=== PATIENT | male | born 1955 | race Caucasian/White ===

== ENCOUNTER 2020-11-27 16:31 | Inpatient (IN) | payer MEDICARE, OTHER, SELFPAY ==
[2020-11-27] VITALS (7 sets, daily range): BP systolic 156–177; BP diastolic 68–87; PULSE 51–71; RESP 16–18; TEMP 36.4–37.3; O2SAT 95–97; BMI 25.8
--- NOTE | 2020-11-27 17:18 | HMH.EDGENADL ---
ED Disposition Clinical Impression: Pancreatitis Qualifiers: Chronicity: acute Pancreatitis type: unspecified pancreatitis type Acute pancreatitis complication: no infection or necrosis Qualified Code(s): K85.90 - Acute pancreatitis without necrosis or infection, unspecified Urinary tract infection Qualifiers: Urinary tract infection type: site unspecified Hematuria presence: without hematuria Qualified Code(s): N39.0 - Urinary tract infection, site not specified Disposition: Admitted as Observation Condition on Discharge: Fair Referrals: Rajeev Da Silva JR, MD [Primary Care Provider] - - Critical Care Critical Care Time: No Attestation: On 11/27/20, the high probability of a clinically significant, sudden or life threatening deterioration of the following system(s) required my full and direct attention, intervention and personal management. The time I documented below is in addition to time spent performing reported procedures but includes the following listed in this critical care notation. Medical Decision Making - Corey Inquiry Pt receiving controlled substance: No Vital Signs: 11/27/20 16:36 11/27/20 17:19 11/27/20 17:30 Temperature 97.5 F L Temperature Source Oral Pulse Rate 51 L 55 L Pulse Rate [Right] 60 Respiratory Rate 18 Blood Pressure Blood Pressure [Right Arm] 176/80 H Blood Pressure Mean Blood Pressure Mean [Right Arm] 112 Blood Pressure Source Blood Pressure Source [Right Arm] Automatic Cuff Blood Pressure Position 02 Sat by Pulse Oximetry 97 97 95 Oxygen Delivery Method Room Air 11/27/20 17:31 11/27/20 19:06 Temperature Temperature Source Pulse Rate 56 L 56 L Pulse Rate [Right] Respiratory Rate 18 Blood Pressure 177/87 H 175/68 H Blood Pressure [Right Arm] Blood Pressure Mean 117 Blood Pressure Mean [Right Arm] Blood Pressure Source Automatic Cuff Blood Pressure Source [Right Arm] Blood Pressure Position Sitting 02 Sat by Pulse Oximetry 95 97 Oxygen Delivery Method Room Air - Lab Data Lab Results 11/27/20 16:44: WBC 14.0 H, RBC 4.90, Hgb 14.6, Hct 40.7 L, MCV 83.0, MCH 29.9, MCHC 36.0 H, RDW 14.3, Plt Count 155, MPV 9.0, Neut % (Auto) 81.7 H, Lymph % (Auto) 11.9, [place] % (Auto) 5.9, Eos % (Auto) 0.2, Baso % (Auto) 0.2, Neut # (Auto) 11.4 H, Lymph # (Auto) 1.7, [place] # (Auto) 0.8, Eos # (Auto) 0.0, Baso # (Auto) 0.0 11/27/20 16:44: Sodium 135 L, Potassium 3.2 L, Chloride 97 L, Carbon Dioxide 30, Anion Gap 11.2, BUN 13, Creatinine 0.80, Estimated Creat Clear 85, Estimated GFR 97, Est GFR ( Amer) 117, Glucose 185 H, Calcium 9.1 11/27/20 16:44: Total Bilirubin 1.0, Direct Bilirubin 0.5 H, Conjugated Bilirubin 0.0, Indirect Bilirubin 0.5, Unconjugated Bilirubin 0.6, AST 52, ALT 34, Alkaline Phosphatase 87, Total Protein 7.6, Albumin 4.5, Lipase 2194 H 11/27/20 17:50: Urine Color Yellow, Urine Appearance Clear, Urine pH 7.0, Ur Specific [place] 1.020, Urine Protein 3+, Urine Glucose (UA) Negative, Urine Ketones 1+, Urine Blood 2+, Urine Nitrate Negative, Urine Bilirubin Negative, Urine Urobilinogen 1.0, Ur Leukocyte Esterase Trace, Urine RBC Tntc, Urine WBC Tntc, Ur Squamous Epith Cells 5-10, Urine Bacteria 3+ Result diagrams: 11/27/20 16:44 11/27/20 16:44 Orders (Tests/Meds): ED MEDICATIONS Generic Name Dose Route Start Last Admin Trade Name Freq PRN Reason Stop Dose Admin Ceftriaxone Sodium 1 gm/ 50 mls @ 100 mls/hr 11/27/20 19:30 11/27/20 20:10 Sodium Chloride IV 12/11/20 19:29 100 mls/hr Q24H IGOR Administration Protocol Discontinued Medications Generic Name Dose Route Start Last Admin Trade Name Freq PRN Reason Stop Dose Admin Iopamidol 75 ml 11/27/20 18:08 11/27/20 18:09 Iopamidol-370 (76%);100ml Bottle IV 11/27/20 18:09 75 ml ONCE ONE Administration Ondansetron HCl 4 mg 11/27/20 17:25 11/27/20 17:29 Ondansetron 4mg/2ml Vial IV 11/27/20 17:26 4 mg ONCE ONE Administration Po
--- NOTE | 2020-11-27 17:24 | CT_ITS ---
PROCEDURE INFORMATION: Exam: CT Abdomen And Pelvis With Contrast Exam date and time: 11/27/2020 5:24 PM Age: 64 years old Clinical indication: Localized; Patient HX: Lower abdominal pain with nausea and vomiting. ; Additional info: Abdominal pain, lower TECHNIQUE: Imaging protocol: Computed tomography of the abdomen and pelvis with contrast. Total images: 315 Radiation optimization: All CT scans at this facility use at least one of these dose optimization techniques: automated exposure control; mA and/or kV adjustment per patient size (includes targeted exams where dose is matched to clinical indication); or iterative reconstruction. Contrast material: ISOVUE; Contrast volume: 75 ml; Contrast route: IV; COMPARISON: No relevant prior studies available. FINDINGS: Lungs: Visualized lung bases are clear. Heart: Heart size normal. Mediastinal space: The visualized distal esophagus is normal. Liver: Mildly lobulated liver contour suggesting hepatic cirrhosis. No mass lesions. No intrahepatic biliary ductal dilatation. Gallbladder and bile ducts: There is mild pericholecystic edema along the gallbladder fossa, but not along the free wall of the gallbladder and there is no gallbladder wall thickening or adjacent stranding to specifically favor cholecystitis. This may relate to cirrhosis and hypoproteinemia. No calcified gallstones are evident. Correlate clinically for evidence of cholecystitis. Consider sonographic evaluation as clinically indicated. Nondilated bile ducts. Pancreas: Normal. No inflammatory changes or ductal dilation. Spleen: Normal. No splenomegaly. Adrenal glands: The right adrenal gland is normal. The left adrenal gland contains a 15 x 13 x 12 mm nodule measuring 50 Hounsfield units on average density. This is an indeterminate lesion. Recommend nonemergent evaluation with adrenal protocol CT or MRI. Kidneys and ureters: No acute abnormalities. No hydronephrosis or hydroureter. No urinary tract stones are identified. Stomach and bowel: The stomach is largely contracted without gross abnormality. The small bowel is nondilated with no gross abnormality. No acute colonic abnormalities. Moderate diverticulosis involving the distal colon without evidence of acute diverticulitis. Appendix: The appendix is normal in caliber and demonstrates no evidence of appendicitis. Intraperitoneal space: No free fluid or air. Vasculature: Moderate atherosclerotic aortoiliac calcification without aneurysm. Perigastric and splenorenal varices consistent with portal hypertension and portosystemic shunting. Recanalized periumbilical veins also noted. Lymph nodes: No adenopathy. Urinary bladder: Mild urinary bladder wall thickening with equivocal mild adjacent stranding. Correlate with UA for evidence of cystitis. Reproductive: Moderately enlarged prostate with lobular elevation of the bladder floor. Bones/joints: No acute osseous abnormalities. Bilateral L5 spondylolysis with 8 mm spondylolisthesis and severe disc degenerative changes at L5-S1. Moderate-severe bilateral foraminal stenosis at this level. Soft tissues: Unremarkable. IMPRESSION: 1. Findings suspicious for cystitis or possibly changes of chronic intermittent bladder outlet obstruction, correlate with UA. 2. Moderate prostate enlargement with lobular elevation of the bladder floor. No significant bladder overdistention is seen currently. 3. Evidence of hepatic cirrhosis with splenorenal varices and additional smaller varices elsewhere, suggesting portal hypertension and portosystemic shunting. 4. Mild pericholecystic edema along the gallbladder fossa but not involving the free
[2020-11-27 17:29] LABS: Chloride 97 mmol/L (98-107); Potassium 3.2 mmoL/L (3.5-5.1); Sodium 135 mmol/L (136-145)
[2020-11-27 17:32] LABS: Anion Gap 11.2 mEq/L (5-15); Blood Urea Nitrogen 13 mg/dl (9-20); Calcium 9.1 mg/dl (8.4-10.2); Carbon Dioxide 30 mmol/L (22.0-30.0); Creatinine Clearance Estimated 85 mL/min (50-200); Estimated Glomerular Filt Rate 97 ml/min (>60); GFR (African American) 117 ML/MIN (>60); Glucose 185 mg/dl (74-100)
--- NOTE | 2020-11-27 17:34 | PC.NURSE ---
Pt provided urinal, informed of need for sample.
[2020-11-27 17:37] LABS: Basophils % 0.2 % (0.1-2.0); Eosinophils % 0.2 % (0.1-12.0); Hematocrit 40.7 % (42.0-52.0); Hemoglobin 14.6 g/dL (14.1-18.0); Lymphocytes # 1.7 K/mm3 (0.7-4.5); Lymphocytes % 11.9 % (10-50); Mean Corpuscular Hemoglobin 29.9 pg (27.0-31.2); Monocytes # 0.8 K/mm3 (0.1-1.0); Monocytes % 5.9 % (1.7-9.3); Neutrophils # 11.4 K/mm3 (1.8-7.8); Neutrophils % 81.7 % (37.0-80.0); Platelet Count 155 K/mm3 (142-424); Red Cell Distribution Width 14.3 % (11.5-17.5)
[2020-11-27 17:56] LABS: Microscopic, Urine URINE MICROSCOPIC (MICROSCOPIC)
[2020-11-27 18:03] LABS: Alanine Aminotransferase 34 U/L (12-78); Albumin Level 4.5 g/dl (3.5-5.0); Alkaline Phosphatase 87 U/L (38-126); Aspartate Amino Transferase 52 U/L (17-59); Bilirubin,Direct 0.5 mg/dl (0.0-0.4); Bilirubin,Indirect 0.5 mg/dL (0.0-0.9); Bilirubin,Unconjugated 0.6 mg/dL (0.0-1.1); Total Protein,Serum 7.6 g/dl (6.3-8.2)
[2020-11-27 18:07] LABS: Appearance,Urine CLEAR (Clear); Blood, Urine 2+ (Negative); Color,Urine YELLOW (Yellow); Glucose,Urine (UA) Negative (Negative); Ketones,Urine 1+ (Negative); Leukocyte Esterase,Urine TRACE (Negative); Nitrate,Urine Negative (Negative); Protein,Urine 3+ (Negative)
[2020-11-27 18:28] LABS: Bilirubin,Urine Negative (Negative)
[2020-11-27 18:30] LABS: Lipase 2194 U/L (23-300)
[2020-11-27 18:48] LABS: Bacteria,Urine 3+ /lpf; RBC,Urine TNTC #/hpf (0-3); WBC,Urine TNTC #/hpf (0-3)
--- NOTE | 2020-11-27 20:17 | PC.NURSE ---
LAILA Correia on phone with dr loaiza
[2020-11-27 20:44] LABS: Coronavirus 19, PCR Not Detected (NotDetected); Influenza A, PCR Not Detected (NotDetected); Influenza B, PCR Not Detected (NotDetected)
--- NOTE | 2020-11-27 22:04 | PC.NURSE ---
PT ARRIVED TO [facility] VIA STRETCHER FROM ED W/STAFF AT [id number]
--- NOTE | 2020-11-27 23:32 | HMH.PHAVTE ---
[facility] Pharmacy VTE Monitoring - Patient Demographics Admission date: 11/27/20 Report Date: 11/27/20 Time: 23:32 Allergies/Adverse Reactions: Patient Allergies Acetaminophen Allergy (Unknown, Uncoded 05/19/17 15:31) Height: 1.78 m Weight: 81.647 kg Patient Problems: Current Active Problems Pancreatitis (Acute) Urinary tract infection (Acute) - VTE Risk Labs: VTE Related Lab Results Hgb 14.6 g/dL (14.1-18.0) 11/27/20 16:44 Hct 40.7 % (42.0-52.0) L 11/27/20 16:44 Plt Count 155 K/mm3 (142-424) 11/27/20 16:44 BUN 13 mg/dl (9-20) 11/27/20 16:44 Creatinine 0.80 mg/dl (0.66-1.25) 11/27/20 16:44 Estimated Creat Clear 85 mL/min (50-200) 11/27/20 16:44 Was VTE Risk Assessment Performed: Yes VTE Score: 4 VTE Risk Level: Low Risk Clinical Trial Participant: No - Prophylaxis VTE Prophylaxis Ordered?: Yes Types of VTE Prophylaxis: TEDS Knee High
--- NOTE | 2020-11-27 23:37 | HMH.PHAINT ---
home medication list confirmed using list from [facility]
--- NOTE | 2020-11-28 07:00 | US_ITS ---
PROCEDURE: US GALLBLADDER CLINICAL INDICATION: pancreatitis, possible cholecystitis on CT COMPARISON: CT CT ABDOMEN PELVIS W CON from 11/27/2020 FINDINGS: Pancreas: Unremarkable/Not well seen Liver: There is coarse echogenicity of the liver. No focal liver lesions are demonstrated.. There is appropriate direction of blood flow within a and mildly prominent portal vein at 16 mm.. Right kidney: Unremarkable appearing. No hydronephrosis. Gallbladder: No shadowing gallstones apparent. There is some thick sludge noted along the posterior aspect of the gallbladder. Tiny nonshadowing stones cannot be excluded. Common bile duct is normal at 4 mm. Gallbladder wall slightly prominent at 4 mm. No pericholecystic fluid or biliary dilatation. IMPRESSION: 1. Coarse echogenicity of the liver with appropriate direction of blood flow within a mildly dilated portal vein 2. No shadowing gallstones apparent. There is some sludge within the gallbladder. Tiny nonshadowing stones are not excluded. Dictated by: Tito Hernandez MD 11/28/2020 12:47 Tito Hernandez MD in [place] 11/28/2020 12:47
[2020-11-28 07:43] LABS: Alanine Aminotransferase 31 U/L (12-78); Albumin Level 3.7 g/dl (3.5-5.0); Albumin/Globulin Ratio 1.3 (1.1-1.8); Alkaline Phosphatase 79 U/L (38-126); Anion Gap 10.2 mEq/L (5-15); Aspartate Amino Transferase 48 U/L (17-59); Basophils % 0.2 % (0.1-2.0); Bilirubin,Total 0.7 mg/dl (0.2-1.3); Blood Urea Nitrogen 13 mg/dl (9-20); Calcium 8.3 mg/dl (8.4-10.2); Carbon Dioxide 30 mmol/L (22.0-30.0); Chloride 104 mmol/L (98-107); Creatinine Clearance Estimated 85 mL/min (50-200); Eosinophils % 0.2 % (0.1-12.0); Estimated Glomerular Filt Rate 97 ml/min (>60); GFR (African American) 117 ML/MIN (>60); Globulin 2.8 g/dL (1.3-3.2); Glucose 170 mg/dl (74-100); Hematocrit 38.9 % (42.0-52.0); Hemoglobin 13.7 g/dL (14.1-18.0); Lipase 1842 U/L (23-300); Lymphocytes # 1.1 K/mm3 (0.7-4.5); Lymphocytes % 11.9 % (10-50); Mean Corpuscular HGB Conc 35.1 g/dL (31.8-35.4); Mean Corpuscular Hemoglobin 29.8 pg (27.0-31.2); Mean Corpuscular Volume 84.7 fl (80-94); Mean Platelet Volume 8.6 fl (7.4-10.4); Monocytes # 0.6 K/mm3 (0.1-1.0); Monocytes % 6.5 % (1.7-9.3); Neutrophils # 7.7 K/mm3 (1.8-7.8); Neutrophils % 81.2 % (37.0-80.0); Platelet Count 132 K/mm3 (142-424); Potassium 3.2 mmoL/L (3.5-5.1); Red Blood Count 4.59 M/mm3 (4.60-6.20); Red Cell Distribution Width 14.5 % (11.5-17.5); Sodium 141 mmol/L (136-145); Total Protein,Serum 6.5 g/dl (6.3-8.2); White Blood Count 9.5 K/mm3 (4.8-10.8)
[2020-11-28 08:00] VITALS: BP 160/82; PULSE 66; RESP 17; TEMP 36.7; O2SAT 95
--- NOTE | 2020-11-28 08:00 | HMH.HP ---
*Admission Date: 11/27/20 <Marichuy Luo - 11/28/20 08:29> *Chief complaint: Nausea, vomiting and abdominal pain. <Marichuy Luo - 11/28/20 08:29> *History of present illness: Mr. Garcia is a 64-year-old male patient with a history of hypertension, hyperlipidemia, type 2 diabetes mellitus, and environmental allergies who presented to [facility] after having nausea vomiting with abdominal discomfort for 3 days. He states he ate a large quantity of grapes after which he became nauseated and began his vomiting. He has been unable to retain medicines, food or fluids and felt dehydrated. He denies having a fever. His bowels moved 3 days ago but have had no stools since. He denies hematemesis, melena, and hematochezia. He has had some difficulty with urination but describes an enlarged prostate. He thus presented to [facility] emergency room for evaluation. In the emergency room Patient was started on Rocephin and given Zofran, Phenergan and IV fluids. CT scan Of the abdomen and pelvis revealed the following: IMPRESSION: 1. Findings suspicious for cystitis or possibly changes of chronic intermittent bladder outlet obstruction, correlate with UA. 2. Moderate prostate enlargement with lobular elevation of the bladder floor. No significant bladder overdistention is seen currently. 3. Evidence of hepatic cirrhosis with splenorenal varices and additional smaller varices elsewhere, suggesting portal hypertension and portosystemic shunting. 4. Mild pericholecystic edema along the gallbladder fossa but not involving the free wall, probably related to hepatic cirrhosis and hypoproteinemia. Correlate clinically for evidence of cholecystitis, consider sonographic evaluation as clinically indicated. 5. Moderate diverticulosis involving the distal colon without evidence of acute diverticulitis. 6. Additional non-emergent findings detailed above. Urinalysis reveals probable UTI with white blood cells too numerous to count, 3+ bacteria, 2+ blood with pending urine culture. Blood chemistries show low potassium at 3.2 and otherwise normal electrolytes. Kidney function is normal. Liver function studies show an normal AST of 52 and ALT with normal alkaline phosphatase at 87. Lipase was 2194 on admission and this morning is 1842. Albumin is normal. Bilirubin is normal at 1. This morning patient remains nauseated. He said his abdomen has quit hurting. He has been voiding QS. He denies chest pain and shortness of breath. He is n.p.o. at present. <Luo,Marichuy 11/28/20 08:29> [facility] History Medical History: Reports:: Diabetes Mellitus Type 2, Hyperlipidemia, Hypertension Denies:: Cancer, Internal Pacemaker, MRSA, Palpitations <Luo,Marichuy - 11/28/20 08:29> *Have you ever received a pneumonia vaccine?: Yes <PujaMarichuy 11/28/20 08:29> *Have you received a flu vaccine this season?: Yes <PujaMarichuy 11/28/20 08:29> Other Medical History: Reports: Cataracts, Liver Disease <PujaMarichuy 11/28/20 08:29> Comment:: BPH <PujaMarichuy 11/28/20 08:29> Other Surgeries: No: Pacemaker <PujaMarichuy 11/28/20 08:29> Amputation: No <PujaMarichuy 11/28/20 08:29> Comment: 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 <PujaMarichuy 11/28/20 08:29> - *Social History Last grade of school completed: 7th or 8th <PujaMarichuy 11/28/20 08:29> Smoking Status: Former smoker <PujaMarichuy - 11/28/20 08:29> Alcohol Intake: former <Luo,Marichuy 11/28/20 08:29> *Occupational Status:: retired <PujaMarichuy 11/28/20 08:29> Housing: house <PujaMarichuy 11/28/20 08:29> Household Members: spouse <PujaMarichuy 11/28/20 08:29> *Travel in the last 8 weeks: None <Marichuy Luo 11/28/20 08:29> Family Hx:: Cancer, Diabetes, Heart Attack, Hypertension <Marichuy Luo 11/28/20 08:29> Review of Systems - Constitutional Reports headache(s), Denies fever(s) <Marichuy Luo
[2020-11-28 11:44] LABS: POC Glucose,Bedside 178 (70-110)
[2020-11-28 11:44] LABS: POC Glucose,Bedside 186 (70-110)
[2020-11-28 14:56] VITALS: BMI 25.9
[2020-11-28 15:26] VITALS: BP 130/62; PULSE 49; RESP 20; TEMP 36.9; O2SAT 94
--- NOTE | 2020-11-28 17:44 | PC.NURSE ---
Pt treated once this shift for nausea w/ adequate relief voiced. Remains on room air, w/ no s/s of resp distress. HR regular. Abdomen soft, tender w/ active BS in all quads. Independent w/ adl's. Voiding per urinal w/o difficulty. Tolerating clear liquid diet. @ bedside this shift. No complaints voiced. Call galina w/in reach.
[2020-11-28 20:00] VITALS: BP 173/74; PULSE 55; RESP 18; TEMP 36.6; O2SAT 94; O2SAT 96
[2020-11-28 21:59] LABS: POC Glucose,Bedside 194 (70-110)
[2020-11-28 21:59] LABS: POC Glucose,Bedside 147 (70-110)
[2020-11-29 04:00] VITALS: BP 168/69; PULSE 52; RESP 18; TEMP 36.7; O2SAT 96
[2020-11-29 05:16] VITALS: BMI 25.3
[2020-11-29 05:53] LABS: POC Glucose,Bedside 107 (70-110)
--- NOTE | 2020-11-29 06:15 | PC.NURSE ---
patient had multiple episodes of n/v/d; phenergan per MAR x 2 doses; shows no s/s of acute distress at this time. Bed at lowest level, call light within reach; will continue to monitor.
[2020-11-29 07:22] LABS: Basophils % 0.3 % (0.1-2.0); Eosinophils # 0.2 K/mm3 (0.0-0.4); Eosinophils % 1.8 % (0.1-12.0); Hematocrit 41.2 % (42.0-52.0); Hemoglobin 14.4 g/dL (14.1-18.0); Lymphocytes # 1.4 K/mm3 (0.7-4.5); Lymphocytes % 13.1 % (10-50); Mean Corpuscular Hemoglobin 29.6 pg (27.0-31.2); Mean Corpuscular Volume 84.7 fl (80-94); Mean Platelet Volume 8.4 fl (7.4-10.4); Monocytes # 0.7 K/mm3 (0.1-1.0); Monocytes % 6.9 % (1.7-9.3); Neutrophils # 8.3 K/mm3 (1.8-7.8); Neutrophils % 77.9 % (37.0-80.0); Platelet Count 130 K/mm3 (142-424); Red Blood Count 4.87 M/mm3 (4.60-6.20); Red Cell Distribution Width 14.4 % (11.5-17.5); White Blood Count 10.7 K/mm3 (4.8-10.8)
[2020-11-29 07:26] LABS: Chloride 101 mmol/L (98-107); Sodium 137 mmol/L (136-145)
[2020-11-29 07:29] LABS: Alanine Aminotransferase 38 U/L (12-78); Albumin Level 3.8 g/dl (3.5-5.0); Albumin/Globulin Ratio 1.5 (1.1-1.8); Alkaline Phosphatase 85 U/L (38-126); Aspartate Amino Transferase 60 U/L (17-59); Bilirubin,Total 1.2 mg/dl (0.2-1.3); Blood Urea Nitrogen 13 mg/dl (9-20); Carbon Dioxide 28 mmol/L (22.0-30.0); Creatinine Clearance Estimated 84 mL/min (50-200); Estimated Glomerular Filt Rate 85 ml/min (>60); GFR (African American) 102 ML/MIN (>60); Globulin 2.5 g/dL (1.3-3.2); Glucose 155 mg/dl (74-100); Lipase 332 U/L (23-300); Total Protein,Serum 6.3 g/dl (6.3-8.2)
[2020-11-29 07:41] LABS: Anion Gap 10.8 mEq/L (5-15); Potassium 2.8 mmoL/L (3.5-5.1)
[2020-11-29 07:44] VITALS: BP 180/70; PULSE 65; RESP 18; TEMP 36.4; O2SAT 96
--- NOTE | 2020-11-29 08:19 | NM_ITS ---
PROCEDURE: NM HEPATOBILIARY W PHARM CLINICAL INDICATION: persistent N V; abnormal GB US COMPARISON: No exams were available for comparison TECHNIQUE: DOSE: 8.25 mCi technetium Choletec and 1.6 mcg of CCK FINDINGS: Homogeneous activity is present within the hepatic parenchyma. Activity is present in the gallbladder by 10 minutes Activity is present in the small bowel by 15 minutes. The gallbladder ejection fraction is calculated to be 60 percent. Mild pain was reported with CCK infusion IMPRESSION: Unremarkable hepatobiliary scan with normal gallbladder ejection fraction. Dictated by: Tito Hernandez MD 11/29/2020 15:04 Tito Hernandez MD in [place] 11/29/2020 15:04
--- NOTE | 2020-11-29 08:19 | HMH.ACPN2 ---
<Meri Flores - Last Filed: 11/29/20 08:19> Internal Medicine - PN: Subj *Date: 11/29/20 *Time: 08:19 Interval history: Patient states he had a rough night. He had nausea and diarrhea all night. He states he is having some pain in his right mid and upper quadrant. He says he is hungry and would like to try some food. His gallbladder showed no stones but some sludge. Exam Vital signs and Labs for Last 24 Hours: Temp Pulse Resp BP Pulse Ox 97.6 F 65 18 180/70 H 96 11/29/20 07:44 11/29/20 07:44 11/29/20 07:44 11/29/20 07:44 11/29/20 07:44 Laboratory Results - last 24 hr 11/28/20 05:05: POC Glucose 186 H 11/28/20 11:35: POC Glucose 178 H 11/28/20 16:59: POC Glucose 147 H 11/28/20 21:29: POC Glucose 194 H 11/29/20 05:39: POC Glucose 107 11/29/20 06:56: WBC 10.7, RBC 4.87, Hgb 14.4, Hct 41.2 L, MCV 84.7, MCH 29.6, MCHC 35.0, RDW 14.4, Plt Count 130 L, MPV 8.4, Neut % (Auto) 77.9, Lymph % (Auto) 13.1, [place] % (Auto) 6.9, Eos % (Auto) 1.8, Baso % (Auto) 0.3, Neut # (Auto) 8.3 H, Lymph # (Auto) 1.4, [place] # (Auto) 0.7, Eos # (Auto) 0.2, Baso # (Auto) 0.0 11/29/20 06:56: Sodium 137, Potassium 2.8 L*, Chloride 101, Carbon Dioxide 28, Anion Gap 10.8, BUN 13, Creatinine 0.90, Estimated Creat Clear 84, Estimated GFR 85, Est GFR ( Amer) 102, Glucose 155 H, Calcium 8.0 L, Total Bilirubin 1.2, AST 60 H, ALT 38, Alkaline Phosphatase 85, Total Protein 6.3, Albumin 3.8, Globulin 2.5, Albumin/Globulin Ratio 1.5, Lipase 332 H I & O for Last 24 hours: Intake & Output 11/26/20 11/27/20 11/28/20 11/29/20 11:59 11:59 11:59 11:59 Intake Total 2465 / 2465 4238 / 4238 Output Total 700 / 700 3750 / 3750 Balance 1765 / 1765 488 / 488 Weight 180 lb 0.013 oz 177 lb 2 oz Microbiology Reports for the Last 24 Hours: Microbiology 11/27/20 17:50 Urine,Clean Catch Urine Culture - Preliminary - Constitutional no acute distress - *Routine Respiratory Exam Present: CTA bilaterally - *Routine Cardiovascular Exam Present: RRR - *Routine Abdominal Exam Present: soft, normoactive bowel sounds, tenderness (Right middle quadrant and right upper quadrant) - *Routine Extremities Exam Absent: cyanosis, clubbing, edema - *Routine Skin Exam Present: warm. Absent: rash - *Routine Neurological Exam Present: alert, oriented X3 Assessment and Plan (1) Intractable nausea and vomiting Status: Acute Category: Medical Code(s): R11.2 - Nausea with vomiting, unspecified (2) Pancreatitis Status: Acute Qualifiers: Chronicity: acute Pancreatitis type: unspecified pancreatitis type Acute pancreatitis complication: no infection or necrosis Qualified Code(s): K85.90 - Acute pancreatitis without necrosis or infection, unspecified Category: Medical Code(s): K85.90 - Acute pancreatitis without necrosis or infection, unspecified (3) Urinary tract infection Status: Acute Qualifiers: Urinary tract infection type: site unspecified Hematuria presence: without hematuria Qualified Code(s): N39.0 - Urinary tract infection, site not specified Category: Medical Code(s): N39.0 - Urinary tract infection, site not specified (4) Hypertension Status: Chronic Category: Medical Code(s): I10 - Essential (primary) hypertension (5) Cirrhosis Status: Chronic Category: Medical Code(s): K74.60 - Unspecified cirrhosis of liver (6) Type 2 diabetes mellitus Status: Chronic Category: Medical Code(s): E11.9 - Type 2 diabetes mellitus without complications (7) BPH (benign prostatic hyperplasia) Status: Chronic Category: Medical Code(s): N40.0 - Benign prostatic hyperplasia without lower urinary tract symptoms (8) Diverticulosis Status: Chronic Category: Medical Code(s): K57.90 - Diverticulosis of intestine, part unspecified, without perforation or abscess without bleeding - Assessment and plan all Dx Assessment and Plan for all problems:: We will start the
[2020-11-29 11:26] LABS: POC Glucose,Bedside 178 (70-110)
[2020-11-29 14:59] VITALS: BP 173/73; PULSE 50; RESP 18; TEMP 36.6; O2SAT 97
[2020-11-29 15:48] LABS: Adenovirus F 40/41, stool Not Detected (NotDetected); Astrovirus Not Detected (NotDetected); Campylobacter Not Detected (NotDetected); Clostridium Difficile A/B, PCR Not Detected (NotDetected); Cryptosporidium Not Detected (NotDetected); Cyclospora Cayetanesis Not Detected (NotDetected); Entamoeba histolytica Not Detected (NotDetected); Enteroaggregative E coli Not Detected (NotDetected); Enteropathogenic E coli Not Detected (NotDetected); Enterotoxigenic E coli Not Detected (NotDetected); Giardia lamblia Not Detected (NotDetected); Norovirus Not Detected (NotDetected); Plesimonas Shigalloides, PCR Not Detected (NotDetected); Salmonella, PCR Not Detected (NotDetected); Shiga-like toxin E coli Not Detected (NotDetected); Shigella Enterovasive E coli Not Detected (NotDetected); Vibrio Cholerae Not Detected (NotDetected); Vibrio, PCR Not Detected (NotDetected); Yersinia Entercolitica, PCR Not Detected (NotDetected)
[2020-11-29 15:49] LABS: Rotavirus A Not Detected (NotDetected); Sapovirus Not Detected (NotDetected)
[2020-11-29 17:20] LABS: POC Glucose,Bedside 138 (70-110)
--- NOTE | 2020-11-29 17:59 | PC.NURSE ---
PT IS RESTING IN BED. PT'S ONLY COMPLAINT THIS SHIFT HAS BEEN DISCOMFORT WITH THE POTASSIUM RUNS AND THAT HE HAS HAD SEVERAL LOOSE STOOLS. DIARRHEA PANEL HAS BEEN COLLECTED AND SENT TO THE LAB. ALERT AND ORIENTED X4. PT WAS NPO T/O MOST OF THE SHIFT TODAY B/C HE HAD TO HAVE A HIDA SCAN. PT IS NOW EATING A DIABETIC DIET WHICH HE APPEARS TO BE TOLERATING FINE. URINATING WELL. PT HAS AMBULATED TO THE BATHROOM SEVERAL TIMES THIS SHIFT. RADIOLOGY STATED PT HAD AN ACCIDENT ON THE TABLE DURING HIDA SCAN. LUNG SOUNDS CLEAR. ABDOMEN SOFT/NON TENDER WITH ACTIVE BOWEL SOUNDS. WILL CONTINUE TO MONITOR.
[2020-11-29 20:00] VITALS: BP 175/64; PULSE 50; RESP 18; TEMP 36.7; O2SAT 95
[2020-11-29 22:57] LABS: POC Glucose,Bedside 149 (70-110)
[2020-11-30 03:44] VITALS: BP 172/73; PULSE 49; RESP 16; TEMP 36.7; O2SAT 94
--- NOTE | 2020-11-30 05:19 | PC.NURSE ---
Patient is A&Ox4. Patient has had some loose stools during the beginning of the shift. Patient is wearing a brief. Patient had some complaints of nausea around midnight and was administered phenergan per MAR. Patient has rested well through the night. Bowel sounds in all 4 quadrants are hyperactive. Call light within reach, bed in lowest position. Will continue to monitor.
[2020-11-30 05:30] VITALS: BMI 25.7
[2020-11-30 06:09] LABS: POC Glucose,Bedside 166 (70-110)
[2020-11-30 06:38] LABS: Anion Gap 9.8 mEq/L (5-15); Blood Urea Nitrogen 12 mg/dl (9-20); Calcium 7.8 mg/dl (8.4-10.2); Carbon Dioxide 27 mmol/L (22.0-30.0); Chloride 103 mmol/L (98-107); Creatinine Clearance Estimated 85 mL/min (50-200); Estimated Glomerular Filt Rate 85 ml/min (>60); GFR (African American) 102 ML/MIN (>60); Glucose 157 mg/dl (74-100); Sodium 137 mmol/L (136-145)
[2020-11-30 07:08] LABS: Potassium 2.8 mmoL/L (3.5-5.1)
--- NOTE | 2020-11-30 07:19 | PC.NURSE ---
Yancy from lab called and reported a critical potassium level of 2.8. Name and and Lab value repeated x2. tank car reconditioner for A paged at [id number]
[2020-11-30 07:37] VITALS: BP 175/73; PULSE 51; RESP 18; TEMP 37.3; O2SAT 95
[2020-11-30 08:00] VITALS: O2SAT 95
--- NOTE | 2020-11-30 08:30 | HMH.ACPN2 ---
<Meri Flores - Last Filed: 11/30/20 08:30> Internal Medicine - PN: Subj *Date: 11/30/20 *Time: 08:30 Interval history: Patient states he is feeling a little bit better this morning. He tried to drink water too fast this morning and got nauseated, but his abdominal pain has improved. His HIDA scan was unremarkable. Dr. Clement tried to order a diet for the patient 3 times yesterday and he still did not get a diet. Exam Vital signs and Labs for Last 24 Hours: Temp Pulse Resp BP Pulse Ox 99.2 F 51 L 18 175/73 H 95 11/30/20 07:37 11/30/20 07:37 11/30/20 07:37 11/30/20 07:37 11/30/20 07:37 Laboratory Results - last 24 hr 11/29/20 11:19: POC Glucose 178 H 11/29/20 15:40: Stl Aeromonas (PCR) Not detected, Stl C. cayetanensis PCR Not detected, Stool Rotavirus (PCR) Not detected, Stl Adenov F 40/41 PCR Not detected, Stool Astrovirus (PCR) Not detected, Stool Campylobacter PCR Not detected, Stl C.difficile Tox PCR Not detected, Stool Cryptosporidium PCR Not detected, Stl E.coli Shiga Tox PCR Not detected, Stool E coli O157 PCR Not detected, Stl Enterotoxigenic E PCR Not detected, Stool EPEC (PCR) Not detected, Stool EAEC (PCR) Not detected, Stl E. histolytica PCR Not detected, Stool Giardia Lamblia PCR Not detected, Stool Salmonella PCR Not detected, Stool Sapovirus (PCR) Not detected, Stl P. shigelloides PCR Not detected, Stl Shigella/EIEC PCR Not detected, St Y.enterocolitica PCR Not detected, Stool Vibrio (PCR) Not detected, Stl Vibrio cholerae PCR Not detected, Stl Norovirus GI/GII PCR Not detected 11/29/20 17:03: POC Glucose 138 H 11/29/20 20:53: POC Glucose 149 H 11/30/20 05:32: Sodium 137, Potassium 2.8 L*, Chloride 103, Carbon Dioxide 27, Anion Gap 9.8, BUN 12, Creatinine 0.90, Estimated Creat Clear 85, Estimated GFR 85, Est GFR ( Amer) 102, Glucose 157 H, Calcium 7.8 L 11/30/20 05:52: POC Glucose 166 H I & O for Last 24 hours: Intake & Output 11/27/20 11/28/20 11/29/20 11/30/20 11:59 11:59 11:59 11:59 Intake Total 2465 / 2465 4238 / 4238 3744 / 3744 Output Total 700 / 700 4300 / 4300 4276 / 4276 Balance 1765 / 1765 -62 / -62 -532 / -532 Weight 180 lb 0.013 oz 177 lb 2 oz 179 lb 12.309 oz Microbiology Reports for the Last 24 Hours: Microbiology 11/27/20 17:50 Urine,Clean Catch Urine Culture - Final Multiple organisms, suggests contamination. - Constitutional no acute distress - *Routine Respiratory Exam Present: CTA bilaterally - *Routine Cardiovascular Exam Present: RRR - *Routine Abdominal Exam Present: soft, normoactive bowel sounds. Absent: tenderness - *Routine Extremities Exam Absent: cyanosis, clubbing, edema - *Routine Skin Exam Present: warm. Absent: rash - *Routine Neurological Exam Present: alert, oriented X3 Assessment and Plan (1) Intractable nausea and vomiting Status: Acute Category: Medical Code(s): R11.2 - Nausea with vomiting, unspecified (2) Pancreatitis Status: Acute Qualifiers: Chronicity: acute Pancreatitis type: unspecified pancreatitis type Acute pancreatitis complication: no infection or necrosis Qualified Code(s): K85.90 - Acute pancreatitis without necrosis or infection, unspecified Category: Medical Code(s): K85.90 - Acute pancreatitis without necrosis or infection, unspecified (3) Urinary tract infection Status: Acute Qualifiers: Urinary tract infection type: site unspecified Hematuria presence: without hematuria Qualified Code(s): N39.0 - Urinary tract infection, site not specified Category: Medical Code(s): N39.0 - Urinary tract infection, site not specified (4) Hypertension Status: Chronic Category: Medical Code(s): I10 - Essential (primary) hypertension (5) Cirrhosis Status: Chronic Category: Medical Code(s): K74.60 - Unspecified cirrhosis of liver (6) Type 2 diabetes mellitus Status: Chronic Category: Medical Code(s): E11.9 - Type 2
[2020-11-30 12:07] LABS: POC Glucose,Bedside 145 (70-110)
[2020-11-30 15:48] VITALS: BP 140/64; PULSE 66; RESP 17; TEMP 37.2; O2SAT 96
--- NOTE | 2020-11-30 16:43 | PC.NURSE ---
Pt has slept most of this shift. Pt has tolerated a diabetic diet w/o difficulty this shift. No other acute changes or complaints at this time. Will continue to monitor.
[2020-11-30 17:03] LABS: POC Glucose,Bedside 209 (70-110)
[2020-11-30 19:11] VITALS: BP 131/64; PULSE 52; RESP 20; TEMP 36.9; O2SAT 96
[2020-11-30 20:00] VITALS: O2SAT 97
[2020-12-01] VITALS: BP 138/68; PULSE 53; RESP 18; TEMP 36.6; O2SAT 98
[2020-12-01 01:39] LABS: POC Glucose,Bedside 147 (70-110)
[2020-12-01 05:00] VITALS: BMI 25.7
[2020-12-01 05:52] LABS: POC Glucose,Bedside 163 (70-110)
[2020-12-01 06:00] VITALS: BP 158/72; PULSE 69; RESP 18; TEMP 36.8; O2SAT 96
[2020-12-01 07:47] LABS: Anion Gap 10.2 mEq/L (5-15); Blood Urea Nitrogen 15 mg/dl (9-20); Calcium 7.9 mg/dl (8.4-10.2); Carbon Dioxide 26 mmol/L (22.0-30.0); Chloride 105 mmol/L (98-107); Creatinine Clearance Estimated 85 mL/min (50-200); Estimated Glomerular Filt Rate 75 ml/min (>60); GFR (African American) 91 ML/MIN (>60); Glucose 144 mg/dl (74-100); Potassium 3.2 mmoL/L (3.5-5.1); Sodium 138 mmol/L (136-145)
[2020-12-01 07:52] VITALS: BP 155/64; PULSE 52; RESP 18; TEMP 36.7; O2SAT 98
--- NOTE | 2020-12-01 08:50 | HMH.ACPN2 ---
Internal Medicine - PN: Subj *Date: 12/01/20 *Time: 08:50 Interval history: He looks and feels much better this morning. He had a good day yesterday. He still has loose stools but frequency has decreased considerably. No further nausea or vomiting. He has been tolerating his diabetic diet. No abdominal pain. Exam Vital signs and Labs for Last 24 Hours: Temp Pulse Resp BP Pulse Ox 98.1 F 52 L 18 155/64 H 98 12/01/20 07:52 12/01/20 07:52 12/01/20 07:52 12/01/20 07:52 12/01/20 07:52 Laboratory Results - last 24 hr 11/30/20 11:57: POC Glucose 145 H 11/30/20 16:48: POC Glucose 209 H 11/30/20 19:53: POC Glucose 147 H 12/01/20 05:41: POC Glucose 163 H 12/01/20 06:30: Sodium 138, Potassium 3.2 L, Chloride 105, Carbon Dioxide 26, Anion Gap 10.2, BUN 15, Creatinine 1.00, Estimated Creat Clear 85, Estimated GFR 75, Est GFR ( Amer) 91, Glucose 144 H, Calcium 7.9 L I & O for Last 24 hours: Intake & Output 11/28/20 11/29/20 11/30/20 12/01/20 11:59 11:59 11:59 11:59 Intake Total 2465 / 2465 4238 / 4238 3744 / 4744 3279 / 3279 Output Total 700 / 700 4300 / 4300 4826 / 5426 2550 / 2550 Balance 1765 / 1765 -62 / -62 -1082 / -682 729 / 729 Weight 180 lb 0.013 oz 177 lb 2 oz 179 lb 12.309 oz 180 lb Microbiology Reports for the Last 24 Hours: Microbiology 11/27/20 17:50 Urine,Clean Catch Urine Culture - Final Multiple organisms, suggests contamination. Narrative: He is sitting up in the chair. He is alert and oriented. Color is normal. Lungs are clear. Heart is regular. Abdomen soft and nondistended with no masses or tenderness. Assessment and Plan (1) Intractable nausea and vomiting Status: Acute Category: Medical Code(s): R11.2 - Nausea with vomiting, unspecified (2) Pancreatitis Status: Acute Qualifiers: Chronicity: acute Pancreatitis type: unspecified pancreatitis type Acute pancreatitis complication: no infection or necrosis Qualified Code(s): K85.90 - Acute pancreatitis without necrosis or infection, unspecified Category: Medical Code(s): K85.90 - Acute pancreatitis without necrosis or infection, unspecified (3) Urinary tract infection Status: Acute Qualifiers: Urinary tract infection type: site unspecified Hematuria presence: without hematuria Qualified Code(s): N39.0 - Urinary tract infection, site not specified Category: Medical Code(s): N39.0 - Urinary tract infection, site not specified (4) Hypertension Status: Chronic Category: Medical Code(s): I10 - Essential (primary) hypertension (5) Cirrhosis Status: Chronic Category: Medical Code(s): K74.60 - Unspecified cirrhosis of liver (6) Type 2 diabetes mellitus Status: Chronic Category: Medical Code(s): E11.9 - Type 2 diabetes mellitus without complications (7) BPH (benign prostatic hyperplasia) Status: Chronic Category: Medical Code(s): N40.0 - Benign prostatic hyperplasia without lower urinary tract symptoms (8) Diverticulosis Status: Chronic Category: Medical Code(s): K57.90 - Diverticulosis of intestine, part unspecified, without perforation or abscess without bleeding - Assessment and plan all Dx Assessment and Plan for all problems:: Clinically and subjectively much improved. Potassium is still low but improved to 3.2. He is stable for discharge and will follow up with his PCP, Dr. Da Silva, within the next 1 to 2 weeks. He will continue on potassium supplementation as an outpatient. He will finish with 5 more days of p.o. Levaquin as an outpatient.
--- NOTE | 2020-12-05 16:24 | HMH.DCSUM ---
General - General Admission date:: 11/27/20 <Harrison Clement - 01/07/21 18:32> 11/27/20 <Meri Flores - 12/05/20 16:30> Discharge date: 12/01/20 <SandraMeri - 12/05/20 16:30> HPI HPI: Mr. Garcia is a 64-year-old male patient with a history of hypertension, hyperlipidemia, type 2 diabetes mellitus, and environmental allergies who presented to [facility] after having nausea vomiting with abdominal discomfort for 3 days. He states he ate a large quantity of grapes after which he became nauseated and began his vomiting. He has been unable to retain medicines, food or fluids and felt dehydrated. He denies having a fever. His bowels moved 3 days ago but have had no stools since. He denies hematemesis, melena, and hematochezia. He has had some difficulty with urination but describes an enlarged prostate. He thus presented to [facility] emergency room for evaluation. In the emergency room Patient was started on Rocephin and given Zofran, Phenergan and IV fluids. CT scan Of the abdomen and pelvis revealed the following: IMPRESSION: 1. Findings suspicious for cystitis or possibly changes of chronic intermittent bladder outlet obstruction, correlate with UA. 2. Moderate prostate enlargement with lobular elevation of the bladder floor. No significant bladder overdistention is seen currently. 3. Evidence of hepatic cirrhosis with splenorenal varices and additional smaller varices elsewhere, suggesting portal hypertension and portosystemic shunting. 4. Mild pericholecystic edema along the gallbladder fossa but not involving the free wall, probably related to hepatic cirrhosis and hypoproteinemia. Correlate clinically for evidence of cholecystitis, consider sonographic evaluation as clinically indicated. 5. Moderate diverticulosis involving the distal colon without evidence of acute diverticulitis. 6. Additional non-emergent findings detailed above. Urinalysis reveals probable UTI with white blood cells too numerous to count, 3+ bacteria, 2+ blood with pending urine culture. Blood chemistries show low potassium at 3.2 and otherwise normal electrolytes. Kidney function is normal. Liver function studies show an normal AST of 52 and ALT with normal alkaline phosphatase at 87. Lipase was 2194 on admission and this morning is 1842. Albumin is normal. Bilirubin is normal at 1. This morning patient remains nauseated. He said his abdomen has quit hurting. He has been voiding QS. He denies chest pain and shortness of breath. He is n.p.o. at present. <Meri Flores - 12/05/20 16:30> Hospital Course Hospital Course: The patient was admitted and started on IV fluids as well as Invanz for UTI and suspected intra-abdominal infection, and Zofran and Compazine for his nausea. He was also placed on sliding scale insulin and his home medications were restarted. A right upper quadrant ultrasound was ordered. It showed a coarse echogenicity of the liver with a mildly dilated portal vein. There were no shadowing gallstones apparent but there was some sludge in the gallbladder. A HIDA scan was therefore ordered and was unremarkable. The patient continued with nausea and some diarrhea. He was started on Reglan due to probable diabetic gastroparesis and a diet was ordered. His abdominal pain improved and his white blood cell count improved on the Invanz. He was given runs of potassium due to hypokalemia. A diarrhea panel was ordered and was normal. He was switched to oral medications. He gave a further history that he had been having similar bouts of nausea, vomiting, and diarrhea on and off for approximately 2 years. His PCP had advised him to get a colonoscopy in the past, but he had refused. By 12/01/2020, he looked and felt better. His diarrhea had decreased and he had no further nausea or vomiting. He was able to tolerate a diabetic diet and was stable to be discharged home. H
== END 2020-12-01 09:40 | disposition home or self-care (01) | DRG 689 ==
LOC: ER 20:12 → 2ND 21:05
PROVIDERS: Admitting Provider Family Medicine; Emergency Provider Emergency Medicine; PCP Family Medicine; Visit Provider Family Medicine
DX: N39.0 Urinary tract infection, site not specified (principal); K85.90 Acute pancreatitis without necrosis or infection, unspecified; K74.60 Unspecified cirrhosis of liver; Z87.891 Personal history of nicotine dependence; E78.5 Hyperlipidemia, unspecified; I10 Essential (primary) hypertension; N40.0 Benign prostatic hyperplasia without lower urinary tract symptoms; Z79.84 Long term (current) use of oral hypoglycemic drugs; E11.43 Type 2 diabetes mellitus with diabetic autonomic (poly)neuropathy; K31.84 Gastroparesis; E87.6 Hypokalemia
CPT/HCPCS: 36415; 74177; 76705; 78227; 80048; 80053; 80076; 81001; 82962; 83690; 85025; 87086; 87507; 96365; 96375; 96376; 99291; A9537; J1335; J2405; J2805; Q9967; U0003

== ENCOUNTER 2021-12-12 20:57 | Observation (INO) | payer MEDICARE, OTHER, SELFPAY ==
[2021-12-12 21:01] VITALS: BP 166/87; PULSE 72; RESP 18; TEMP 36.8; O2SAT 98; BMI 27.1
--- NOTE | 2021-12-12 21:14 | PC.NURSE ---
PATIENT AMBULATED TO BATHROOM. SOILED ATTENDS. NEW ATTENDS AND WIPES GIVEN TO PATIENT. ASSISTING PATIENT WITH CLEANING UP. INFORMED PATIENT TO RING OUT WHEN HE WAS FINISHED AND I WILL ATTEMPT TO OBTAIN STOOL SAMPLE FROM SOILED ATTENDS.
[2021-12-12 21:18] LABS: Coronavirus 19, PCR Not Detected (NotDetected); Influenza A, PCR Not Detected (NotDetected); Influenza B, PCR Not Detected (NotDetected)
[2021-12-12 21:29] VITALS: BP 175/76; PULSE 64; O2SAT 99
--- NOTE | 2021-12-12 21:36 | PC.NURSE ---
UNABLE TO OBTAIN STOOL SAMPLE FROM SOILED ATTENDS. INSTRUCTED PATIENT WE NEED A STOOL AND URINE SAMPLE. PATIENT SITTING UP IN RECLINER. WARM BLANKET GIVEN. AT BEDSIDE.
[2021-12-12 21:44] LABS: Basophils # 0.3 K/mm3 (0-0.2); Basophils % 1.7 % (0.1-2.0); Eosinophils # 0.1 K/mm3 (0.0-0.4); Eosinophils % 0.5 % (0.1-12.0); Hematocrit 47.8 % (42.0-52.0); Hemoglobin 16.4 g/dL (14.1-18.0); Lymphocytes # 1.4 K/mm3 (0.7-4.5); Lymphocytes % 7.9 % (10-50); Mean Corpuscular HGB Conc 34.3 g/dL (31.8-35.4); Mean Corpuscular Hemoglobin 29.7 pg (27.0-31.2); Mean Corpuscular Volume 86.7 fl (80-94); Mean Platelet Volume 8.5 fl (7.4-10.4); Monocytes # 1.2 K/mm3 (0.1-1.0); Monocytes % 6.8 % (1.7-9.3); Neutrophils # 14.3 K/mm3 (1.8-7.8); Neutrophils % 83.1 % (37.0-80.0); Platelet Count 254 K/mm3 (142-424); Red Blood Count 5.51 M/mm3 (4.60-6.20); Red Cell Distribution Width 14.4 % (11.5-17.5); White Blood Count 17.2 K/mm3 (4.8-10.8)
[2021-12-12 21:46] LABS: MANUAL DIFFERENTIAL MANUAL DIFFERENTIAL (MANUAL DIFF)
[2021-12-12 22:00] VITALS: BP 176/77; PULSE 65; O2SAT 99
[2021-12-12 22:15] LABS: Erythrocyte Sedimentation Rate 18 mm/hr (0-20)
[2021-12-12 22:16] LABS: Amylase 94 U/L (30-110); Lipase 72 U/L (23-300)
[2021-12-12 22:17] LABS: Alanine Aminotransferase 45 U/L (12-78); Albumin Level 4.7 g/dl (3.5-5.0); Albumin/Globulin Ratio 1.4 (1.1-1.8); Alkaline Phosphatase 63 U/L (38-126); Anion Gap 18.4 mEq/L (5-15); Aspartate Amino Transferase 93 U/L (17-59); Bilirubin,Total 0.8 mg/dl (0.2-1.3); Blood Urea Nitrogen 34 mg/dl (9-20); Calcium 10.3 mg/dl (8.4-10.2); Carbon Dioxide 31 mmol/L (22.0-30.0); Chloride 85 mmol/L (98-107); Creatinine Clearance Estimated 54 mL/min (50-200); Estimated Glomerular Filt Rate 43 ml/min (>60); GFR (African American) 52 ML/MIN (>60); Globulin 3.3 g/dL (1.3-3.2); Glucose 190 mg/dl (74-100); Potassium 3.4 mmoL/L (3.5-5.1); Sodium 131 mmol/L (136-145)
[2021-12-12 22:17] LABS: Lactic Acid 1.8 mmol/L (0.7-2.1)
[2021-12-12 22:22] LABS: C-Reactive Protein 2.5 mg/L (0-4)
--- NOTE | 2021-12-12 22:27 | CT_ITS ---
PROCEDURE INFORMATION: Exam: CT Abdomen And Pelvis With Contrast Exam date and time: 12/12/2021 10:55 PM Age: 66 years old Clinical indication: Nausea and vomiting and other: Diarrhea; Additional info: V/d TECHNIQUE: Imaging protocol: Computed tomography of the abdomen and pelvis with contrast. Radiation optimization: All CT scans at this facility use at least one of these dose optimization techniques: automated exposure control; mA and/or kV adjustment per patient size (includes targeted exams where dose is matched to clinical indication); or iterative reconstruction. Contrast material: ISOVUE; Contrast volume: 75 ml; Contrast route: IV; COMPARISON: CT ABDOMEN PELVIS W CON 11/27/2020 6:00 PM FINDINGS: Tubes, catheters and devices: Lienorenal shunt most likely represents portal hypertension. Heart: Coronary artery calcifications. Liver: Morphologic changes of cirrhosis. Gallbladder and bile ducts: Normal. No calcified stones. No ductal dilation. Pancreas: Normal. No ductal dilation. Spleen: Normal. No splenomegaly. Adrenal glands: There is a 1.7 cm left adrenal nodule, unchanged. This is likely benign. Kidneys and ureters: Normal. No hydronephrosis. Stomach and bowel: Mild nonspecific bowel wall thickening of portions of small bowel and colon. Moderate sigmoid diverticulosis without diverticulitis. Appendix: Unremarkable appendix. Intraperitoneal space: Unremarkable. No free air. No significant fluid collection. Vasculature: Near occlusion of the right internal iliac artery at its origin. The arteries demonstrate severe atherosclerotic disease. Lymph nodes: Unremarkable. No enlarged lymph nodes. Urinary bladder: Nonspecific urinary bladder wall thickening. Reproductive: Mild prostate enlargement. Bones/joints: Chronic pars defects of L5. Soft tissues: Unremarkable. IMPRESSION: 1. Mild nonspecific bowel wall thickening of portions of small bowel and colon. Please exclude enterocolitis. 2. Nonspecific urinary bladder wall thickening. Please exclude infection. 3. Morphologic changes of cirrhosis. Findings suspicious for portal hypertension.
[2021-12-12 22:30] VITALS: BP 194/90; PULSE 67; O2SAT 97
[2021-12-12 22:40] LABS: Anisocytosis 1+; Lymphocytes % 12 % (10-50); Monocytes % 4 % (2-9); Neutrophils % 84 % (42-76); Platelet Estimate Normal; Total Cells Counted 100
[2021-12-12 22:44] LABS: Procalcitonin 0.123 ng/mL (0.0-2.0)
[2021-12-12 23:00] LABS: Microscopic, Urine URINE MICROSCOPIC (MICROSCOPIC)
[2021-12-12 23:17] LABS: Appearance,Urine CLEAR (Clear); Bilirubin,Urine Negative (Negative); Blood, Urine 2+ (Negative); Color,Urine YELLOW (Yellow); Glucose,Urine (UA) Negative (Negative); Ketones,Urine Negative (Negative); Leukocyte Esterase,Urine TRACE (Negative); Nitrate,Urine Negative (Negative); PH,Urine 6.5 (5.0-8.5); Protein,Urine 3+ (Negative); Specific Gravity, Urine 1.015 (1.005-1.030); Urobilinogen,Urine 0.2 EU/dl (0.2)
[2021-12-12 23:29] LABS: Bacteria,Urine Trace /lpf
[2021-12-12 23:30] VITALS: BP 180/76; PULSE 68; O2SAT 90
--- NOTE | 2021-12-12 23:39 | PC.NURSE ---
PATIENT VOIDED 150 ML PER URINAL. PATIENT REPORTS HE FEELS BETTER. NO NEEDS AT THIS TIME. INFORMED PATIENT WE ARE WAITING ON CT RESULTS.
[2021-12-13] VITALS (10 sets, daily range): BP systolic 156–202; BP diastolic 69–98; PULSE 62–92; RESP 16–20; TEMP 36.4–37.2; O2SAT 95–98; BMI 23.4
--- NOTE | 2021-12-13 00:09 | HMH.EDNVD ---
ED Disposition Clinical Impression: Enterocolitis, GABE (acute kidney injury), SIRS (systemic inflammatory response syndrome) Type 2 diabetes mellitus Qualifiers: Diabetes mellitus hand spring former insulin use: unspecified hand spring former insulin use status Diabetes mellitus complication status: with other specified complication Qualified Code(s): E11.69 - Type 2 diabetes mellitus with other specified complication Disposition: Admitted as Observation Condition on Discharge: Fair Instructions: DI for Diarrhea and Traveler's Diarrhea -- Adult, DI for Diarrhea and Traveler's Diarrhea -- Child, DI for Nausea -- Adult, DI for Nausea -- Child Referrals: Milton Bermudez MD [Primary Care Provider] - - Critical Care Critical Care Time: No Attestation: On 12/12/21, the high probability of a clinically significant, sudden or life threatening deterioration of the following system(s) required my full and direct attention, intervention and personal management. The time I documented below is in addition to time spent performing reported procedures but includes the following listed in this critical care notation. Medical Decision Making - Medical Records Medical records reviewed: Yes: I reviewed the patient's medical records. - Corey Inquiry Pt receiving controlled substance: No Vital Signs: 12/12/21 21:01 12/12/21 21:29 12/12/21 22:00 Temperature 98.2 F Temperature Source Oral Pulse Rate 64 65 Pulse Rate [Right Brachial] 72 Respiratory Rate 18 Blood Pressure 175/76 H 176/77 H Blood Pressure [Right Arm] 166/87 H Blood Pressure Mean Blood Pressure Mean [Right Arm] 113 Blood Pressure Source [Right Arm] Automatic Cuff Blood Pressure Position [Right Arm] Sitting 02 Sat by Pulse Oximetry 98 99 99 Oxygen Delivery Method Room Air Room Air Room Air 12/12/21 22:30 12/12/21 23:30 12/13/21 00:00 Temperature Temperature Source Pulse Rate 67 68 73 Pulse Rate [Right Brachial] Respiratory Rate Blood Pressure 194/90 H 180/76 H 202/85 H Blood Pressure [Right Arm] Blood Pressure Mean 102 Blood Pressure Mean [Right Arm] Blood Pressure Source [Right Arm] Blood Pressure Position [Right Arm] 02 Sat by Pulse Oximetry 97 90 L 97 Oxygen Delivery Method Room Air Room Air Room Air 12/13/21 00:30 Temperature Temperature Source Pulse Rate 72 Pulse Rate [Right Brachial] Respiratory Rate Blood Pressure 195/85 H Blood Pressure [Right Arm] Blood Pressure Mean 99 Blood Pressure Mean [Right Arm] Blood Pressure Source [Right Arm] Blood Pressure Position [Right Arm] 02 Sat by Pulse Oximetry 98 Oxygen Delivery Method Room Air - Lab Data Lab results reviewed: Yes: I reviewed the patient's lab results. Lab Results 12/12/21 21:02: SARS-CoV-2 (PCR) Not detected, Influenza A Untype (PCR) Not detected, Influenza Type B (PCR) Not detected 12/12/21 21:30: WBC 17.2 H, RBC 5.51, Hgb 16.4, Hct 47.8, MCV 86.7, MCH 29.7, MCHC 34.3, RDW 14.4, Plt Count 254, MPV 8.5, Neut % (Auto) 83.1 H, Lymph % (Auto) 7.9 L, Lassen % (Auto) 6.8, Eos % (Auto) 0.5, Baso % (Auto) 1.7, Neut # (Auto) 14.3 H, Lymph # (Auto) 1.4, Lassen # (Auto) 1.2 H, Eos # (Auto) 0.1, Baso # (Auto) 0.3 H, Total Counted 100, Neutrophils % (Manual) 84 H, Lymphocytes % (Manual) 12, Monocytes % (Manual) 4, Platelet Estimate Normal, RBC Morphology Not Reportable, Anisocytosis 1+, ESR 18 12/12/21 21:30: Sodium 131 L, Potassium 3.4 L, Chloride 85 L, Carbon Dioxide 31 H, Anion Gap 18.4 H, BUN 34 H, Creatinine 1.60 H, Estimated Creat Clear 54, Estimated GFR 43 L, Est GFR ( Amer) 52 L, Glucose 190 H, Calcium 10.3 H, Total Bilirubin 0.8, AST 93 H, ALT 45, Alkaline Phosphatase 63, C-Reactive Protein 2.5, Total Protein 8.0 D, Albumin 4.7, Globulin 3.3 H, Albumin/Globulin Ratio 1.4, Procalcitonin 0.123 12/12/21 21:30: Amylase 94, Lipase 72 12/12/21 21:45: Lactate 1.8 12/12/21 22:58: Urine Color Yellow, Urine Appearance Clear, Urine pH 6.5, Ur Specific Kramer 1.0
--- NOTE | 2021-12-13 00:46 | PC.NURSE ---
paged dr bradley @ this time
--- NOTE | 2021-12-13 00:49 | PC.NURSE ---
deacon on phone with dr bradley
--- NOTE | 2021-12-13 00:56 | PC.NURSE ---
ADMISSIONS NOTIFIED OF ADMISSION AND ROOM ASSIGNMENT TO .
--- NOTE | 2021-12-13 01:43 | PC.NURSE ---
PT ARRIVESD TO THE FLOOR VIA WHEEL CHAIR AT THIS TIME
--- NOTE | 2021-12-13 01:48 | PC.NURSE ---
PT ARRIVIED TO FLOOR VIA WHEEL CHAIR AT THIS TIME
--- NOTE | 2021-12-13 04:09 | PC.NURSE ---
Patient admitted to floor this shift. Patient abd is soft and non tender, no pain noted. Patient states last emesis was around 1700. Patient experiencing some nausea medicated per MAR. Patient has had no bowl movements since admitted to floor patient states he has been experiencing diarrhea at home. Patient aware of need to obtain stool sample.
[2021-12-13 06:17] LABS: POC Glucose,Bedside 137 (70-110)
[2021-12-13 06:47] LABS: Chloride 97 mmol/L (98-107); Sodium 135 mmol/L (136-145)
[2021-12-13 06:50] LABS: Basophils # 0.1 K/mm3 (0-0.2); Basophils % 0.4 % (0.1-2.0); Blood Urea Nitrogen 27 mg/dl (9-20); Carbon Dioxide 29 mmol/L (22.0-30.0); Creatinine Clearance Estimated 54 mL/min (50-200); Eosinophils % 0.1 % (0.1-12.0); Estimated Glomerular Filt Rate 51 ml/min (>60); GFR (African American) 61 ML/MIN (>60); Hematocrit 41.9 % (42.0-52.0); Lymphocytes # 1.2 K/mm3 (0.7-4.5); Mean Corpuscular HGB Conc 34.2 g/dL (31.8-35.4); Mean Corpuscular Hemoglobin 30.1 pg (27.0-31.2); Mean Corpuscular Volume 88.2 fl (80-94); Mean Platelet Volume 8.6 fl (7.4-10.4); Monocytes # 1.1 K/mm3 (0.1-1.0); Monocytes % 7.4 % (1.7-9.3); Neutrophils # 12.6 K/mm3 (1.8-7.8); Platelet Count 162 K/mm3 (142-424); Red Blood Count 4.75 M/mm3 (4.60-6.20); Red Cell Distribution Width 14.5 % (11.5-17.5)
[2021-12-13 06:51] LABS: Magnesium 1.5 mg/dl (1.6-2.3)
[2021-12-13 06:52] LABS: Hemoglobin 14.3 g/dL (14.1-18.0); MANUAL DIFFERENTIAL MANUAL DIFFERENTIAL (MANUAL DIFF)
[2021-12-13 06:56] LABS: Calcium 8.6 mg/dl (8.4-10.2); Glucose 148 mg/dl (74-100)
[2021-12-13 07:01] LABS: Anion Gap 12.2 mEq/L (5-15); Potassium 3.2 mmoL/L (3.5-5.1)
--- NOTE | 2021-12-13 07:17 | P.CONPHA_ITS ---
[facility] Pharmacy VTE Monitoring - Patient Demographics Admission date: 12/13/21 Report Date: 12/13/21 Time: 07:17 Allergies/Adverse Reactions: Patient Allergies acetaminophen Adverse Reaction (Unknown, Verified 12/12/21 21:19) Unknown allergy reaction Height: 1.78 m Weight: 74.389 kg Patient Problems: Current Active Problems Type 2 diabetes mellitus (Chronic) Enterocolitis (Acute) GABE (acute kidney injury) (Acute) SIRS (systemic inflammatory response syndrome) (Acute) - VTE Risk Labs: VTE Related Lab Results Hgb 14.3 g/dL (14.1-18.0) D 12/13/21 06:35 Hct 41.9 % (42.0-52.0) L 12/13/21 06:35 Plt Count 162 K/mm3 (142-424) D 12/13/21 06:35 BUN 27 mg/dl (9-20) H 12/13/21 06:35 Creatinine 1.40 mg/dl (0.66-1.25) H 12/13/21 06:35 Estimated Creat Clear 54 mL/min (50-200) 12/13/21 06:35 Was VTE Risk Assessment Performed: Yes VTE Score: 4 VTE Risk Level: Low Risk - Prophylaxis VTE Prophylaxis Ordered?: Yes Types of VTE Prophylaxis: TEDS Knee High Location of Applied Device: Bilateral Lower Extremeties
--- NOTE | 2021-12-13 08:00 | HMH.PHAINT ---
MEDICATION RECONCILIATION COMPLETED ON PATIENT USING EXTERNAL FILL HISTORY FROM PHARMACY. -BREANNA MÁRQUEZ, ZAYD
[2021-12-13 08:12] LABS: Lymphocytes % 13 % (10-50); Monocytes % 3 % (2-9); Neutrophils % 84 % (42-76); Total Cells Counted 100
[2021-12-13 08:13] LABS: Ovalocytes 1+; Platelet Estimate Normal
--- NOTE | 2021-12-13 08:54 | HMH.HP ---
*Admission Date: 12/13/21 *Chief complaint: vomiting *History of present illness: Mr. Garcia is a 66-year-old male who was a former patient of Dr. Higgins in [place] but will now be seeing Dr. Bermudez. He states he has had nausea and vomiting with some diarrhea for the past 2 to 3 days along with some mid abdominal pain. He has been unable to keep down any food and has had very little liquids. He states he had an episode like this last year around the same time. He presented to the emergency room for further evaluation and treatment.A CT of the abdomen and pelvis showed nonspecific bowel wall thickening of portions of the small bowel and colon suggesting enterocolitis. There was also urinary bladder wall thickening and morphologic changes of cirrhosis with findings suspicious for portal hypertension. The patient was admitted and started on IV fluids and Levaquin. He was also given antiemetics. This morning he is feeling some better. [facility] History I have reviewed the patient's past medical history: Yes Medical History: Reports:: Chronic Obstructive Pulmonary Disease (COPD), Diabetes Mellitus Type 2, Hyperlipidemia, Hypertension Denies:: Cancer, Diabetes Mellitus Type 1, Internal Pacemaker, MRSA, Palpitations *Have you ever received a pneumonia vaccine?: Yes *Have you received a flu vaccine this season?: Yes Other Medical History: Reports: Cataracts, Liver Disease Other Surgeries: Yes: Other (Brain aneurysm). No: Pacemaker Amputation: No Fractures: No - *Social History Last grade of school completed: High school graduate Smoking Status: Former smoker # Packs/Day (cigarettes): 2 Alcohol Intake: never *Occupational Status:: retired Housing: house Household Members: spouse *Travel in the last 8 weeks: None Family Hx:: Cancer, Diabetes, Heart Attack, Hypertension Review of Systems - Constitutional Reports weakness, Denies chills, Denies fever(s) - Eyes Denies blurry vision, Denies double vision - ENT Reports nasal congestion, Denies sore throat - *Cardiovascular Reports shortness of breath, Denies chest pain - *Respiratory Reports shortness of breath, Denies cough - *Gastrointestinal Reports abdominal pain, Reports loose stools, Reports nausea, Reports vomiting - *Genitourinary Reports difficulty urinating, Denies painful urination - *Musculoskeletal Denies joint pain - *Neurologic Reports headache(s), Reports dizziness, Reports weakness, Denies localized weakness Meds Home Medications Medication Instructions Recorded Confirmed Type Fluticasone Propionate 1 spr NS DAILY 11/27/20 12/13/21 History Fluticasone/Vilanterol [Breo 1 puff IH DAILY 11/27/20 12/13/21 History Ellipta 200-25 Mcg INH] Metformin HCl [Metformin 1000mg 1,000 mg PO BID 11/27/20 12/12/21 History Tablets] Pregabalin 150 mg PO TID 11/27/20 12/12/21 History Rosuvastatin Calcium 20 mg PO DAILY 11/27/20 12/12/21 History Sitagliptin Phosphate [Januvia 100 mg PO DAILY 11/27/20 12/12/21 History 100mg tablet] Tamsulosin HCl 0.4 mg PO DAILY 11/27/20 12/12/21 History carvediloL [Carvedilol 3.125mg Tab] 3.125 mg PO BID 11/27/20 12/12/21 History glyBURIDE [Diabeta 5mg tablet] 10 mg PO BID 11/27/20 12/12/21 History hydroCHLOROthiazide [HCTZ 25mg 25 mg PO DAILY 11/27/20 12/12/21 History tab] Amlodipine Besylate 10 mg PO DAILY 11/30/20 12/12/21 History Aspirin [Aspirin 81mg EC Tab] 81 mg PO DAILY 11/30/20 12/12/21 History lisinopriL [Lisinopril] 40 mg PO DAILY 11/30/20 12/12/21 History Ondansetron [Zofran 4mg ODT] 4 mg PO TIDP PRN #12 tab 12/01/20 12/12/21 Rx Allergies Allergy/AdvReac Type Severity Reaction Status Date / Time acetaminophen AdvReac Unknown Unknown Verified 12/12/21 21:19 allergy reaction Exam Vital signs and Labs for Last 24 Hours: Temp Pulse Resp BP Pulse Ox 98.3 F 62 17 178/76 H 95 12/13/21 07:49 12/13/21 07:49 12/13/21 07:49 12/13/21 07:49 12/13/21 07:49 Laboratory
--- NOTE | 2021-12-13 13:22 | US_ITS ---
FINAL REPORT CLINICAL HISTORY: bruit? FINDINGS: Limited sonographic images of the abdominal aorta were obtained. The abdominal aorta measures up to 2.14 cm. There is no evidence of abdominal aortic aneurysm. Calcified plaque is identified. IMPRESSION: No evidence of abdominal aortic aneurysm. Reviewed, Interpreted and Dictated by Chester Samuel MD Transcribed by Marichuy Sunshine Authenticated and [facility]
--- NOTE | 2021-12-13 14:45 | PC.NURSE ---
PT IS AOX4, ABLE TO MAKE NEEDS KNOWN TO STAFF. WAS TREATED WITH PRN ZOFRAN FOR N/V THIS MORNING. ABD IS SOFT AND NON-TENDER. NO NEEDS VOICED TO THIS RN.
--- NOTE | 2021-12-13 15:12 | PC.NURSE ---
rounded on patient. no concerns or questions at this time. stated he felt he understood everything. no needs voiced. encouraged him to ring out as needed.
[2021-12-13 15:50] LABS: Adenovirus F 40/41, stool Not Detected (NotDetected); Astrovirus Not Detected (NotDetected); Campylobacter Not Detected (NotDetected); Cryptosporidium Not Detected (NotDetected); Cyclospora Cayetanesis Not Detected (NotDetected); Entamoeba histolytica Not Detected (NotDetected); Enteroaggregative E coli Not Detected (NotDetected); Enteropathogenic E coli Not Detected (NotDetected); Enterotoxigenic E coli Not Detected (NotDetected); Giardia lamblia Not Detected (NotDetected); Norovirus Not Detected (NotDetected); Plesimonas Shigalloides, PCR Not Detected (NotDetected); Rotavirus A Not Detected (NotDetected); Salmonella, PCR Not Detected (NotDetected); Sapovirus Not Detected (NotDetected); Shiga-like toxin E coli Not Detected (NotDetected); Shigella Enterovasive E coli Not Detected (NotDetected); Vibrio Cholerae Not Detected (NotDetected); Vibrio, PCR Not Detected (NotDetected); Yersinia Entercolitica, PCR Not Detected (NotDetected)
[2021-12-13 16:52] LABS: POC Glucose,Bedside 157 (70-110)
[2021-12-13 16:52] LABS: POC Glucose,Bedside 113 (70-110)
[2021-12-13 17:51] LABS: Clostridium Difficile A/B, PCR Detected (NotDetected)
--- NOTE | 2021-12-13 18:14 | PC.NURSE ---
Spoke to MD Bermudez regarding pt's positive cdiff result. He will put in orders for flagyl
[2021-12-13 20:11] LABS: POC Glucose,Bedside 113 (70-110)
[2021-12-14] VITALS: BP 187/71; PULSE 62; RESP 16; TEMP 36.8; O2SAT 93
[2021-12-14 04:00] VITALS: BP 176/73; PULSE 63; RESP 16; TEMP 36.8; O2SAT 97
[2021-12-14 05:23] VITALS: BMI 23.1
[2021-12-14 05:50] LABS: POC Glucose,Bedside 146 (70-110)
--- NOTE | 2021-12-14 06:31 | PC.NURSE ---
Patient having minimum nausea and diarrhea. Patient started on flyagal r/t positive stool sample for cdiff. Patient in contact precautions. Education provided to patient and who states they understand.
[2021-12-14 07:54] VITALS: BP 165/93; PULSE 66; RESP 20; TEMP 36.5; O2SAT 98
[2021-12-14 09:23] LABS: Basophils % 0.2 % (0.1-2.0); Eosinophils % 0.2 % (0.1-12.0); Hematocrit 40.8 % (42.0-52.0); Hemoglobin 13.4 g/dL (14.1-18.0); Lymphocytes # 1.1 K/mm3 (0.7-4.5); Lymphocytes % 7.5 % (10-50); Mean Corpuscular HGB Conc 32.8 g/dL (31.8-35.4); Mean Corpuscular Hemoglobin 29.1 pg (27.0-31.2); Mean Corpuscular Volume 88.6 fl (80-94); Mean Platelet Volume 8.7 fl (7.4-10.4); Monocytes # 0.8 K/mm3 (0.1-1.0); Monocytes % 5.8 % (1.7-9.3); Neutrophils % 86.2 % (37.0-80.0); Platelet Count 163 K/mm3 (142-424); Red Blood Count 4.61 M/mm3 (4.60-6.20); Red Cell Distribution Width 14.5 % (11.5-17.5)
[2021-12-14 09:29] LABS: Anion Gap 9.9 mEq/L (5-15); Blood Urea Nitrogen 24 mg/dl (9-20); Calcium 8.1 mg/dl (8.4-10.2); Carbon Dioxide 27 mmol/L (22.0-30.0); Chloride 96 mmol/L (98-107); Creatinine Clearance Estimated 57 mL/min (50-200); Estimated Glomerular Filt Rate 55 ml/min (>60); GFR (African American) 67 ML/MIN (>60); Glucose 144 mg/dl (74-100); Sodium 130 mmol/L (136-145)
[2021-12-14 09:32] LABS: MANUAL DIFFERENTIAL MANUAL DIFFERENTIAL (MANUAL DIFF)
[2021-12-14 09:34] LABS: Potassium 2.9 mmoL/L (3.5-5.1)
[2021-12-14 10:19] LABS: Eosinophils % 1 % (0-3); Lymphocytes % 8 % (10-50); Monocytes % 5 % (2-9); Neutrophils % 86 % (42-76); Total Cells Counted 100
[2021-12-14 10:20] LABS: Platelet Estimate Normal; RBC Morphology Normal
[2021-12-14 11:09] VITALS: BP 144/76; PULSE 61; RESP 18; TEMP 37.1; O2SAT 100
--- NOTE | 2021-12-14 11:29 | HMH.ACPN2 ---
Internal Medicine - PN: Subj *Date: 12/14/21 *Time: 11:29 Interval history: He states that he is feeling better today. He asks for something to eat. His stool PCR revealed C. difficile. He is receiving Levaquin and metronidazole. He had diarrhea this morning. Exam Vital signs and Labs for Last 24 Hours: Temp Pulse Resp BP Pulse Ox 98.8 F 61 18 144/76 H 100 12/14/21 11:09 12/14/21 11:09 12/14/21 11:09 12/14/21 11:09 12/14/21 11:09 Laboratory Results - last 24 hr 12/13/21 11:45: POC Glucose 157 H 12/13/21 15:35: Stl Aeromonas (PCR) Not detected, Stl C. cayetanensis PCR Not detected, Stool Rotavirus (PCR) Not detected, Stl Adenov F 40/41 PCR Not detected, Stool Astrovirus (PCR) Not detected, Stool Campylobacter PCR Not detected, Stl C.difficile Tox PCR Detected A, Stool Cryptosporidium PCR Not detected, Stl E.coli Shiga Tox PCR Not detected, Stool E coli O157 PCR Not detected, Stl Enterotoxigenic E PCR Not detected, Stool EPEC (PCR) Not detected, Stool EAEC (PCR) Not detected, Stl E. histolytica PCR Not detected, Stool Giardia Lamblia PCR Not detected, Stool Salmonella PCR Not detected, Stool Sapovirus (PCR) Not detected, Stl P. shigelloides PCR Not detected, Stl Shigella/EIEC PCR Not detected, St Y.enterocolitica PCR Not detected, Stool Vibrio (PCR) Not detected, Stl Vibrio cholerae PCR Not detected, Stl Norovirus GI/GII PCR Not detected 12/13/21 16:40: POC Glucose 113 H 12/13/21 19:57: POC Glucose 113 H 12/14/21 05:41: POC Glucose 146 H 12/14/21 09:03: WBC 14.0 H, RBC 4.61, Hgb 13.4 L, Hct 40.8 L, MCV 88.6, MCH 29.1, MCHC 32.8, RDW 14.5, Plt Count 163, MPV 8.7, Neut % (Auto) 86.2 H, Lymph % (Auto) 7.5 L, [place] % (Auto) 5.8, Eos % (Auto) 0.2, Baso % (Auto) 0.2, Neut # (Auto) 12.0 H, Lymph # (Auto) 1.1, [place] # (Auto) 0.8, Eos # (Auto) 0.0, Baso # (Auto) 0.0, Total Counted 100, Neutrophils % (Manual) 86 H, Lymphocytes % (Manual) 8 L, Monocytes % (Manual) 5, Eosinophils % (Manual) 1, Platelet Estimate Normal, RBC Morphology Normal 12/14/21 09:03: Sodium 130 L, Potassium 2.9 L*, Chloride 96 L, Carbon Dioxide 27, Anion Gap 9.9, BUN 24 H, Creatinine 1.30 H, Estimated Creat Clear 57, Estimated GFR 55 L, Est GFR ( Amer) 67, Glucose 144 H, Calcium 8.1 L I & O for Last 24 hours: Intake & Output 12/11/21 12/12/21 12/13/21 12/14/21 11:59 11:59 11:59 11:59 Intake Total 3407 / 3407 1452 / 1452 Output Total 1200 / 1200 1500 / 1500 Balance 2207 / 2207 -48 / -48 Weight 164 lb 161 lb 12.8 oz - Constitutional no acute distress - *Routine HEENT Exam Head: Present: normocephalic Eye: Present: EOMI, PERRL ENT: Present: mucous membranes moist - *Routine Neck Exam Present: supple. Absent: lymphadenopathy - *Routine Respiratory Exam Present: CTA bilaterally - *Routine Cardiovascular Exam Present: RRR - *Routine Abdominal Exam Present: soft, normoactive bowel sounds. Absent: tenderness - *Routine Extremities Exam Absent: cyanosis, clubbing, edema - *Routine Skin Exam Present: warm. Absent: rash - *Routine Neurological Exam Present: alert, oriented X3 Assessment and Plan (1) Clostridium difficile enterocolitis Status: Acute Category: Medical Code(s): A04.72 - Enterocolitis due to Clostridium difficile, not specified as recurrent (2) GABE (acute kidney injury) Status: Acute Category: Medical Code(s): N17.9 - Acute kidney failure, unspecified (3) SIRS (systemic inflammatory response syndrome) Status: Acute Category: Medical Code(s): R65.10 - Systemic inflammatory response syndrome (SIRS) of non-infectious origin without acute organ dysfunction (4) Type 2 diabetes mellitus Status: Chronic Qualifiers: Diabetes mellitus technician terminal and repeater insulin use: unspecified technician terminal and repeater insulin use status Diabetes mellitus complication status: with other specified complication Qualified Code(s): E11.69 - Type 2 diabetes mellitus with other specified complication Category: Medical Code(s
[2021-12-14 11:54] LABS: POC Glucose,Bedside 155 (70-110)
[2021-12-14 15:39] VITALS: BP 146/67; PULSE 65; RESP 18; TEMP 36.9; O2SAT 95
[2021-12-14 16:25] LABS: POC Glucose,Bedside 170 (70-110)
--- NOTE | 2021-12-14 17:19 | PC.NURSE ---
pt A&OX4. ambulating independently in room. tolerating full liquid diet well. loose BMX2 this shift. some complaint of nausea this AM but was relieved with medication.
[2021-12-14 20:00] VITALS: BP 150/72; PULSE 62; RESP 16; TEMP 37.1; O2SAT 96
[2021-12-15] VITALS: BP 166/75; PULSE 67; RESP 16; TEMP 36.7; O2SAT 95
[2021-12-15 01:28] LABS: POC Glucose,Bedside 128 (70-110)
--- NOTE | 2021-12-15 03:30 | PC.NURSE ---
PT REFUSED NEW IV AT THIS TIME - EDUCATED ON RISK OF INFECTION. PT VERBALIZED UNDERSTANDING. PT DID LET ME REMOVE DRESSING, CLEAN IV SITE, APPLY NEW DRESSING.
[2021-12-15 04:00] VITALS: BP 159/75; PULSE 64; RESP 16; TEMP 36.7; O2SAT 95
[2021-12-15 04:51] VITALS: BMI 23.6
--- NOTE | 2021-12-15 05:06 | PC.NURSE ---
PT ALERT AND ORIENTED X 4. PT HAS TOLERATED FULL LIQUID DIET WELL. PT STATES HE HAS HAD 1 LIQUID BM THIS SHIFT. PT HAS C/O NAUSEA X 1 THIS SHIFT, RELIEVED WITH MEDICATION. BS ACTIVE X 4. ABD SOFT. NO C/O OF PAIN. IV INFUSING PER ORDER. MAINTAINING CONTACT ENTERIC PRECAUTIONS. CALL LIGHT IN REACH. NO OTHER NEEDS AT THIS TIME.
[2021-12-15 07:40] LABS: Basophils # 0.1 K/mm3 (0-0.2); Basophils % 0.8 % (0.1-2.0); Eosinophils # 0.1 K/mm3 (0.0-0.4); Eosinophils % 0.6 % (0.1-12.0); Hematocrit 37.9 % (42.0-52.0); Hemoglobin 12.8 g/dL (14.1-18.0); Lymphocytes % 10.8 % (10-50); Mean Corpuscular HGB Conc 33.7 g/dL (31.8-35.4); Mean Corpuscular Hemoglobin 29.7 pg (27.0-31.2); Mean Corpuscular Volume 88.1 fl (80-94); Mean Platelet Volume 8.3 fl (7.4-10.4); Monocytes # 0.6 K/mm3 (0.1-1.0); Monocytes % 6.4 % (1.7-9.3); Neutrophils # 7.7 K/mm3 (1.8-7.8); Neutrophils % 81.4 % (37.0-80.0); Platelet Count 134 K/mm3 (142-424); Red Cell Distribution Width 14.4 % (11.5-17.5); White Blood Count 9.4 K/mm3 (4.8-10.8)
[2021-12-15 07:52] LABS: Anion Gap 6.9 mEq/L (5-15); Blood Urea Nitrogen 17 mg/dl (9-20); Calcium 7.6 mg/dl (8.4-10.2); Carbon Dioxide 28 mmol/L (22.0-30.0); Chloride 100 mmol/L (98-107); Creatinine Clearance Estimated 69 mL/min (50-200); Estimated Glomerular Filt Rate 67 ml/min (>60); GFR (African American) 81 ML/MIN (>60); Glucose 143 mg/dl (74-100); Sodium 132 mmol/L (136-145)
[2021-12-15 07:53] LABS: Potassium 2.9 mmoL/L (3.5-5.1)
[2021-12-15 08:00] VITALS: BP 165/83; PULSE 57; RESP 18; TEMP 36.5; O2SAT 96
[2021-12-15 09:00] LABS: Chloride 98 mmol/L (98-107); Sodium 130 mmol/L (136-145)
[2021-12-15 09:03] LABS: Blood Urea Nitrogen 19 mg/dl (9-20); Calcium 7.7 mg/dl (8.4-10.2); Carbon Dioxide 27 mmol/L (22.0-30.0); Creatinine Clearance Estimated 63 mL/min (50-200); Estimated Glomerular Filt Rate 60 ml/min (>60); GFR (African American) 73 ML/MIN (>60); Glucose 196 mg/dl (74-100)
--- NOTE | 2021-12-15 10:56 | PC.NURSE ---
Rounded on pt, cleaned and straightened room. Ice water provided, no needs voiced. Pt sitting on side of bed watching tv.
[2021-12-15 11:23] VITALS: BP 175/75; PULSE 55; RESP 18; TEMP 36.6; O2SAT 97
[2021-12-15 11:30] LABS: POC Glucose,Bedside 140 (70-110)
[2021-12-15 11:30] LABS: POC Glucose,Bedside 182 (70-110)
--- NOTE | 2021-12-15 15:01 | HMH.ACPN2 ---
Internal Medicine - PN: Subj *Date: 12/15/21 *Time: 15:01 Interval history: He is gradually feeling better. He has had 3 bowel movements at this point in the afternoon. They are still loose. He still having some cramping. His home medications had not been reordered and I reviewed those today and placed those orders. He takes pregabalin for his leg symptoms related to his diabetes and neuropathy. Diabetic medications were also ordered. Blood pressure medicines were adjusted accordingly. Here he has been running high on his blood pressure. Exam Vital signs and Labs for Last 24 Hours: Temp Pulse Resp BP Pulse Ox 97.9 F 55 L 18 175/75 H 97 12/15/21 11:23 12/15/21 11:23 12/15/21 11:23 12/15/21 11:23 12/15/21 11:23 Laboratory Results - last 24 hr 12/14/21 16:09: POC Glucose 170 H 12/14/21 20:52: POC Glucose 128 H 12/15/21 05:55: POC Glucose 140 H 12/15/21 06:24: WBC 9.4 D, RBC 4.30 L, Hgb 12.8 L, Hct 37.9 L, MCV 88.1, MCH 29.7, MCHC 33.7, RDW 14.4, Plt Count 134 L, MPV 8.3, Neut % (Auto) 81.4 H, Lymph % (Auto) 10.8, [place] % (Auto) 6.4, Eos % (Auto) 0.6, Baso % (Auto) 0.8, Neut # (Auto) 7.7, Lymph # (Auto) 1.0, [place] # (Auto) 0.6, Eos # (Auto) 0.1, Baso # (Auto) 0.1 12/15/21 06:24: Sodium 132 L, Potassium 2.9 L*, Chloride 100, Carbon Dioxide 28, Anion Gap 6.9, BUN 17 D, Creatinine 1.10, Estimated Creat Clear 69, Estimated GFR 67, Est GFR ( Amer) 81 D, Glucose 143 H, Calcium 7.6 L 12/15/21 08:48: Sodium 130 L, Potassium 3.0 L, Chloride 98, Carbon Dioxide 27, Anion Gap 8.0, BUN 19, Creatinine 1.20, Estimated Creat Clear 63, Estimated GFR 60, Est GFR ( Amer) 73, Glucose 196 H D, Calcium 7.7 L 12/15/21 11:22: POC Glucose 182 H I & O for Last 24 hours: Intake & Output 12/13/21 12/14/21 12/15/21 12/16/21 11:59 11:59 11:59 11:59 Intake Total 3407 / 3407 1452 / 1452 4080 / 4080 520 / 520 Output Total 1200 / 1200 1500 / 1500 1800 / 1800 450 / 450 Balance 2207 / 2207 -48 / -48 2280 / 2280 70 / 70 Weight 164 lb 161 lb 12.8 oz 165 lb 4.8 oz Microbiology Reports for the Last 24 Hours: Microbiology 12/12/21 21:45 Blood Blood Culture - Preliminary NO GROWTH AFTER 48 HOURS 12/12/21 21:54 Blood Blood Culture - Preliminary NO GROWTH AFTER 48 HOURS - *Routine HEENT Exam Head: Present: normocephalic Eye: Present: EOMI, PERRL ENT: Present: mucous membranes moist - *Routine Neck Exam Present: supple. Absent: lymphadenopathy - *Routine Respiratory Exam Present: CTA bilaterally - *Routine Cardiovascular Exam Present: RRR - *Routine Abdominal Exam Present: soft. Absent: normoactive bowel sounds (Hyperactive), tenderness - *Routine Extremities Exam Absent: cyanosis, clubbing, edema - *Routine Skin Exam Present: warm. Absent: rash - *Routine Neurological Exam Present: alert, oriented X3 Assessment and Plan (1) Clostridium difficile enterocolitis Status: Acute Category: Medical Code(s): A04.72 - Enterocolitis due to Clostridium difficile, not specified as recurrent (2) GABE (acute kidney injury) Status: Acute Category: Medical Code(s): N17.9 - Acute kidney failure, unspecified (3) SIRS (systemic inflammatory response syndrome) Status: Acute Category: Medical Code(s): R65.10 - Systemic inflammatory response syndrome (SIRS) of non-infectious origin without acute organ dysfunction (4) Type 2 diabetes mellitus Status: Chronic Qualifiers: Diabetes mellitus intermediate school teacher insulin use: unspecified mcfp insulin use status Diabetes mellitus complication status: with other specified complication Qualified Code(s): E11.69 - Type 2 diabetes mellitus with other specified complication Category: Medical Code(s): E11.9 - Type 2 diabetes mellitus without complications (5) BPH (benign prostatic hyperplasia) Status: Chronic Category: Medical Code(s): N40.0 - Benign prostatic hyperplasia without low
[2021-12-15 16:00] VITALS: BP 155/79; PULSE 55; RESP 18; TEMP 36.6; O2SAT 96
[2021-12-15 16:57] LABS: POC Glucose,Bedside 147 (70-110)
--- NOTE | 2021-12-15 17:49 | PC.NURSE ---
pt is A&OX4. ambulating in room independently. tolerating full liquid diet well. BMX3 this shift. no reports of pain. nausea reported this AM but was relieved by medication.
[2021-12-15 20:00] VITALS: BP 142/70; PULSE 60; RESP 17; TEMP 37.1; O2SAT 96
[2021-12-15 23:24] LABS: POC Glucose,Bedside 79 (70-110)
[2021-12-16 04:00] VITALS: BP 134/70; PULSE 57; RESP 16; TEMP 37.1; O2SAT 96
[2021-12-16 05:00] VITALS: BMI 23.6
[2021-12-16 06:54] LABS: Basophils % 0.2 % (0.1-2.0); Eosinophils # 0.3 K/mm3 (0.0-0.4); Eosinophils % 2.8 % (0.1-12.0); Hematocrit 38.8 % (42.0-52.0); Hemoglobin 13.2 g/dL (14.1-18.0); Lymphocytes # 1.6 K/mm3 (0.7-4.5); Lymphocytes % 16.9 % (10-50); Mean Corpuscular HGB Conc 34.1 g/dL (31.8-35.4); Mean Corpuscular Hemoglobin 28.9 pg (27.0-31.2); Mean Corpuscular Volume 84.7 fl (80-94); Mean Platelet Volume 7.3 fl (7.4-10.4); Monocytes # 0.6 K/mm3 (0.1-1.0); Monocytes % 6.2 % (1.7-9.3); Neutrophils # 7.1 K/mm3 (1.8-7.8); Neutrophils % 73.8 % (37.0-80.0); Platelet Count 141 K/mm3 (142-424); Red Blood Count 4.58 M/mm3 (4.60-6.20); Red Cell Distribution Width 13.9 % (11.5-17.5); White Blood Count 9.6 K/mm3 (4.8-10.8)
[2021-12-16 06:57] LABS: Anion Gap 7.8 mEq/L (5-15); Blood Urea Nitrogen 15 mg/dl (9-20); Calcium 7.8 mg/dl (8.4-10.2); Carbon Dioxide 26 mmol/L (22.0-30.0); Chloride 103 mmol/L (98-107); Creatinine Clearance Estimated 58 mL/min (50-200); Estimated Glomerular Filt Rate 55 ml/min (>60); GFR (African American) 67 ML/MIN (>60); Glucose 101 mg/dl (74-100); Potassium 3.8 mmoL/L (3.5-5.1); Sodium 133 mmol/L (136-145)
[2021-12-16 07:14] LABS: POC Glucose,Bedside 96 (70-110)
[2021-12-16 08:00] VITALS: BP 142/57; PULSE 60; RESP 14; TEMP 36.8; O2SAT 94
--- NOTE | 2021-12-16 08:52 | PC.NURSE ---
LATE ENTRY - NO ACUTE CHANGES SINCE PREVIOUS ASSESSMENT. MAINTAINING CONTACT ENTERIC PRECAUTIONS FOR C. DIFF. PT STATES HE HAS HAD 2 EPISODES OF DIARRHEA THIS SHIFT. NO C/O OF PAIN OR NAUSEA THIS SHIFT. TOLERATING FULL LIQUID DIET WELL. IV INFUSING PER ORDER. CALL LIGHT IN REACH. NO NEEDS VOICED AT THIS TIME.
--- NOTE | 2021-12-16 08:56 | HMH.ACPN2 ---
Internal Medicine - PN: Subj *Date: 12/16/21 *Time: 08:56 Interval history: Patient is feeling better. He has had 3 diarrhea stools this morning and a couple during the night. He states he has some abdominal cramping. He denies nausea and vomiting and is tolerating his full liquid diet. He ambulates in the room. Exam Vital signs and Labs for Last 24 Hours: Temp Pulse Resp BP Pulse Ox 98.2 F 60 14 142/57 H 94 L 12/16/21 08:00 12/16/21 08:00 12/16/21 08:00 12/16/21 08:00 12/16/21 08:00 Laboratory Results - last 24 hr 12/15/21 05:55: POC Glucose 140 H 12/15/21 08:48: Sodium 130 L, Potassium 3.0 L, Chloride 98, Carbon Dioxide 27, Anion Gap 8.0, BUN 19, Creatinine 1.20, Estimated Creat Clear 63, Estimated GFR 60, Est GFR ( Amer) 73, Glucose 196 H D, Calcium 7.7 L 12/15/21 11:22: POC Glucose 182 H 12/15/21 16:49: POC Glucose 147 H 12/15/21 21:20: POC Glucose 79 12/16/21 06:30: WBC 9.6, RBC 4.58 L, Hgb 13.2 L, Hct 38.8 L, MCV 84.7, MCH 28.9, MCHC 34.1, RDW 13.9, Plt Count 141 L, MPV 7.3 L, Neut % (Auto) 73.8, Lymph % (Auto) 16.9, [place] % (Auto) 6.2, Eos % (Auto) 2.8, Baso % (Auto) 0.2, Neut # (Auto) 7.1, Lymph # (Auto) 1.6, [place] # (Auto) 0.6, Eos # (Auto) 0.3, Baso # (Auto) 0.0 12/16/21 06:30: Sodium 133 L, Potassium 3.8 D, Chloride 103, Carbon Dioxide 26, Anion Gap 7.8, BUN 15, Creatinine 1.30 H, Estimated Creat Clear 58, Estimated GFR 55 L, Est GFR ( Amer) 67, Glucose 101 H D, Calcium 7.8 L 12/16/21 06:59: POC Glucose 96 I & O for Last 24 hours: Intake & Output 12/13/21 12/14/21 12/15/21 12/16/21 11:59 11:59 11:59 11:59 Intake Total 3407 / 3407 1452 / 1452 4080 / 4080 2920 / 2920 Output Total 1200 / 1200 1500 / 1500 1800 / 1800 2250 / 2250 Balance 2207 / 2207 -48 / -48 2280 / 2280 670 / 670 Weight 164 lb 161 lb 12.8 oz 165 lb 4.8 oz 165 lb 5.547 oz - Constitutional no acute distress - *Routine Respiratory Exam Present: CTA bilaterally (Anteriorly and posteriorly) - *Routine Cardiovascular Exam Present: RRR - *Routine Abdominal Exam Present: soft, tenderness (Right upper quadrant). Absent: normoactive bowel sounds (Hyperactive), distended, organomegaly - *Routine Extremities Exam Absent: edema, calf tenderness - *Routine Neurological Exam Present: alert, oriented X3 Assessment and Plan (1) Clostridium difficile enterocolitis Status: Acute Category: Medical Code(s): A04.72 - Enterocolitis due to Clostridium difficile, not specified as recurrent (2) GABE (acute kidney injury) Status: Acute Category: Medical Code(s): N17.9 - Acute kidney failure, unspecified (3) SIRS (systemic inflammatory response syndrome) Status: Acute Category: Medical Code(s): R65.10 - Systemic inflammatory response syndrome (SIRS) of non-infectious origin without acute organ dysfunction (4) Type 2 diabetes mellitus Status: Chronic Qualifiers: Diabetes mellitus alf insulin use: unspecified alf insulin use status Diabetes mellitus complication status: with other specified complication Qualified Code(s): E11.69 - Type 2 diabetes mellitus with other specified complication Category: Medical Code(s): E11.9 - Type 2 diabetes mellitus without complications (5) BPH (benign prostatic hyperplasia) Status: Chronic Category: Medical Code(s): N40.0 - Benign prostatic hyperplasia without lower urinary tract symptoms (6) Cirrhosis Status: Chronic Category: Medical Code(s): K74.60 - Unspecified cirrhosis of liver (7) Hypertension Status: Chronic Category: Medical Code(s): I10 - Essential (primary) hypertension (8) Hypokalemia Status: Acute Category: Medical Code(s): E87.6 - Hypokalemia - Assessment and plan all Dx Assessment and Plan for all problems:: Patient has improved. He will be discharged to home today.
--- NOTE | 2021-12-17 14:40 | CARE MANAGER ---
Spoke with patient for post-discharge interview, patient states that he is feeling better and has no issues. Mr. Garcia states that he did picker and sorter load and unload his prescriptions and has his follow-up appointment.
--- NOTE | 2021-12-17 22:44 | HMH.DCSUM ---
General - General Admission date:: 12/13/21 Discharge date: 12/16/21 HPI HPI: Mr. Garcia is a 66-year-old male who was a former patient of Dr. Higgins in [place] but will now be seeing Dr. Bermudez. He states he has had nausea and vomiting with some diarrhea for the past 2 to 3 days along with some mid abdominal pain. He has been unable to keep down any food and has had very little liquids. He states he had an episode like this last year around the same time. He presented to the emergency room for further evaluation and treatment.A CT of the abdomen and pelvis showed nonspecific bowel wall thickening of portions of the small bowel and colon suggesting enterocolitis. There was also urinary bladder wall thickening and morphologic changes of cirrhosis with findings suspicious for portal hypertension. The patient was admitted and started on IV fluids and Levaquin. He was also given antiemetics. This morning he is feeling some better. Hospital Course Hospital Course: The patient was admitted and started on Levaquin's and IV fluids. His CT showed nonspecific bowel wall thickening of portions the small bowel and colon along with nonspecific urinary bladder wall thickening. There were also changes of cirrhosis and findings suspicious for portal hypertension. His abdominal pain did begin improving. Dr. Bermudez performed a prostate exam and it was enlarged and boggy, but with no nodularity. He felt he did hear an abdominal bruit, therefore an ultrasound was ordered. It showed no evidence of an abdominal aortic aneurysm. His stool PCR came back positive for C. difficile. He was started on Flagyl as well. His diet was advanced as he tolerated. His home medications were reordered. His blood cultures returned showing no growth. His potassium was low and had to be replaced. By 12/16/2021, he was feeling a bit better. He continued with diarrhea stools and some abdominal cramping. He denied any nausea or vomiting and was tolerating a full liquid diet and ambulating in the room. It was felt he was stable to discharge and will follow up with Dr. Bermudez in the office. Objective Vital signs: Temp Pulse Resp BP Pulse Ox 98.2 F 60 14 142/57 H 94 L 12/16/21 08:00 12/16/21 08:00 12/16/21 08:00 12/16/21 08:00 12/16/21 08:00 Narrative: Constitutional no acute distress - *Routine HEENT Exam Head: Present: normocephalic Eye: Present: EOMI, PERRL ENT: Present: mucous membranes moist - *Routine Neck Exam Present: supple. Absent: lymphadenopathy - *Routine Respiratory Exam Present: CTA bilaterally - *Routine Cardiovascular Exam Present: RRR - *Routine Abdominal Exam Present: soft, normoactive bowel sounds, tenderness (mid abdomen) - *Routine Rectal Exam Rectal:: deferred - *Routine Genitalia Exam Genitalia:: deferred - *Routine Extremities Exam Absent: cyanosis, clubbing, edema - *Routine Skin Exam Present: warm. Absent: rash - *Routine Neurological Exam Present: alert, oriented X3 DS: Diagnosis - Discharge Diagnosis (1) Clostridium difficile enterocolitis Status: Acute (2) GABE (acute kidney injury) Status: Acute (3) SIRS (systemic inflammatory response syndrome) Status: Acute (4) Type 2 diabetes mellitus Status: Chronic (5) BPH (benign prostatic hyperplasia) Status: Chronic (6) Cirrhosis Status: Chronic (7) Hypertension Status: Chronic (8) Hypokalemia Status: Acute Discharge Plan - Patient Discharge Instructions ACTIVITY: Limited activity DIET: advance to your usual diet, diabetic diet Patient Instructions: Type 2 Diabetes, DI for Antibiotic -- associated Colitis -- C difficile, Acute Kidney Injury, DI for Benign Prostatic Hyperplasia, DI for Colitis, Clostridium difficile Infection - Follow up Plan Follow up with: Milton Bermudez MD [Primary Care Provider] - 12/18/21 2:00 pm (He already has an appointment to see Dr. Bermudez on 11/30
== END 2021-12-16 10:51 | disposition home or self-care (01) ==
LOC: ER 22:30 → 2ND 12-13 01:03
PROVIDERS: Admitting Provider Family Medicine; Emergency Provider Emergency Medicine; PCP Family Medicine; Visit Provider Family Medicine
DX: A04.72 Enterocolitis due to Clostridium difficile, not specified as recurrent (principal); E11.9 Type 2 diabetes mellitus without complications; I10 Essential (primary) hypertension; E78.5 Hyperlipidemia, unspecified; N40.0 Benign prostatic hyperplasia without lower urinary tract symptoms; K74.60 Unspecified cirrhosis of liver; N17.9 Acute kidney failure, unspecified; Z79.899 Other long term (current) drug therapy; Z79.84 Long term (current) use of oral hypoglycemic drugs; Z20.822 Contact with and (suspected) exposure to COVID-19
CPT/HCPCS: G0378; 36415; 74177; 76705; 80048; 80053; 81001; 82150; 82962; 83605; 83690; 83735; 84145; 85007; 85025; 85651; 86140; 87040; 87507; 99285; C9803; J1956; J2405; Q9967; U0003; U0005

== ENCOUNTER → 2021-12-27 12:43 | Outpatient (CLI) | payer MEDICARE, OTHER, SELFPAY ==
--- NOTE | 2021-12-27 12:47 | CA_ITS ---
APPROVED REPORT EXAM: Comprehensive 2D, Doppler, and color-flow Echocardiogram Robotic Welding Operator: Salma Enamorado RVT Ht: 5 ft 10 in Wt: 164lbs BSA: 1.92 BP: 178/76 mmHg Indications: EDEMA,COPD,HTN,HLD,EX SMOKER,DM 2D Dimensions LVOT 2.01 cm (M/F) 1.5-2.5 LA Volume 22.00 mL LA Volume Index 11.45 mL/m2 (M/F) 16-34 M-Mode Dimensions RVDd 2.36 cm (0.9-2.6) LA Diam 3.07 cm (1.9-4.0) LVDd 4.90 cm (3.5-5.7) Ao Diam 2.73 cm (2.0-3.7) LVDs 3.00 cm (3.5-5.7) IVSd 0.80 cm (0.6-1.1) PWd 0.65 cm (0.6-1.1) EF (Teich) 69.00% FS 38.80% EDV (Teich) 112.80 mL TAPSE 2.74 (<1.7) ESV (Teich) 35.00 mL LV Diastology E Decel Time 283.00 (160-240 msec) E/A Ratio 0.8 MED E' 6.00 (< 7 cm/sec) E'/MED E' Ratio 11.22 (>14) LAT E' 10.80 (<10 cm/sec) E/LAT E' Ratio 6.23 (>14) Aortic Valve AO Peak GR. 8.80 mmHg Mitral Valve MV E Max All. 67.00 (40-130 cm/s) MV A Velocity 80.00 (40-130 cm/s) E/A Ratio 0.84 MV Decel. Time 283.00 (160-240 ms) MV PHT 83.00 ms Pulmonary Valve PV Peak Velocity 104.00 (50-150 cm/s) Tricuspid Valve TR P. Velocity 256.00 cm/s RAP Estimate 10.00 mmHg RVSP 36.30 mmHg Left Ventricle Left atrium is mildly enlarged, left ventricle is normal size mild concentric left ventricular hypertrophy, estimated ejection fraction 55% with no regional wall motion abnormality, grade 1 diastolic dysfunction seen without tissue Doppler evidence of raise left atrial pressure. Right Ventricle Right atrium and right ventricle are normal size and contractility. Aortic Valve Aortic valve is minimally thickened and fibrosed there is no aortic stenosis or aortic insufficiency. Mitral Valve Mitral valve grossly normal, there is trace mitral regurgitation. Tricuspid Valve Tricuspid valve grossly normal, there is trace tricuspid regurgitation, calculated right ventricular systolic pressure 34 mmHg. Pulmonic Valve Pulmonic valve is poorly visualized. Great Vessels Aortic root is normal size. Inferior vena cava is poorly visualized. Pericardium No significant pericardial effusion noted. Conclusion 1. Mildly enlarged left atrium, normal left ventricular size, mild concentric left ventricular hypertrophy, estimated ejection fraction 55% with no regional wall motion abnormality, grade 1 diastolic dysfunction seen without tissue Doppler evidence of raise left atrial pressure. 2. Trace mitral and tricuspid regurgitation. 3. No significant pericardial effusion. 4. Inferior vena cava is poorly visualized. Electronically signed by : Fitz Cordoba MD 12/27/2021 15:40:22
== END ==
PROVIDERS: PCP Family Medicine; Visit Provider Family Medicine
DX: R60.0 Localized edema (principal)
CPT/HCPCS: 93306

== ENCOUNTER → 2022-01-02 08:58 | Outpatient (CLI) | payer MEDICARE, OTHER, SELFPAY ==
--- NOTE | 2022-01-02 09:01 | CA_ITS ---
FINAL REPORT CLINICAL HISTORY: .Patient states his left leg has been swollen for 3 months. FINDINGS: Color Doppler, duplex Doppler and compression sonography of the bilateral lower extremities was performed. There is no evidence of deep venous thrombosis from the level of the groin to the calf. The deep veins are patent and compressible. IMPRESSION: No evidence of deep venous thrombosis bilateral lower extremities. Reviewed, Interpreted and Dictated by Micky Gerard III, MD Transcribed by Marichuy Sunshine Authenticated and [facility]
== END ==
PROVIDERS: PCP Family Medicine; Visit Provider Family Medicine
DX: R60.0 Localized edema (principal)
CPT/HCPCS: 93970

== ENCOUNTER → 2022-01-11 10:13 | Outpatient (CLI) | payer MEDICARE, OTHER, SELFPAY ==
[2022-01-11 10:29] LABS: Microscopic, Urine URINE MICROSCOPIC (MICROSCOPIC)
[2022-01-11 11:41] LABS: Alanine Aminotransferase 35 U/L (12-78); Albumin/Globulin Ratio 1.7 (1.1-1.8); Alkaline Phosphatase 75 U/L (38-126); Anion Gap 10.3 mEq/L (5-15); Aspartate Amino Transferase 61 U/L (17-59); Bilirubin,Total 0.2 mg/dl (0.2-1.3); Calcium 9.4 mg/dl (8.4-10.2); Carbon Dioxide 34 mmol/L (22.0-30.0); Chloride 97 mmol/L (98-107); Estimated Glomerular Filt Rate 26 ml/min (>60); GFR (African American) 31 ML/MIN (>60); Globulin 2.3 g/dL (1.3-3.2); Glucose 74 mg/dl (74-100); Potassium 4.3 mmoL/L (3.5-5.1); Sodium 137 mmol/L (136-145); Total Protein,Serum 6.3 g/dl (6.3-8.2)
[2022-01-11 11:52] LABS: Appearance,Urine CLEAR (Clear); Bilirubin,Urine Negative (Negative); Blood, Urine TRACE-L (Negative); Color,Urine YELLOW (Yellow); Glucose,Urine (UA) Negative (Negative); Ketones,Urine Negative (Negative); Leukocyte Esterase,Urine Negative (Negative); Nitrate,Urine Negative (Negative); Protein,Urine 2+ (Negative); Urobilinogen,Urine 0.2 EU/dl (0.2)
[2022-01-11 11:54] LABS: Hemoglobin A1C 5.7 % (4.0-6.0)
[2022-01-11 12:07] LABS: Bacteria,Urine Trace /lpf; Squamous Epithelial Cell,Urine Occasional #/hpf (0-5); WBC,Urine Occasional #/hpf (0-3)
[2022-01-11 13:29] LABS: Blood Urea Nitrogen 86 mg/dl (9-20)
== END ==
PROVIDERS: PCP Family Medicine; Visit Provider Nurse Practitioner Family
DX: E11.40 Type 2 diabetes mellitus with diabetic neuropathy, unspecified (principal); Z79.84 Long term (current) use of oral hypoglycemic drugs
CPT/HCPCS: 36415; 80053; 81001; 83036

== ENCOUNTER → 2022-01-23 13:46 | Outpatient (CLI) | payer MEDICARE, OTHER, SELFPAY | PROVIDERS: PCP Family Medicine; Visit Provider Nurse Practitioner Family | DX: Z71.3 Dietary counseling and surveillance (principal); E11.9 Type 2 diabetes mellitus without complications | CPT/HCPCS: 97802 ==

== ENCOUNTER → 2022-03-03 14:17 | Outpatient (CLI) | payer MEDICARE, OTHER, SELFPAY ==
[2022-03-03 14:39] LABS: Microscopic, Urine URINE MICROSCOPIC (MICROSCOPIC)
[2022-03-03 15:03] LABS: Basophils # 0.1 K/mm3 (0-0.2); Basophils % 0.8 % (0.1-2.0); Eosinophils # 0.3 K/mm3 (0.0-0.4); Eosinophils % 3.2 % (0.1-12.0); Hematocrit 35.8 % (42.0-52.0); Lymphocytes # 1.5 K/mm3 (0.7-4.5); Lymphocytes % 19.7 % (10-50); Mean Corpuscular HGB Conc 33.7 g/dL (31.8-35.4); Mean Corpuscular Hemoglobin 30.3 pg (27.0-31.2); Mean Platelet Volume 9.1 fl (7.4-10.4); Monocytes # 0.5 K/mm3 (0.1-1.0); Monocytes % 5.9 % (1.7-9.3); Neutrophils # 5.5 K/mm3 (1.8-7.8); Neutrophils % 70.4 % (37.0-80.0); Platelet Count 172 K/mm3 (142-424); Red Blood Count 3.97 M/mm3 (4.60-6.20); Red Cell Distribution Width 14.4 % (11.5-17.5); White Blood Count 7.7 K/mm3 (4.8-10.8)
[2022-03-03 15:19] LABS: Appearance,Urine CLEAR (Clear); Bilirubin,Urine Negative (Negative); Blood, Urine TRACE-L (Negative); Color,Urine YELLOW (Yellow); Glucose,Urine (UA) Negative (Negative); Ketones,Urine Negative (Negative); Leukocyte Esterase,Urine Negative (Negative); Nitrate,Urine Negative (Negative); PH,Urine 5.5 (5.0-8.5); Protein,Urine 2+ (Negative); Specific Gravity, Urine 1.015 (1.005-1.030); Urobilinogen,Urine 0.2 EU/dl (0.2)
[2022-03-03 15:45] LABS: Creatinine,Urine Random 27 mg/dL (Not Estab.)
[2022-03-03 15:51] LABS: Chloride 96 mmol/L (98-107); Potassium 4.8 mmoL/L (3.5-5.1); Sodium 138 mmol/L (136-145)
[2022-03-03 15:58] LABS: RBC,Urine Occasional #/hpf (0-3); Squamous Epithelial Cell,Urine Occasional #/hpf (0-5); WBC,Urine Occasional #/hpf (0-3)
[2022-03-03 16:05] LABS: Intact Parathyroid Hormone 6.5 pg/mL (7.5-53.5)
[2022-03-03 16:10] LABS: 25-OH Vitamin D, Total 54.2 ng/mL (30-100)
[2022-03-03 17:09] LABS: Albumin Level 3.9 g/dl (3.5-5.0); Blood Urea Nitrogen 47 mg/dl (9-20); Estimated Glomerular Filt Rate 43 ml/min (>60); GFR (African American) 52 ML/MIN (>60)
[2022-03-03 17:35] LABS: Anion Gap 19.8 mEq/L (5-15); Calcium 9.3 mg/dl (8.4-10.2); Carbon Dioxide 27 mmol/L (22.0-30.0); Glucose 219 mg/dl (74-100); Phosphorous 3.3 mg/dl (2.5-4.5)
== END ==
PROVIDERS: PCP Family Medicine; Visit Provider Internal Medicine Nephrology
DX: N18.4 Chronic kidney disease, stage 4 (severe) (principal); E55.9 Vitamin D deficiency, unspecified
CPT/HCPCS: 36415; 80069; 81001; 82306; 82570; 83970; 84155; 85025

== ENCOUNTER → 2022-03-06 14:07 | Outpatient (POV) | payer MEDICARE, OTHER, SELFPAY | PROVIDERS: Visit Provider Internal Medicine Nephrology | DX: Z00.00 Encounter for general adult medical examination without abnormal findings (principal) ==

== ENCOUNTER 2022-04-25 14:55 | Emergency (ER) | payer MEDICARE, OTHER, SELFPAY ==
[2022-04-25] VITALS (8 sets, daily range): BP systolic 150–200; BP diastolic 74–97; PULSE 61–68; RESP 17–20; TEMP 36.7; O2SAT 96–98; BMI 23.6
--- NOTE | 2022-04-25 15:12 | HMH.EDGENADL ---
Discharge Plan Disposition Chief Complaint: Nausea/Vomiting/Diarrhea Prescriptions Prescriptions: No Action trazodone 50 MG tablet 50 mg PO HS metronidazole 500 MG tablet 500 mg PO TID pregabalin 150 MG capsule 150 mg PO TID fluticasone propionate 16 GM spray,suspension 1 spr NS DAILY Label Comments: USE 1 SPRAY(S) IN EACH NOSTRIL TWICE DAILY glyburide 5 MG tablet 10 mg PO BID carvedilol 3.125 MG tablet 3.125 mg PO BID tamsulosin 0.4 MG capsule 0.4 mg PO DAILY metformin 1,000 MG tablet 1,000 mg PO BID hydrochlorothiazide 25 MG tablet 25 mg PO DAILY rosuvastatin 20 MG tablet 20 mg PO DAILY sitagliptin phosphate 100 MG tablet 100 mg PO DAILY fluticasone furoate-vilanterol 1 EACH blister with device 1 puff IH DAILY Label Comments: INHALE 1 PUFF (RINSE MOUTH GARGLE AND SPIT) BY MOUTH ONCE DAILY amlodipine 10 MG tablet 10 mg PO DAILY lisinopril 40 MG tablet 40 mg PO DAILY aspirin 81 MG tablet,delayed release (DR/EC) 81 mg PO DAILY ondansetron 4 MG tablet,disintegrating 4 mg PO TIDP PRN (Reason: Nausea) Qty: 12 0RF Referrals Follow up/Referrals: Milton Bermudez MD [Primary Care Provider] - See instructions Instructions Patient Instructions: DI for Nausea -- Adult, DI for Nausea -- Child, DI for Diarrhea and Traveler's Diarrhea -- Adult, DI for Diarrhea and Traveler's Diarrhea -- Child Discharge ED Provider: Johnny Franz General Adult HPI General Chief complaint: Nausea/Vomiting/Diarrhea Stated complaint: vomiting Time Seen by Provider: 04/25/22 15:05 Mode of Arrival: Ambulatory Source of Information: Patient Limitations: No Limitations Description of Symptoms (Recalled from ER Triage Doc. by RN): pt. states he has had abdominal pain, vomiting, and some diarrhea since thursday. History of Present Illness HPI narrative: Patient presents with vomiting and diarrhea that began this past Thursday. He states he has had several episodes of vomiting today and diffuse of the diarrhea which he describes as semiformed. He denies abdominal pain, fever or chills. He is denies exacerbating or alleviating symptoms and describes symptoms as moderate to severe. He does have a previous history of C. difficile but denies recent antibiotic use. He denies recent sick contacts or bad food exposure Related Data Home Medications Medication Instructions Recorded Confirmed carvedilol 3.125 mg tablet 3.125 mg PO BID Hypertension 11/27/20 04/25/22 fluticasone furoate 200 1 puff IH DAILY COPD 11/27/20 04/25/22 mcg-vilanterol 25 mcg/dose inhalation powder fluticasone propionate 50 1 spr NS DAILY Allergy symptoms 11/27/20 04/25/22 mcg/actuation nasal spray,suspension glyburide 5 mg tablet 10 mg PO BID Diabetes 11/27/20 04/25/22 hydrochlorothiazide 25 mg tablet 25 mg PO DAILY Fluid 11/27/20 04/25/22 metformin 1,000 mg tablet 1,000 mg PO BID Diabetes 11/27/20 04/25/22 pregabalin 150 mg capsule 150 mg PO TID neuropathy 11/27/20 04/25/22 rosuvastatin 20 mg tablet 20 mg PO DAILY Cholesterol 11/27/20 04/25/22 sitagliptin phosphate 100 mg tablet 100 mg PO DAILY Diabetes 11/27/20 04/25/22 tamsulosin 0.4 mg capsule 0.4 mg PO DAILY PROSTATE 11/27/20 04/25/22 amlodipine 10 mg tablet 10 mg PO DAILY Hypertension 11/30/20 04/25/22 aspirin 81 mg tablet,delayed 81 mg PO DAILY HEART HEALTH 11/30/20 04/25/22 release lisinopril 40 mg tablet 40 mg PO DAILY Hypertension 11/30/20 04/25/22 trazodone 50 mg tablet 50 mg PO HS Insomnia 12/13/21 04/25/22 metronidazole 500 mg tablet 500 mg PO TID inbfection 04/25/22 04/25/22 Previous Rx's Medication Instructions Recorded ondansetron 4 mg disintegrating 4 mg PO TIDP PRN Nausea #12 tabs 12/01/20 tablet Allergies Allergy/AdvReac Type Severity Reaction Status Date / Time acetaminophen AdvReac Unknown Unknown Verified 04/25/22 15:06 allergy reaction [facility]
[2022-04-25 15:30] LABS: Basophils % 0.1 % (0.1-2.0); Eosinophils # 0.1 K/mm3 (0.0-0.4); Eosinophils % 0.4 % (0.1-12.0); Hematocrit 46.1 % (42.0-52.0); Lymphocytes # 1.3 K/mm3 (0.7-4.5); Lymphocytes % 10.3 % (10-50); Mean Corpuscular HGB Conc 32.5 g/dL (31.8-35.4); Mean Corpuscular Hemoglobin 28.5 pg (27.0-31.2); Mean Corpuscular Volume 87.7 fl (80-94); Mean Platelet Volume 7.9 fl (7.4-10.4); Monocytes # 0.9 K/mm3 (0.1-1.0); Monocytes % 6.6 % (1.7-9.3); Neutrophils # 10.7 K/mm3 (1.8-7.8); Neutrophils % 82.6 % (37.0-80.0); Platelet Count 189 K/mm3 (142-424); Red Blood Count 5.26 M/mm3 (4.60-6.20); Red Cell Distribution Width 13.2 % (11.5-17.5); White Blood Count 12.9 K/mm3 (4.8-10.8)
[2022-04-25 15:31] LABS: Chloride 90 mmol/L (98-107); Potassium 3.3 mmoL/L (3.5-5.1); Sodium 132 mmol/L (136-145)
[2022-04-25 15:33] LABS: Alanine Aminotransferase 33 U/L (12-78); Alkaline Phosphatase 78 U/L (38-126); Aspartate Amino Transferase 61 U/L (17-59); Bilirubin,Total 0.9 mg/dl (0.2-1.3); Blood Urea Nitrogen 31 mg/dl (9-20); Creatinine Clearance Estimated 54 mL/min (50-200); Estimated Glomerular Filt Rate 51 ml/min (>60); GFR (African American) 61 ML/MIN (>60)
[2022-04-25 15:34] LABS: Albumin Level 4.5 g/dl (3.5-5.0); Albumin/Globulin Ratio 1.6 (1.1-1.8); Anion Gap 15.3 mEq/L (5-15); Calcium 10.1 mg/dl (8.4-10.2); Carbon Dioxide 30 mmol/L (22.0-30.0); Globulin 2.9 g/dL (1.3-3.2); Glucose 155 mg/dl (74-100); Lipase 573 U/L (23-300); Total Protein,Serum 7.4 g/dl (6.3-8.2)
--- NOTE | 2022-04-25 17:19 | CT_ITS ---
PROCEDURE INFORMATION: Exam: CT Abdomen And Pelvis With Contrast Exam date and time: 04/25/2022 5:29 PM Age: 66 years old Clinical indication: Vomiting TECHNIQUE: Imaging protocol: Computed tomography of the abdomen and pelvis with contrast. Radiation optimization: All CT scans at this facility use at least one of these dose optimization techniques: automated exposure control; mA and/or kV adjustment per patient size (includes targeted exams where dose is matched to clinical indication); or iterative reconstruction. Contrast material: ISOVUE; Contrast volume: 75 ml; Contrast route: IV; COMPARISON: CT ABDOMEN PELVIS W CON 12/12/2021 10:55 PM FINDINGS: Lungs: Lung bases are unremarkable. Liver: No focal hepatic lesions. Gallbladder and bile ducts: Normal. No calcified stones. No ductal dilation. Pancreas: No peripancreatic fluid stranding. No main pancreatic ductal dilation. Spleen: No splenomegaly. Adrenal glands: Left adrenal nodule is unchanged Kidneys and ureters: Nephrograms are symmetric. No nephrolithiasis or hydroureteronephrosis on either side. No solid lesions Stomach and bowel: A long segment of ascending and transverse colon demonstrate mucosal hyperenhancement and thumbprinting of the submucosa Appendix: A normal appendix is identified. Intraperitoneal space: There is no evidence of free intraperitoneal or pelvic fluid. Vasculature: Advanced atherosclerotic changes particularly of the aortoiliac bifurcation with near-complete occlusion of left internal iliac artery. There are nonspecific prominent perigastric varices. Lymph nodes: No evidence of retroperitoneal or mesenteric lymphadenopathy Urinary bladder: Urinary bladder is unremarkable. Reproductive: Unremarkable as visualized. Bones/joints: Anterolisthesis of L5 over S1 attributed to a bilateral pars defect Soft tissues: Unremarkable. Other findings: There is a hypertrophy of the median prostatic lobe IMPRESSION: 1. Findings can be attributed to infectious/inflammatory colitis in the appropriate clinical context. 2. Severe aortoiliac atherosclerosis.
[2022-04-25 18:24] LABS: Adenovirus F 40/41, stool Not Detected (NotDetected); Astrovirus Not Detected (NotDetected); Campylobacter Not Detected (NotDetected); Cryptosporidium Not Detected (NotDetected); Cyclospora Cayetanesis Not Detected (NotDetected); Entamoeba histolytica Not Detected (NotDetected); Enteroaggregative E coli Not Detected (NotDetected); Enterotoxigenic E coli Not Detected (NotDetected); Giardia lamblia Not Detected (NotDetected); Norovirus Not Detected (NotDetected); Plesimonas Shigalloides, PCR Not Detected (NotDetected); Rotavirus A Not Detected (NotDetected); Salmonella, PCR Not Detected (NotDetected); Sapovirus Not Detected (NotDetected); Shiga-like toxin E coli Not Detected (NotDetected); Shigella Enterovasive E coli Not Detected (NotDetected); Vibrio Cholerae Not Detected (NotDetected); Vibrio, PCR Not Detected (NotDetected); Yersinia Entercolitica, PCR Not Detected (NotDetected)
[2022-04-25 20:16] LABS: Clostridium Difficile A/B, PCR Detected (NotDetected); Enteropathogenic E coli Detected (NotDetected)
--- NOTE | 2022-04-25 20:17 | PC.NURSE ---
notified pt of stool result s and to started vancyomycin
== END 2022-04-25 19:12 | disposition home or self-care (01) ==
PROVIDERS: Emergency Provider Emergency Medicine; PCP Family Medicine
DX: K52.9 Noninfective gastroenteritis and colitis, unspecified; Z79.82 Long term (current) use of aspirin; Z79.84 Long term (current) use of oral hypoglycemic drugs; Z79.899 Other long term (current) drug therapy; Z88.6 Allergy status to analgesic agent
CPT/HCPCS: 74177; 80053; 83690; 85025; 87506; 96365; 96375; 99284; J2405; Q9967

== ENCOUNTER → 2022-06-04 14:03 | Outpatient (CLI) | payer MEDICARE, OTHER, SELFPAY ==
[2022-06-04 14:12] LABS: Microscopic, Urine URINE MICROSCOPIC (MICROSCOPIC)
[2022-06-04 15:45] LABS: Chloride 99 mmol/L (98-107); Potassium 4.1 mmoL/L (3.5-5.1); Sodium 139 mmol/L (136-145)
[2022-06-04 15:47] LABS: Blood Urea Nitrogen 54 mg/dl (9-20); Estimated Glomerular Filt Rate 38 ml/min (>60); GFR (African American) 46 ML/MIN (>60)
[2022-06-04 15:48] LABS: Anion Gap 13.1 mEq/L (5-15); Calcium 9.2 mg/dl (8.4-10.2); Carbon Dioxide 31 mmol/L (22.0-30.0); Glucose 140 mg/dl (74-100); Phosphorous 3.5 mg/dl (2.5-4.5)
[2022-06-04 16:30] LABS: Creatinine,Urine Random 51 mg/dL (Not Estab.)
[2022-06-04 18:11] LABS: Appearance,Urine CLEAR (Clear); Bilirubin,Urine Negative (Negative); Blood, Urine TRACE-I (Negative); Color,Urine YELLOW (Yellow); Glucose,Urine (UA) Negative (Negative); Ketones,Urine Negative (Negative); Leukocyte Esterase,Urine Negative (Negative); Nitrate,Urine Negative (Negative); PH,Urine 5.5 (5.0-8.5); Protein,Urine 3+ (Negative); Urobilinogen,Urine 0.2 EU/dl (0.2)
[2022-06-04 18:14] LABS: Hematocrit 39.7 % (42.0-52.0); Mean Corpuscular HGB Conc 32.7 g/dL (31.8-35.4); Mean Corpuscular Hemoglobin 28.7 pg (27.0-31.2); Mean Corpuscular Volume 87.7 fl (80-94); Platelet Count 221 K/mm3 (142-424); Red Blood Count 4.53 M/mm3 (4.60-6.20); Red Cell Distribution Width 14.5 % (11.5-17.5); White Blood Count 8.1 K/mm3 (4.8-10.8)
[2022-06-04 19:38] LABS: Bacteria,Urine Trace /lpf; RBC,Urine Occasional #/hpf (0-3)
== END ==
PROVIDERS: PCP Family Medicine; Visit Provider Internal Medicine Nephrology
DX: N17.9 Acute kidney failure, unspecified (principal)
CPT/HCPCS: 36415; 80069; 81001; 82570; 84155; 85014; 85018; 85048; 85049

== ENCOUNTER → 2022-06-09 13:50 | Outpatient (POV) | payer MEDICARE, OTHER, SELFPAY | PROVIDERS: Visit Provider Internal Medicine Nephrology | DX: Z00.00 Encounter for general adult medical examination without abnormal findings (principal) ==

== ENCOUNTER → 2022-06-12 14:39 | Outpatient (CLI) | payer MEDICARE, OTHER, SELFPAY ==
--- NOTE | 2022-06-12 14:42 | CT_ITS ---
FINAL REPORT CLINICAL HISTORY: H/O NICOTINE DEPENDENCE, former smoker- quit 5 years ago, smoked 2 packs per day for 20+ years, currently has COPD FINDINGS: Low-Dose Chest CT Axial images were obtained from the lung apex to the mid abdomen by computed tomography. Low-dose protocol was utilized. CTDI vol (mGy): 2.90 DLP (mGy-cm): 116.72 There is no axillary adenopathy. There is no hilar or mediastinal adenopathy. The heart is proper size. There is no pericardial or pleural effusion. Lung window images demonstrate mild changes of emphysema with mild pulmonary scarring. There is a calcified granuloma in the left lower lobe. No suspicious mass or nodule is identified. Limited images of the upper abdomen demonstrates nonspecific gallbladder wall thickening. IMPRESSION: Lung RADS category 1. Recommend 12 month follow-up low-dose chest CT. Reviewed, Interpreted and Dictated by Micky Gerard III, MD Transcribed by Lisa Joyner Authenticated and [facility]
== END ==
PROVIDERS: PCP Family Medicine; Visit Provider Family Medicine
DX: Z87.891 Personal history of nicotine dependence (principal); Z12.2 Encounter for screening for malignant neoplasm of respiratory organs
CPT/HCPCS: 71271

== ENCOUNTER → 2022-06-24 11:35 | Outpatient (CLI) | payer MEDICARE, OTHER, SELFPAY ==
[2022-06-24 12:05] LABS: Microscopic, Urine URINE MICROSCOPIC (MICROSCOPIC)
[2022-06-24 12:48] LABS: Hematocrit 37.2 % (42.0-52.0); Hemoglobin 12.3 g/dL (14.1-18.0); Mean Corpuscular Hemoglobin 28.8 pg (27.0-31.2); Mean Corpuscular Volume 87.1 fl (80-94); Platelet Count 158 K/mm3 (142-424); Red Blood Count 4.27 M/mm3 (4.60-6.20); Red Cell Distribution Width 15.4 % (11.5-17.5); White Blood Count 6.5 K/mm3 (4.8-10.8)
[2022-06-24 12:54] LABS: Appearance,Urine CLEAR (Clear); Bilirubin,Urine Negative (Negative); Blood, Urine TRACE-L (Negative); Color,Urine YELLOW (Yellow); Glucose,Urine (UA) Negative (Negative); Ketones,Urine Negative (Negative); Leukocyte Esterase,Urine Negative (Negative); Nitrate,Urine Negative (Negative); PH,Urine 5.5 (5.0-8.5); Protein,Urine 2+ (Negative); Urobilinogen,Urine 0.2 EU/dl (0.2)
[2022-06-24 13:08] LABS: Bacteria,Urine Trace /lpf
[2022-06-24 13:16] LABS: Albumin Level 3.9 g/dl (3.5-5.0); Anion Gap 12.1 mEq/L (5-15); Blood Urea Nitrogen 49 mg/dl (9-20); Calcium 8.9 mg/dl (8.4-10.2); Carbon Dioxide 28 mmol/L (22.0-30.0); Chloride 102 mmol/L (98-107); Estimated Glomerular Filt Rate 36 ml/min (>60); GFR (African American) 43 ML/MIN (>60); Glucose 123 mg/dl (74-100); Phosphorous 3.6 mg/dl (2.5-4.5); Potassium 4.1 mmoL/L (3.5-5.1); Sodium 138 mmol/L (136-145)
[2022-06-25 10:15] LABS: HIV Screen 4th Generation wRfx Non Reactive (Non Reactive)
[2022-06-25 14:20] LABS: Albumin 3.5 g/dL (2.9-4.4); Alpha-1-Globulin 0.2 g/dL (0.0-0.4); Alpha-2-Globulin 0.9 g/dL (0.4-1.0); Complement C3 119 mg/dL (82-167); Gamma Globulin 0.8 g/dL (0.4-1.8); Protein, Total 6.3 g/dL (6.0-8.5)
[2022-06-25 15:10] LABS: Immunoglobulin A, Qn 169 mg/dL (61-437); Immunoglobulin G, Qn 861 mg/dL (603-1613); Immunoglobulin M, Qn 21 mg/dL (20-172)
[2022-06-26 10:20] LABS: Antinuclear Antibodies, IFA Negative (.)
[2022-07-07 02:22] LABS: Hep A Ab, IgM Negative
[2022-07-07 02:23] LABS: Hepatitis B Core Antibody IgM Negative; Hepatitis B Surface Antigen Negative; Hepatitis C Antibody >11.0
[2022-07-07 02:26] LABS: Free Kappa Lt Chains 58.9
[2022-07-07 02:27] LABS: Free Lambda Lt Chains 26.4
== END ==
PROVIDERS: PCP Family Medicine; Visit Provider Internal Medicine Nephrology
DX: N18.30 Chronic kidney disease, stage 3 unspecified (principal); R80.9 Proteinuria, unspecified; E55.9 Vitamin D deficiency, unspecified; Z11.4 Encounter for screening for human immunodeficiency virus [HIV]; R93.5 Abnormal findings on diagnostic imaging of other abdominal regions, including retroperitoneum
CPT/HCPCS: 36415; 80069; 80074; 81001; 82784; 83883; 84155; 84165; 85014; 85018; 85048; 85049; 86038; 86161; 86334; 86703; G0432

== ENCOUNTER → 2022-06-26 13:32 | Outpatient (CLI) | payer MEDICARE, OTHER, SELFPAY ==
[2022-06-26 16:56] LABS: Creatinine,Urine Random 35 mg/dL (Not Estab.)
[2022-06-26 17:46] LABS: Collection Time,Urine 24 hours
[2022-06-26 17:47] LABS: Creatinine 24 Hour,Urine 665 mg/24hr (630-2500); Total Protein 24 Hour,Urine 4370 mg/24 hr (40-90); Total Volume,Urine 1900 mL (250-2400)
== END ==
PROVIDERS: PCP Family Medicine; Visit Provider Internal Medicine Nephrology
DX: R80.9 Proteinuria, unspecified (principal)
CPT/HCPCS: 82570; 84155

== ENCOUNTER → 2022-06-27 06:40 | Outpatient (CLI) | payer MEDICARE, OTHER, SELFPAY ==
--- NOTE | 2022-06-27 | CA_ITS ---
APPROVED REPORT Exam: Pharmacologic Technologist: Nicki Leahy, Ht: 5 ft 10 in Wt: 165 lbs BSA: 1.92 m2 HR: 55 bpm BP: 144/66 mmHg Medical History Medical History: Hyperlipidemia, HTN, HTN,, Diabetic ??? Noninsulin Medications: Amlodipine,,,,, Lisinopril,,,,, Omeprazole,,,,, Asa,,,,, Metformin,,,,, HCTZ,,,,, Carvedilol,,,,, GlYBURIDE,,,,, TAMSULOSIN,,,,, Pregabalin,,,,, BREo,,,,, RoSUVASTATIN,,,,, Cardiac Risk Factors: HTN, Hyperlipidemia, Smoking, Diabetes (non-insulin) Stress Test Details Test: LEXISCAN HR Resting HR: 57 bpm Max Heart Rate (APMHR): 153.515574 bpm Max HR Achieved: 80 bpm Target HR (85% APMHR): 130.054766 bpm % of APMHR: 52.29 BP Resting BP: 144.0/66.0 mmHg Max BP: 151/64 mmHg ECG Clinical Exercise duration: 04:00 min Highest Stage Achieved: Stress ECG Conclusion DURING INFUSION PATIENT HAD SOA. OCCASIONAL PVC. <1.5MM ST CHANGES Test Summary REST . . . . . . . Resting Sitting REST 12:40 . . 57 . . . . Stage 1 . . . . . . . Myoview Injected Stage 1 01:00 . . 72 . . . . Stage 2 01:00 . . 79 . . . . Stage 3 01:00 . . 67 . 149/ 66 . . Stage 4 01:00 . . 65 . 150/ 66 . Stop exercise at 04:00 RECOVERY 01:00 . . 67 . 147/ 66 . . RECOVERY 02:00 . . 63 . 147/ 66 . . RECOVERY 02:14 . . 63 . 147/ 64 . . Electronically signed by : Fitz Cordoba MD 06/27/2022 12:12:06
--- NOTE | 2022-06-27 06:44 | NM_ITS ---
APPROVED REPORT Exam: Nuclear Stress Test Indication: HTN, DM, HYPERLIPIDEMIA, SOB Patient Location: Outpatient Stress Tech: Neva Leahy [place] Tech:JONNY Leong RT (R)(N)(M) Ht: 5 ft 10 in Wt: 160 lbs HR: 55 bpm BP: 144/66 mmHg BSA: 1.90 m2 TID: 1.30 BMI: 22.9 History: HTN, DM, HYPERLIPIDEMIA, SO Procedure: Patient received 0.4 mg of intravenous Lexiscan, resting heart rate 55 bpm, resting blood pressure 144/66 mmHg, with Lexiscan maximum heart rate achieved was 79 bpm which is Less than 85 % of the maximum predicted heart rate and blood pressure was 151/64 mmHg. With Lexiscan, patient denied any complaint of chest pain. C/O SOB Electrocardiogram Resting electrocardiogram shows sinus rhythm, with Lexiscan there is less than 1.[address] segment depression noted from the baseline EKG. The EKG portion of the Lexiscan is nondiagnostic. Cardiac Stress and Resting SPECT Images: Cardiac Stress and Resting SPECT images were obtained using technetium 99m Myoview 31.2 mCi stress and 10.53 mCi at rest. Gated SPECT for analysis of segmental wall motion and calculation of the ejection fraction also done. Prone images were also obtained. Cardiac stress and resting SPECT images show reversible ischemia involving the inferior and posterior basal wall, computer derived ejection fraction is 53% with no regional wall motion abnormality, right ventricle is normal size and contractility. Conclusion: 1. The EKG portion of the Lexiscan is nondiagnostic. 2. Scintigraphic evidence of mild reversible ischemia involving the inferior and posterior basal wall, computer derived ejection fraction 53% with no regional wall motion abnormality, right ventricle is normal size and contractility. 3. Abnormal Lexiscan Myoview study. Electronically signed by : Fitz Cordoba MD 06/27/2022 12:14:59
== END ==
PROVIDERS: PCP Family Medicine; Visit Provider Nurse Practitioner Family
DX: E11.69 Type 2 diabetes mellitus with other specified complication (principal); F17.200 Nicotine dependence, unspecified, uncomplicated; I10 Essential (primary) hypertension; I25.10 Atherosclerotic heart disease of native coronary artery without angina pectoris; I25.84 Coronary atherosclerosis due to calcified coronary lesion; I73.9 Peripheral vascular disease, unspecified; R07.89 Other chest pain; R93.5 Abnormal findings on diagnostic imaging of other abdominal regions, including retroperitoneum; Z79.84 Long term (current) use of oral hypoglycemic drugs
CPT/HCPCS: 78452; 93017; A9502; J2785

== ENCOUNTER → 2022-07-03 12:28 | Outpatient (POV) | payer MEDICARE, OTHER, SELFPAY | PROVIDERS: Visit Provider Internal Medicine Nephrology | DX: Z00.00 Encounter for general adult medical examination without abnormal findings (principal) ==

== ENCOUNTER 2022-07-15 13:40 | Observation (INO) | payer MEDICARE, OTHER, SELFPAY ==
[2022-07-15] VITALS (22 sets, daily range): BP systolic 145–212; BP diastolic 65–106; PULSE 51–90; RESP 16–20; TEMP 36.6–36.9; O2SAT 95–98; BMI 24.3; BMI 27.1
--- NOTE | 2022-07-15 07:11 | IR_ITS ---
APPROVED REPORT Patient Location: Outpatient Car Wash Manager: JONNY Brunner RT (R) PROCEDURES Right femoral arterial access Left heart catheterization Left ventriculogram Selective coronary angiogram Catheter placement in the left common iliac artery Left common iliac artery antegrade angiogram Left femoral arterial access Balloon mounted stent deployment to the left common iliac artery Self-expanding stent deployment to the left external iliac artery Bilateral selective renal angiography Drug-eluting stent deployment to the ostial proximal mid LAD in a contiguous manner Drug-eluting stent deployment to the first diagonal artery INDICATION Abnormal Myoview, Coronary artery disease, Angina pectoris, Destiny claudication class III, Left common and external iliac artery atherosclerosis, Abnormal CTA, Renovascular hypertension, Creatinine 1.8, Suspect renal artery stenosis, Polyvascular disease Informed consent was obtained prior to the procedure. COMPLICATIONS None Estimated Blood Loss: Less than 10 mls TECHNIQUE One percent lidocaine was used to anesthetize the right groin. The right femoral artery was accessed via the Seldinger technique. A 5 Kyrgyz sheath was placed in the right femoral artery and a JL 4 JR 4 catheter used to perform left heart catheterization left ventriculogram and selective coronary angiogram. Because the creatinine was 1.8 patient had hypertension with probably vascular disease the JR4 catheter was used to perform bilateral selective renal angiography. At the end of the procedure the JR4 catheters placed in the left common iliac artery and left common iliac artery antegrade angiography was performed. At this point 1% lidocaine was used anesthetize the left groin and the left femoral nerves accessed via the sounder technique. A 7 Kyrgyz sheath was placed in left femoral artery and therapeutic heparin was administered giving a therapeutic ACT. A long advantage wire was used to traverse the stenosis in the left common iliac artery and a 9 mm x 37 mm balloon mounted stent was deployed at 12 lorin reducing the calcified eccentric stenosis to 0%. An additional 9 mm x 60 mm self-expanding stent was placed distal to the for stent yet still overlapping and extending into the left external iliac artery. The 9 mm x 40 mm balloon which was on the balloon mounted stent was then placed back into the self-expanding stent area and deployed at 10 lorin to post dilate. Excellent angiograph results were obtained. Following this an EBU 3.75 guide catheter was placed in the left main artery and a Choice PT extra-support wire down the LAD. A 3 mm x 30 mm resolute Farhat stent was deployed at 18 lorin in the ostial proximal mid LAD reducing the stenosis. A 3.5 x 12 mm balloon was then placed in the ostial proximal mid segment and deployed at 20 lorin to post dilate. Angiography demonstrated a small dissection in the distal aspect of the stent therefore 2.75 x 15 mm resolute Farhat stent was deployed distal to the for stent yet still overlapping it at 16 lorin. The balloon was brought back and deployed at 22 lorin between the 2 stents to mesh the stents. Following this an additional wire was placed into a large diagonal artery where a 2.5 x 12 mm noncompliant balloon was deployed at 16 lorin to predilate the stenosis. Following this a 2.5 x 15 mm resolute Farhat stent was then deployed in the ostial proximal segment of this diagonal artery at 20 lorin. A 3.5 x 12 mm balloon was then placed into the mid LAD adjacent to the diagonal artery and then deployed at 22 lorin to post dilate make sure the diagonal artery stent struts were not impinging or impeding within the LAD. After achieving excellent angiograph results the appar
[2022-07-15 09:35] LABS: Basophils # 0.1 K/mm3 (0-0.2); Basophils % 1.1 % (0.1-2.0); Eosinophils # 0.2 K/mm3 (0.0-0.4); Eosinophils % 3.7 % (0.1-12.0); Hematocrit 38.8 % (42.0-52.0); Hemoglobin 12.7 g/dL (14.1-18.0); Lymphocytes # 1.8 K/mm3 (0.7-4.5); Lymphocytes % 30.4 % (10-50); Mean Corpuscular HGB Conc 32.6 g/dL (31.8-35.4); Mean Corpuscular Hemoglobin 28.5 pg (27.0-31.2); Mean Corpuscular Volume 87.4 fl (80-94); Mean Platelet Volume 9.2 fl (7.4-10.4); Monocytes # 0.4 K/mm3 (0.1-1.0); Monocytes % 7.2 % (1.7-9.3); Neutrophils # 3.3 K/mm3 (1.8-7.8); Neutrophils % 57.5 % (37.0-80.0); Platelet Count 176 K/mm3 (142-424); Red Blood Count 4.44 M/mm3 (4.60-6.20); Red Cell Distribution Width 15.2 % (11.5-17.5); White Blood Count 5.8 K/mm3 (4.8-10.8)
[2022-07-15 09:58] LABS: Chloride 106 mmol/L (98-107); Sodium 144 mmol/L (136-145)
[2022-07-15 09:59] LABS: Potassium 3.7 mmoL/L (3.5-5.1)
[2022-07-15 10:01] LABS: Anion Gap 6.7 mEq/L (5-15); Blood Urea Nitrogen 37 mg/dl (9-20); Carbon Dioxide 35 mmol/L (22.0-30.0); Creatinine Clearance Estimated 43 mL/min (50-200); Estimated Glomerular Filt Rate 38 ml/min (>60); GFR (African American) 46 ML/MIN (>60)
[2022-07-15 10:02] LABS: Calcium 9.1 mg/dl (8.4-10.2); Glucose 70 mg/dl (74-100)
[2022-07-15 13:14] LABS: CATHL Activated Clotting Time 261 SEC (74-125)
[2022-07-15 13:15] LABS: CATHL Activated Clotting Time 242 SEC (74-125)
--- NOTE | 2022-07-15 14:00 | HMH.PHAINT1 ---
Pharmacy Intervention Comments: MEDICATION RECONCILIATION COMPLETED ON PATIENT USING EXTERNAL FILL HISTORY FROM PHARMACY. -BREANNA MÁRQUEZ, ZAYD
--- NOTE | 2022-07-15 17:04 | PC.NURSE ---
[address] Salas in regards to needing orders for pt. pt nauseous at this time, requesting water and no orders for ivf. 1705 call returned, dr salas states he will address orders at this time
--- NOTE | 2022-07-15 17:12 | PC.NURSE ---
late entry: report received at 1434 from Jammie Orellana RN in cemetery laborer
--- NOTE | 2022-07-15 17:21 | EXP.HP ---
History of Present Illness *Admission Date: 07/15/22 *Reason for visit:: post cath or IVF *History of present illness: Mr. Omar Garcia is a 66-year-old male patient with a history of asthma, hypertension, hyperlipidemia, diabetes, brain aneurysm, BPH, atherosclerosis of the aorta and other arteries Patient is noted to have had an abnormal Myoview and coronary artery disease angina pectoris. He also was noted to have left common and external iliac artery atherosclerosis and an abnormal CTA with a creatinine of 1.8 with suspected renal artery stenosis and probably vascular disease. Therefore he was scheduled for a cardiac cath and bilateral lower extremity angiogram which was completed this AM.. Due to copious contrast in the setting of renal insufficiency cardiology recommended admission overnight with IV fluids. At the time of this exam patient states he feels terrible. He is nauseated and trying to vomit. Apparently he did vomit after his procedure. He denies chest pain and shortness of breath. [facility] Disclaimer: The information contained in this section may have been updated after the patient was seen, as this information can be updated by other users. Medical History (Updated 07/15/22 @ 17:59 by Marichuy Luo APRN) Abnormal electrocardiogram [ECG] [EKG] GABE (acute kidney injury) Atypical angina Atypical chest pain BPH (benign prostatic hyperplasia) Cirrhosis Claudication Coronary artery calcification Diverticulosis Hyperlipidemia Hypertension Intermittent claudication Peripheral arterial disease SIRS (systemic inflammatory response syndrome) Type 2 diabetes mellitus Family History (Updated 07/15/22 @ 17:49 by Marichuy Luo APRN) Diabetes Coronary artery disease Cancer Hypertension Social History (Updated 07/15/22 @ 17:49 by Marichuy Luo APRN) Smoking Status: Former smoker alcohol intake: never current occupational status: retired Travel in the last 8 weeks: None household members: spouse housing: house caffeine: Yes Review of Systems Constitutional Constitutional: Reports body ache(s) Comments: Nausea and vomiting Eyes Eyes: Denies change in vision ENT Ears, Nose, Mouth, and Throat: Reports dizziness, Denies otalgia and Denies sore throat *Cardiovascular Cardiovascular: Reports chest pain and Denies dyspnea *Respiratory Respiratory: Reports cough and Denies dyspnea *Gastrointestinal Gastrointestinal: Reports cramping, Reports diarrhea, Reports nausea and Reports vomiting *Genitourinary Genitourinary: Denies difficulty urinating *Musculoskeletal Musculoskeletal: Reports abnormal gait (Due to dizziness) *Neurologic Neurologic: Reports abnormal gait (Due to dizziness) and Reports dizziness Meds Home Medications and Allergies Home Medications Medication Instructions Recorded Confirmed Type carvedilol 3.125 mg tablet 3.125 mg PO BID Hypertension 11/27/20 07/15/22 History fluticasone furoate 200 1 puff inhalation DAILY COPD 11/27/20 07/15/22 History mcg-vilanterol 25 mcg/dose inhalation powder metformin 1,000 mg tablet 1,000 mg PO BID Diabetes 11/27/20 07/15/22 History pregabalin 150 mg capsule 150 mg PO TID neuropathy 11/27/20 07/15/22 History rosuvastatin 20 mg tablet 20 mg PO DAILY Cholesterol 11/27/20 07/15/22 History tamsulosin 0.4 mg capsule 0.4 mg PO DAILY PROSTATE 11/27/20 07/15/22 History aspirin 81 mg tablet,delayed 81 mg PO DAILY HEART HEALTH 11/30/20 07/15/22 History release glyburide 5 mg tablet 10 mg PO DAILY Diabetes 06/24/22 07/15/22 History hydrochlorothiazide 25 mg tablet 12.5 mg PO DAILY Fluid 06/24/22 07/15/22 History omeprazole 20 mg capsule,delayed 20 mg PO DAILY GERD 06/24/22 07/15/22 History release amlodipine 5 mg tablet 5 mg PO DAILY Hypertension 07/15/22 07/15/22 History fluticasone propionate 50 1 spray intranasal BID Allergy 07/15/22 07/15/22 History mcg/actuation nasal symptoms spray,suspension lisinopril 20 mg tablet 20 mg PO D
--- NOTE | 2022-07-15 18:13 | PC.NURSE ---
[address] bragg face to face that pt home meds have not been reordered, vte prophylaxis needs ordered as well at this time.
[2022-07-15 18:16] LABS: Coronavirus 19, PCR Not Detected (NotDetected); Influenza A, PCR Not Detected (NotDetected); Influenza B, PCR Not Detected (NotDetected)
[2022-07-15 18:34] LABS: POC Glucose,Bedside 215 (70-110)
--- NOTE | 2022-07-15 21:39 | PC.NURSE ---
spoke with MD Bermudez about pt's hypertension, MD Bermudez stated may take a little longer for meds already given to adjust bp, no new orders at this time
[2022-07-16] VITALS (11 sets, daily range): BP systolic 131–168; BP diastolic 67–85; PULSE 55–130; RESP 17–20; TEMP 36.6–37.2; O2SAT 96–99; BMI 26.9
[2022-07-16 04:42] LABS: POC Glucose,Bedside 249 (70-110)
[2022-07-16 06:14] LABS: Basophils % 0.2 % (0.1-2.0); Eosinophils % 0.1 % (0.1-12.0); Hematocrit 40.2 % (42.0-52.0); Hemoglobin 13.3 g/dL (14.1-18.0); Lymphocytes # 0.7 K/mm3 (0.7-4.5); Lymphocytes % 6.3 % (10-50); Mean Corpuscular HGB Conc 33.1 g/dL (31.8-35.4); Mean Corpuscular Volume 84.6 fl (80-94); Mean Platelet Volume 8.9 fl (7.4-10.4); Monocytes # 0.4 K/mm3 (0.1-1.0); Monocytes % 3.6 % (1.7-9.3); Neutrophils # 9.6 K/mm3 (1.8-7.8); Neutrophils % 89.8 % (37.0-80.0); Platelet Count 168 K/mm3 (142-424); Red Blood Count 4.75 M/mm3 (4.60-6.20); Red Cell Distribution Width 15.2 % (11.5-17.5); White Blood Count 10.7 K/mm3 (4.8-10.8)
[2022-07-16 06:35] LABS: Chloride 104 mmol/L (98-107); Sodium 140 mmol/L (136-145)
[2022-07-16 06:38] LABS: Blood Urea Nitrogen 30 mg/dl (9-20); Creatinine Clearance Estimated 53 mL/min (50-200); Estimated Glomerular Filt Rate 47 ml/min (>60); GFR (African American) 56 ML/MIN (>60)
[2022-07-16 06:39] LABS: Calcium 8.7 mg/dl (8.4-10.2); Carbon Dioxide 29 mmol/L (22.0-30.0); Glucose 176 mg/dl (74-100); MANUAL DIFFERENTIAL MANUAL DIFFERENTIAL (MANUAL DIFF)
--- NOTE | 2022-07-16 06:47 | PC.NURSE ---
kaur Bermudez to let him know about pt's critical lab
--- NOTE | 2022-07-16 06:56 | PC.NURSE ---
paged Dr Bermudez again to let him know about pt's critical lab
[2022-07-16 07:19] LABS: Lymphocytes % 4 % (10-50); Monocytes % 1 % (2-9); Neutrophils % 95 % (42-76); Platelet Estimate Normal; RBC Morphology Normal; Total Cells Counted 100
--- NOTE | 2022-07-16 08:03 | ECG_ITS ---
APPROVED REPORT Exam: Resting ECG HR:151 bpm ECG Measurements Heart Rate 151 AXES QRSd 109 QRS 62 QT 236 T 0 QTc 322 Conclusion ATRIAL FLUTTER/TACHYCARDIA WITH RAPID VENTRICULAR RESPONSE MARKED ST DEPRESSION, CONSIDER SUBENDOCARDIAL INJURY [0.2+ mV ST DEPRESSION] ACUTE WI UNCONFIRMED REPORT Electronically signed by : Salvatore Anne MD 07/16/2022 08:50:09
--- NOTE | 2022-07-16 08:07 | EXP.PN ---
Subjective *Date: 07/16/22 *Time: 08:07 Interval history: Patient did sleep last night but feels awful this morning. Is mainly due to his nausea. He feels that some food may correct this issue. He is also having diarrhea in small amounts. He is voiding QS. He is now walking to the bathroom with no dizziness. He denies chest pain and shortness of breath. Exam Data for Last 24 hours Vital signs and Labs for Last 24 Hours: Temp Pulse Resp BP Pulse Ox 97.9 F 95 H 17 168/85 H 98 07/16/22 07:18 07/16/22 07:18 07/16/22 07:18 07/16/22 07:18 07/16/22 07:18 Laboratory Results - last 24 hr 07/15/22 09:23: WBC 5.8, RBC 4.44 L, Hgb 12.7 L, Hct 38.8 L, MCV 87.4, MCH 28.5, MCHC 32.6, RDW 15.2, Plt Count 176, MPV 9.2, Neut % (Auto) 57.5, Lymph % (Auto) 30.4, [place] % (Auto) 7.2, Eos % (Auto) 3.7, Baso % (Auto) 1.1, Neut # (Auto) 3.3, Lymph # (Auto) 1.8, [place] # (Auto) 0.4, Eos # (Auto) 0.2, Baso # (Auto) 0.1 07/15/22 09:23: Sodium 144, Potassium 3.7, Chloride 106, Carbon Dioxide 35 H, Anion Gap 6.7, BUN 37 H, Creatinine 1.80 H, Estimated Creat Clear 43, Estimated GFR 38 L, Est GFR ( Amer) 46 L, Glucose 70 L, Calcium 9.1 07/15/22 12:59: Activated Clotting Time 242 H* 07/15/22 13:21: Activated Clotting Time 261 H* 07/15/22 17:48: POC Glucose 215 H 07/15/22 18:06: SARS-CoV-2 (PCR) Not detected, Influenza A Untype (PCR) Not detected, Influenza Type B (PCR) Not detected 07/15/22 20:37: POC Glucose 249 H 07/16/22 05:48: WBC 10.7 D, RBC 4.75, Hgb 13.3 L, Hct 40.2 L, MCV 84.6, MCH 28.0, MCHC 33.1, RDW 15.2, Plt Count 168, MPV 8.9, Neut % (Auto) 89.8 H, Lymph % (Auto) 6.3 L, [place] % (Auto) 3.6, Eos % (Auto) 0.1, Baso % (Auto) 0.2, Neut # (Auto) 9.6 H, Lymph # (Auto) 0.7, [place] # (Auto) 0.4, Eos # (Auto) 0.0, Baso # (Auto) 0.0, Total Counted 100, Neutrophils % (Manual) 95 H, Lymphocytes % (Manual) 4 L, Monocytes % (Manual) 1 L, Platelet Estimate Normal, RBC Morphology Normal 07/16/22 05:48: Sodium 140, Potassium 3.0 L, Chloride 104, Carbon Dioxide 29, Anion Gap 10.0, BUN 30 H, Creatinine 1.50 H, Estimated Creat Clear 53, Estimated GFR 47 L, Est GFR ( Amer) 56 L D, Glucose 176 H D, Calcium 8.7 I & O for Last 24 hours: Intake & Output 07/13/22 07/14/22 07/15/22 07/16/22 11:59 11:59 11:59 11:59 Intake Total 0 / 0 Output Total 1600 / 1600 Balance -1600 / -1600 Weight 170 lb 171 lb 9 oz Constitutional Constitutional: no acute distress Comments: Does appear to be better this morning *Routine Respiratory Exam Respiratory: Present CTA bilaterally (Anteriorly and posteriorly) *Routine Cardiovascular Exam Cardiovascular: Present RRR and ectopic (Ectopics noted. Rhythm shows PACs with aberration or PVCs.) *Routine Abdominal Exam Abdominal: Present soft and normoactive bowel sounds; Absent tenderness *Routine Extremities Exam Extremities: Present edema (Left lower leg) *Routine Neurological Exam Neurological: Present alert and oriented X3 Assessment and Plan *Assessment and plan (1) Claudication: Status: Acute Category: Medical Code(s): I73.9 - Peripheral vascular disease, unspecified (2) Atypical angina: Status: Acute Category: Medical Code(s): I20.8 - Other forms of angina pectoris (3) Hyperlipidemia: Status: Acute Qualifiers: Hyperlipidemia type: mixed hyperlipidemia Qualified Code(s): E78.2 - Mixed hyperlipidemia Category: Medical Code(s): E78.5 - Hyperlipidemia, unspecified (4) BPH (benign prostatic hyperplasia): Status: Chronic Category: Medical Code(s): N40.0 - Benign prostatic hyperplasia without lower urinary tract symptoms (5) Type 2 diabetes mellitus: Status: Chronic Qualifiers: Diabetes mellitus long wall mining machine tender insulin use: unspecified custodial insulin use status Diabetes mellitus complication status: with other specified complication Qualified Code(s): E11.69 - Type 2 diabetes mellitus with other
--- NOTE | 2022-07-16 09:11 | PC.NURSE ---
High heart rate noted once monitor placed on patient. EKG ordered per protocol. EKG stated aflutter rvr, st depression. Patient had been dry-heaving during ekg exam. After pt able to eat breakfast, nausea had succeeded. Morning AM meds given, heart rate began to slow down. Marichuy Cheung APRN notified of ekg as she was on the floor at time. Told to report EKG to cardiology, will report to Dr. Bermudez as well
--- NOTE | 2022-07-16 09:30 | EXP.CARD.CON ---
History of Present Illness History of Present Illness Consult date: 07/16/22 Requesting physician: Milton Bermudez Chief complaint: obervation post LHC, CKD Additional Medical History:: Significant past medical history: Coronary artery disease coronary artery disease Peripheral artery disease Hyperlipidemia Hypertension Diabetes mellitus type 2 Chronic kidney disease baseline creatinine 1.9 LHC/Bilateral Lower extremity run off 07/2022 IMPRESSION Coronary disease as described above Successful stenting the proximal to mid LAD severe disease reduced to 0% with 2 contiguous drug-eluting stents followed by bifurcating stent to a large first diagonal artery Persistent severe stenosis in the proximal to mid dominant right coronary artery which corresponds to the high risk abnormal Myoview Mild nonflow limiting left renal artery stenosis with normal right renal artery Severe stenosis in the left common and external iliac artery with successful stenting reducing lesion to 0% with 2 bare-metal stents Normal ejection fraction Normal left ventricular end-diastolic pressure PLAN 1. Dual antiplatelet therapy 2. LDL less than 55 to be achieved with high intensity statin 3. Avoidance of tobacco product 4. Risk factor modification 5. IV fluids with admission overnight due to copious contrast in the setting of renal insufficiency 6. Patient be brought back to the [facility] in 2 weeks for anticipated outpatient stenting of the right coronary artery via the right radial access.? Patient will not require admission for the anticipated low contrast right coronary intervention History of present illness: 66-year-old white male with above past medical history presented to [facility] on 07/[facility]2022 for routine left heart cath/aortogram of lower extremities for abnormal Lexiscan Myoview and bilateral lower extremity claudication. Patient was admitted overnight for observation to monitor kidney function as patient has a history of chronic kidney disease. During procedure patient received stenting to the proximal mid LAD. Severe disease was also noted to the proximal to mid dominant RCA. Patient also received stenting to the left common and external iliac artery. Patient was admitted for further observation. Patient reports ongoing nausea since procedure which she attributes to lack of food in the last few days and has improved after eating and receiving phenergan. During episode of dry heaving nurse reports pulse got up to 130. An ekg was obtained which showed a brief episode of afib/flutter RVR which quickly resolved. A.m. labs as follow: Hemoglobin 13.3, potassium 3.0, BUN 30 and creatinine 1.5. Patient is resting comfortably with no complaints currently. [facility] Disclaimer: The information contained in this section may have been updated after the patient was seen, as this information can be updated by other users. Medical History (Updated 07/16/22 @ 09:44 by Evelyn Escobedo APRN) Abnormal electrocardiogram [ECG] [EKG] GABE (acute kidney injury) Atypical angina Atypical chest pain BPH (benign prostatic hyperplasia) Bronchitis Cirrhosis Claudication COPD (chronic obstructive pulmonary disease) Coronary artery calcification Diverticulosis Hepatitis C Hyperlipidemia Hypertension Intermittent claudication Peripheral arterial disease SIRS (systemic inflammatory response syndrome) Type 2 diabetes mellitus Family History Other Cancer Coronary artery disease Diabetes Hypertension Social History (Updated 07/15/22 @ 18:21 by Shiela Long RN) Smoking Status: Former smoker alcohol intake: never current occupational status: retired Travel in the last 8 weeks: None household members: spouse housing: house caffeine: Yes Review of Systems Review of Systems Review of systems:: pertinent systems reviewed and negative unless documented below ENT Ears, Nose, Mout
--- NOTE | 2022-07-16 11:08 | PC.NURSE ---
patient brilinta brought to bedside, given to patient family to take home per patient request. educated this was the first month supply of his bid brilinta/blood thinner
[2022-07-16 11:15] LABS: POC Glucose,Bedside 149 (70-110)
[2022-07-16 11:28] LABS: POC Glucose,Bedside 295 (70-110)
--- NOTE | 2022-07-16 13:58 | DIET.NUTRFU ---
left teeth at home, agreed on ground meat. if thinking about going home and brining teeth back, then he would be able to tolerate regul;ar consistencies.
[2022-07-16 16:47] LABS: POC Glucose,Bedside 131 (70-110)
--- NOTE | 2022-07-16 17:12 | PC.NURSE ---
VS stable, patient remains on room air. No nausea noted after eating. Heart rate decreased after medications given. Patient states he feels better. Lung sounds clear. Right groin site bandage clean, dry, intact. No hematoma noted.
[2022-07-16 20:07] LABS: POC Glucose,Bedside 191 (70-110)
--- NOTE | 2022-07-16 21:44 | PC.NURSE ---
spoke with MD Anne home school liaison officer for MD Bermudez about pt. request for lyrica for neuropathy. orders to start pt home dose of lyrica
[2022-07-17] VITALS: BP 147/56; PULSE 61; PULSE 70; RESP 18; TEMP 36.8; O2SAT 97
[2022-07-17 04:00] VITALS: BP 140/61; PULSE 50; PULSE 56; RESP 18; TEMP 36.8; O2SAT 95; BMI 27.1
[2022-07-17 05:13] LABS: POC Glucose,Bedside 96 (70-110)
[2022-07-17 07:20] VITALS: BP 146/65; PULSE 59; RESP 18; TEMP 36.7; O2SAT 98
[2022-07-17 08:00] VITALS: PULSE 55
--- NOTE | 2022-07-17 08:29 | EXP.ACUTE.PN ---
Subjective *Date: 07/17/22 *Time: 08:29 Interval history: Patient states he is feeling much better this morning. He denies any chest pain or shortness of breath. He denies any vomiting or nausea. He states he was able to eat breakfast. He continues to have some pain in the left upper back. He states he slept better last night and wants to go home today. Medical Exam Vital signs and Labs for Last 24 Hours: Vital Signs Temp Pulse Pulse Resp BP BP Pulse Ox 07/17/22 07:20 98.1 F 59 L 18 146/65 H 98 07/17/22 04:00 50 L 07/17/22 04:00 98.3 F 56 L 18 140/61 95 07/17/22 00:00 70 07/16/22 20:00 55 L 07/17/22 00:00 98.3 F 61 18 147/56 H 97 07/16/22 19:49 98.6 F 57 L 18 139/67 97 07/16/22 16:00 59 L 07/16/22 14:53 98.9 F 58 L 17 131/69 99 07/16/22 12:00 70 07/16/22 11:00 98.3 F 68 17 133/68 98 Intake and Output 07/16/22 07/17/22 07/17/22 19:59 03:59 11:59 Intake Total 2443 / 3986 1543 / 3986 Output Total 400 / 1000 0 / 1000 600 / 1000 Balance 2043 / 2986 0 / 2986 943 / 2986 Intake: Intake, Oral Amount 600 / 900 300 / 900 Intake, Total IV Amount 1843 / 3086 1243 / 3086 0.9 % Sodium Chloride 1,000 ml 1593 / 2836 1243 / 2836 @ 100 mls/hr IV .Q10H IGOR Rx#: [id number] KCl 20mEq/100ml 100 ml @ 50 mls 200 / 200 /hr IV Q2H IGOR Rx#:[id number] Magnesium Sulfate 1 gm In 0.9 % 50 / 50 Sodium Chloride 50 ml @ 52 mls /hr IV ONCE ONE Rx#:[id number] Output: Output, Urine Amount 400 / 1000 0 / 1000 600 / 1000 Other: Number of Unmeasured Voids 1 1 Weight 171 lb 8.314 oz 172 lb 9 oz Patient Weight 07/17/22 11:59 Weight 172 lb 9 oz Laboratory Results - last 24 hr 07/16/22 06:12: POC Glucose 149 H 07/16/22 11:20: POC Glucose 295 H 07/16/22 16:38: POC Glucose 131 H 07/16/22 19:52: POC Glucose 191 H 07/17/22 05:05: POC Glucose 96 I & O for Labs for Last 24 Hours: Intake & Output 07/14/22 07/15/22 07/16/22 07/17/22 11:59 11:59 11:59 11:59 Intake Total 0 / 0 3986 / 3986 Output Total 1600 / 1600 1000 / 1000 Balance -1600 / -1600 2986 / 2986 Weight 170 lb 171 lb 9 oz 172 lb 9 oz Constitutional: Present no acute distress Respiratory: Present CTA bilaterally Cardiac: Present Reg Rate and Rhythm GI: Present soft; Absent distention, tenderness or guarding Extremities: Absent edema Neuro: Present alert and awake Assessment and Plan *Assessment and plan (1) Claudication: Status: Acute Category: Medical Code(s): I73.9 - Peripheral vascular disease, unspecified (2) Atypical angina: Status: Acute Category: Medical Code(s): I20.8 - Other forms of angina pectoris (3) Hyperlipidemia: Status: Acute Qualifiers: Hyperlipidemia type: mixed hyperlipidemia Qualified Code(s): E78.2 - Mixed hyperlipidemia Category: Medical Code(s): E78.5 - Hyperlipidemia, unspecified (4) BPH (benign prostatic hyperplasia): Status: Chronic Category: Medical Code(s): N40.0 - Benign prostatic hyperplasia without lower urinary tract symptoms (5) Type 2 diabetes mellitus: Status: Chronic Qualifiers: Diabetes mellitus mcfp insulin use: unspecified mcfp insulin use status Diabetes mellitus complication status: with other specified complication Qualified Code(s): E11.69 - Type 2 diabetes mellitus with other specified complication Category: Medical Code(s): E11.9 - Type 2 diabetes mellitus without complications (6) Hypertension: Status: Chronic Qualifiers: Hypertension type: unspecified Qualified Code(s): I10 - Essential (primary) hypertension Category: Medical Code(s): I10 - Essential (primary) hypertension (7) Peripheral arterial disease: Status: Acute Category: Medical Code(s): I73.9 - Peripheral vascular
[2022-07-17 09:00] LABS: Basophils % 0.4 % (0.1-2.0); Eosinophils # 0.1 K/mm3 (0.0-0.4); Hematocrit 36.1 % (42.0-52.0); Hemoglobin 12.1 g/dL (14.1-18.0); Lymphocytes % 16.7 % (10-50); Mean Corpuscular HGB Conc 33.5 g/dL (31.8-35.4); Mean Corpuscular Hemoglobin 28.7 pg (27.0-31.2); Mean Corpuscular Volume 85.8 fl (80-94); Mean Platelet Volume 9.8 fl (7.4-10.4); Monocytes # 0.7 K/mm3 (0.1-1.0); Monocytes % 5.3 % (1.7-9.3); Neutrophils # 9.3 K/mm3 (1.8-7.8); Neutrophils % 76.6 % (37.0-80.0); Platelet Count 163 K/mm3 (142-424); Red Blood Count 4.21 M/mm3 (4.60-6.20); Red Cell Distribution Width 15.5 % (11.5-17.5); White Blood Count 12.1 K/mm3 (4.8-10.8)
[2022-07-17 09:11] LABS: Chloride 102 mmol/L (98-107); Potassium 3.2 mmoL/L (3.5-5.1); Sodium 138 mmol/L (136-145)
[2022-07-17 09:14] LABS: Alanine Aminotransferase 30 U/L (12-78); Albumin Level 3.2 g/dl (3.5-5.0); Albumin/Globulin Ratio 1.3 (1.1-1.8); Alkaline Phosphatase 58 U/L (38-126); Anion Gap 7.2 mEq/L (5-15); Aspartate Amino Transferase 54 U/L (17-59); Bilirubin,Total 0.4 mg/dl (0.2-1.3); Blood Urea Nitrogen 28 mg/dl (9-20); Calcium 8.2 mg/dl (8.4-10.2); Carbon Dioxide 32 mmol/L (22.0-30.0); Creatinine Clearance Estimated 50 mL/min (50-200); Estimated Glomerular Filt Rate 43 ml/min (>60); GFR (African American) 52 ML/MIN (>60); Globulin 2.4 g/dL (1.3-3.2); Glucose 234 mg/dl (74-100); Total Protein,Serum 5.6 g/dl (6.3-8.2)
--- NOTE | 2022-07-17 09:28 | EXP.CARD.PN ---
Subjective Subjective Date: 07/17/22 Time: 08:00 Principal diagnosis: post [facility] observation, new onset paf Interval history: Patient reports feeling much better, nausea has resolved. Nurse reports patient was in NSR throughout the evening. AM labs reviewed, creatinine remains stable. Patient requesting to go home. Exam Data for Last 24 hours Vital signs and Labs for Last 24 Hours: Temp Pulse Resp BP Pulse Ox 98.1 F 55 L 18 146/65 H 98 07/17/22 07:20 07/17/22 08:00 07/17/22 07:20 07/17/22 07:20 07/17/22 07:20 Laboratory Results - last 24 hr 07/16/22 06:12: POC Glucose 149 H 07/16/22 11:20: POC Glucose 295 H 07/16/22 16:38: POC Glucose 131 H 07/16/22 19:52: POC Glucose 191 H 07/17/22 05:05: POC Glucose 96 07/17/22 08:55: WBC 12.1 H, RBC 4.21 L, Hgb 12.1 L, Hct 36.1 L, MCV 85.8, MCH 28.7, MCHC 33.5, RDW 15.5, Plt Count 163, MPV 9.8, Neut % (Auto) 76.6, Lymph % (Auto) 16.7, [place] % (Auto) 5.3, Eos % (Auto) 1.0, Baso % (Auto) 0.4, Neut # (Auto) 9.3 H, Lymph # (Auto) 2.0, [place] # (Auto) 0.7, Eos # (Auto) 0.1, Baso # (Auto) 0.0 I & O for Last 24 hours: Intake & Output 07/14/22 07/15/22 07/16/22 07/17/22 23:59 23:59 23:59 23:59 Intake Total 2443 / 2443 1543 / 1543 Output Total 1000 / 1000 1000 / 1000 600 / 600 Balance -1000 / -1000 1443 / 1443 943 / 943 Weight 173 lb 1 oz 171 lb 8.314 oz 172 lb 9 oz Constitutional Constitutional: no acute distress *Routine Respiratory Exam Respiratory: Present CTA bilaterally and symmetric chest movement *Routine Cardiovascular Exam Cardiovascular: Present RRR, Normal S1 and Normal S2 *Routine Abdominal Exam Abdominal: Present soft and normoactive bowel sounds; Absent tenderness *Routine Extremities Exam Extremities: Present full ROM and normal capillary refill; Absent edema *Routine Skin Exam Skin: Present intact, dry and warm Detailed Neck Exam: Thyroids Thyroid: Absent bruit Progress Note: A&P Assessment and plan (1) Claudication: Status: Acute (2) Atypical angina: Status: Acute (3) Hyperlipidemia: Status: Acute (4) BPH (benign prostatic hyperplasia): Status: Chronic (5) Type 2 diabetes mellitus: Status: Chronic (6) Hypertension: Status: Chronic (7) Peripheral arterial disease: Status: Acute (8) Coronary artery calcification: Status: Acute (9) Nausea and vomiting: Status: Acute (10) Renal insufficiency: Status: Acute (11) Hypokalemia: Status: Acute Assessment and Plan Assessment and Plan for All Diagnoses:: Coronary artery disease -[facility] 07/2022-ELVIN to Proximal to mid LAD. Persistent severe stenosis in the proximal to mid dominant right coronary artery.? Mild nonflow limiting left renal artery stenosis with normal right renal arteries. -Continue DAPT therapy, BB and high dose statin -Patient needs to be brought back to [facility] in 2 weeks for anticipated outpatient stenting of the right coronary artery via the right radial access. Patient will not require admission for the anticipated low contrast right coronary intervention. Paroxysmal atrial fibrillation Chadsvasc score 4 -Continue bisoprolol 10 mg p.o. daily. -Continue xarelto 15 mg p.o. daily 07/17- NSR noted with rate in the 50s Peripheral artery disease -Abnormal CTA with runoff and severe claudication. -Bilateral lower extremity runoff 07/2022-severe stenosis of the left common and external iliac artery with successful stenting reducing lesion to 0% with 2 bare-metal stents. -Avoidance of tobacco products -Continue DAPT therapy and high-dose statin Hypokalemia- -Potassium 3.? Primary service is already replacing.? Will give 1 g of magnesium IV in addition to potassium 07/17-3.2 Hypertension-uncontrolled -Continue amlodipine 10 mg p.o. daily, bisoprolol 10mg mg p.o. daily.? Increase lisinopril to 40 mg p.o. daily and increase hydrochlorothiazide to 25 mg p.o. daily 07/17- Improved Chronic kidney disease -Remained
[2022-07-17 11:02] VITALS: BP 137/66; PULSE 48; RESP 17; TEMP 36.6; O2SAT 97
[2022-07-17 11:57] LABS: POC Glucose,Bedside 162 (70-110)
--- NOTE | 2022-07-17 12:41 | HMH.PHAINT1 ---
Pharmacy Intervention Comments: Discussed discharge medications with patient. Patient verbalized understanding and had no questions at this time
--- NOTE | 2022-07-21 15:39 | EXP.DC.SUM ---
General Admission date:: 07/15/22 Discharge date: 07/17/22 HPI HPI HPI: Mr. Omar Garcia is a 66-year-old male patient with a history of asthma, hypertension, hyperlipidemia, diabetes, brain aneurysm, BPH, atherosclerosis of the aorta and other arteries Patient is noted to have had an abnormal Myoview and coronary artery disease angina pectoris. He also was noted to have left common and external iliac artery atherosclerosis and an abnormal CTA with a creatinine of 1.8 with suspected renal artery stenosis and probably vascular disease. Therefore he was scheduled for a cardiac cath and bilateral lower extremity angiogram which was completed this AM.. Due to copious contrast in the setting of renal insufficiency cardiology recommended admission overnight with IV fluids. At the time of this exam patient states he feels terrible. He is nauseated and trying to vomit. Apparently he did vomit after his procedure. He denies chest pain and shortness of breath. Hospital Course Hospital Course Hospital Course: Patient had difficulty with nausea and vomiting in the Student Success Counselor which continued after being admitted to the medical floor. See cath report which describers stenting of several arteries.. He received Zofran and Phenergan for this. Night after admission he did sleep some although somewhat nauseated. Upon awakening he denied chest pain and shortness of breath. He continue with IV fluids for improving renal function. He was followed by cardiology. Blood pressure was elevated. He had been on carvedilol which was changed to bisoprolol 10 mg daily by cardiology. Xarelto was added as well. He was to continue with amlodipine 10 mg p.o. and increase lisinopril to 40 mg daily hydrochlorothiazide to 25 mg daily. On 07/17/2022 patient had improved with less nausea and was able to retain liquids. He was discharged to home with medications as per cardiology. Exam Data for Last 24 hours Vital signs and Labs for Last 24 Hours: Temp Pulse Resp BP Pulse Ox 97.9 F 48 L 17 137/66 97 07/17/22 11:02 07/17/22 11:02 07/17/22 11:02 07/17/22 11:07/17/22 11:07/15/22 09:23:?WBC 5.8,?RBC 4.44 L,?Hgb 12.7 L,?Hct 38.8 L, MCV 87.4, MCH 28.5, MCHC 32.6, RDW 15.2, Plt Count 176, MPV 9.2, Neut % (Auto) 57.5, Lymph % (Auto) 30.4, [place] % (Auto) 7.2, Eos % (Auto) 3.7, Baso % (Auto) 1.1, Neut # (Auto) 3.3, Lymph # (Auto) 1.8, [place] # (Auto) 0.4, Eos # (Auto) 0.2, Baso # (Auto) 0.1 07/15/22 09:23:?Sodium 144, Potassium 3.7, Chloride 106,?Carbon Dioxide 35 H, Anion Gap 6.7,?BUN 37 H,?Creatinine 1.80 H, Estimated Creat Clear 43,?Estimated GFR 38 L,?Est GFR ( Amer) 46 L,?Glucose 70 L, Calcium 9.1 07/15/22 12:59: Activated Clotting Time 242 H* 07/15/22 13:21: Activated Clotting Time 261 H* 07/15/22 17:48: POC Glucose 215 H 07/15/22 18:06:?SARS-CoV-2 (PCR) Not detected, Influenza A Untype (PCR) Not detected, Influenza Type B (PCR) Not detected 07/15/22 20:37: POC Glucose 249 H 07/16/22 05:48: WBC 10.7? D, RBC 4.75,?Hgb 13.3 L,?Hct 40.2 L, MCV 84.6, MCH 28.0, MCHC 33.1, RDW 15.2, Plt Count 168, MPV 8.9,?Neut % (Auto) 89.8 H,?Lymph % (Auto) 6.3 L, [place] % (Auto) 3.6, Eos % (Auto) 0.1, Baso % (Auto) 0.2,?Neut # (Auto) 9.6 H, Lymph # (Auto) 0.7, [place] # (Auto) 0.4, Eos # (Auto) 0.0, Baso # (Auto) 0.0, Total Counted 100,?Neutrophils % (Manual) 95 H,?Lymphocytes % (Manual) 4 L,?Monocytes % (Manual) 1 L, Platelet Estimate Normal, RBC Morphology Normal 07/16/22 05:48:?Sodium 140,?Potassium 3.0 L, Chloride 104, Carbon Dioxide 29, Anion Gap 10.0,?BUN 30 H,?Creatinine 1.50 H, Estimated Creat Clear 53,?Estimated GFR 47 L,?Est GFR ( Amer) 56 L D,?Glucose 176 H D, Calcium 8.7 Radiology Reports for the Last 24 Hours: ANGIOGRAPHIC RESULTS The left main artery Normal The left anterior descending artery Has an ostial proximal 70% stenosis.? A tight 70 to 80% stenosis extends into the ostial proximal segment of a large first diagonal artery. The circumflex artery Nondominant and
== END 2022-07-17 14:13 | disposition home or self-care (01) ==
LOC: 2ND 13:43
PROVIDERS: Internal Medicine; Physician Assistant; Admitting Provider Family Medicine; PCP Family Medicine; Visit Provider Family Medicine
DX: I25.118 Atherosclerotic heart disease of native coronary artery with other forms of angina pectoris (principal); I70.212 Atherosclerosis of native arteries of extremities with intermittent claudication, left leg; I12.9 Hypertensive chronic kidney disease with stage 1 through stage 4 chronic kidney disease, or unspecified chronic kidney disease; N40.0 Benign prostatic hyperplasia without lower urinary tract symptoms; I25.84 Coronary atherosclerosis due to calcified coronary lesion; I77.1 Stricture of artery; I70.1 Atherosclerosis of renal artery; E87.6 Hypokalemia; N18.9 Chronic kidney disease, unspecified; I48.0 Paroxysmal atrial fibrillation; Z79.84 Long term (current) use of oral hypoglycemic drugs; E11.22 Type 2 diabetes mellitus with diabetic chronic kidney disease
CPT/HCPCS: 36252; 36415; 37221; 80048; 80053; 82962; 85007; 85025; 85347; 92928; 93005; 93458; 99152; 99153; C1725; C1760; C1769; C1874; C1876; C1894; C9600; C9803; G0378; J1644; J2405; Q9967; U0003; U0005

== ENCOUNTER → 2022-07-24 11:18 | Outpatient (CLI) | payer MEDICARE, OTHER, SELFPAY ==
[2022-07-24 11:55] LABS: Basophils % 0.5 % (0.1-2.0); Eosinophils # 0.3 K/mm3 (0.0-0.4); Eosinophils % 3.9 % (0.1-12.0); Hematocrit 36.6 % (42.0-52.0); Hemoglobin 11.7 g/dL (14.1-18.0); Lymphocytes # 1.1 K/mm3 (0.7-4.5); Lymphocytes % 15.2 % (10-50); Mean Corpuscular HGB Conc 32.1 g/dL (31.8-35.4); Mean Corpuscular Hemoglobin 28.1 pg (27.0-31.2); Mean Corpuscular Volume 87.6 fl (80-94); Mean Platelet Volume 8.8 fl (7.4-10.4); Monocytes # 0.5 K/mm3 (0.1-1.0); Monocytes % 6.3 % (1.7-9.3); Neutrophils # 5.5 K/mm3 (1.8-7.8); Neutrophils % 74.1 % (37.0-80.0); Platelet Count 196 K/mm3 (142-424); Red Blood Count 4.17 M/mm3 (4.60-6.20); Red Cell Distribution Width 15.2 % (11.5-17.5); White Blood Count 7.4 K/mm3 (4.8-10.8)
[2022-07-24 12:32] LABS: Anion Gap 4.8 mEq/L (5-15); Blood Urea Nitrogen 47 mg/dl (9-20); Calcium 8.7 mg/dl (8.4-10.2); Carbon Dioxide 31 mmol/L (22.0-30.0); Chloride 103 mmol/L (98-107); Estimated Glomerular Filt Rate 33 ml/min (>60); GFR (African American) 41 ML/MIN (>60); Glucose 217 mg/dl (74-100); Potassium 4.8 mmoL/L (3.5-5.1); Sodium 134 mmol/L (136-145)
== END ==
PROVIDERS: PCP Family Medicine; Visit Provider Internal Medicine
DX: I25.10 Atherosclerotic heart disease of native coronary artery without angina pectoris (principal); Y84.0 Cardiac catheterization as the cause of abnormal reaction of the patient, or of later complication, without mention of misadventure at the time of the procedure
CPT/HCPCS: 36415; 80048; 85025

== ENCOUNTER 2022-07-24 13:29 | Outpatient (RCR) | payer MEDICARE, OTHER, SELFPAY | END 2022-11-17 15:00 | disposition home or self-care (01) | LOC: PT 13:29 | PROVIDERS: Visit Provider Internal Medicine | DX: I25.10 Atherosclerotic heart disease of native coronary artery without angina pectoris (principal); Z95.5 Presence of coronary angioplasty implant and graft ==

== ENCOUNTER 2022-07-29 08:39 | Day surgery (SDC) | payer MEDICARE, OTHER, SELFPAY ==
[2022-07-29 08:47] VITALS: BMI 23.5
[2022-07-29 09:30] VITALS: BP 123/72; PULSE 53; RESP 18; O2SAT 98
[2022-07-29 09:34] VITALS: PULSE 53
[2022-07-29 09:40] LABS: Basophils # 0.1 K/mm3 (0-0.2); Basophils % 0.8 % (0.1-2.0); Eosinophils # 0.6 K/mm3 (0.0-0.4); Eosinophils % 5.9 % (0.1-12.0); Hematocrit 35.2 % (42.0-52.0); Hemoglobin 11.8 g/dL (14.1-18.0); Lymphocytes # 1.7 K/mm3 (0.7-4.5); Lymphocytes % 17.5 % (10-50); Mean Corpuscular HGB Conc 33.7 g/dL (31.8-35.4); Mean Corpuscular Volume 86.1 fl (80-94); Mean Platelet Volume 8.6 fl (7.4-10.4); Monocytes # 0.6 K/mm3 (0.1-1.0); Monocytes % 6.4 % (1.7-9.3); Neutrophils # 6.8 K/mm3 (1.8-7.8); Neutrophils % 69.3 % (37.0-80.0); Platelet Count 220 K/mm3 (142-424); Red Blood Count 4.08 M/mm3 (4.60-6.20); Red Cell Distribution Width 15.5 % (11.5-17.5); White Blood Count 9.8 K/mm3 (4.8-10.8)
--- NOTE | 2022-07-29 09:44 | CA_ITS ---
FINAL REPORT CLINICAL HISTORY: Cath 2 weeks ago. Pt has a knot at Left groin cath site FINDINGS: Spectral and Doppler waveform evaluations of the left groin was performed. Spectral analysis was performed. The left common femoral artery is patent. IMPRESSION: There is no evidence of pseudoaneurysm. Reviewed, Interpreted and Dictated by Mireya Shah MD Transcribed by Marichuy Sunshine Authenticated and [facility]
[2022-07-29 09:45] LABS: Chloride 105 mmol/L (98-107); Potassium 4.5 mmoL/L (3.5-5.1); Sodium 138 mmol/L (136-145)
[2022-07-29 09:48] LABS: Anion Gap 7.5 mEq/L (5-15); Blood Urea Nitrogen 52 mg/dl (9-20); Carbon Dioxide 30 mmol/L (22.0-30.0); Creatinine Clearance Estimated 31 mL/min (50-200); Estimated Glomerular Filt Rate 27 ml/min (>60); GFR (African American) 33 ML/MIN (>60)
[2022-07-29 09:49] LABS: Calcium 8.7 mg/dl (8.4-10.2); Glucose 128 mg/dl (74-100)
--- NOTE | 2022-07-29 11:16 | SUR.OPER ---
Case cancelled due to elevated creatinine, to be rescheduled per MD orders.
--- NOTE | 2022-07-29 11:20 | SUR.OPER ---
patient arrived to CCL with quarter size knot over left groin site from previous cath. Dr Serrano notified . new orders: left groin US to rule out pseudoaneursm. Also, notified of creatinine of 2.4. new orders to postpone case for two weeks.
== END 2022-07-29 11:17 | disposition home or self-care (01) ==
LOC: CATHLAB 08:40
PROVIDERS: PCP Family Medicine; Visit Provider Internal Medicine
DX: I25.10 Atherosclerotic heart disease of native coronary artery without angina pectoris (principal); E11.9 Type 2 diabetes mellitus without complications; I10 Essential (primary) hypertension; Z79.01 Long term (current) use of anticoagulants; I70.213 Atherosclerosis of native arteries of extremities with intermittent claudication, bilateral legs; Z95.820 Peripheral vascular angioplasty status with implants and grafts; I48.0 Paroxysmal atrial fibrillation
CPT/HCPCS: 80048; 85025; 93926

== ENCOUNTER 2022-08-11 08:31 | Day surgery (SDC) | payer MEDICARE, OTHER, SELFPAY ==
[2022-08-11] VITALS (15 sets, daily range): BP systolic 108–152; BP diastolic 48–66; PULSE 40–55; RESP 16–20; TEMP 36.9; O2SAT 93–97; BMI 23.5
--- NOTE | 2022-08-11 07:14 | IR_ITS ---
APPROVED REPORT Patient Location: Outpatient Hospice Clinical Supervisor: JONNY Brunner RT (R) PROCEDURES Selective coronary angiogram Drug-eluting stent deployment to the proximal mid dominant right coronary artery INDICATION Abnormal Myoview inferior ischemia, Coronary artery disease Informed consent was obtained prior to the procedure. COMPLICATIONS None Estimated Blood Loss: Less than 10 ML TECHNIQUE One percent lidocaine used to anesthetize the right anterior aspect of the wrist. The right radial artery was accessed via the Seldinger technique. A 6 [place] sheath was placed in the right radial artery. An arterial cocktail using heparin magnesium sulfate lidocaine and nitroglycerin was administered. ACT was therapeutic and the guide catheter was placed in the right coronary artery followed by Choice PT extra-support wire. A 3.5 x 22 mm resolute [place] stent was deployed at 15 lorin reducing the proximal stenosis but the stent did not cover the target lesion therefore an additional 3.5 x 15 mm resolute [place] stent was placed distal to the for stent deployed at 20 lorin. The balloon was brought back and deployed at 22 lorin to post dilate up and down the first stent and measuring the 2. PAMELA-3 flow was present before and after the procedure. At the end the procedure the apparatus was removed the sheath was removed good hemostasis was achieved using TR banding patient was transferred to the postop putting in stable condition. A total of 4 cc of contrast was used for the entire procedure IMPRESSION Hemodynamically severe stenosis in the mid dominant right coronary artery with successful stenting of the proximal to mid dominant right coronary hemodynamically severe disease reduced to 0% with 2 contiguous drug-eluting stents PLAN 1. Dual antiplatelet therapy 2. Discontinue hydrochlorothiazide and metformin due to chronic renal failure 3. Avoidance of tobacco products 4. Risk factor modification 5. Cardiac rehabilitation 6. LDL less than 55 to be achieved with high intensity statin Electronically signed by : Gamaliel Serrano MD 08/11/2022 10:38:23
[2022-08-11 09:37] LABS: Chloride 104 mmol/L (98-107)
[2022-08-11 09:38] LABS: Potassium 3.9 mmoL/L (3.5-5.1); Sodium 139 mmol/L (136-145)
[2022-08-11 09:40] LABS: Blood Urea Nitrogen 46 mg/dl (9-20); Creatinine Clearance Estimated 29 mL/min (50-200); Estimated Glomerular Filt Rate 25 ml/min (>60); GFR (African American) 30 ML/MIN (>60)
[2022-08-11 09:41] LABS: Anion Gap 7.9 mEq/L (5-15); Calcium 8.7 mg/dl (8.4-10.2); Carbon Dioxide 31 mmol/L (22.0-30.0); Glucose 90 mg/dl (74-100)
[2022-08-11 09:43] LABS: Basophils # 0.1 K/mm3 (0-0.2); Basophils % 0.9 % (0.1-2.0); Eosinophils # 0.6 K/mm3 (0.0-0.4); Hematocrit 35.5 % (42.0-52.0); Hemoglobin 11.7 g/dL (14.1-18.0); Lymphocytes # 1.9 K/mm3 (0.7-4.5); Lymphocytes % 29.8 % (10-50); Mean Corpuscular HGB Conc 32.9 g/dL (31.8-35.4); Mean Corpuscular Hemoglobin 28.9 pg (27.0-31.2); Mean Corpuscular Volume 87.8 fl (80-94); Mean Platelet Volume 9.5 fl (7.4-10.4); Monocytes # 0.5 K/mm3 (0.1-1.0); Monocytes % 7.1 % (1.7-9.3); Neutrophils # 3.3 K/mm3 (1.8-7.8); Neutrophils % 52.1 % (37.0-80.0); Platelet Count 159 K/mm3 (142-424); Red Blood Count 4.04 M/mm3 (4.60-6.20); Red Cell Distribution Width 15.5 % (11.5-17.5); White Blood Count 6.4 K/mm3 (4.8-10.8)
[2022-08-11 11:11] LABS: CATHL Activated Clotting Time 256 SEC (74-125)
--- NOTE | 2022-08-11 14:14 | P.CONPHA_ITS ---
PHA Filling Hauler Weaving Discharge Med Suction Plate Carrier Cleaner: Omar Aragon Radha has received discharge medication counseling on the following medications: -ASPIRIN (PATIENT PREVIOUSLY TAKING, NO QUESTIONS) -BISOPROLOL (PATIENT PREVIOUSLY TAKING, NO QUESTIONS) -BRILINTA (PATIENT PREVIOUSLY TAKING, NO QUESTIONS) -ROSUVASTATIN (PATIENT PREVIOUSLY TAKING, NO QUESTIONS) -STOP TAKING THE METFORMIN, LISINOPRIL, HYDROCHLOROTHIAZIDE, AND POTASSIUM DUE TO KIDNEY FUNCTION. PATIENT ASKED ABOUT THE XARELTO AND NOSE BLEEDS, I ADVISED HIM THIS IS VERY LIKELY AND THAT HE SHOULD FOLLOW UP WITH THE DECORATING MACHINE TENDER OR PRIMARY CARE TO DETERMINE IF THEY WANT HIM TO STOP OR CHANGE TO SOMETHING ELSE. PATIENT VERBALIZED NO ADDITIONAL QUESTIONS AT THIS TIME.
== END 2022-08-11 14:28 | disposition home or self-care (01) ==
PROVIDERS: PCP Family Medicine; Visit Provider Internal Medicine
DX: I25.10 Atherosclerotic heart disease of native coronary artery without angina pectoris (principal); Z79.01 Long term (current) use of anticoagulants; Z79.899 Other long term (current) drug therapy; E11.9 Type 2 diabetes mellitus without complications; Z79.84 Long term (current) use of oral hypoglycemic drugs; I70.1 Atherosclerosis of renal artery; I70.213 Atherosclerosis of native arteries of extremities with intermittent claudication, bilateral legs; I48.0 Paroxysmal atrial fibrillation; Z95.828 Presence of other vascular implants and grafts; I10 Essential (primary) hypertension
CPT/HCPCS: 80048; 85025; 85347; 92928; 93454; 99152; C1725; C1769; C1874; C1876; C9600; J1644; Q9967

== ENCOUNTER → 2022-08-21 10:28 | Outpatient (CLI) | payer MEDICARE, OTHER, SELFPAY ==
[2022-08-21 11:04] LABS: Basophils % 0.3 % (0.1-2.0); Eosinophils # 0.4 K/mm3 (0.0-0.4); Eosinophils % 5.2 % (0.1-12.0); Hematocrit 32.4 % (42.0-52.0); Hemoglobin 10.6 g/dL (14.1-18.0); Lymphocytes # 1.1 K/mm3 (0.7-4.5); Lymphocytes % 12.8 % (10-50); Mean Corpuscular HGB Conc 32.6 g/dL (31.8-35.4); Mean Corpuscular Hemoglobin 29.3 pg (27.0-31.2); Mean Corpuscular Volume 89.8 fl (80-94); Mean Platelet Volume 9.5 fl (7.4-10.4); Monocytes # 0.5 K/mm3 (0.1-1.0); Monocytes % 6.2 % (1.7-9.3); Neutrophils # 6.3 K/mm3 (1.8-7.8); Neutrophils % 75.5 % (37.0-80.0); Platelet Count 146 K/mm3 (142-424); Red Blood Count 3.61 M/mm3 (4.60-6.20); Red Cell Distribution Width 15.5 % (11.5-17.5); White Blood Count 8.3 K/mm3 (4.8-10.8)
[2022-08-21 11:44] LABS: INR 1.17 (0.9-1.1); Prothrombin Time 12.5 seconds (10.1-12.5)
[2022-08-21 12:24] LABS: Chloride 103 mmol/L (98-107)
[2022-08-21 12:25] LABS: Sodium 137 mmol/L (136-145)
[2022-08-21 12:27] LABS: Alanine Aminotransferase 44 U/L (12-78); Alkaline Phosphatase 83 U/L (38-126); Aspartate Amino Transferase 64 U/L (17-59); Bilirubin,Total 0.4 mg/dl (0.2-1.3); Blood Urea Nitrogen 42 mg/dl (9-20); Estimated Glomerular Filt Rate 36 ml/min (>60); GFR (African American) 43 ML/MIN (>60)
[2022-08-21 12:28] LABS: Albumin Level 3.3 g/dl (3.5-5.0); Albumin/Globulin Ratio 1.5 (1.1-1.8); Carbon Dioxide 30 mmol/L (22.0-30.0); Globulin 2.2 g/dL (1.3-3.2); Glucose 212 mg/dl (74-100); Total Protein,Serum 5.5 g/dl (6.3-8.2)
[2022-08-22 09:21] LABS: AFP, Tumor Marker <1.8 ng/mL (0.0-8.4)
== END ==
PROVIDERS: PCP Internal Medicine; Visit Provider Physician Assistant
DX: I25.10 Atherosclerotic heart disease of native coronary artery without angina pectoris (principal); Z95.5 Presence of coronary angioplasty implant and graft; K74.60 Unspecified cirrhosis of liver
CPT/HCPCS: 36415; 80053; 82105; 85025; 85610

== ENCOUNTER → 2022-09-04 15:26 | Outpatient (CLI) | payer MEDICARE, OTHER, SELFPAY ==
--- NOTE | 2022-09-04 15:27 | CT_ITS ---
FINAL REPORT TECHNIQUE: Axial CT images were performed through the head. Coronal reformatted images were submitted. This study was performed with techniques to keep radiation doses as low as reasonably achievable (ALARA). Individualized dose reduction techniques using automated exposure control or adjustment of mA and/or kV according to the patient's size were employed. CLINICAL HISTORY: hx of brain aneurysm COMPARISON: None FINDINGS: There is extensive streak artifact associated with presumed embolization coils in the right middle cranial fossa and suprasellar regions. Streak artifact markedly degrades imaging evaluation. There is encephalomalacia in the lateral right frontal lobe and right basal ganglia. Ex vacuo dilatation of the right lateral ventricle is noted. There is no evidence of hemorrhage. There is no mass or edema identified. There is no abnormal extra-axial fluid seen. There is complete opacification of the left maxillary sinus. There appears to be destruction of the medial lateral chiu of the maxillary sinus best seen on image 11 series 3. IMPRESSION: Opacification left maxillary sinus with destruction of the chiu of the maxillary sinus concerning for neoplasia or aggressive infection. Correlate clinically. Postoperative changes from embolizations. Encephalomalacia right frontal lobe and right basal ganglia. Reviewed, Interpreted and Dictated by Chester Samuel MD Transcribed by Skylar Wood Authenticated and [facility]
== END ==
PROVIDERS: PCP Family Medicine; Visit Provider Physician Assistant
DX: I67.1 Cerebral aneurysm, nonruptured (principal)
CPT/HCPCS: 70450

== ENCOUNTER → 2022-09-29 13:51 | Outpatient (CLI) | payer MEDICARE, OTHER, SELFPAY ==
[2022-09-29 14:03] LABS: Microscopic, Urine URINE MICROSCOPIC (MICROSCOPIC)
[2022-09-29 14:24] LABS: Hematocrit 34.7 % (42.0-52.0); Hemoglobin 11.8 g/dL (14.1-18.0); Mean Corpuscular HGB Conc 34.1 g/dL (31.8-35.4); Mean Corpuscular Hemoglobin 29.4 pg (27.0-31.2); Mean Corpuscular Volume 86.3 fl (80-94); Platelet Count 142 K/mm3 (142-424); Red Blood Count 4.02 M/mm3 (4.60-6.20)
[2022-09-29 14:38] LABS: Appearance,Urine CLEAR (Clear); Bilirubin,Urine Negative (Negative); Blood, Urine TRACE-I (Negative); Color,Urine YELLOW (Yellow); Glucose,Urine (UA) TRACE (Negative); Ketones,Urine Negative (Negative); Leukocyte Esterase,Urine Negative (Negative); Nitrate,Urine Negative (Negative); Protein,Urine 3+ (Negative); Urobilinogen,Urine 0.2 EU/dl (0.2)
[2022-09-29 14:50] LABS: Bacteria,Urine Trace /lpf; RBC,Urine Occasional #/hpf (0-3); Sperm,Urine OCC /lpf
[2022-09-29 15:01] LABS: Creatinine,Urine Random 50 mg/dL (Not Estab.)
[2022-09-29 15:38] LABS: Chloride 92 mmol/L (98-107); Sodium 136 mmol/L (136-145)
[2022-09-29 15:39] LABS: Albumin Level 3.7 g/dl (3.5-5.0); Potassium 3.3 mmoL/L (3.5-5.1)
[2022-09-29 15:41] LABS: Anion Gap 14.3 mEq/L (5-15); Blood Urea Nitrogen 54 mg/dl (9-20); Carbon Dioxide 33 mmol/L (22.0-30.0); Estimated Glomerular Filt Rate 29 ml/min (>60); GFR (African American) 34 ML/MIN (>60)
[2022-09-29 15:42] LABS: Calcium 8.5 mg/dl (8.4-10.2); Glucose 292 mg/dl (74-100); Phosphorous 3.7 mg/dl (2.5-4.5)
== END ==
PROVIDERS: PCP Family Medicine; Visit Provider Internal Medicine Nephrology
DX: N18.30 Chronic kidney disease, stage 3 unspecified (principal)
CPT/HCPCS: 36415; 80069; 81001; 82570; 84155; 85014; 85018; 85048; 85049

== ENCOUNTER → 2022-10-02 15:12 | Outpatient (POV) | payer MEDICARE, OTHER, SELFPAY | PROVIDERS: Visit Provider Internal Medicine Nephrology | DX: Z00.00 Encounter for general adult medical examination without abnormal findings (principal) ==

== ENCOUNTER → 2022-10-06 14:46 | Outpatient (CLI) | payer MEDICARE, OTHER, SELFPAY ==
--- NOTE | 2022-10-06 14:47 | CT_ITS ---
FINAL REPORT TECHNIQUE: Thin section axial CT images of the facial bones and sinuses were obtained without contrast. Coronal reformatted images were also obtained.This study was performed with techniques to keep radiation doses as low as reasonably achievable, (ALARA). Individualized dose reduction techniques using automated exposure control or adjustment of mA and/or kV according to the patient''''s size were employed. CLINICAL HISTORY: sinusitis FINDINGS: There is complete opacification of the left maxillary sinus with soft tissue protruding into the left nasal air passage. There is mild bony wall thickening in the left maxillary sinus indicative of chronic process. There is partial opacification of the left ethmoid air cells. Mild focal mucosal thickening is seen in the inferior right maxillary sinus. No fluid levels are identified. The right ostiomeatal unit is clear. The left ostiomeatal unit is opacified related to left maxillary sinus disease. The nasal septum is minimally deviated to the right. No fracture or acute bony abnormality is identified. IMPRESSION: Severe left maxillary sinus disease may be due to chronic sinusitis or underlying polyps with polypoid extension into the left nasal air passage. Correlation with direct visualization is recommended. Reviewed, Interpreted and Dictated by Milton Matute MD Transcribed by Renetta Ho Authenticated and . [facility]
== END ==
PROVIDERS: PCP Family Medicine; Visit Provider Student in an Organized Health Care Education/Training Program
DX: J32.9 Chronic sinusitis, unspecified (principal)
CPT/HCPCS: 70486

== ENCOUNTER 2022-10-16 15:00 | Outpatient (RCR) | payer MEDICARE, OTHER, SELFPAY ==
--- NOTE | 2022-09-04 11:54 | HMH.PTOPWND ---
Rehab Outpt Wound Evaluation Rehab OP Wound Evaluation Start: 09/04/22 10:53 Freq: Status: Active Protocol: Document 09/04/22 11:43 CARINA (Rec: 09/04/22 11:53 PHOSHAUN [id number]) E-signed By Issa Mullen, PT Subjective/History History History This is the initial PT eval for Omar Garcia 66 yowm who presents with c/o B LE edema, L worse than R, x ~ 1yr. He reports insidious onset of edema, but he did have a fall with a bone bruise that just won't heal on his L knee shortly after it began. He reports no minimal c/o pain in his legs, but does suffer from significant diabetic neuropathy. He has significant PMH of CAD with stents, PAD with B LE stents, BPH, Cirrhosis, COPD, colitis/ diverticulitis, Hep C, HL, HTN , DM-II, CKD (stage III). Subjective Subjective He currently reports pain in LEs of 3/10, at worst 6/10. He presents with 1+ pitting edema in R lower leg and 3+ pitting edema in L lower leg. He has severe B LE neuropathy in both feet to the ankle and diminished sensation with 10g monofilament testing from knees distally. L lower leg with increased redness/ erythema from mid-calf distally. Lymphedema Eval Classification of Lymphedema Secondary Lymphedema Yes: multiple factors Stemmer's sign Stemmer's Sign yes Stage of Lymphedema Lymphedema stages Stage II (Pitting edema, increased fibrosis w/ decreased pitting) Skin Changes Dry Skin Yes Taut, Shiny Skin Yes Redness Yes Blisters Yes Wounds Yes Brittle Uneven Nails Yes Discoloration of Skin Yes Other Changes Yes Pain Scale Pain Scale (0-10) 6 Affected Extremities Areas Affected by Lymphedema/Edema Abdomen,Right Lower Extremity, Left Lower Extremity Manual Lym
--- NOTE | 2022-10-07 16:34 | HMH.RHREAS ---
Rehab Reassessment Rehab OP Re-assessment Start: 10/07/22 15:53 Freq: Status: Active Protocol: Document 10/07/22 16:29 JULIÁNGregHORACIO (Rec: 10/07/22 16:34 PHORHORACIO [id number]) E-signed By Issa Mullen, PT Rehab Re-assessment Subjective Subjective Pt reports much less tenderness and pain in the L LE. He feels his edema is significantly better. Objective Objective Notes Circumferential measurements: L LE total 172.4 cm which is - 5.1 cm since initial eval. Pain: 08/08. TTP: 06/04 dorsal L foot. Edema: 1+ pitting edema noted to L ankle and foot. Assessment Progress Assessment Progressing as Expected Assessment Notes Pt has shown significant improvements in L LE edema and pain overall. He shows much less palpation tendenress and improved ambulation ability as a result. He continues to need skilled intervention to return to prior level of function. Patient goals met ST,2,3,4 Goals Not Met LT,2,3,4,5,6 Revised Goals none Plan Plan Continue per initial POC. Frequency of Therapy 2 x/wk Duration of therapy 4 wks Time and Billing Re-Eval Time 14 Re-Eval Billing Units 0 PHYSICIAN CERTIFICATION: I certify the specified therapy services for Omar Garcia are required, authorized, and reviewed every 30 days.
== END 2022-10-16 15:05 | disposition home or self-care (01) ==
LOC: PT 15:00
PROVIDERS: PCP Family Medicine; Visit Provider Family Medicine
DX: R60.0 Localized edema (principal)
CPT/HCPCS: 97110; 97140; 97163; 97164

== ENCOUNTER → 2022-11-26 12:37 | Outpatient (CLI) | payer MEDICARE, OTHER, SELFPAY ==
--- NOTE | 2022-11-26 12:43 | CA_ITS ---
FINAL REPORT TECHNIQUE: Color Doppler, duplex Doppler and felix scale sonography of the bilateral neck vasculature was performed. Velocities were measured in the carotid arteries. Stenosis evaluation based on velocity criteria. CLINICAL HISTORY: .LEFT BRUIT H/O HTN ,HLP FINDINGS: The peak systolic velocity of the right common carotid artery is 78.2 cm/sec and internal carotid artery 92.3 cm/sec. The diastolic velocity in the internal carotid artery is 25 cm/sec. The ICA/CCA ratio is 1.2. Visually, a small amount of plaque is seen. These findings are consistent with less than 50% stenosis. The external carotid artery is patent. The right vertebral artery is patent with antegrade flow. The peak systolic velocity of the left common carotid artery is 89 cm/sec and internal carotid artery 94 cm/sec. The diastolic velocity in the internal carotid artery is 26 cm/sec. The ICA/CCA ratio is 1.2. Visually, a small amount of plaque is seen. These findings are consistent with less than 50% stenosis. The external carotid artery is patent. The left vertebral artery is patent with antegrade flow. IMPRESSION: No evidence of significant carotid stenosis. Bilateral patent vertebral arteries. If indicated, CTA or MRA could further evaluate. Reviewed, Interpreted and Dictated by Micky Gerard III, MD Transcribed by Chela Leger Authenticated and . [facility]
== END ==
PROVIDERS: PCP Family Medicine; Visit Provider Family Medicine
DX: R09.89 Other specified symptoms and signs involving the circulatory and respiratory systems (principal)
CPT/HCPCS: 93880

== ENCOUNTER → 2023-01-08 13:55 | Outpatient (CLI) | payer MEDICARE, OTHER, SELFPAY ==
[2023-01-08 14:04] LABS: Microscopic, Urine URINE MICROSCOPIC (MICROSCOPIC)
[2023-01-08 14:34] LABS: Hemoglobin 11.9 g/dL (14.1-18.0); Mean Corpuscular HGB Conc 33.1 g/dL (31.8-35.4); Mean Corpuscular Volume 84.5 fl (80-94); Platelet Count 141 K/mm3 (142-424); Red Blood Count 4.26 M/mm3 (4.60-6.20); Red Cell Distribution Width 16.6 % (11.5-17.5); White Blood Count 6.6 K/mm3 (4.8-10.8)
[2023-01-08 14:57] LABS: Albumin Level 3.7 g/dl (3.5-5.0); Anion Gap 8.9 mEq/L (5-15); Blood Urea Nitrogen 47 mg/dl (9-20); Calcium 8.9 mg/dl (8.4-10.2); Carbon Dioxide 36 mmol/L (22.0-30.0); Chloride 98 mmol/L (98-107); Estimated Glomerular Filt Rate 32 ml/min (>60); GFR (African American) 38 ML/MIN (>60); Glucose 202 mg/dl (74-100); Phosphorous 3.7 mg/dl (2.5-4.5); Potassium 3.9 mmoL/L (3.5-5.1); Sodium 139 mmol/L (136-145)
[2023-01-08 15:17] LABS: Appearance,Urine CLEAR (Clear); Bilirubin,Urine Negative (Negative); Blood, Urine TRACE-I (Negative); Color,Urine YELLOW (Yellow); Glucose,Urine (UA) Negative (Negative); Ketones,Urine Negative (Negative); Leukocyte Esterase,Urine Negative (Negative); Nitrate,Urine Negative (Negative); Protein,Urine 2+ (Negative); Urobilinogen,Urine 0.2 EU/dl (0.2)
[2023-01-08 15:39] LABS: Creatinine,Urine Random 33 mg/dL (Not Estab.); WBC,Urine Occasional #/hpf (0-3)
== END ==
PROVIDERS: PCP Family Medicine; Visit Provider Internal Medicine Nephrology
DX: N18.30 Chronic kidney disease, stage 3 unspecified (principal)
CPT/HCPCS: 36415; 80069; 81001; 82570; 84155; 85014; 85018; 85048; 85049

== ENCOUNTER → 2023-01-12 14:26 | Outpatient (POV) | payer MEDICARE, OTHER, SELFPAY | PROVIDERS: Visit Provider Internal Medicine Nephrology | DX: Z00.00 Encounter for general adult medical examination without abnormal findings (principal) ==

== ENCOUNTER → 2023-02-23 06:49 | Outpatient (CLI) | payer MEDICARE, OTHER, SELFPAY ==
--- NOTE | 2023-02-23 07:02 | US_ITS ---
FINAL REPORT TECHNIQUE: Sonographic images of the right upper quadrant were obtained. CLINICAL HISTORY: CIRRHOSIS COMPARISON: None FINDINGS: PANCREAS: Unremarkable. LIVER: There is a coarse echotexture of the liver, compatible with the patient's clinical history of cirrhosis. No focal hepatic lesion. No intrahepatic biliary ductal dilatation. The portal vein is patent with normal directional flow. GALLBLADDER: A few small gallstones are identified.. No gallbladder wall thickening or pericholecystic fluid. COMMON DUCT: 6 mm. Normal for age. RIGHT KIDNEY: The right kidney measures 10.1 cm. There is no hydronephrosis, mass, or stone. FREE FLUID: None. IMPRESSION: Coarse echotexture of the liver compatible with the clinical diagnosis of cirrhosis. A few small gallstones are present in the gallbladder. Reviewed, Interpreted and Dictated by Mireya Shah MD Transcribed by Chela Leger Authenticated and [facility]
== END ==
PROVIDERS: PCP Family Medicine; Visit Provider Physician Assistant
DX: K74.60 Unspecified cirrhosis of liver (principal)
CPT/HCPCS: 76705

== ENCOUNTER → 2023-02-24 14:14 | Outpatient (CLI) | payer MEDICARE, OTHER, SELFPAY ==
[2023-02-24 15:12] LABS: Basophils % 0.4 % (0.1-2.0); Eosinophils # 0.1 K/mm3 (0.0-0.4); Eosinophils % 1.7 % (0.1-12.0); Hematocrit 41.2 % (42.0-52.0); Hemoglobin 13.3 g/dL (14.1-18.0); Lymphocytes # 1.2 K/mm3 (0.7-4.5); Lymphocytes % 16.6 % (10-50); Mean Corpuscular HGB Conc 32.2 g/dL (31.8-35.4); Mean Corpuscular Hemoglobin 27.9 pg (27.0-31.2); Mean Corpuscular Volume 86.6 fl (80-94); Mean Platelet Volume 8.3 fl (7.4-10.4); Monocytes # 0.3 K/mm3 (0.1-1.0); Monocytes % 4.1 % (1.7-9.3); Neutrophils # 5.6 K/mm3 (1.8-7.8); Neutrophils % 77.4 % (37.0-80.0); Platelet Count 200 K/mm3 (142-424); Red Blood Count 4.76 M/mm3 (4.60-6.20); Red Cell Distribution Width 15.8 % (11.5-17.5); White Blood Count 7.3 K/mm3 (4.8-10.8)
[2023-02-24 15:41] LABS: INR 1.14 (0.9-1.1); Prothrombin Time 12.2 seconds (10.1-12.5)
[2023-02-24 16:19] LABS: Alanine Aminotransferase 25 U/L (12-78); Albumin Level 3.9 g/dl (3.5-5.0); Albumin/Globulin Ratio 1.3 (1.1-1.8); Alkaline Phosphatase 94 U/L (38-126); Anion Gap 12.6 mEq/L (5-15); Aspartate Amino Transferase 48 U/L (17-59); Bilirubin,Total 0.4 mg/dl (0.2-1.3); Blood Urea Nitrogen 48 mg/dl (9-20); Calcium 9.3 mg/dl (8.4-10.2); Carbon Dioxide 34 mmol/L (22.0-30.0); Chloride 97 mmol/L (98-107); Estimated Glomerular Filt Rate 28 ml/min (>60); GFR (African American) 34 ML/MIN (>60); Glucose 246 mg/dl (74-100); Potassium 3.6 mmoL/L (3.5-5.1); Sodium 140 mmol/L (136-145); Total Protein,Serum 6.9 g/dl (6.3-8.2)
[2023-02-26 08:35] LABS: AFP, Tumor Marker 2.3 ng/mL (0.0-8.4)
== END ==
PROVIDERS: PCP Family Medicine; Visit Provider Physician Assistant
DX: K74.60 Unspecified cirrhosis of liver (principal)
CPT/HCPCS: 36415; 80053; 82105; 85025; 85610

== ENCOUNTER → 2023-02-25 09:33 | Outpatient (CLI) | payer MEDICARE, OTHER, SELFPAY ==
--- NOTE | 2023-02-25 09:35 | CA_ITS ---
APPROVED REPORT EXAM: Comprehensive 2D, Doppler, and color-flow Echocardiogram Housekeeper Caregiver: Liliana Napier RT(R) Ht: 5 ft 10 in Wt: 172lbs BSA: 1.96 BP: 128/64 mmHg Indications: murmur, COPD, ex smoker, edema, HTN, DM, hyperlipidemia, Hep C, AFIB 2D Dimensions LVOT 1.91 cm (M/F) 1.5-2.5 LVEF (Collado's) 67.30 % M: 52 - 72 LV Volume 120.60 mL M: 62 - 150 LV Volume Index 61.53 mL/m2 M: 34 - 74 LA Volume 25.40 mL LA Volume Index 12.96 mL/m2 (M/F) 16-34 M-Mode Dimensions RVDd 2.01 cm (0.9-2.6) LA Diam 2.97 cm (1.9-4.0) LVDd 5.23 cm (3.5-5.7) Ao Diam 2.71 cm (2.0-3.7) LVDs 3.68 cm (3.5-5.7) IVSd 0.83 cm (0.6-1.1) PWd 0.72 cm (0.6-1.1) EF (Teich) 56.30% FS 29.60% EDV (Teich) 131.20 mL ESV (Teich) 57.40 mL LV Diastology E Decel Time 257.00 (160-240 msec) E/A Ratio 1.0 MED E' 7.60 (< 7 cm/sec) E'/MED E' Ratio 12.43 (>14) LAT E' 12.70 (<10 cm/sec) E/LAT E' Ratio 7.44 (>14) Mitral Valve MV E Max All. 95.00 (40-130 cm/s) MV A Velocity 98.00 (40-130 cm/s) E/A Ratio 0.96 MV Decel. Time 257.00 (160-240 ms) MV PHT 75.00 ms Tricuspid Valve TR P. Velocity 250.00 cm/s RAP Estimate 10.00 mmHg RVSP 34.90 mmHg Left Ventricle The left ventricle is normal size. The left ventricular systolic function is normal. The left ventricular ejection fraction is within the normal range. Increased LV wall thickness. There is normal LV segmental wall motion. The left ventricular diastolic function is normal. LVEF is 60%. Right Ventricle The right ventricle is normal size. The right ventricular systolic function is normal. Atria The left atrium size is normal. The right atrium size is normal. There is no Doppler evidence of interatrial shunt. Aortic Valve The aortic valve is mildly thickened. There is no aortic valvular stenosis. Mild aortic regurgitation. Mitral Valve The mitral valve is mildly thickened. No evidence of mitral valve stenosis. Mild mitral regurgitation. Tricuspid Valve The tricuspid valve leaflets are thin and pliable. Mild tricuspid regurgitation. RVSP is 20-25 mmHg. Pulmonic Valve The pulmonary valve is grossly normal in structure. Trace pulmonic regurgitation. Great Vessels The aortic root is normal in size. The ascending aorta is normal in size. IVC is normal in size and collapses >50% with inspiration. Pericardium There is no pericardial effusion. Other Information Study Quality: Fair Conclusion Normal biventricular systolic function. Mild AI, mild MR, and mild TR. Electronically signed by : Alise Agosto MD 02/27/2023 19:20:37
== END ==
PROVIDERS: PCP Family Medicine; Visit Provider Nurse Practitioner
DX: E11.9 Type 2 diabetes mellitus without complications (principal); E78.5 Hyperlipidemia, unspecified; I10 Essential (primary) hypertension; I25.10 Atherosclerotic heart disease of native coronary artery without angina pectoris; I48.0 Paroxysmal atrial fibrillation; I73.9 Peripheral vascular disease, unspecified; N18.9 Chronic kidney disease, unspecified; R00.1 Bradycardia, unspecified; R01.1 Cardiac murmur, unspecified; R42 Dizziness and giddiness; Z79.84 Long term (current) use of oral hypoglycemic drugs
CPT/HCPCS: 93306

== ENCOUNTER → 2023-03-11 12:21 | Outpatient (CLI) | payer MEDICARE, OTHER, SELFPAY ==
[2023-03-11 13:15] LABS: INR 1.16 (0.9-1.1); Prothrombin Time 12.4 seconds (10.1-12.5)
[2023-03-11 13:20] LABS: Basophils % 0.4 % (0.1-2.0); Eosinophils # 0.2 K/mm3 (0.0-0.4); Eosinophils % 4.5 % (0.1-12.0); Hematocrit 35.7 % (42.0-52.0); Hemoglobin 12.6 g/dL (14.1-18.0); Lymphocytes # 1.2 K/mm3 (0.7-4.5); Lymphocytes % 24.7 % (10-50); Mean Corpuscular HGB Conc 35.2 g/dL (31.8-35.4); Mean Corpuscular Hemoglobin 30.8 pg (27.0-31.2); Mean Corpuscular Volume 87.5 fl (80-94); Mean Platelet Volume 8.8 fl (7.4-10.4); Monocytes # 0.4 K/mm3 (0.1-1.0); Monocytes % 8.7 % (1.7-9.3); Neutrophils % 61.7 % (37.0-80.0); Platelet Count 121 K/mm3 (142-424); Red Blood Count 4.08 M/mm3 (4.60-6.20); Red Cell Distribution Width 15.4 % (11.5-17.5); White Blood Count 4.9 K/mm3 (4.8-10.8)
[2023-03-11 13:51] LABS: Anion Gap 7.4 mEq/L (5-15); Blood Urea Nitrogen 50 mg/dl (9-20); Calcium 8.3 mg/dl (8.4-10.2); Carbon Dioxide 35 mmol/L (22.0-30.0); Chloride 96 mmol/L (98-107); Estimated Glomerular Filt Rate 33 ml/min (>60); GFR (African American) 40 ML/MIN (>60); Glucose 254 mg/dl (74-100); Potassium 3.4 mmoL/L (3.5-5.1); Sodium 135 mmol/L (136-145)
[2023-03-11 13:53] LABS: Alanine Aminotransferase 24 U/L (12-78); Albumin Level 3.6 g/dl (3.5-5.0); Alkaline Phosphatase 108 U/L (38-126); Aspartate Amino Transferase 45 U/L (17-59); Bilirubin,Direct 0.1 mg/dl (0.0-0.4); Bilirubin,Indirect 0.3 mg/dL (0.0-0.9); Bilirubin,Total 0.4 mg/dl (0.2-1.3); Bilirubin,Unconjugated 0.3 mg/dL (0.0-1.1); Chol/HDL Ratio 1.9 (1-3.5); Cholesterol 88 mg/dl (140-200); HDL Cholesterol 47 mg/dl (40-60); Magnesium 1.8 mg/dl (1.6-2.3); Total Protein,Serum 6.3 g/dl (6.3-8.2); Triglycerides 163 mg/dl (30-150); VLDL Cholesterol 33 mg/dL (0-40)
[2023-03-11 14:04] LABS: Direct LDL Cholesterol 37.23 mg/dL (100-129); Free T4 (Free Thyroxine) 1.04 ng/dl (0.78-2.19)
[2023-03-11 14:21] LABS: Thyroid Stimulating Hormone 0.02 uIU/mL (0.465-4.68)
== END ==
PROVIDERS: Physician Assistant; PCP Family Medicine; Visit Provider Student in an Organized Health Care Education/Training Program
DX: E78.5 Hyperlipidemia, unspecified; I25.10 Atherosclerotic heart disease of native coronary artery without angina pectoris; I48.0 Paroxysmal atrial fibrillation; I73.9 Peripheral vascular disease, unspecified; N18.9 Chronic kidney disease, unspecified; R00.1 Bradycardia, unspecified; R01.1 Cardiac murmur, unspecified; R42 Dizziness and giddiness; Z01.818 Encounter for other preprocedural examination; I11.9 Hypertensive heart disease without heart failure; E11.22 Type 2 diabetes mellitus with diabetic chronic kidney disease; Z79.84 Long term (current) use of oral hypoglycemic drugs; Z87.891 Personal history of nicotine dependence
CPT/HCPCS: 36415; 80048; 80061; 80076; 83735; 84439; 84443; 85025; 85610

== ENCOUNTER 2023-03-18 07:57 | Day surgery (SDC) | payer MEDICARE, OTHER, SELFPAY ==
[2023-03-17 10:37] VITALS: BMI 24.0
[2023-03-18] VITALS (10 sets, daily range): BP systolic 149–203; BP diastolic 79–85; PULSE 52–64; RESP 12–18; TEMP 36.1–36.3; O2SAT 9–96
[2023-03-18 08:41] LABS: POC Glucose,Bedside 93 (70-110)
--- NOTE | 2023-03-18 08:46 | P.PNANES_ITS ---
[facility] Disclaimer: The information contained in this section may have been updated after the patient was seen, as this information can be updated by other users. Medical History Abnormal electrocardiogram [ECG] [EKG] GABE (acute kidney injury) Atypical angina Atypical chest pain BPH (benign prostatic hyperplasia) Bronchitis Cirrhosis Claudication Clostridium difficile enterocolitis Colitis COPD (chronic obstructive pulmonary disease) Coronary artery calcification Diverticulosis Dizziness Dysfunctional gallbladder Encounter for pre-operative examination Family history of aneurysm of blood vessel of brain Hearing loss, right Hepatitis C Hyperlipidemia Hypertension Intermittent claudication Peripheral arterial disease Sinusitis SIRS (systemic inflammatory response syndrome) Tobacco dependence syndrome Type 2 diabetes mellitus Surgical History Hx of brain surgery Hx of cardiac catheterization Hx of heart artery stent Family History Other Cancer Coronary artery disease Diabetes Family history of chronic sinusitis Hypertension Social History Smoking Status: Former smoker alcohol intake: never substance use type: denies use current occupational status: retired Travel in the last 8 weeks: None household members: spouse housing: house caffeine: Yes [facility] Anesthesia Checklist Patient Identification Patient Identification: Arm Band and Verbal (Name & ) Structural Data Admitted From: Home Planned Operative Procedure/s: FESS Consent for Planned Operative Procedure(s) Verified: Yes NPO Status Verified Time NPO: 00:00 Chart Verification Results Verified: CBC and BMP Additional verifications Anesthesia Reactions: No Hx Blood Transfusions: No Blood Transfusion Reaction: No Airway Assessment Mallampati Score:: Class II C-Spine Mobility Assessed: Yes TMJ Mobility Assessed: Yes Dentition: Edentulous Neurological Assessment Level of Consciousness: Awake Hx Seizures: No Numbness or tingling in extremities: No Anesthesia Plan Anesthesia Risk discussed: Yes Anesthesia Plan: Verified ASA Class: III Anesthesia Type: General
--- NOTE | 2023-03-18 11:37 | P.OP_ITS ---
Date of procedure: 03/18/23 Pre-op Diagnosis:: left maxillary and anterior ethmoid sinusitis Post-op Diagnosis:: same Procedure performed:: left maxillary antrostomy, left anterior ethmoidectomy functional endoscopic sinus surgery with tissue removal Surgeon:: Omar Luis MD INSPECTOR SHEET [employer]S:: Bobby Cosby Anesthesia: GETA Estimated blood loss (mL): 50 Operative findings:: polypoid appear mass eminating from the left maxillary sinus, with uncinate reflected forward Operative note:: The patient was brought to the OR, laid in the supine position, and general anesthesia was induced. Patient was prepped and draped in usual fashion. Afrin-soaked pledgets were used to decongest patient's left nare. The patient had a polypoid appearing mass emanating from his left maxillary sinus which came down out the middle meatus and actually hung down into his inferior meatus and down into his nasopharynx. A large portion of it was taken with the straight Blakesley's and sent as a permanent specimen for pathology. I then using the microdebrider debrided the specimen back to the natural maxillary sinus os. The patient's uncinate had been reflected anteriorly from the mass and it was taken down with the backbiter and microdebrider. The mass appeared to be extending a small ways up into his anterior ethmoid cells which were also removed with the microdebrider. Using the 30 degree scope I removed as much as it could of the polypoid appearing mucosa around the left maxillary sinus. Patient's nose and mouth were then irrigated and suctioned out. Afrin-soaked pledgets were used to help achieve hemostasis along with the suction Bovie. Afrin-soaked nova pack was then placed in the left middle meatus. He was then turned back over to anesthesia to be awoken and extubated. Condition: stable Disposition: PACU Complications:: none
--- NOTE | 2023-03-18 11:51 | P.PNANES_ITS ---
[facility] Anesthesia Record Part I Anesthesia Record I Intake, IV Amount: 1,000 Hydration: Adequate Estimated blood loss (mL): 50 Urine output (mL): 0 Blood Pressure: 190/85 SaO2: 60 Pulse Rate: 60 Airway Patency: Patent Respiratory Rate: 12 Temperature: 97 F Patient is:: Awake and Stable Stable to PACU at:: 11:48
--- NOTE | 2023-03-19 07:33 | P.PNANES_ITS ---
[facility] Anesthesia Record Part II Anesthesia Record Part II Discharge Time: 12:19 Destination: Surgical Day Care (OP Surgery) PACU nurse assessment reviewed?: Yes Patient Condition:: Good Anesthesia Complications:: None Swallowing reflex intact?: Yes Airway Patency: Patent Cyanosis?: No Blood Pressure: 172/80 SaO2: 95 Respiratory Rate: 18 Pulse Rate: 55 Temperature: 97.0 F Mental Status: Alert & Oriented Pain level:: 4 Nausea and/or vomitting:: None Intake, IV Amount: 1,000 Hydration: Adequate
[2023-03-19 07:35] VITALS: BP 172/80; PULSE 55; RESP 18
[2023-03-19 07:39] VITALS: TEMP 36.1
[2023-03-19 07:40] VITALS: O2SAT 95
== END 2023-03-18 13:13 | disposition home or self-care (01) ==
PROVIDERS: PCP Family Medicine; Visit Provider Student in an Organized Health Care Education/Training Program
PROC: (CPT 31254; principal; 2023-03-18 09:30)
DX: D14.0 Benign neoplasm of middle ear, nasal cavity and accessory sinuses (principal); J32.0 Chronic maxillary sinusitis; J32.2 Chronic ethmoidal sinusitis; E11.9 Type 2 diabetes mellitus without complications
CPT/HCPCS: 31254; 31267; 82962; 88305

== ENCOUNTER → 2023-05-04 13:13 | Outpatient (CLI) | payer MEDICARE, OTHER, SELFPAY ==
[2023-05-04 13:28] LABS: Microscopic, Urine URINE MICROSCOPIC (MICROSCOPIC)
[2023-05-04 14:18] LABS: Basophils % 0.2 % (0.1-2.0); Eosinophils # 0.2 K/mm3 (0.0-0.4); Eosinophils % 3.2 % (0.1-12.0); Hematocrit 39.8 % (42.0-52.0); Hemoglobin 13.4 g/dL (14.1-18.0); Lymphocytes # 1.1 K/mm3 (0.7-4.5); Lymphocytes % 18.8 % (10-50); Mean Corpuscular HGB Conc 33.6 g/dL (31.8-35.4); Mean Corpuscular Hemoglobin 29.6 pg (27.0-31.2); Mean Corpuscular Volume 88.1 fl (80-94); Monocytes # 0.4 K/mm3 (0.1-1.0); Monocytes % 6.5 % (1.7-9.3); Neutrophils % 71.2 % (37.0-80.0); Platelet Count 134 K/mm3 (142-424); Red Blood Count 4.52 M/mm3 (4.60-6.20); White Blood Count 5.6 K/mm3 (4.8-10.8)
[2023-05-04 14:18] LABS: Hematocrit 38.2 % (42.0-52.0); Hemoglobin 13.2 g/dL (14.1-18.0); Mean Corpuscular HGB Conc 34.6 g/dL (31.8-35.4); Mean Corpuscular Hemoglobin 30.5 pg (27.0-31.2); Platelet Count 136 K/mm3 (142-424); Red Blood Count 4.34 M/mm3 (4.60-6.20); Red Cell Distribution Width 15.1 % (11.5-17.5); White Blood Count 5.8 K/mm3 (4.8-10.8)
[2023-05-04 14:28] LABS: Albumin Level 3.9 g/dl (3.5-5.0); Blood Urea Nitrogen 31 mg/dl (9-20); Calcium 8.5 mg/dl (8.4-10.2); Carbon Dioxide 33 mmol/L (22.0-30.0); Chloride 99 mmol/L (98-107); Estimated Glomerular Filt Rate 35 ml/min (>60); GFR (African American) 43 ML/MIN (>60); Glucose 285 mg/dl (74-100); Phosphorous 3.3 mg/dl (2.5-4.5); Sodium 136 mmol/L (136-145)
[2023-05-04 14:32] LABS: Appearance,Urine CLEAR (Clear); Bilirubin,Urine Negative (Negative); Blood, Urine TRACE-I (Negative); Color,Urine YELLOW (Yellow); Glucose,Urine (UA) TRACE (Negative); Ketones,Urine Negative (Negative); Leukocyte Esterase,Urine Negative (Negative); Nitrate,Urine Negative (Negative); Protein,Urine 3+ (Negative); Specific Gravity, Urine 1.025 (1.005-1.030); Urobilinogen,Urine 0.2 EU/dl (0.2)
[2023-05-04 14:34] LABS: Blood Urea Nitrogen 32 mg/dl (9-20); Calcium 8.4 mg/dl (8.4-10.2); Carbon Dioxide 32 mmol/L (22.0-30.0); Chloride 99 mmol/L (98-107); Estimated Glomerular Filt Rate 35 ml/min (>60); GFR (African American) 43 ML/MIN (>60); Glucose 285 mg/dl (74-100); Sodium 135 mmol/L (136-145)
[2023-05-04 14:54] LABS: Squamous Epithelial Cell,Urine Occasional #/hpf (0-5)
[2023-05-04 15:47] LABS: Creatinine,Urine Random 85 mg/dL (Not Estab.)
== END ==
PROVIDERS: Physician Assistant; PCP Family Medicine; Visit Provider Internal Medicine Nephrology
DX: E11.9 Type 2 diabetes mellitus without complications (principal); E78.5 Hyperlipidemia, unspecified; I10 Essential (primary) hypertension; I25.10 Atherosclerotic heart disease of native coronary artery without angina pectoris; I48.0 Paroxysmal atrial fibrillation; I73.9 Peripheral vascular disease, unspecified; R00.1 Bradycardia, unspecified; R01.1 Cardiac murmur, unspecified; R42 Dizziness and giddiness; Z01.810 Encounter for preprocedural cardiovascular examination; J32.9 Chronic sinusitis, unspecified; D14.0 Benign neoplasm of middle ear, nasal cavity and accessory sinuses; N18.9 Chronic kidney disease, unspecified
CPT/HCPCS: 36415; 80048; 80069; 81001; 82570; 84155; 85014; 85018; 85025; 85048; 85049

== ENCOUNTER → 2023-05-26 15:47 | Outpatient (CLI) | payer MEDICARE, OTHER, SELFPAY ==
[2023-05-26 16:03] LABS: Basophils % 0.4 % (0.1-2.0); Eosinophils # 0.2 K/mm3 (0.0-0.4); Eosinophils % 3.1 % (0.1-12.0); Hematocrit 38.1 % (42.0-52.0); Lymphocytes # 1.2 K/mm3 (0.7-4.5); Lymphocytes % 21.7 % (10-50); Mean Corpuscular HGB Conc 34.2 g/dL (31.8-35.4); Mean Corpuscular Hemoglobin 30.3 pg (27.0-31.2); Mean Corpuscular Volume 88.6 fl (80-94); Mean Platelet Volume 9.4 fl (7.4-10.4); Monocytes # 0.3 K/mm3 (0.1-1.0); Neutrophils # 3.7 K/mm3 (1.8-7.8); Neutrophils % 68.8 % (37.0-80.0); Platelet Count 120 K/mm3 (142-424); Red Cell Distribution Width 15.2 % (11.5-17.5); White Blood Count 5.4 K/mm3 (4.8-10.8)
[2023-05-26 17:15] LABS: Alanine Aminotransferase 25 U/L (12-78); Alkaline Phosphatase 94 U/L (38-126); Aspartate Amino Transferase 59 U/L (17-59); Bilirubin,Direct 0.2 mg/dl (0.0-0.4); Bilirubin,Indirect 0.3 mg/dL (0.0-0.9); Bilirubin,Total 0.5 mg/dl (0.2-1.3); Bilirubin,Unconjugated 0.3 mg/dL (0.0-1.1); Blood Urea Nitrogen 33 mg/dl (9-20); Calcium 8.5 mg/dl (8.4-10.2); Carbon Dioxide 32 mmol/L (22.0-30.0); Chloride 102 mmol/L (98-107); Cholesterol 109 mg/dl (140-200); Estimated Glomerular Filt Rate 33 ml/min (>60); GFR (African American) 40 ML/MIN (>60); Glucose 226 mg/dl (74-100); HDL Cholesterol 55 mg/dl (40-60); Magnesium 1.8 mg/dl (1.6-2.3); Triglycerides 75 mg/dl (30-150); VLDL Cholesterol 15 mg/dL (0-40)
[2023-05-26 17:16] LABS: Albumin Level 3.8 g/dl (3.5-5.0); Anion Gap 6.9 mEq/L (5-15); Potassium 3.9 mmoL/L (3.5-5.1); Sodium 137 mmol/L (136-145); Total Protein,Serum 6.5 g/dl (6.3-8.2)
[2023-05-26 17:25] LABS: Direct LDL Cholesterol 43.74 mg/dL (100-129)
[2023-05-26 17:45] LABS: Thyroid Stimulating Hormone 0.04 uIU/mL (0.465-4.68)
[2023-05-26 20:28] LABS: Free T4 (Free Thyroxine) 0.94 ng/dl (0.78-2.19)
== END ==
PROVIDERS: PCP Family Medicine; Visit Provider Physician Assistant
DX: E11.9 Type 2 diabetes mellitus without complications (principal); I11.9 Hypertensive heart disease without heart failure; I25.10 Atherosclerotic heart disease of native coronary artery without angina pectoris; I25.84 Coronary atherosclerosis due to calcified coronary lesion; I48.0 Paroxysmal atrial fibrillation; I73.9 Peripheral vascular disease, unspecified; N28.9 Disorder of kidney and ureter, unspecified; Z87.891 Personal history of nicotine dependence
CPT/HCPCS: 80048; 80061; 80076; 83735; 84439; 84443; 85025

== ENCOUNTER 2023-06-11 14:30 | Outpatient (RCR) | payer MEDICARE, OTHER, SELFPAY ==
--- NOTE | 2023-05-06 11:18 | HMH.PTOPEV ---
PT Outpatient Evaluation Rehab PT Outpatient Evaluation Start: 05/06/23 11:08 Freq: Status: Active Protocol: Document 05/06/23 11:08 NAEEM (Rec: 05/06/23 11:18 NAEEM [id number]) E-signed By Toby Ly, PT Outpatient Therapy Subjective History Subjective History Pt reports h/o chronic neck pain for ~10+ yrs, excaberation noted over the last ~2-3 months. Pt reports right > left sided neck pain w /referred pain into RUE. Pt reports RUE pain, weakness, and N&T from shoulder to hand, 'my middle and ring fingers are the worst.' Pt reports previous 'injuries to the neck , disc issues.' New diagnosis of cancer in past 12 No months? Chief Complaint Pain,Stiff,Paresthesia, Weakness Symptom Type Ache,Dull,Stabbing,Burning, Numbness,Tingling Symptoms Relieved By Rest/Positioning Symptoms Aggravated By Physical Activity,Lifting Prior Functional Limitations Reaching,Lifting,Housework Current Functional Limitations Reaching,Lifting,Housework, Sleeping Symptom Description Constant but Variable Level of pain today (0-10) 3 Pain scale - at its best (0-10) 2 Pain scale - at its worst (0-10) 8 Cervical Eval Palpation Cervical Muscles R Cervical Paraspinal,L Cervical Paraspinal,R CT Junction,L CT Junction,R Upper Trapezius,L Upper Trapezius Cervical/Thoracic Palpation Findings Tenderness,Trigger Point, Muscle Guarding Posture Head/C-Spine Posture Sitting Position Flexed Head/C-Spine Posture Standing Position Flexed Flexibility Deficits Upper Trapezius Muscle Length (L) Mild Tightness,(R) Moderate Tightness Levaetor Scapulae Muscle Length (L) Mild Tightness,(R) Moderate Tightness Scalene Group Muscle Length (L) Mild Tightness,(R) Moderate Tightness Passive Joint Mobility Cervical PIVM Dec: R OA L OA R AA L AA R C2/3 L C2/3 R C3/4 L C3/4 R C4/5 L C4/5 R C5/6 L C5/6 R C6/7 L C6/7 R C7/T1 L C7/T1 AROM Cervical Spine Extension Active Range of 0-10 Motion (degrees) Cervical Spine Flexion Active Range of 0-25 Motion (degrees) Cervical Spine Right Lateral Flexion 0-15 Active Range of Motion (degrees) Cervical Spine Left Lateral Flexion 0-10 Active Range of Motion (degrees) Cervical Spine Right Rotation Active 0-40 Range of Motion (degrees) Cervical Spine Left Rotation Active 0-45 Range of Motion (degrees) MMT Left Deltoid (C5) 4 Good Biceps Brachii Strength Grade 5 Normal Wrist Extension Strength Grade 5 Normal Triceps Brachii Strength Grade 5 Normal Wrist Flexion Strength Grade 5 Normal Extensor Pollicis Longus Strength Grade 5 Normal Finger Abduction Strength Grade 5 Normal Right Deltoid (C5) 4- Good- Biceps Brachii Strength Grade 4 Good Wrist Extension Strength Grade 4- Good- Triceps Brachii Strength Grade 4 Good Wrist Flexion Strength Grade 4 Good Extensor Pollicis Longus Strength Grade 4- Good- Finger Abduction Strength Grade 4- Good- Special Test C-Spine Foraminal Compression (Spurling) Negative Left,Positive Right Test C-Spine Foraminal Distraction Test Positive Neck Disability Index Neck Disability Index Section 1: Pain Intensity The pain is moderate at the moment Section 2: Personal Care (washing, I can look after myself dressing, etc.) normally without causing extra pain Section 3: Lifting Pain prevents me from lifting heavy weights, but I can manage light to Section 4: Reading I can't read as much as I want because of moderate pain in my neck Section 5: Headaches I have moderate headaches, which come frequently Section 6: Concentration I can concentrate fully when I want to with no difficulty Section 7: Work I can't do any work at all Section 8: Driving I can drive my car as long as I want with moderate pain in my neck Section 9: Sleeping My sleep is moderately disturbed (2-3 hrs. sleepless) Section 10: Recreation I am able to engage in most, but not all of my usual recreation NDI Score 23 Outpatient Therapy Assessment Impairments Problems/Impairmments Palpation Tenderness,Impaired Range of Motion,Impaired Strength,Impaired Driving, Impaired Lifting,Impaired Household Care,Subjective C/O Pain,Impaired Self Care/Self Management Prognosis Rehab Potential Good Clinical Impression Consistent with Diagnosis Yes Short Term Goals Number of Weeks 4 Decreased Palpation Tenderness Yes: 1-2/4 cervical mm Increase Range of Motion Yes: 50-75% of WFL CROM Increase Strength Yes: 4/5 RUE Increase Ability to Drive/Ride in Car Yes: 30MIN Restore Ability to Lift Objects to Waist Yes: 10# RUE Level Improve Ability For Household Care Yes: 30MIN Improve Neck Disability Index Score Yes: 18-20 Decrease Subjective C/O Pain Yes: 3-4/10 W/ABOVE ACTIVITIES Patient to be Ind w/ HEP Yes Intermediate Goals Number of Weeks 6-8 Decreased Palpation Tenderness Yes: 0-1/4 CERVICAL MM Increase Range of Motion Yes: 80-90% OF WFL CROM Increase Strength Yes: 4+-5/5 RUE Increase Ability to Drive/Ride in Car Yes: 60MIN Restore Ability to Lift Objects to Waist Yes: 20# RUE Level Improve Ability For Household Care Yes: 60MIN Improve Neck Disability Index Score Yes: 10-15 Decrease Subjective C/O Pain Yes: 0-2/10 W/ABOVE ACTIVITIES Patient to be Ind w/ Advanced HEP Yes Outpatient Therapy Plan of Care Treatment Plan May Include Therapeutic Exercise Including Home Yes Exercise Program Manual Therapy Techniques Yes Neuromuscular Re-education Yes Therapeutic Activities to Return to Yes Previous Functional/Work Level ADL/Self Care Education Yes Mechanical Traction Yes Dry Needling Yes Thermal Modalities Yes Electrical Stimulation Yes Ultrasound/Phonophoresis Yes Eval/Re-Eval Yes Frequency Times per week 2-3 Duration Number of Weeks 6-8 Addendums This patient is a candidate for social No or vocational rehab? Patient/Guardian verbally acknowledges Yes understanding of treatment program and consents to further treatment? Patient/Guardian verbally acknowledges Yes understanding of diagnosis, prognosis and goals for treatment? Eval Complexity PT Charges 60258 - Moderate Complexity Shoulder/Elbow Eval Shoulder Objective Measurements Elbow Objective Measurements PHYSICIAN CERTIFICATION: I certify the specified therapy services for Omar Garcia are required, authorized, and reviewed every 30 days.
--- NOTE | 2023-06-09 15:01 | HMH.RHREAS ---
Rehab Reassessment Rehab OP Re-assessment Start: 05/06/23 11:08 Freq: Status: Active Protocol: Document 06/09/23 14:40 [id number] (Rec: 06/09/23 15:01 NAEEM [id number]) E-signed By Toby Ly, PT Neck Disability Index Neck Disability Index Section 1: Pain Intensity The pain is very mild at moment Section 2: Personal Care (washing, I can look after myself dressing, etc.) normally but it causes extra pain Section 3: Lifting I can lift heavy weights but it gives extra pain Section 4: Reading I can read as much as I want with moderate pain in my neck Section 5: Headaches I have moderate headaches, which come infrequently Section 6: Concentration I have a fair degree of difficulty in concentrating when I want to Section 7: Work I can do most of my usual work , but no more Section 8: Driving I can drive my car as long as I want with slight pain in my neck Section 9: Sleeping I have no trouble sleeping Section 10: Recreation I am able to engage in all my recreation activities with some pain in NDI Score 13 Rehab Re-assessment Subjective Subjective Pt reports improved neck and right UE pain as well as radicular s/s, reports 3-4/10 on VAS, and feels 30-40% better overall since I eval. Objective Objective Notes CROM: FLX 0-55, EXT 0-50, R SB 0-25, L SB 0-20, B/L SB 0-50 MMT:R DELT. 4/5, L BICEP 4-4+/ 5, L TRICEP 4/5, R WRIST EXT, FLX 4/5, EPL 4/5 TTP: RIGHT UT 1/4, LEFT UT 0-1 /4 NDI: 13 VS 23 ON I EVAL Assessment Progress Assessment Progressing as Expected Assessment Notes SIGNIFICANTLY IMPROVED CROM, STRENGTH, AND TTP Patient goals met STG'S 02/07 LTG'S 06/09 Goals Not Met LTG'S 01/07 Plan Plan Pt to continue w/skilled P.T. to make further improvements in CROM, strength, TTP and NDI to allow for optimal function Frequency of Therapy 1-2x/wk Duration of therapy 3-5wks Time and Billing Re-Eval Time 12 Re-Eval Billing Units 1 PHYSICIAN CERTIFICATION: I certify the specified therapy services for Omar Mahesh Radha are required, authorized, and reviewed every 30 days.
== END 2023-06-11 15:30 | disposition home or self-care (01) ==
LOC: PT 14:30
PROVIDERS: Visit Provider Family Medicine
DX: M54.2 Cervicalgia (principal); M79.601 Pain in right arm
CPT/HCPCS: 97010; 97012; 97014; 97035; 97110; 97163; 97164; G0283

== ENCOUNTER 2023-08-05 12:35 | Outpatient (CLI) | payer MEDICARE, OTHER, SELFPAY ==
[2023-08-05 12:41] LABS: Microscopic, Urine URINE MICROSCOPIC (MICROSCOPIC)
[2023-08-05 12:54] LABS: Hematocrit 39.5 % (42.0-52.0); Hemoglobin 13.1 g/dL (14.1-18.0); Mean Corpuscular HGB Conc 33.2 g/dL (31.8-35.4); Mean Corpuscular Hemoglobin 30.8 pg (27.0-31.2); Mean Corpuscular Volume 92.9 fl (80-94); Platelet Count 136 K/mm3 (142-424); Red Blood Count 4.26 M/mm3 (4.60-6.20); Red Cell Distribution Width 14.5 % (11.5-17.5); White Blood Count 6.7 K/mm3 (4.8-10.8)
[2023-08-05 13:21] LABS: Appearance,Urine CLEAR (Clear); Bilirubin,Urine Negative (Negative); Blood, Urine TRACE-I (Negative); Color,Urine YELLOW (Yellow); Glucose,Urine (UA) Negative (Negative); Ketones,Urine Negative (Negative); Leukocyte Esterase,Urine Negative (Negative); Nitrate,Urine Negative (Negative); Protein,Urine 2+ (Negative); Specific Gravity, Urine 1.025 (1.005-1.030); Urobilinogen,Urine 0.2 EU/dl (0.2)
[2023-08-05 13:40] LABS: Creatinine,Urine Random 116 mg/dL (Not Estab.)
[2023-08-05 13:45] LABS: Albumin Level 3.8 g/dl (3.5-5.0); Anion Gap 9.7 mEq/L (5-15); Blood Urea Nitrogen 41 mg/dl (9-20); Carbon Dioxide 33 mmol/L (22.0-30.0); Chloride 100 mmol/L (98-107); Estimated Glomerular Filt Rate 35 ml/min (>60); GFR (African American) 43 ML/MIN (>60); Glucose 276 mg/dl (74-100); Phosphorous 3.8 mg/dl (2.5-4.5); Potassium 3.7 mmoL/L (3.5-5.1); Sodium 139 mmol/L (136-145)
[2023-08-05 13:56] LABS: Bacteria,Urine Trace /lpf; RBC,Urine Occasional #/hpf (0-3); Squamous Epithelial Cell,Urine Occasional #/hpf (0-5); WBC,Urine Occasional #/hpf (0-3)
== END 2023-08-05 23:59 ==
LOC: LAB 12:36
PROVIDERS: PCP Family Medicine; Visit Provider Internal Medicine Nephrology
DX: N18.4 Chronic kidney disease, stage 4 (severe) (principal); D64.9 Anemia, unspecified
CPT/HCPCS: 36415; 80069; 81001; 82570; 84155; 85014; 85018; 85048; 85049

== ENCOUNTER 2023-09-07 15:47 | Outpatient (CLI) | payer MEDICARE, OTHER, SELFPAY | END 2023-09-07 23:59 | LOC: RT 15:47 | PROVIDERS: PCP Family Medicine; Visit Provider Nurse Practitioner | DX: R00.1 Bradycardia, unspecified (principal) | CPT/HCPCS: 93225 ==

== ENCOUNTER 2023-09-09 14:40 | Outpatient (CLI) | payer MEDICARE, OTHER, SELFPAY | END 2023-09-09 23:59 | disposition home or self-care (01) | LOC: RT 14:42 | PROVIDERS: PCP Family Medicine; Visit Provider Nurse Practitioner | DX: R00.1 Bradycardia, unspecified (principal) | CPT/HCPCS: 93270 ==

== ENCOUNTER 2023-11-12 17:34 | Outpatient (CLI) | payer MEDICARE, OTHER, SELFPAY ==
--- NOTE | 2023-11-12 17:44 | XR_ITS ---
PROCEDURE INFORMATION: Exam: XR Cervical Spine Exam date and time: 11/12/2023 5:45 PM Age: 67 years old Clinical indication: Neck pain; Additional info: Right cervical radiculopathy TECHNIQUE: Imaging protocol: Radiologic exam of the cervical spine. Views: 4 or 5 views. COMPARISON: CT SINUS WO CON 10/06/2022 2:51 PM FINDINGS: Bones/joints: There is straightening of the normal spinal curvature. The alignment of the cervical spine shows mild straightening with no evidence of subluxation or malalignment. The vertebral body heights are preserved, and there is moderate osteophyte formation indicative of degenerative changes. The disc spaces exhibit moderate narrowing. Facet joints also display moderate degenerative changes with some associated hypertrophy. Impression: Moderate degenerative changes of the cervical spine are observed, characterized by osteophyte formation and disc space narrowing. Soft tissues: The prevertebral soft tissues are within normal limits, and there are no acute osseous abnormalities, fractures, or dislocations. Partially visualized intracranial embolization material and stent. Other findings: Prevertebral and paravertebral soft tissues appear unremarkable. IMPRESSION: There is no evidence of acute osseous pathology. Moderate multilevel degenerative change is present.
== END 2023-11-12 23:59 | disposition home or self-care (01) ==
LOC: RAD 17:37
PROVIDERS: PCP Family Medicine; Visit Provider Family Medicine
DX: M54.12 Radiculopathy, cervical region (principal)
CPT/HCPCS: 72050

== ENCOUNTER 2024-01-13 15:05 | Outpatient (CLI) | payer MEDICARE, OTHER, SELFPAY ==
[2024-01-13 15:19] LABS: Basophils % 0.2 % (0.1-2.0); Eosinophils % 0.4 % (0.1-12.0); Hematocrit 40.1 % (42.0-52.0); Hemoglobin 13.5 g/dL (14.1-18.0); Lymphocytes # 0.7 K/mm3 (0.7-4.5); Lymphocytes % 7.4 % (10-50); Mean Corpuscular HGB Conc 33.6 g/dL (31.8-35.4); Mean Corpuscular Hemoglobin 30.6 pg (27.0-31.2); Mean Corpuscular Volume 91.1 fl (80-94); Mean Platelet Volume 8.9 fl (7.4-10.4); Monocytes # 0.5 K/mm3 (0.1-1.0); Monocytes % 5.4 % (1.7-9.3); Neutrophils # 8.8 K/mm3 (1.8-7.8); Neutrophils % 86.7 % (37.0-80.0); Platelet Count 138 K/mm3 (142-424); Red Blood Count 4.41 M/mm3 (4.60-6.20); Red Cell Distribution Width 14.6 % (11.5-17.5); White Blood Count 10.1 K/mm3 (4.8-10.8)
[2024-01-13 15:27] LABS: MANUAL DIFFERENTIAL MANUAL DIFFERENTIAL (MANUAL DIFF)
[2024-01-13 16:27] LABS: Lymphocytes % 5 % (10-50); Monocytes % 2 % (2-9); Neutrophils % 93 % (42-76); Total Cells Counted 100
[2024-01-13 16:28] LABS: Platelet Estimate Slight Decrease; RBC Morphology Normal
[2024-01-13 17:59] LABS: Alanine Aminotransferase 41 U/L (12-78); Albumin Level 3.7 g/dl (3.5-5.0); Alkaline Phosphatase 95 U/L (38-126); Anion Gap 11.1 mEq/L (5-15); Aspartate Amino Transferase 78 U/L (17-59); Blood Urea Nitrogen 72 mg/dl (9-20); Calcium 9.2 mg/dl (8.4-10.2); Carbon Dioxide 34 mmol/L (22.0-30.0); Chloride 90 mmol/L (98-107); Chol/HDL Ratio 3.5 (1-3.5); Cholesterol 111 mg/dl (140-200); Estimated Glomerular Filt Rate 25 ml/min (>60); GFR (African American) 30 ML/MIN (>60); Glucose 290 mg/dl (74-100); HDL Cholesterol 32 mg/dl (40-60); Magnesium 2.1 mg/dl (1.6-2.3); Potassium 3.1 mmoL/L (3.5-5.1); Sodium 132 mmol/L (136-145); Total Protein,Serum 6.3 g/dl (6.3-8.2); Triglycerides 290 mg/dl (30-150); VLDL Cholesterol 58 mg/dL (0-40)
[2024-01-13 18:29] LABS: Thyroid Stimulating Hormone < 0.02 uIU/mL (0.465-4.68)
[2024-01-13 18:30] LABS: Direct LDL Cholesterol < 30.00 mg/dL (100-129)
== END 2024-01-13 23:59 | disposition home or self-care (01) ==
LOC: LAB 15:05
PROVIDERS: PCP Family Medicine; Visit Provider Nurse Practitioner
DX: E78.2 Mixed hyperlipidemia (principal); E11.22 Type 2 diabetes mellitus with diabetic chronic kidney disease; I12.9 Hypertensive chronic kidney disease with stage 1 through stage 4 chronic kidney disease, or unspecified chronic kidney disease; N18.9 Chronic kidney disease, unspecified; I11.9 Hypertensive heart disease without heart failure; I25.10 Atherosclerotic heart disease of native coronary artery without angina pectoris; I48.0 Paroxysmal atrial fibrillation; I25.84 Coronary atherosclerosis due to calcified coronary lesion; I73.9 Peripheral vascular disease, unspecified; Z87.891 Personal history of nicotine dependence
CPT/HCPCS: 36415; 80048; 80061; 80076; 83735; 84439; 84443; 85007; 85025; 85027

== ENCOUNTER 2024-03-14 13:14 | Outpatient (CLI) | payer MEDICARE, OTHER, SELFPAY ==
[2024-03-14 13:21] LABS: Microscopic, Urine URINE MICROSCOPIC (MICROSCOPIC)
[2024-03-14 13:36] LABS: Hematocrit 38.3 % (42.0-52.0); Hemoglobin 13.1 g/dL (14.1-18.0); Mean Corpuscular HGB Conc 34.2 g/dL (31.8-35.4); Mean Corpuscular Hemoglobin 30.1 pg (27.0-31.2); Platelet Count 148 K/mm3 (142-424); Red Blood Count 4.35 M/mm3 (4.60-6.20); White Blood Count 4.9 K/mm3 (4.8-10.8)
[2024-03-14 13:52] LABS: Albumin Level 4.1 g/dl (3.5-5.0); Chloride 96 mmol/L (98-107); Potassium 3.2 mmoL/L (3.5-5.1); Sodium 137 mmol/L (136-145)
[2024-03-14 13:55] LABS: Anion Gap 7.2 mEq/L (5-15); Blood Urea Nitrogen 50 mg/dl (9-20); Carbon Dioxide 37 mmol/L (22.0-30.0); Estimated Glomerular Filt Rate 30 ml/min (>60); GFR (African American) 36 ML/MIN (>60)
[2024-03-14 13:56] LABS: Calcium 9.7 mg/dl (8.4-10.2); Glucose 237 mg/dl (74-100); Phosphorous 3.7 mg/dl (2.5-4.5)
[2024-03-14 14:04] LABS: Creatinine,Urine Random 45 mg/dL (Not Estab.)
[2024-03-14 14:27] LABS: RBC,Urine Occasional #/hpf (0-3); Squamous Epithelial Cell,Urine Occasional #/hpf (0-5); WBC,Urine Occasional #/hpf (0-3)
[2024-03-15 01:12] LABS: Appearance,Urine CLEAR (Clear); Bilirubin,Urine Negative (Negative); Blood, Urine Negative (Negative); Color,Urine YELLOW (Yellow); Glucose,Urine (UA) 3+ (Negative); Ketones,Urine Negative (Negative); Leukocyte Esterase,Urine Negative (Negative); Nitrate,Urine Negative (Negative); Protein,Urine 2+ (Negative); Specific Gravity, Urine 1.015 (1.005-1.030); Urobilinogen,Urine 0.2 EU/dl (0.2)
== END 2024-03-14 23:59 | disposition home or self-care (01) ==
LOC: LAB 13:16
PROVIDERS: PCP Family Medicine; Visit Provider Internal Medicine Nephrology
DX: N18.30 Chronic kidney disease, stage 3 unspecified (principal)
CPT/HCPCS: 36415; 80069; 81001; 82570; 84156; 85027

== ENCOUNTER 2024-03-18 14:00 | Outpatient (POV) | payer MEDICARE, OTHER, SELFPAY | END 2024-03-18 23:59 | disposition home or self-care (01) | LOC: SC 14:00 | PROVIDERS: Visit Provider Student in an Organized Health Care Education/Training Program | DX: Z00.00 Encounter for general adult medical examination without abnormal findings (principal) ==

== ENCOUNTER 2024-04-12 13:37 | Outpatient (CLI) | payer MEDICARE, OTHER, SELFPAY ==
[2024-04-12 14:51] LABS: Albumin Level 4.1 g/dl (3.5-5.0); Anion Gap 10.5 mEq/L (5-15); Blood Urea Nitrogen 47 mg/dl (9-20); Calcium 8.8 mg/dl (8.4-10.2); Carbon Dioxide 33 mmol/L (22.0-30.0); Chloride 101 mmol/L (98-107); Estimated Glomerular Filt Rate 33 ml/min (>60); GFR (African American) 40 ML/MIN (>60); Glucose 206 mg/dl (74-100); Phosphorous 2.9 mg/dl (2.5-4.5); Potassium 3.5 mmoL/L (3.5-5.1); Sodium 141 mmol/L (136-145)
== END 2024-04-12 23:59 | disposition home or self-care (01) ==
LOC: LAB 13:40
PROVIDERS: PCP Family Medicine; Visit Provider Student in an Organized Health Care Education/Training Program
DX: E87.6 Hypokalemia (principal); Z51.81 Encounter for therapeutic drug level monitoring
CPT/HCPCS: 36415; 80069

== ENCOUNTER 2024-08-01 13:39 | Outpatient (CLI) | payer MEDICARE, OTHER, SELFPAY ==
[2024-08-01 13:49] LABS: Microscopic, Urine URINE MICROSCOPIC (MICROSCOPIC)
[2024-08-01 14:34] LABS: Hematocrit 35.7 % (42.0-52.0); Mean Corpuscular HGB Conc 33.6 g/dL (31.8-35.4); Mean Corpuscular Hemoglobin 28.5 pg (27.0-31.2); Mean Corpuscular Volume 84.8 fl (80-94); Platelet Count 194 K/mm3 (142-424); Red Blood Count 4.21 M/mm3 (4.60-6.20); Red Cell Distribution Width 15.7 % (11.5-17.5); White Blood Count 6.9 K/mm3 (4.8-10.8)
[2024-08-01 15:17] LABS: Albumin Level 4.6 g/dl (3.5-5.0); Anion Gap 10.9 mEq/L (5-15); Calcium 9.7 mg/dl (8.4-10.2); Carbon Dioxide 33 mmol/L (22.0-30.0); Chloride 97 mmol/L (98-107); Estimated Glomerular Filt Rate 30 ml/min (>60); GFR (African American) 36 ML/MIN (>60); Glucose 216 mg/dl (74-100); Phosphorous 4.4 mg/dl (2.5-4.5); Potassium 3.9 mmoL/L (3.5-5.1); Sodium 137 mmol/L (136-145)
[2024-08-01 15:26] LABS: Appearance,Urine CLEAR (Clear); Bilirubin,Urine Negative (Negative); Blood, Urine Negative (Negative); Color,Urine YELLOW (Yellow); Glucose,Urine (UA) 3+ (Negative); Ketones,Urine Negative (Negative); Leukocyte Esterase,Urine Negative (Negative); Nitrate,Urine Negative (Negative); Protein,Urine 1+ (Negative); Specific Gravity, Urine 1.015 (1.005-1.030); Urobilinogen,Urine 0.2 EU/dl (0.2)
[2024-08-01 15:29] LABS: Intact Parathyroid Hormone 14.3 pg/mL (7.5-53.5)
[2024-08-01 15:39] LABS: Blood Urea Nitrogen 88 mg/dl (9-20)
[2024-08-01 15:51] LABS: Creatinine,Urine Random 37 mg/dL (Not Estab.)
[2024-08-01 15:57] LABS: Squamous Epithelial Cell,Urine Occasional #/hpf (0-5); WBC,Urine Occasional #/hpf (0-3)
[2024-08-01 16:10] LABS: Microalbumin/Creatinine Ratio 805.4
[2024-08-08 13:41] LABS: 1,25 Dihydroxy Vitamin D 23 pg/mL (.); 1,25-Dihydroxy, Vitamin D-2 <10 pg/mL (.); 1,25-Dihydroxy, Vitamin D-3 23 pg/mL (.)
== END 2024-08-01 23:59 | disposition home or self-care (01) ==
LOC: LAB 13:40
PROVIDERS: Student in an Organized Health Care Education/Training Program; PCP Family Medicine; Visit Provider Nurse Practitioner
DX: N18.32 Chronic kidney disease, stage 3b (principal)
CPT/HCPCS: 36415; 80069; 81001; 82043; 82570; 82652; 83970; 84156; 85027

== ENCOUNTER 2024-11-28 13:20 | Outpatient (CLI) | payer MEDICARE, OTHER, SELFPAY ==
--- OUTSIDE RECORDS SUMMARY | 2024-07-28 10:30 | XMS_ITS ---
Author Organization [facility] Address [address] [facility] [address] [place] [id number] Care Team Providers Care Professor Criminal Justice Name Role Phone RacquelGreg Unavailable [phone] Natasha Bermudez Unavailable [phone] Allergies No Known Allergies Results Component Value [...] 35 Performing Lab: Notes/Report: Test performed by [employer], [employer] [facility] , [address], [place] [address] Justice Amador MD, Registered Nursing Professor CLIA: [id number] Sodium 138 135-145 mmol/L Potassium 3.6 3.5-5.3 [...] evening); Duration: 30 day(s) Active Vital Signs Blood pressure systolic 152 mm Hg 07/28/19 25 Blood pressure diastolic 70 mm Hg 025 Heart Rate 62 /min 07/28/2024 Height 70.5 in 07/28/2024 Weight 182 lbs 07/28/2024 BMI 25.74 kg/m2 07/28/2024 Encounters Encounter Location Date Provider Diagnosis [facility] [address] [facility] 36 [facility] [address] [place] [id number] 07/28/2024 Natasha Bermudez Type 2 diabetes mellitus without complication, unspecified whether terminal make up operator insulin use E11.9 ; Essential (primary) hypertension I10 ; Renal failure N19 ; Stage 3b chronic kidney disease (CKD) N18.32 and Nausea R11.0 Assessments Encounter Date Diagnosis (ICD Code) Assessment Notes Treatment Notes Treatment Clinical Notes Section Notes 07/28/2024 Type 2 diabetes mellitus without complication, unspecified whether skilled nursing insulin use (ICD-10 - E11.9) 07/28/2024 Essential [...] 4 Months, Reason: Provider Name:Natasha Owens er, 01/23/2025 01:00:00 PM, [address] [facility] 36 [facility], [address], [place], [id number], Progress Notes * PRERNA STOCKDOB:1955 ( 68 yo M)Acc No.[id number]:07/28/2024 Progress Notes Patient: PRERNA KNOX Provider: Natasha Bermudez M.D. :1955 A ge:68 Y S ex:Male Date:07/28/2024 Address:[address] [place] [address], [facility] Subjective: * Chief Complaints: * 1 . [...] * Hospitalization/Major Diagno stic Procedure: P ancreatitis [facility] 2020, C Diff- [facility] 2021, Colonoscopy, Dr. Sekou Shoemaker, polyps [...] 2 diabetes mellitus without complication, unspecified whether skilled nursing insulin use - E11.9 (Primary) 2 . [...] G 2211 Complex e/[place], [address] Urinalysis, no micro, 49813 CAPILLARY BLOOD DRAW, 87383 GLYCATED HEMOGLOBIN TEST, Modifiers: QW , G8753 MOST RECENT SYSTOLIC BP >= 140MM HG, G8754 MOST RECENT DIASTOLIC BP < 90MM HG, 3044F HG A1C LEVEL LT 7.0% * Follow Up: 4 Months * Images: Billing Information: * Visit Code: 58425 Office Visit, Est Pt., Level 4. * Procedure Codes: G2211 Complex e/[place]. [address] Urinalysis, no micro. 60491 CAPILLARY BLOOD DRAW. 75560 GLYCATED HEMOGLOBIN TEST. Modifiers: QW G8753 MOST RECENT SYSTOLIC BP >= 140MM HG. G8754 MOST RECENT DIASTOLIC BP < 90MM HG. 3044F HG A1C LEVEL LT 7.0%. * Electronic signature of Natasha Bermudez MD on 11/28/2024 at 01:23 PM EDT Sign off status: Pending * Provider: Natasha Bermudez M.D. Date: 0 07/28/2024 Generated for Rogelio mcghee/Behzad/eTransmitting on: 0 11/28/2024 01:23 PM EDT History and Physical Notes * HPI (History [...]
--- OUTSIDE RECORDS SUMMARY | 2024-10-17 10:00 | XMS_ITS ---
[facility] Address [address] [facility] [address] [place] [id number] Care Team Providers Care Emergency Room Registered Nurse Name Role Phone RacquelGreg Unavailable [phone] Mayur Vigil Unavailable [phone] Allergies No Known Allergies Results Component Value [...] Problem COPD - Chronic obstructive pulmonary disease (50998097) Chronic obstructive pulmonary disease, unspecified COPD type (J44.9) Active confirmed Problem Diabetic renal disease (680215133) Type 2 diabetes mellitus with diabetic chronic kidney disease, unspecified CKD stage, unspecified whether longterm insulin use (E11.22) Active confirmed Problem Dementia (81299195) Dementia without behavioral disturbance (F03.90) Active confirmed Problem Chronic kidney disease stage 4 (542269271) Chronic kidney disease, stage 4 (severe) (N18.4) Active confirmed Vital Signs Blood pressure systolic 130 mm Hg 10/18/19 25 Blood pressure diastolic 70 mm Hg 025 Heart Rate 60 /min 10/17/2024 Height 70.5 in 10/17/2024 Weight 182.4 lbs 10/17/2024 BMI 25.8 kg/m2 10/17/2024 Encounters Encounter Location Date Provider Diagnosis [facility] [facility] [address] [place], [place] [id number] 10/17/2024 Mayur Vigil Acute cough R05.1 ; Chronic obstructive pulmonary disease, unspecified COPD type J44.9 ; Hepatic cirrhosis, unspecified hepatic cirrhosis type, unspecified whether ascites present K74.60 ; Claudication I73.9 ; Type 2 diabetes mellitus with diabetic chronic kidney disease, unspecified CKD stage, unspecified whether local company intermodal truck driver insulin use E11.22 ; Dementia without behavioral [...] kidney disease, unspecified CKD stage, unspecified whether local company intermodal truck driver insulin use (ICD-10 - E11.22) 10/17/2024 Dementia [...] to repo rt progress, Reason: Provider Name:Natasha Owens er, 01/23/2025 01:00:00 PM, [address], [address], [place], [id number], Progress Notes * LLOYD STOCK:1955 ( 68 yo M)Acc No.[id number]:10/17/2024 Progress Notes Patient: PRERNA KNOX Provider: Reyna Vigil M.D. :1955 A ge:68 Y S ex:Male Date:10/17/2024 Address:[address] [place] [address], [place] [address] Subjective: * Chief Complaints: * 1 . [...] * Hospitalization/Major Diagno stic Procedure: P ancreatitis [facility] 2020, C Diff- [facility] 2021, Colonoscopy, Dr. Sekou Shoemaker, polyps 04/02/2022. [...] kidney disease, unspecified CKD stage, unspecified whether longterm insulin use - E11.22 6 . D ementia without behavioral disturbance - F03.90 7 . C hronic kidney disease, stage 4 (severe) - N18.4 8 . B MD 25.0-25.9,adult - Z68.25 Plan: * Treatment: Value [...] G 2211 Complex e/[place], [address] CAPILLARY BLOOD DRAW, 01738 CBC WITH AUTO DIFF, G8420 BMI<30 AND >=22 CALC & DOCU, G8752 MOST RECENT SYSTOLIC BP < 140MM HG, G8754 MOST RECENT DIASTOLIC BP < 90MM HG * Follow Up: v ia phone to report progress * Images: Billing Information: * Visit Code: 20456 Office Visit, Est Pt., Level 3. * Procedure Codes: G2211 Complex e/[place]. [address] CAPILLARY BLOOD DRAW. 74175 CBC WITH AUTO DIFF. G8420 BMI<30 AND >=22 CALC & DOCU. G8752 MOST RECENT SYSTOLIC BP < 140MM HG. G8754 MOST RECENT DIASTOLIC BP < 90MM HG. * Electronic signature of Evi Vigil MD on 11/28/2024 at 01:22 PM EDT Sign off status: Pending * Provider: Reyna Vigil M.D. Date: 0 10/17/2024 Generated for Rogelio mcghee/Behzad/eTzoeysmitting on: 0 11/28/2024 01:22 PM EDT History and Physical Notes * [...]
--- OUTSIDE RECORDS SUMMARY | 2024-11-21 09:00 | XMS_ITS ---
Author [facility] [address] [facility] [address] [place] [id number] Care Team Providers Care Logistics Operations Manager Name Role Phone Greg Clement Unavailable [phone] Natasha Bermudez Unavailable [phone] Allergies No Known Allergies Results Component Value [...] Notes/Report: glycohemoglobin 6.5% 5 - 6.5 % REASON FOR VISIT 4 month f/u, Needs [...] metOLazone 5 MG 1 tablet Orally Mon, Thu, Thu; Duration: 90 days Active glyBURIDE 5 MG TAKE 2 TABLETS ONE T DMITRIY DAILY; Duration: 90 Active Jardiance 25 MG TAKE 1 TABLET ONE TI ME DAILY; Duration: 90 Active Vital Signs Blood pressure systolic 132 mm Hg 11/22/19 25 Blood pressure diastolic 74 mm Hg 025 Heart Rate 59 /min 11/21/2024 Height 70.5 in 11/21/2024 Weight 180.8 lbs 11/21/2024 BMI 25.57 kg/m2 11/21/2024 Encounters Encounter Location Date Provider Diagnosis [facility] [address] [facility] [address] [place], [place] [phone] 11/21/2024 Natasha Bermudez Chronic obstructive pulmonary disease, unspecified COPD type J44.9 and Type 2 diabetes mellitus with diabetic chronic kidney disease, unspecified CKD stage, unspecified whether intermediate teacher insulin use E11.22 Assessments Encounter Date Diagnosis (ICD Code) Assessment Notes Treatment Notes Treatment Clinical Notes Section Notes 11/21/2024 Chronic obstructive pulmonary disease, unspecified COPD type (ICD-10 - J44.9) 11/21/2024 Type 2 diabetes mellitus with diabetic chronic kidney disease, unspecified CKD stage, unspecified whether intermediate teacher insulin use (ICD-10 - E11.22) Plan Of Treatment Medication Medication Name Sig Start Date Stop Date Notes Medrol 4 MG as directed Orally d aily; Duration: 6 days 11/21/2024 Potassium Chloride ER 10 MEQ TAKE 2 TABL ETS ONE TIME DAILY 3 times a day; Duration: 60 days Pending Test Test Name Order Date CT Scan : Chest, low dose 11/21/2024 Next Appt Details Follow Up: 2 Months, Reason: Provider Name:Natasha Owens er, 01/23/2025 01:00:00 PM, [address], [address], [place], [place], [phone], Progress Notes * DAYAMI, PRERNADOB:1955 ( 68 yo M)Acc No.[id number]:11/21/2024 Progress Notes Patient: PRERNA KNOX Provider: Natasha Bermudez M.D. :1955 A ge:68 Y S ex:Male Date:11/21/2024 Address:[address] [place] [address], [facility] Subjective: * Chief Complaints: * 1 . [...] * Hospitalization/Major Diagno stic Procedure: P ancreatitis [facility] 2020, C Diff- [facility] 2021, Colonoscopy, Dr. Sekou Shoemaker, polyps [...] on RA, Nurse: SADIQ, Ht: 70.5, BMI:25.57. Assessment: * Assessment: 1. C hronic obstructive pulmonary disease, unspecified COPD type - J44.9 (Primary) ?2. T ype 2 diabetes mellitus with diabetic chronic kidney disease, unspecified CKD stage, unspecified whether detention insulin use - E11.22 Plan: * Treatment: Value Reference Range w [...] office. ?Imaging: CT Scan : Chest, low dose* Tierney Cosby 11/21/2024 02:1 1:54 PM EDT > no auth required; CPT code 37365; faxed to [facility] Scheduling 2.?Type 2 diabetes mellitus with diabetic chronic kidney disease, unspecified CKD stage, unspecified whether intermediate teacher insulin use?LAB: Glycohemoglobin A1c (in house) (Collection [...] days, 180, Refills 2.?? * Procedure Codes: 3 6416 CAPILLARY BLOOD DRAW, 39009 GLYCATED HEMOGLOBIN TEST, Modifiers: QW , 38836 CBC WITH AUTO DIFF, 03697 VENIPUNCT, ROUTINE* * Follow Up: 2 Months * Images: Billing Information: * Visit Code: 42803 Office Visit, Est Pt., Level 4. * Procedure Codes: 60984 CAPILLARY BLOOD DRAW. 00507 GLYCATED HEMOGLOBIN TEST. Modifiers: QW 66468 CBC WITH AUTO DIFF. 84260 VENIPUNCT, ROUTINE*. * Electronic signature of Natasha Bermudez MD on 11/28/2024 at 01:23 PM EDT Sign off status: Pending * Provider: Natasha Bermudez M.D. Date: 11/21/2024 Generated for Rogelio mcghee/Behzad/Ramírezsmitting on: 0 11/28/2024 01:23 PM EDT History and Physical Notes * HPI (History of Present Illness) Category Sub-Category Detail Notes Category Not es Cardiology Short of Breath Chest Pain Palpitations Dizziness
--- NOTE | 2024-11-28 13:22 | CT_ITS ---
FINAL REPORT TECHNIQUE: Axial CT images of the chest were obtained without contrast. Low-dose protocol was utilized. This study was performed with techniques to keep radiation doses as low as reasonably achievable (ALARA). Individualized dose reduction techniques using automated exposure control or adjustment of mA and/or kV according to the patient's size were employed. CLINICAL HISTORY: Former smoker of 40 years of 1.5 PPD, hasn't smoked in 15 years; Hx of COPD and Empysema and family hx of lung cancer COMPARISON: 06/12/2022 FINDINGS: CT CHEST WITHOUT, LOW DOSE SCREENING CT Di Vol: 2.90 mGy DLP: 122.46 mGy*cm There is no significant mediastinal mass or adenopathy. Bilateral gynecomastia is similar to the prior study. The heart size is normal. Dense coronary artery calcifications are noted. There is no pleural or pericardial effusion. The lung windows show no suspicious mass or nodule. Limited images of the upper abdomen demonstrate no acute findings. IMPRESSION: LR Category 1S: 12 month follow-up low-dose chest CT is recommended per Fleischner criteria. Modifier S: Bilateral gynecomastia and coronary artery calcifications. Reviewed, Interpreted and Dictated by Chester Samuel MD Transcribed by Skylar Wood Authenticated and . [facility]
--- OUTSIDE RECORDS SUMMARY | 2024-11-28 13:23 | XMS_ITS | Data Portability ---
Author Organization [facility] [place] [facility] [place] [facility] ADMIN Address [address] [place] [address] Care Team Providers Care Primary Operator Name Role Phone TIANNA PRABHAKAR Primary Care Provider Assessment Encounter Date Assessment Date Assessment LastModified by Organization Details LastModified Time 08/15/2022 08/15/2022 66-year-old male with: 1) cirrhosis: Compensated. Due to prior alcohol abuse and hepatitis C. He is sober >4 years. HCV previously treated with SVR achieved. -2g daily sodium restriction counseled -No evidence of HE at this time -No varices on EGD 04/2023. Repeat in 3 years, sooner with signs of decompensation -Obtain CMP, CBC, INR and formulate MELD. Discussed potential need for referral for OLT with MELD of 15 or higher. -Prophy: AFP and US liver now and q6 months for HCC screening. He is immune to hepatitis A, but not hepatitis B. 2) GERD: Continue Omeprazole. Recent EGD with reactive changes of the gastric mucosa likely due to PPI effect. No overt esophagitis noted. Labs and US to be performed at [facility] per patient request. f/u 6 months [email or web address] Not available 08/15/2022 15:12:56 02/16/2023 02/16/2023 67-year-old male with: 1) Cirrhosis: Compensated. Due to prior alcohol abuse and hepatitis C. He is sober >5 years. HCV previously treated with SVR achieved. MELD-Na = 14 on 08/21/22, driven by serum Cr. He has known CKD. -2g daily sodium restriction counseled -No evidence of HE at this time -No varices on EGD 04/2022. Repeat in 3 years, sooner with signs of decompensation -Obtain CMP, CBC, INR and formulate MELD. Discussed potential need for referral for OLT with MELD of 15 or higher. -Prophy: AFP and US liver now and q6 months for HCC screening. He is immune to hepatitis A, but not hepatitis B. -Avoid NSAIDS. He may take acetaminophen as needed, not to exceed 2g per day. 2) History of GERD: He discontinued PPI. Denies further symptoms. Labs and US to be performed at [facility] per patient request. f/u 6 months [email or web address] Not available 02/16/2023 14:54:03 Plan of Treatment Reminders Order Date Submit Date Provider Last Modified By Organization Details Last Modified Time Details Appointments None recorded . Lab CMP, serum or plasma 023 02/17/[address] (Lab), [address], [place], [address], 3 09:55:37 CBC 023 02/17/[address] (Lab), [address], [place], [address], 3 09:55:37 PT/INR 023 02/17/[address] (Lab), [address], [place], [address], 3 09:55:37 afp (alpha-f etoprote in) tumor marker, serum or plasma 023 02/17/[email or web address] (Lab), [address], [place], [address], 3 09:55:37 CMP, serum or plasma 023 08/16/19 23 [facility] (Lab), [address], [place], [address], 3 13:14:43 CBC 023 08/16/19 [facility] (Lab), [address], [place], [address], 3 12:08:31 PT/INR 023 08/16/19 [facility] (Lab), [address], [place], [address], 3 12:08:31 afp (alpha-f etoprote in) tumor marker, serum or plasma 023 08/16/19 [facility] (Lab), [address], [place], [address], 3 10:06:56 Referral None recorded . Procedures None recorded . Surgeries None recorded . Imaging US, liver 02/17/[address] (Scheduling), [address], [place], [address], 3 11:28:51 US, liver 023 08/16/[address] (Scheduling), [address], [place], [address], 3 08:29:28 Medication Orders None recorded . Patient TargetsNo targets recorded. Patient InstructionsNo instructions recorded. Reason for Referral None Reported. Results Created Date Observation Date Name Description Value Unit Range Abnormal Flag Note LastModifiedBy Organization Detail LastModifiedTime 02/24/2002/23/2023 US, liver No observ ation record ed. [facility] [address], [place], [address], 03/12/2023 08:47:25 Result Notes None recorded. Problems Name Problem SNOMED Code Status Onset Date Resolution Date Notes Provider Name and Address Organization Details Recorded Time Cirrhosis of liver Active 023 Jeremy Leger PA-C [address], [place], [address] , [facility] [place] 3 11:15:59 History of alcohol abuse 238568630 Active 023 Jeremy Leger PA-C [address], [place], [address] , [facility] & [place] 3 15:08:58 Problem Notes None recorded. Medical Equipment None Reported. Allergies No known drug allergies Medications Name Sig Start Date Stop Date Status Note LastModified by Organization Details LastModified Time furosemide 40 mg tablet 07/06 completed Not Available Not Available Not Available potassium chloride ER 10 mEq capsule,ext ended release 08/15 completed Not Available Not Available Not Available glyburide 5 mg tablet TAKE 2 TABLETS BY MOUTH TWICE DAILY active Not Available Not Available No t Available promethazin e 12.5 mg tablet 07/06 completed Not Available Not Available Not Available lisinopril 20 mg tablet 02/16 completed Not Available Not Available Not Available ondansetron HCl 4 mg tablet TAKE 1 TABLET BY MOUTH EVERY 6 HOURS NEEDED FOR 10 DAYS active Not Available Not Available No t Available metolazone 5 mg tablet active Not Available Not Available Not Available metronidazo le 500 mg tablet 08/15 completed Not Available Not Available Not Available clopidogrel 75 mg tablet active Not Available Not Available Not Available amlodipine 5 mg tablet 02/16 completed Not Available Not Available Not Available ciprofloxac in 500 mg tablet 08/15 completed Not Available Not Available Not Available sulfamethox azole 800 mg-trimetho prim 160 mg tablet 08/15 completed Not Available Not Available Not Available carvedilol 3.125 mg tablet 02/16 completed Not Available Not Available Not Available bisoprolol fumarate 10 mg tablet 02/16 completed Not Available Not Available Not Available bisoprolol fumarate 5 mg tablet 02/16 completed Not Available Not Available Not Available potassium chloride ER 20 mEq tablet,exte nded release(par t/cryst) 08/15 completed Not Available Not Available Not Available tamsulosin 0.4 mg capsule TAKE 1 CAPSULE BY MOUTH ONCE DAILY active Not Available Not Available No t Available amlodipine 10 mg tablet TAKE ONE TABLET BY MOUTH ONCE A DAY 08/15 completed Not Available Not Available Not Available metformin 1,000 mg tablet TAKE 1 TABLET BY MOUTH TWICE DAILY WITH MEALS 02/16 completed Not Available Not Available Not Available omeprazole 20 mg capsule,del ayed release TAKE 1 CAPSULE 30 MINUTES BEFORE MORNING MEAL 02/16 completed Not Available Not Available Not Available hydrochloro thiazide 25 mg tablet TAKE 1 TABLET BY MOUTH ONCE DAILY FOR 90 DAYS 02/16 completed Not Available Not Available Not Available lisinopril 40 mg tablet 02/16 completed Not Available Not Available Not Available cefdinir 300 mg capsule 02/16 completed Not Available Not Available Not Available fluticasone propionate 50 mcg/actuati on nasal spray,suspe nsion USE 1 SPRAY(S) IN EACH NOSTRIL TWICE DAILY active Not Available Not Available No t Available rosuvastati n 20 mg tablet TAKE 1 TABLET BY MOUTH ONCE DAILY active Not Available Not Available No t Available lactulose 10 gram/15 mL oral solution TAKE 15ML (1 TABLESPOO NFUL) BY MOUTH ONCE A DAY NEEDED 08/15 completed Not Available Not Available Not Available pregabalin 150 mg capsule TAKE 1 CAPSULE BY MOUTH THREE TIMES DAILY active Not Available Not Available No t Available aspirin 02/16 completed Not Available Not Available Not Available Januvia 100 mg tablet TAKE 1 TABLET BY MOUTH ONCE DAILY 07/06 completed Not Available Not Available Not Available Gavilyte-C 240 gram-22.72 gram-6.72 gram-5.84 gram oral solution as directed orally 8 oz q15 until empty per office direction s 08/15 completed Not Available Not Available Not Available Brilinta 90 mg tablet TAKE ONE TABLET BY MOUTH TWICE DAILY 02/16 completed Not Available Not Available Not Available Xarelto 15 mg tablet TAKE 1 TABLET BY MOUTH EVERY EVENING WITH A MEAL FOR BLOOD THINNER active Not Available Not Available No t Available Breo Ellipta 200 mcg-25 mcg/dose powder for inhalation active Not Available Not Available N ot Available BinaxNOW COVID-19 Ag Self Test kit 02/16 completed Not Available Not Available Not Available Vitals Date Recorded Body weight Heart rate Systolic blood pressure Diastolic blood pressure Provider Name and Address Organization Details Last Updated DateTime 08/15/2022 91014.48 g 72 /min 132 mm[Hg] 63 mm[Hg] Jimena ACOSTA [facility] [place] 08/15/2022 10:52:31 Date Recorded Body weight Body mass index (BMI) Body height Body temperature Heart rate Heart rate Oxygen saturation Oxygen saturation in Arterial blood by Pulse oximetry Systolic blood pressure Diastolic blood pressure Provider Name and Address Organization Details Last Updated DateTime 3 70631.7 1 g 25 kg/m2 177.8 cm 98.8 [degF] 57 /min 58 /min 97 % 97 % 144 mm[Hg] 60 mm[Hg] Zohra ACOSTA [facility] [place] 3 14:38:34 Social History Question Answer Notes LastModified by Organizat ion Details LastModified Time Tobacco Smoking Status Never Smoker KEVIN Chicas [facility] [place] 02/16/2023 14:38:25 What Is Your Level Of Caffeine Consumption? Moderate [email or web address] Information not available 02/16/2023 Sex: Unknown Functional Status Question Answer Note LastModified by Organizat ion Details LastModified Time Do you use any illicit or recreational drugs? No [email or web address] Information not available 02/16/2023 Do you or have you ever used any other forms of tobacco or nicotine? No [email or web address] Information not available 02/16/2023 What is your level of alcohol consumption? None [email or web address] Information not available 02/16/2023 Mental Status None recorded. Family History Nothing Reported. Medical History No medical history recorded. Past Encounters Encounter ID Performer Location Encounter Start Date Encounter Closed Date Diagnosis/Indication Diagnosis SNOMED-CT Code Diagnosis ICD10 Code Diagnosis Note [id number] Jeremy Leger PA-C [facility] [address] [address] 08/15/2022 10:43:56 08/15/2022 11:21:46 Cirrhosis of liver 19691058 K74.60 Long-term current use of anticoagulant 965007564 Z79.01 History of hepatitis C 5065328315 9101 Z86.19 History of alcohol abuse 690054364 F10.10 [id number] Jeremy Leger, PA-C [facility] [address] [place] [address] 02/16/2023 14:16:21 02/16/2023 14:57:19 Cirrhosis of liver 05929559 K74.60 Long-term current use of anticoagulant 122901554 Z79.01 History of hepatitis C 4471647358 9101 Z86.19 History of alcohol abuse 611463918 F10.10 Health Concerns Section Related Observation LastModified by Organization Detai ls LastModified Time None Recorded Concern Status LastModified by Organization Details LastModified Time None Recorded Advance Directives Directive None Recorded Payers Insurance Date Sequence Insurance Name Policy Number Policy Munguia Covered Member ID Munguia Member ID Guarantor Name 07/06/2019 1 [place]ICARE[place] Omar Garcia [id number] Omar Garcia 07/30/2019 2 [place] - [employer] () Adriana Radha [id number] Omar Garcia 02/13/2023 2 FOR LIFE ( - MEDICARE SUPPLEMENT) Omar Garcia [id number] Omar Garcia 07/15/2019 1 [employer] (PPO) Omar Garcia [id number] Omar Garcia 02/13/2023 1 [employer] (MEDICARE REPLACEMENT/ ADVANTAGE - PPO) Omar Garcia [id number] Omar Garcia Notes Date Note Type Note Provider Name and Address Organization Details Recorded Time 08/15/2022 text/html Mahin 66-year -old male with history of cirrhosis secondary to remote alcohol abuse and prior chronic hepatitis C infection who presents to the office today for follow-up. He is doing well overall and denies signs of decompensation at this time. He underwent EGD and screening colonoscopy in April 01, 2023 with no varices identified and with adenomatous polyps resected x2 on colonoscopy. He has known chronic kidney disease. He is also on chronic anticoagulation with Brilinta and Xarelto. Last alcohol consumption reported as >4 years ago. Jeremy Leger PA-C [address] [facility], [place], [address], [place] [facility] [place] [facility] [place] 08/15/2022 15:13:09 02/16/2023 text/html PREVIOUS ( 3): Pleasant 66-year-old male with history of cirrhosis secondary to remote alcohol abuse and prior chronic hepatitis C infection who presents to the office today for follow-up. He is doing well overall and denies signs of decompensation at this time. He underwent EGD and screening colonoscopy in April 01, 2023 with no varices identified and with adenomatous polyps resected x2 on colonoscopy. He has known chronic kidney disease. He is also on chronic anticoagulation with Brilinta and Xarelto. Last alcohol consumption reported as >4 years ago. CURRENT (02/16/23): Mr. Garcia returns to the office today for follow-up regarding compensated cirrhosis due to remote etoh abuse and remote HCV infection. He is doing well overall, denies symptoms of decompensation. He is no longer having issues with reflux and has stopped Omeprazole. Jeremy Leger PA-C [address], [place], [address], [facility] [place] [facility] [place] [facility] [place] 02/16/2023 14:54:34
--- OUTSIDE RECORDS SUMMARY | 2024-11-28 13:23 | XMS_ITS | Data Portability ---
Author Organization [facility] JUANPABLO Mena ROCHERT CLOSED Address [address] [facility] [address] [place] [address] Care Team Providers Care Coagulating Drying Supervisor Name Role Phone TIANNA PRABHAKAR Primary Care Provider [phone] Assessment No assessment recorded. Plan of Treatment Reminders Order Date Submit Date Provider Last Modified By Organization Details Last Modified Time Details Appointments None recorded. Lab urinalysis panel, auto 2024 025 [email or web address] Cu/L[facility] [address], [address] [place], [place] [address], [place], [address], 16:54:08 Referral None recorded. Procedures None recorded. Surgeries None recorded. Imaging None recorded. Medication Orders Bactrim DS 800 mg-160 mg tablet 2024 025 TRISTAN [place] [facility], [address] [place], [place], [id number], 5 11:21:35 Patient TargetsNo targets recorded. Patient Instructions Encounter Date Encounter Id Patient Instructions Last Modified By Organization Details Last Modified Time 08/31/2024 [id number] Urine currently clear, he has been under the impression he has had chronic UTIs He will take short course of Bactrim and We will proceed with CT imaging and cystoscopy and check serum creatinine. [email or web address] Not available 08/31/2024 17:35:43 Reason for Referral None Reported. Results Created Date Observation Date Name Description Value Unit Range Abnormal Flag Note LastModifiedBy Organization Detail LastModifiedTime 09/01/19 25 08/31/2024 urina lysis panel , auto Unknown Analyte Clean Catch Not Available [facility] [address] [facility], [place], [address], 08/31/2024 13:04:49 09/01/19 25 08/31/2024 urina lysis panel , auto Unknown Analyte Yellow Not Available [facility] [address] [facility], [place], [address], 08/31/2024 13:04:49 09/01/19 25 08/31/2024 urina lysis panel , auto Unknown Analyte Clear Not Available Cu[facility] [address] [facility], [place], [address], 08/31/2024 13:04:49 09/01/19 25 08/31/2024 urina lysis panel , auto Unknown Analyte 1.005 Not Available Cu[facility] [address] [facility], [place], [address], 08/31/2024 13:04:49 09/01/19 25 08/31/2024 urina lysis panel , auto Unknown Analyte 6.5 Not Available Cu[facility] [address] [facility], [place], [address], 08/31/2024 13:04:49 09/01/19 25 08/31/2024 urina lysis panel , auto Unknown Analyte Negati ve Not Available [facility] [address] [facility], [place], [address], 08/31/2024 13:04:49 09/01/19 25 08/31/2024 urina lysis panel , auto Unknown Analyte Negati ve Not Available Cu[facility] [address] [facility], [place], [address], 08/31/2024 13:04:49 09/01/19 25 08/31/2024 urina lysis panel , auto Unknown Analyte Trace Not Available [facility] [address] [facility], [place], [address], 08/31/2024 13:04:49 09/01/19 25 08/31/2024 urina lysis panel , auto Unknown Analyte >1000 mg/dL Not Available Cu[facility]Lc [facility] [address] [place], [address], 08/31/2024 13:04:49 09/01/19 25 08/31/2024 urina lysis panel , auto Unknown Analyte Negati ve Not Available [facility] [place], [address], 08/31/2024 13:04:49 09/01/19 25 08/31/2024 urina lysis panel , auto Unknown Analyte Normal Not Available [facility] [address] [place], [address], 08/31/2024 13:04:49 09/01/19 25 08/31/2024 urina lysis panel , auto Unknown Analyte Negati ve Not Available Cu[facility]Lc [facility] [address] [facility], [place], [address], 08/31/2024 13:04:49 09/01/19 25 08/31/2024 urina lysis panel , auto Unknown Analyte Negati ve Not Available [facility] [address] [place], [address], 08/31/2024 13:04:49 Result Notes None recorded. Problems Name Problem SNOMED Code Status Onset Date Resolution Date Notes Provider Name and Address Organization Details Recorded Time Urinary incontinence 087350378 Active 2024 MINI KOWALSKI MD [address] [place] [address], [address] , [facility] 17:34:14 Benign prostatic hyperplasia with outflow obstruction 744111943 Active 2024 MINI KOWALSKI MD [address] [place] [address], [address], [facility] 17:34:46 Chronic kidney disease 891519265 Active 2024 MINI KOWALSKI MD [address] [place] [address], [address], [facility] 17:34:52 Type 2 diabetes mellitus 04276459 Active 2024 MINI KOWALSKI MD [address] [place] [address], [address], [facility] 17:35:03 Problem Notes None recorded. Medical Equipment None Reported. Allergies No known drug allergies Medications Name Sig Start Date Stop Date Status Note LastModified by Organization Details LastModified Time glyburide 5 mg tablet Take 1 tablet every day by oral route. active Not Available Not Available No t Available donepezil 10 mg tablet Take 1 tablet every day by oral route. active Not Available Not Available No t Available metolazone 5 mg tablet Take 1 tablet every day by oral route. active Not Available Not Available No t Available losartan 25 mg tablet Take 1 tablet every day by oral route. active Not Available Not Available No t Available Bactrim DS 800 mg-160 mg tablet Take 1 tablet every 12 hours by oral route for 14 days. 2024 active Not Available Not Available Not Avai lable rosuvastatin 20 mg tablet Take 1 tablet every day by oral route. active Not Available Not Available No t Available pregabalin 150 mg capsule Take 1 capsule 3 times a day by oral route. active Not Available Not Available No t Available tamsulosin active Not Available Not Av ailable Not Available potassium 10 meq active Not Available Not Leesa ilable Not Available Xarelto 15 mg tablet Take 1 tablet every day by oral route. active Not Available Not Available No t Available Jardiance 25 mg tablet Take 1 tablet every day by oral route. active Not Available Not Available No t Available Vitals None Recorded Social History Question Answer Notes LastModified by Organizat ion Details LastModified Time Tobacco Smoking Status Former Smoker Not Available [employer] 08/31/2024 12:34:15 When Did You Quit Smoking? 6-10yearssin celastcigare tte [email or web address] Information not available 08/31/2024 What Is Your Relationship Status? [email or web address] Information not available 08/31/2024 At What Age Did You Start Smoking Tobacco? 7 [email or web address] Information not available 08/31/2024 Sex: Unknown Functional Status Question Answer Note LastModified by Organizat ion Details LastModified Time How many times per week do you consume alcohol? Less than 1 time per week [email or web address] Information not available 08/31/2024 Do you or have you ever used any other forms of tobacco or nicotine? No [email or web address] Information not available 08/31/2024 What is your level of alcohol consumption? Occasional [email or web address] Information not available 08/31/2024 Are you currently employed? No [email or web address] Information not available 08/31/2024 Mental Status None recorded. Family History Relationship Description Onset Age of this Age Resolved Age Notes LastModified by Organization Details LastModified Time Mother Family history of malignant neoplasm [email or web address] Not available 2024 12:34:15 Sister Type 2 diabetes mellitus [email or web address] Not available 2024 12:34:15 Medical History Condition Response Erectile Dysfunction Y COPD Y Kidney Disease Y Urinary Tract Infection Y False Teeth Y Diabetes Y Hypertension Y Past Encounters Encounter ID Performer Location Encounter Start Date Encounter Closed Date Diagnosis/Indication Diagnosis SNOMED-CT Code Diagnosis ICD10 Code Diagnosis Note [id number] MINI KOWALSKI MD UROLOGY [facility] [address] [place] [address] 08/31/2024 12:32:32 08/31/2024 13:37:15 Dysuria 30724144 R30.0 Urinary incontinence 165 266715 R32 Wearing depends for 1 year for protection Benign pro static hyperplasia with outflow obstruction 559118410 N40.1 Chronic ki dney disease 474451532 N18.9 Type 2 nydia betes mellitus 03535409 E11.9 Health Concerns Section Related Observation LastModified by Organization Detai ls LastModified Time None Recorded Concern Status LastModified by Organization Details LastModified Time None Recorded Advance Directives Directive None Recorded Payers Insurance Date Sequence Insurance Name Policy Number Policy Munguia Covered Member ID Munguia Member ID Guarantor Name 08/31/2024 1 [employer] (MEDICARE REPLACEMENT/A DVANTAGE - PPO) Omar Garcia [id number] Omar Radha Notes Date Note Type Note Provider Name and Address Organization Details Recorded Time 08/31/2024 text/html 68 yo new male here today for urinary tract issues referred by Dr. Erik Prabhakar. He complains that he has been having recurrent UTIs over the past 6 months. Patient complains of burning with urination, difficulty urinating, and blood in urine. He is wearing a diaper over the past 1 year due to incontinence. On each of these occasions he has not been evaluated and has not had urinalysis checked. He says symptoms ultimately resolved completely and then returned. He has not had any antibiotic treatment. He has been on Flomax for a few years with benefit. He does tell me he has CKD stage III. Full PMHx and ROS reviewed and attached - significant comorbid disease is noted. MINI KOWALSKI MD [address] [place] [address], [address], [facility] 08/31/2024 17:36:29
--- OUTSIDE RECORDS SUMMARY | 2024-11-28 13:23 | XMS_ITS | Encounter Summary ---
Author Organization Healthcare Address [address] [place] [address] Care Team Providers Care Mailing Machine Operator Name Role Phone Rajeev Da Silva MD Primary Care Provider [phone] Alvin Bermudez MD Primary Care Provider [phone] Reason for Referral * Consultation (Routine) - Closed Specialty Diagnoses / Procedures Referred By Contac t Referred To Contact Nephrology Diagnoses Chronic kidney disease (CKD) stage G4/A1, severely decreased glomerular filtration rate (GFR) between 15-29 mL/min/1.73 square meter and albuminuria creatinine ratio less than 30 mg/g ([facility]) Type 2 diabetes mellitus without complication, unspecified whether terminal gauger insulin use Mona Rosario APRN [address] [place] [address] Phone: tel: fax: Referral ID Status Reason Start Date Expiration Date V isits Requested Visits Authorized [id number] Closed Specialty Services Required 01/15/2022 07/17/2023 1 1 Encounter Details Date Type Department Care Team (Late st Contact Info) Description 01/15/2022 Community [facility] [address] [place] [address] Mona Rosario APRN [address] [place] [address] Chronic kidney disease (CKD) stage G4/A1, severely decreased glomerular filtration rate (GFR) between 15-29 mL/min/1.73 square meter and albuminuria creatinine ratio less than 30 mg/g (CMS/HCC) (Primary Dx); Type 2 diabetes mellitus without complication, unspecified whether [facility] insulin use (CMS/HCC) Social History Tobacco Use Types Packs/Day Years Used Date Smoking Tobacco: Former Alcohol Use Standard Drinks/Week Comments Yes 0 (1 standard drink = 0.6 oz pure alcohol) Alcoholic Drinks/day: Current drinker of alcohol Sex and Gender Information Value Date Recorded Sex Assigned at Not on file Legal Sex Male 6:52 PM EDT Gender Identity Not on file Sexual Orientation Not on file documented as of this encounter Plan of Treatment Upcoming Encounters Date Type Department Care Team (Late st Contact Info) Description 01/13/2025 10:20 AM EDT Office Visit [facility] [address] [place] [address] Charlie Early MD [address] [place] [phone] Scheduled Referrals Name Type Priority Associated Diagnoses Order Schedule Ambulatory referral to Nephrology Outpatient Referral Routine Chronic kidney disease (CKD) stage G4/A1, severely decreased glomerular filtration rate (GFR) between 15-29 mL/min/1.73 square meter and albuminuria creatinine ratio less than 30 mg/g (CMS/HCC) Type 2 diabetes mellitus without complication, unspecified whether terminal gauger insulin use (CMS/HCC) 1 Occurrences starting 01/15/2022 until 07/18/2023 documented as of this encounter Visit Diagnoses Diagnosis Chronic kidney disease (CKD) stage G4/A1, severely decreased glomerular filtration rate (GFR) between 15-29 mL/min/1.73 square meter and albuminuria creatinine ratio less than 30 mg/g (CMS/HCC)- Primary Type 2 diabetes mellitus without complication, unspecified whether [facility] insulin use documented in this encounter Care Teams Mailing Machine Operator Relationship Specialty Start Date End Date Rajeev Da Silva MD [facility] [place] [address] PCP - General 10/12/20 03/05/22 Alvin Bermudez MD [address] [facility] [place] [phone] PCP - General 03/06/22 documented as of this encounter
--- OUTSIDE RECORDS SUMMARY | 2024-11-28 13:23 | XMS_ITS | Clinical Summary ---
Author Organization Healthcare Address [address] [place] [address] Care Team Providers Care Combination Worker Name Role Phone Alvin Bermudez MD Primary Care Provider [phone] Allergies Active Allergy Reactions Criticality Noted Date Comments Acetaminophen Other - please docum ent in the comment field Low 10/14/2023 Medications glyBURIDE (Diabeta) 5 MG tablet 1 tablet (5 mg) 2 (two) times a day with meals. 8 Active pregabalin (Lyrica) 150 MG capsule Take 1 capsule (150 mg) by mouth 3 (three) times a day. Active rosuvastatin (Crestor) 20 MG tablet Take 1 tablet (20 mg) by mouth nightly. Active fluticasone (Flonase) 50 MCG/ACT nasal spray 3 Active metOLazone (Zaroxolyn) 5 MG tablet Take 1 tablet (5 mg) by mouth daily. 3 Active Xarelto 15 MG tablet 3 Active clopidogrel (Plavix) 75 MG tablet Take 1 tablet (75 mg) by mouth daily. Active empagliflozin (Jardiance) 25 MG Take 1 tablet (25 mg) by mouth daily. Active potassium chloride (Klor-Con) 20 MEQ packet Take 20 mEq by mouth 2 (two) times a day. Dissolve packet in at least 4 oz (115 ml) of water Active donepezil (Aricept) 10 MG tablet 5 Active tamsulosin (Flomax) 0.4 MG 24 hr capsuleIndicatio ns:BPH with lower urinary tract symptoms without urinary obstruction Take 2 capsules (0.8 mg) by mouth daily. 90 capsule 3 5 Active losartan (Cozaar) 25 MG tabletIndication s:Hypertensive chronic kidney disease with stage 1 through stage 4 chronic kidney disease, or unspecified chronic kidney disease Take 1 tablet (25 mg) by mouth daily. 90 tablet 3 5 Active Active Problems Problem Noted Date Diagnosed Date CKD stage 3b, GFR 30-44 ml/min 03/18/2024 Metabolic alkalosis 03/18/2024 Hypokalemia 03/18/2024 Hypertensive chronic kidney disease with stage 1 through stage 4 chronic kidney disease, or unspecified chronic kidney disease 03/18/2024 Chronic kidney disease-mineral and bone disorder (CKD-MBD) 03/18/2024 Immunizations Immunization Administration Dates Next Due Influenza Vaccine, Quadrivalent, Adjuvanted 01/31,02/24/2022 Influenza, High-dose, Split Virus, Trivalent, Injectable, preservative free 02/11/2024 Influenza, high-dose, quadrivalent 03/07/2021 Influenza, injectable, quadr ivalent, preservative free, pediatric 04/05/2019 Moderna Covid-19 Vaccine 12y +, Nael Protein, Preservative free 02/25/2023 Rsv, Bivalent, Protein Subun it Rsvpref, Diluent Reconstituted, 0.5mL, PF 05/19/2023 Zoster, Recombinant 06/25/2023,04/30/2023 Family History Medical History Relation Name Comments Cardiac disorder Other Relation Name Status Comments Other Social History Tobacco Use Types Packs/Day Years Used Date Smoking Tobacco: Former Passive Smoke Exposure: Past Smokeless Tobacco: Never Tobacco Cessation:Counseling Given: Not Answered Alcohol Use Standard Drinks/Week Comments Not Currently 0 (1 standard drink = 0.6 oz pure alcohol) Alcoholic Drinks/day: Current drinker of alcohol Sex and Gender Information Value Date Recorded Sex Assigned at Not on file Legal Sex Male 6:52 PM EDT Gender Identity Not on file Sexual Orientation Not on file Last Filed Vital Signs Vital Sign Reading Time Taken Comments Blood Pressure 135/82 08/05/2024 10:42 AM EST Pulse 54 08/05/2024 10:42 AM EST Temperature 36.4 C (97.6 F) 08/05/2024 10:42 AM EST Respiratory Rate 18 08/05/2024 10:42 AM EST Oxygen Saturation 96% 08/05/2024 10:42 AM EST Inhaled Oxygen Concentration - - Weight 83 kg (183 lb) 08/05/2024 10:42 AM EST Height 177.8 cm (5' 10 ) 08/05/2024 10:42 AM EST Body Mass Index 26.26 08/05/2024 10:42 AM EST Plan of Treatment Upcoming Encounters Date Type Department Care Team (Late st Contact Info) Description 01/13/2025 10:20 AM EDT [facility] [address] [place] [phone] Charlie Early MD [address] [place] [address] Health Maintenance Due Date Last Done Comments [facility]-Depression Screening 1954 [facility]-Hepatitis C Screening 1955 [facility]-Medicare Annual Wellness (AWV) 1955 [facility]-Infant/Child/Adol SDOH Screenings 1954 [facility]- SDOH Screenings 1972 [facility]-Adult SDOH Screenings 1972 [facility]-DTaP,Tdap,and Td Vaccines (1 - Tdap) 1973 CT Colonography 12/08/1999 Colonoscopy 12/08/1999 FIT-DNA 12/08/1999 FIT 12/08/1999 FOBT 12/08/1999 Sigmoidoscopy 12/08/1999 [facility]-Colorectal Cancer Screening 12/08/1999 [facility]-Pneumococcal Vaccine: 50+ Years (1 of 1 - PCV) 2004 [facility]-Abdominal Aortic Aneurysm (AAA) Screening 12/08/2019 [id number] Vaccine ( season) 2024 02/11/2024, 02/25/2023, 02/24/2022, Additional history exists [facility]-RSV Vaccine: 60+ Years or Completed 05/19/2023 [facility]-Zoster Vaccines Completed 06/25/2023, [facility]-Influenza Vaccine Completed 02/11/2024 , 02/25/2023, 02/24/2022, Additional history exists [facility]-Obesity Intervention Completed 025, 03/18/2024, 05/07/2023 HPV Vaccines Aged Out No longer eligi ble based on patient's age to complete this topic [facility]-HIB Vaccines Aged Out No longer e ligible based on patient's age to complete this topic [facility]-Hepatitis A Vaccines Aged Out No longer eligible based on patient's age to complete this topic [facility]-IPV Vaccines Aged Out No longer e ligible based on patient's age to complete this topic [facility]-Rotavirus Vaccines Aged Out No lo nger eligible based on patient's age to complete this topic Insurance [employer] Care Teams Combination Worker Relationship Specialty Start Date End Date Alvin Bermudez MD [address] [place] [address] PCP - General 03/06/22
--- OUTSIDE RECORDS SUMMARY | 2024-11-28 13:24 | XMS_ITS | Patient Health Record ---
[facility] Organization [facility] Address [address] [facility] [address] [place] [id number] Care Team Providers Care Technical Assistance Consultant Name Role Phone RacquelGreg porter Unavailable [phone] Natasha Bermudez Unavailable [phone] [place]Deonna duqueian Unavailable [phone] Allergies No Known Allergies Results Component Value [...] 35 Performing Lab: Notes/Report: Test performed by [employer] [employer] [facility]0 [facility] , [address], [place] [address] Justice Amador MD, [employer] Machine Operator CLIA: [id number] Sodium 138 135-145 mmol/L Potassium 3.6 3.5-5.3 mmol/L Chloride 97 97-108 mmol/L CO2 29 22-32 mmol/L Glucose 280 65-99 mg/dL BUN 49 8-23 mg/dL Creatinine 2.03 0.70-1.30 mg/dL Calcium 9.5 8.6-10.4 mg/dL eGFR by Creatinine 35 >59 mL/min/1.73m2 CBC Fingerstick (in house) Reviewed date:10/18/2024 12:35:04 [...] - 38 plat 146 100 - 400 CBC Venipuncture (in house) Reviewed date:11/25/2024 03:39:21 [...] Notes/Report: glycohemoglobin 6.5% 5 - 6.5 % P-Basic Metabolic Panel (BMP ) Reviewed date:04/22/2024 02:39:07 PM Interpretation:K+ 3.4, gluc 171, bun 48, Cr 2.01, gfr 35, 11/ f/u appt Performing Lab: Notes/Report: Test performed by [employer], [employer] [facility]0 [facility] , [address], [place] [address] Justice Amador MD, [employer] Machine Operator CLIA: [id number] Sodium 142 135-145 mmol/L Potassium 3.4 3.5-5.3 mmol/L Chloride 102 97-108 mmol/L CO2 30 22-32 mmol/L Glucose 171 65-99 mg/dL BUN 48 8-23 mg/dL Creatinine 2.01 0.70-1.30 mg/dL Calcium 9.2 8.6-10.4 mg/dL eGFR by Creatinine 35 >59 mL/min/1.73m2 CBC Fingerstick (in house) Reviewed date:12/22/2023 12:06:50 PM Interpretation: Performing Lab: Notes/Report: wbc 8.8 3.5 - 10 lym 10.6% 15 - 50 mid 2.9% 2 - 15 gran 86.5% 35 - 80 rbc 4.53 3.5 - 5.5 hgb 13.8 11.5 - 16.5 hct 40.0 35 - 55 mcv 88.3 75 - 100 mch 30.4 25 - 35 mchc 34.4 31 - 38 plat 145 100 - 400 Glycohemoglobin A1c (in hous e) Reviewed date:03/31/2024 05:10:28 PM Interpretation: Performing Lab: Notes/Report: glycohemoglobin 7.3% 5 - 6.5 % Glucose (In-House) Reviewed date:12/30/2023 12:08:32 PM Interpretation: Performing Lab: Notes/Report: blood glucose 546 74 - 106 mg/dL Glycohemoglobin A1c (in hous e) Reviewed date:12/30/2023 12:08:41 PM Interpretation: Performing Lab: Notes/Report: glycohemoglobin 12.1% 5 - 6.5 % P-Comprehensive Metabolic Pa keo ([facility]) Reviewed date:12/31/2023 08:11:55 AM Interpretation:alk phos 216, bun 68, Cl 85, CO2 35, creat 2.54, gluc 562, Na 130, gfr 27 Performing Lab: Notes/Report: Test performed by [employer] [address] [place] [address] , [address], [place] [address] Justice Amador MD, [employer] Machine Operator CLIA: [id number] Sodium 130 135-145 mmol/L Potassium 4.2 3.5-5.3 mmol/L Chloride 85 97-108 mmol/L CO2 35 22-32 mmol/L Glucose 562 65-99 mg/dL ALERT VALUE Results were repeated and confirmed. BUN 68 8-23 mg/dL Creatinine 2.54 0.70-1.30 mg/dL Calcium 9.9 8.6-10.4 mg/dL eGFR by Creatinine 27 >59 mL/min/1.73m2 Protein 6.9 6.0-8.3 g/dL Albumin 4.3 3.5-5.3 g/dL Alkaline Phosphatase 216 40-129 IU/L ALT (SGPT) 27 <5-55 IU/L AST (SGOT) 33 <5-46 IU/L Bilirubin, Total 0.6 <0.2-1.2 mg/dL A/G Ratio 1.7 1.1-2.5 mg/dL P-Lipid Panel Reviewed date:12/31/2023 08:12:37 AM Interpretation:trig 364 Performing Lab: Notes/Report: Test performed by [employer], [address] , [address], [place] [address] Justice Amador MD, [employer] Machine Operator CLIA: [id number] Cholesterol 125 <200 mg/dL Triglycerides 364 <150 mg/dL HDL Cholesterol 43 >39 mg/dL Cholesterol / HDL Ratio 2.91 0.00-4.99 Ratio Non-HDL Cholesterol 82 <130 mg/dL LDL Cholesterol (Calculation) 9 <130 mg/dL LDL Cholesterol Levels* Less than 100 mg/dL Optimal 100 to 129 mg/dL Near Optimal/ Above Optimal 130 to 159 mg/dL Borderline High 160 to 189 mg/dL High 190 mg/dL and above Very High * Categories as recommended by the 2004 ATPIII guidelines LDL/HDL Ratio 0.2 <3.3 Ratio LDL Cholesterol Patient History Test Date: 12/30/2023 LDL Results: 9 Units: mg/dL % Change: - P-Phosphorus Reviewed date:12/31/2023 08:13:57 AM Interpretation:Normal Performing Lab: Notes/Report: Test performed by [facility] [address] , [place] [address] Justice Amador MD, [employer] Machine Operator CLIA: [id number] Phosphorus 4.4 2.5-4.5 mg/dL P-PSA Reviewed date:12/31/2023 08:13:57 AM Interpretation:Normal Performing Lab: Notes/Report: Test performed by [facility] [address] , [place] [address] Justice Amador MD, [employer] Machine Operator CLIA: [id number] PSA 1.87 <4.00 ng/mL Please note this is an ultrasensitive PSA assay with a lower limit of detection of 0.014 ng/mL. This test is performed by the Fernando ECLIA methodology. Values obtained with different assay methods or kits cannot be directly compared. P-TSH reflex to FT4 Reviewed date:12/31/2023 08:13:57 AM Interpretation:Normal Performing Lab: Notes/Report: Test performed by [facility] [address] , [place] [id number] Justice Amador MD, [employer] Machine Operator CLIA: [id number] TSH reflex to FT4 2.15 0.43-5.25 mU/L P-Microalbumin/Creatinine, R andom Urine Sample Reviewed date:12/31/2023 08:13:57 AM Interpretation:alb/creat 1947 Performing Lab: Notes/Report: Test performed by [facility] [address] , [address], [place] [address] Justice Amador MD, [employer] Machine Operator CLIA: [id number] Albumin/Creatinine Ratio, Urine 1947 0-30 ug/mg Microalbumin, Urine, Random 84.1 Creatinine, Urine 43.2 Glycohemoglobin A1c (in hous e) Reviewed date:01/14/2024 09:04:10 AM Interpretation:11.4 Performing Lab: Notes/Report: 11.4 glycohemoglobin 11.4% 5 - 6.5 % Reason For Referral No Information Medications Medication SIG (Take, Route, Frequency, Duration) Notes Start Date End Date Status Xarelto 15 MG 1 tab(s) orally once a day (in the evening); Duration: 30 day(s) Active Medrol 4 MG as directed Orally d aily; Duration: 6 days 11/21/2024 Active Losartan Potassium 25 MG 1 tablet Orally Once a day; Duration: 30 day(s) Active metOLazone 5 MG 1 tablet Orally Mon, Wed, Fri; Duration: 90 days Active Ondansetron HCl 4 MG 1 tab(s) orally geovanni ry 8 hours Active Donepezil HCl 10 MG TAKE 1 TABLET AT BED TIME; Duration: 90 Active Pregabalin 150 MG 1 cap(s) orally 3 ti mes a day; Duration: 60 day(s) 04/01/2024 Active Tamsulosin HCl 0.4 MG TAKE 1 CAPSULE ONE TIME DAILY; Duration: 90 days Active FIBERCON TABLETS 2 P.O. DAILY 06/04/2022 Active Rosuvastatin Calcium 20 MG 1 tablet Oral ly Once a day; Duration: 90 days Active Clopidogrel Bisulfate 75 MG 1 tablet Ora lly Once a day Active Fluticasone Furoate-Vilanterol 200-25 MCG/ACT 1 puff(s) inhaled once a day; Duration: 30 day(s) Active glyBURIDE 5 MG TAKE 2 TABLETS ONE T DMITRIY DAILY; Duration: 90 Active Potassium Chloride ER 10 MEQ 2 tablets Orally daily; Duration: 90 days Active Align 4 MG 1 cap(s) orally once a day; Duration: 28 day(s) 06/04/2022 Active Ipratropium-Albuterol 0.5-2.5 (3) MG/3ML INHALE CONTENTS OF 1 VIAL (3ML) VIA NEBULIZER EVERY 6 HOURS; Duration: 90 Active Jardiance 25 MG TAKE 1 TABLET ONE TI ME DAILY; Duration: 90 Active Immunizations Vaccine Route Administration Date Status Comme nts COVID 19 Pfizer Unknown 07/26/2020 Administered COVID 19 Pfizer Unknown 08/18/2020 Administered COVID 19 Pfizer Unknown 03/20/2021 Administered Fluzone High Dose (65yr and older) Unknown 03/07/2021 A dministered Prevnar (PCV20) Unknown 06/04/2022 Pending Shingrix Unknown 04/30/2023 Administered Shingrix Unknown 06/25/2023 Administered Problems Problem Type SNOMED Code ICD Code Onset Dates Problem Status W/U Status Risk Notes Problem Essential hypertension (96425055) Essential (primary) hypertension (I10) Active confirmed Problem Hypokalemia (77655973) Hypokalemia (E87.6) Active confirmed Problem Renal failure (76774306) Renal failure (N19) Active confirmed Problem Memory loss (04787051) Memory loss (R41.3) Active confirmed Problem Atherosclerosis of aorta (55303094) Atherosclerosis of aorta (I70.0) Active confirmed Problem Atherosclerosis of artery (038782935) Atherosclerosis of other arteries (I70.8) Active confirmed Problem Chronic kidney disease stage 4 (381994367) Chronic kidney disease, stage 4 (severe) (N18.4) Active confirmed Problem Right cervical radiculopathy (76689349520731272 ) Right cervical radiculopathy (M54.12) Active confirmed Problem Renal insufficiency (822561683) Renal insufficiency (N28.9) Active confirmed Problem Neck pain (67091231) Neck pain (M54.2) Active confirmed Problem COPD - Chronic obstructive pulmonary disease (94913236) Chronic obstructive pulmonary disease, unspecified COPD type (J44.9) Active confirmed Problem Atherosclerotic heart disease of grayling coronary artery without angina pectoris (019885035590487) Coronary artery disease involving grayling coronary artery of grayling heart without angina pectoris (I25.10) Active confirmed Problem Claudication (06129104) Claudication (I73.9) Active confirmed Problem Hyperlipidaemia (93216475) Hyperlipidemia, unspecified hyperlipidemia type (E78.5) Active confirmed Problem Diverticular disease of colon (802033354) Diverticulosis (K57.90) Active confirmed Problem Dementia (28929857) Dementia without behavioral disturbance (F03.90) Active confirmed Problem Stented coronary artery (983037023) Stented coronary artery (Z95.5) Active confirmed Problem Peripheral vascular disease (061107867) PAD (peripheral artery disease) (I73.9) Active confirmed Problem Benign prostatic hypertrophy without outflow obstruction (914961254) Benign prostatic hyperplasia, unspecified whether lower urinary tract symptoms present (N40.0) Active confirmed Problem Type II diabetes mellitus without complication (108701830) Type 2 diabetes mellitus without complication, unspecified whether rn long term care insulin use (E11.9) Active confirmed Problem Cirrhosis - non-alcoholic (257680676) Hepatic cirrhosis, unspecified hepatic cirrhosis type, unspecified whether ascites present (K74.60) Active confirmed Problem Diabetic renal disease (879906587) Type 2 diabetes mellitus with diabetic chronic kidney disease, unspecified CKD stage, unspecified whether fci insulin use (E11.22) Active confirmed Problem Atypical angina (247637828) Atypical angina (I20.8) Active confirmed Problem Chronic kidney disease stage 3B (disorder) (539391688) Stage 3b chronic kidney disease (CKD) (N18.32) Active confirmed Vital Signs Heart Rate 59 /min 11/21/2024 Blood pressure diastolic 74 mm Hg 11/21/2024 Height 70.5 in 11/21/2024 Blood pressure systolic 132 mm Hg 11/21/2024 Weight 180.8 lbs 11/21/2024 BMI 25.57 kg/m2 11/21/2024 Encounters Encounter Location Date Provider Diagnosis [facility] [address] [facility] [address] [place], [place] [id number] 12/22/2023 Mayur [place] Acute cough R05.1 [facility] 120[address] [facility] [address] [place], [place] [id number] 12/30/2023 Mayur [place] Type 2 diabetes mellitus without complication, unspecified whether rn long term care insulin use E11.9 ; Hyperglycemia R73.9 ; Essential (primary) hypertension I10 ; Coronary artery disease involving grayling coronary artery of grayling heart without angina pectoris I25.10 ; Renal insufficiency N28.9 ; Prostate cancer screening Z12.5 and Stage 3b chronic kidney disease (CKD) N18.32 [facility] 1210 [facility] [address] [place], [place] [id number] 01/13/2024 Natasha Bermudez Type 2 diabetes mellitus without complication, unspecified whether fci insulin use E11.9 [facility] 120[address] [facility] [address] [place], [place] [id number] 04/18/2024 Natasha Bermudez Hypokalemia E87.6 [facility] 120[address] [facility] [address] [place], [place] [id number] 04/25/2024 Natasha Bermudez Essential (primary) hypertension I10 ; Stage 3b chronic kidney disease (CKD) N18.32 ; Hypokalemia E87.6 and Right lateral epicondylitis M77.11 [facility] [address] [facility] [address] [place] [id number] 07/28/2024 Natasha Bermudez Type 2 diabetes mellitus without complication, unspecified whether rn long term care insulin use E11.9 ; Essential (primary) hypertension I10 ; Renal failure N19 ; Stage 3b chronic kidney disease (CKD) N18.32 and Nausea R11.0 [facility] [address] [facility] [address] [place], [place] [id number] 10/17/2024 Mayur [place] Acute cough R05.1 ; Chronic obstructive pulmonary disease, unspecified COPD type J44.9 ; Hepatic cirrhosis, unspecified hepatic cirrhosis type, unspecified whether ascites present K74.60 ; Claudication I73.9 ; Type 2 diabetes mellitus with diabetic chronic kidney disease, unspecified CKD stage, unspecified whether rn long term care insulin use E11.22 ; Dementia without behavioral disturbance F03.90 ; Chronic kidney disease, stage 4 (severe) N18.4 and BMI 25.0-25.9,adult Z68.25 [facility] [address] [facility] [address] [place], [place] [id number] 11/21/2024 Natasha Bermudez Chronic obstructive pulmonary disease, unspecified COPD type J44.9 and Type 2 diabetes mellitus with diabetic chronic kidney disease, unspecified CKD stage, unspecified whether fci insulin use E11.22 [facility] [address] [place], [place] [id number] 03/31/2024 Natasha Bermudez Renal failure N19 ; Type 2 diabetes mellitus without complication, unspecified whether rn long term care insulin use E11.9 ; Essential (primary) hypertension I10 ; Hepatic cirrhosis, unspecified hepatic cirrhosis type, unspecified whether ascites present K74.60 ; Hypokalemia E87.6 and Memory loss R41.3 [facility] [address] [facility] [address] [place], [place] [id number] 12/29/[address] [facility] [address] [facility] [address] [place], [place] [id number] 12/31/2023 Mayur [place] [facility] [address] [place], [place] [id number] 12/31/2023 Mayur [place] Type 2 diabetes mellitus without complication, unspecified whether rn long term care insulin use E11.9 [facility] [address] [place], [place] [id number] 01/05/2024 R Desmond Racquel [facility] [address] [place], [place] [id number] 01/07/2024 Natasha Bermudez [facility] [address] [place], [place] [id number] 01/14/2024 Natasha Bermudez [facility] [address] [place], [place] [id number] 04/01/2024 Natasha Bermudez [facility] [address] [place], [place] [id number] 04/22/2024 Natasha Bermudez [facility] [address] [place], [place] [id number] 05/26/2024 R Desmond Racquel [facility] [address] [place], [place] [id number] 07/25/2024 J Erik Bermudez [facility] [address] [place], [place] [id number] 08/01/2024 Natasha Bermudez [facility] [address] [place], [place] [id number] 08/05/2024 Natasha Bermudez [facility] [address] [place], [place] [id number] 11/22/2024 R Desmond Racquel [facility] [address] [place], [place] [id number] 12/14/2023 Natasha Bermudez Assessments Encounter Date Diagnosis (ICD Code) Assessment Notes Treatment Notes Treatment Clinical Notes Section Notes 12/22/2023 Acute cough (ICD-10 - R05.1) 12/30/2023 Hyperglycemia (ICD-10 - R73.9) 12/31/2023 Type 2 diabetes mellitus without complication, unspecified whether rn long term care insulin use (ICD-10 - E11.9) 01/13/2024 Type 2 diabetes mellitus without complication, unspecified whether fci insulin use (ICD-10 - E11.9) 12/30/2023 Type 2 diabetes mellitus without complication, unspecified whether fci insulin use (ICD-10 - E11.9) Not at goal today 03/31/2024 Renal failure (ICD-10 - N19) 04/18/2024 Hypokalemia (ICD-10 - E87.6) 04/25/2024 Essential (primary) hypertension (ICD-10 - I10) 04/25/2024 Stage 3b chronic kidney disease (CKD) (ICD-10 - N18.32) 07/28/2024 Essential (primary) hypertension (ICD-10 - I10) 07/28/2024 Type 2 diabetes mellitus without complication, unspecified whether rn long term care insulin use (ICD-10 - E11.9) 03/31/2024 Type 2 diabetes mellitus without complication, unspecified whether fci insulin use (ICD-10 - E11.9) 10/17/2024 Chronic obstructive pulmonary disease, unspecified COPD type (ICD-10 - J44.9) 10/17/2024 Acute cough (ICD-10 - R05.1) 11/21/2024 Chronic obstructive pulmonary disease, unspecified COPD type (ICD-10 - J44.9) 11/21/2024 Type 2 diabetes mellitus with diabetic chronic kidney disease, unspecified CKD stage, unspecified whether rn long term care insulin use (ICD-10 - E11.22) 10/17/2024 Hepatic cirrhosis, unspecified hepatic cirrhosis type, unspecified whether ascites present (ICD-10 - K74.60) 07/28/2024 Renal failure (ICD-10 - N19) 04/25/2024 Hypokalemia (ICD-10 - E87.6) 03/31/2024 Essential (primary) hypertension (ICD-10 - I10) 12/30/2023 Essential (primary) hypertension (ICD-10 - I10) 04/25/2024 Right lateral epicondylitis (ICD-10 - M77.11) Tennis elbow strap recommended 07/28/2024 Stage 3b chronic kidney disease (CKD) (ICD-10 - N18.32) 10/17/2024 Claudication (ICD-10 - I73.9) 03/31/2024 Hepatic cirrhosis, unspecified hepatic cirrhosis type, unspecified whether ascites present (ICD-10 - K74.60) 12/30/2023 Coronary artery disease involving grayling coronary artery of grayling heart without angina pectoris (ICD-10 - I25.10) 10/17/2024 Type 2 diabetes mellitus with diabetic chronic kidney disease, unspecified CKD stage, unspecified whether fci insulin use (ICD-10 - E11.22) 07/28/2024 Nausea (ICD-10 - R11.0) 12/30/2023 Renal insufficiency (ICD-10 - N28.9) 03/31/2024 Hypokalemia (ICD-10 - E87.6) 12/30/2023 Prostate cancer screening (ICD-10 - Z12.5) 03/31/2024 Memory loss (ICD-10 - R41.3) 10/17/2024 Dementia without behavioral disturbance (ICD-10 - F03.90) 12/30/2023 Stage 3b chronic kidney disease (CKD) (ICD-10 - N18.32) 10/17/2024 Chronic kidney disease, stage 4 (severe) (ICD-10 - N18.4) 10/17/2024 BMI 25.0-25.9,adult (ICD-10 - Z68.25) Plan Of Treatment Pending Test Test Name Order Date CT Scan : Chest, low dose 11/21/2024 Next Appt Details Provider Name:Natasha Owens er, 01/23/2025 01:00:00 PM, [address] [facility], [address], [place], [place], [id number], Insurance Providers Payer Name Payer Address Payer Phone Subscriber Number Group Number Insured Name Patient Relationship to Insured Coverage Start Date Coverage End Date [employer] (MEDICAR E) [address] [address] [place] [address] [phone] [id number] PRERNA STOCK Self - patient is the insured Medical (General) History Medical History History ICD Code Asthma Hypertension Hyperlipidemia Diabetes EF=55%, 12/20/2021 Flu shot 2022 diabetic eye exam October 2022 Chronic kidney disease, stage 3b as of 2 024 COPD Surgical History Surgery Date(Month/Year) Brain Aneurysm 2005, 2006 Stent to mid LAD, first diag onal, stents to left common iliac and external iliac. Normal EF. 07/15/2022 colonoscopy with polyps 04/22/2022 Sinus surgery with removal of pedunculat ed papillomax, Dr. Luis 04/01/2023 Hospitalization History Reason Date(Month/Year) Pancreatitis [facility] 2020 Colonoscopy, Dr. Sapp Case, polyps 07/2021 C Diff- [facility] 2021
== END 2024-11-28 23:59 | disposition home or self-care (01) ==
LOC: RAD 13:21
PROVIDERS: PCP Family Medicine; Visit Provider Family Medicine
DX: J43.9 Emphysema, unspecified (principal); Z87.891 Personal history of nicotine dependence; I25.10 Atherosclerotic heart disease of native coronary artery without angina pectoris; N62 Hypertrophy of breast; Z12.2 Encounter for screening for malignant neoplasm of respiratory organs; Z80.1 Family history of malignant neoplasm of trachea, bronchus and lung
CPT/HCPCS: 71271

== ENCOUNTER 2025-01-10 13:45 | Outpatient (CLI) | payer MEDICARE, OTHER, SELFPAY ==
--- OUTSIDE RECORDS SUMMARY | 2024-10-17 10:00 | XMS_ITS ---
Author [facility] Address [address] [facility] [address] [place] [id number] Care Team Providers Care Clay Products Machine Operator Name Role Phone RacquelGreg Unavailable [phone] Mayur Vigil Unavailable [phone] Allergies No Known Allergies Results Component Value [...] Problem COPD - Chronic obstructive pulmonary disease (30218994) Chronic obstructive pulmonary disease, unspecified COPD type (J44.9) Active confirmed Problem Diabetic renal disease (845071294) Type 2 diabetes mellitus with diabetic chronic kidney disease, unspecified CKD stage, unspecified whether fci insulin use (E11.22) Active confirmed Problem Dementia (46824019) Dementia without behavioral disturbance (F03.90) Active confirmed Problem Chronic kidney disease stage 4 (816249974) Chronic kidney disease, stage 4 (severe) (N18.4) Active confirmed Vital Signs Weight 182.4 lbs 10/17/2024 Blood pressure systolic 130 mm Hg 10/18/19 25 Blood pressure diastolic 70 mm Hg 025 Heart Rate 60 /min 10/17/2024 Height 70.5 in 10/17/2024 BMI 25.8 kg/m2 10/17/2024 Encounters Encounter Location Date Provider Diagnosis [facility] [facility] [address] [place], [place] [id number] 10/17/2024 Mayur Vigil Acute cough R05.1 ; Chronic obstructive pulmonary disease, unspecified COPD type J44.9 ; Hepatic cirrhosis, unspecified hepatic cirrhosis type, unspecified whether ascites present K74.60 ; Claudication I73.9 ; Type 2 diabetes mellitus with diabetic chronic kidney disease, unspecified CKD stage, unspecified whether equipment operator intermodal yard insulin use E11.22 ; Dementia without behavioral [...] kidney disease, unspecified CKD stage, unspecified whether fci insulin use (ICD-10 - E11.22) 10/17/2024 Dementia [address], [place], [id number], Progress Notes * LLOYD STOCK:1955 ( 69 yo M)Acc No.[id number]:10/17/2024 Progress Notes Patient: PRERNA KNOX Provider: Reyna Vigil M.D. :1955 A ge:68 Y S ex:Male Date:10/17/2024 Address:[address] [place] [address], [place] [address] Subjective: * Chief Complaints: * 1 . [...] surgery with removal of pedunculated papillomax, Dr. Lusi 04/01/2023. * Hospitalization/Major Diagno stic Procedure: P ancreatitis [facility] 2020, C Diff- [facility] 2021, Colonoscopy, Dr. Sekou Shoemaker, polyps [...] kidney disease, unspecified CKD stage, unspecified whether equipment operator intermodal yard insulin use - E11.22 6 . D ementia without behavioral disturbance - F03.90 7 . C hronic kidney disease, stage 4 (severe) - N18.[address] 25.0-25.9,adult - Z68.25 Plan: * Treatment: Value [...] G 2211 Complex e/[place], [address] CAPILLARY BLOOD DRAW, 29119 CBC WITH AUTO DIFF, G8420 BMI<30 AND >=22 CALC & DOCU, G8752 MOST RECENT SYSTOLIC BP < 140MM HG, G8754 MOST RECENT DIASTOLIC BP < 90MM HG * Follow Up: v ia phone to report progress * Images: Billing Information: * Visit Code: 00535 Office Visit, Est Pt., Level 3. * Procedure Codes: G2211 Complex e/[place]. [address] CAPILLARY BLOOD DRAW. 13505 CBC WITH AUTO DIFF. G8420 BMI<30 AND >=22 CALC & DOCU. G8752 MOST RECENT SYSTOLIC BP < 140MM HG. G8754 MOST RECENT DIASTOLIC BP < 90MM HG. * Electronic signature of Evi Vigil MD on 01/10/2025 at 01:49 PM EDT Sign off status: Pending * Provider: Reyna Vigil M.D. Date: 0 10/17/2024 Generated for Rogelio mcghee/Behzad/eTzoeysmitting on: 0 01/10/2025 01:49 PM EDT History and Physical Notes * [...]
--- OUTSIDE RECORDS SUMMARY | 2024-11-21 09:00 | XMS_ITS ---
Author Organization [facility] Address [address] [facility] [address] [place] [id number] Care Team Providers Care Shingle Cutter Name Role Phone Greg Clement Unavailable [phone] Natasha Bermudez Unavailable [phone] Allergies No Known Allergies Results Component Value [...] Provider Diagnosis [facility] [address] [place], [place] [id number] 11/21/2024 Natasha Bermudez Chronic obstructive pulmonary disease, unspecified COPD type J44.9 ; Type 2 diabetes mellitus with diabetic chronic kidney disease, unspecified CKD stage, unspecified whether mcc insulin use E11.22 and BMI 25.0-25.9,adult Z68.25 Assessments Encounter Date Diagnosis (ICD Code) Assessment Notes Treatment Notes Treatment Clinical Notes Section Notes 11/21/2024 Chronic obstructive pulmonary disease, unspecified COPD type (ICD-10 - J44.9) 11/21/2024 Type 2 diabetes mellitus with diabetic chronic kidney disease, unspecified CKD stage, unspecified whether die cutter diamond insulin use (ICD-10 - E11.22) 11/21/2024 BMI [...] 2 Months, Reason: Provider Name:Natasha Owens er, 01/23/2025 01:00:00 PM, [address] [facility] 36 [facility], [address] [place] [address], [id number], Progress Notes * PRERNA STOCKDOB:1955 ( 69 yo M)Acc No.[id number]:11/21/2024 Progress Notes Patient: PRERNA KNOX Provider: Natasha Bermudez M.D. :1955 A ge:68 Y S ex:Male Date:11/21/2024 Address:[address] [place] [address], [id number] Subjective: * Chief Complaints: * 1 . [...] kidney disease, unspecified CKD stage, unspecified whether die cutter diamond insulin use - E11.22 3 . B RI 25.0-25.9,adult - Z68.25 Plan: * Treatment: Value [...] EDT > no auth required; CPT code 61969; faxed to [facility] Onelia Lemos 12/30/2024 10:37:38 AM EDT > See phone encounter 2.?Type 2 diabetes mellitus with diabetic chronic kidney disease, unspecified CKD stage, unspecified whether die cutter diamond insulin use?LAB: Glycohemoglobin A1c (in house) (Collection [...] G 2211 Complex e/[place], [address] GLYCATED HEMOGLOBIN TEST, Modifiers: QW , 93751 CBC WITH AUTO DIFF, 3044F HG A1C LEVEL LT 7.0%, 1036F TOBACCO NON-USER, G8950 PREHTN/HTN BP DOC INDCD F/U DOC, G8752 MOST RECENT SYSTOLIC BP < 140MM HG, G8754 MOST RECENT DIASTOLIC BP < 90MM HG * Follow Up: 2 Months * Images: Billing Information: * Visit Code: 40152 Office Visit, Est Pt., Level 4. * Procedure Codes: G2211 Complex e/[place]. [address] GLYCATED HEMOGLOBIN TEST. Modifiers: QW 88701 CBC WITH AUTO DIFF. 3044F HG A1C LEVEL LT 7.0%. 1036F TOBACCO NON-USER. G8950 PREHTN/HTN BP DOC INDCD F/U DOC. G8752 MOST RECENT SYSTOLIC BP < 140MM HG. G8754 MOST RECENT DIASTOLIC BP < 90MM HG. * Electronic signature of Natasha Bermudez MD on 01/10/2025 at 01:48 PM EDT Sign off status: Pending * Provider: Natasha Bermudez M.D. Date: 0 11/21/2024 Generated for Printi ng/Faevelinag/eTransmitting on: 0 01/10/2025 01:48 PM EDT History and Physical Notes * [...]
--- OUTSIDE RECORDS SUMMARY | 2024-12-01 10:15 | XMS_ITS ---
Author Organization [facility] Address [address] [facility] [address] [place] [id number] Care Team Providers Care Dependency Director Name Role Phone Greg Clement Unavailable [phone] Natasha Bermudez Unavailable [phone] Allergies No Known Allergies Results Component Value [...] 12/01/2024 Encounters Encounter Location Date Provider Diagnosis [facility] [facility] [address] [id number] 12/01/2024 Natasha Bermudez Chronic obstructive pulmonary disease, [...] scheduled, Saadia son: Provider Name:Natasha Owens er, 01/23/2025 01:00:00 PM, [address], [address], [place], [id number], Progress Notes * PRERNA STOCKDOB:1955 ( 69 yo M)Acc No.[id number]:12/01/2024 Progress Notes Patient: PRERNA KNOX Provider: Natasha Bermudez M.D. :1955 A ge:68 Y S ex:Male Date:12/01/2024 Address:[address] [place] [address], [place] Subjective: * Chief Complaints: * 1 . [...] * Hospitalization/Major Diagno stic Procedure: P ancreatitis [facility] 2020, C Diff- [facility] 2021, Colonoscopy, Dr. Sekou Shoemaker, polyps [...] lower extremity - I80.02 3 . B MT 25.0-25.9,adult - Z68.25 Plan: * Treatment: Value [...] G 2211 Complex e/[place], [address] CAPILLARY BLOOD DRAW, 37597 CBC WITH AUTO DIFF, 1036F TOBACCO NON-USER, G8420 BMI<30 AND >=22 CALC & DOCU, G8783 BP SCR PRFRM RCMDD DEFIND SCR INTVL, G8752 MOST RECENT SYSTOLIC BP < 140MM HG, G8754 MOST RECENT DIASTOLIC BP < 90MM HG * Follow Up: a s scheduled * Images: Billing Information: * Visit Code: 94626 Office Visit, Est Pt., Level 3. * Procedure Codes: G2211 Complex e/[place]. [address] CAPILLARY BLOOD DRAW. 54185 CBC WITH AUTO DIFF. 1036F TOBACCO NON-USER. G8420 BMI<30 AND >=22 CALC & DOCU. G8783 BP SCR PRFRM RCMDD DEFIND SCR INTVL. G8752 MOST RECENT SYSTOLIC BP < 140MM HG. G8754 MOST RECENT DIASTOLIC BP < 90MM HG. * Electronic signature of Natasha Bermudez MD on 01/10/2025 at 01:49 PM EDT Sign off status: Pending * Provider: Natasha Bermudez M.D. Date: 0 12/01/2024 Generated for Linai ng/Faevelinag/eTransmitting on: 0 01/10/2025 01:49 PM EDT History [...]
--- OUTSIDE RECORDS SUMMARY | 2025-01-10 13:49 | XMS_ITS | Encounter Summary ---
Author Organization Healthcare Address [address] [place] [address] Care Team Providers Care Job Forwarder Name Role Phone Alvin Bermudez MD Primary Care Provider [phone] Reason for Visit * Reason Comments Med Refill Encounter Details Date Type Department Care Team (Late st Contact Info) Description 12/29/2024 Refill [facility] [address] [place] [address] Charlie Early MD [address] [place] [address] BPH with lower urinary tract symptoms without urinary obstruction Social History Tobacco Use Types Packs/Day Years Used Date Smoking Tobacco: Former Passive Smoke Exposure: Past Smokeless Tobacco: Never Alcohol Use Standard Drinks/Week Comments Not Currently [...] Description 01/13/2025 10:20 AM EDT Office Visit [facility] [address] [place] [address] Charlie Early MD [address] [place] [address] documented as of this encounter Visit Diagnoses Diagnosis BPH with lower urinary tract symptoms without urinary obstruction documented in this encounter Additional Health Concerns Assessment Noted Time A fall risk assessment has been complete d for the patient 05/07/2023 3:33 PM EST A Body Mass Index follow-up plan has been documented for the patient 08/05/2024 11:28 AM EST documented as of this encounter Care Teams Job Forwarder Relationship Specialty Start Date End Date Alvin Bermudez MD [address] [place] [address] PCP - General 03/06/22 documented as of this encounter
--- OUTSIDE RECORDS SUMMARY | 2025-01-10 13:49 | XMS_ITS | Encounter Summary ---
Author Organization Healthcare Address [address] [place] [address] Care Team Providers Care Farm Truck Driver Name Role Phone Rajeev Da Silva MD Primary Care Provider [phone] Alvin Bermudez MD Primary Care Provider [phone] Reason for Referral * Consultation (Routine) - Closed Specialty Diagnoses / Procedures Referred By Contac t Referred To Contact Nephrology Diagnoses Chronic kidney disease (CKD) stage G4/A1, severely decreased glomerular filtration rate (GFR) between 15-29 mL/min/1.73 square meter and albuminuria creatinine ratio less than 30 mg/g ([facility]) Type 2 diabetes mellitus without complication, unspecified whether watermaster insulin use Mona Rosario APRN [address] [place] [address] Phone: tel: fax: Referral ID Status Reason Start Date Expiration Date V isits Requested Visits Authorized [id number] Closed Specialty Services Required 01/15/2022 07/17/2023 1 1 Encounter Details Date Type Department Care Team (Late st Contact Info) Description 01/15/2022 Community [facility] [address] [place] [address] Mona Rosario APRN [address] [place] [address] Chronic kidney disease (CKD) stage G4/A1, severely decreased glomerular filtration rate (GFR) between 15-29 mL/min/1.73 square meter and albuminuria creatinine ratio less than 30 mg/g (CMS/HCC) (Primary Dx); Type 2 diabetes mellitus without complication, unspecified whether correction insulin use (CMS/HCC) Social History Tobacco Use [...] Description 01/13/2025 10:20 AM EDT Office Visit [facility] [address] [place] [address] Charlie Early MD [address] [place] [phone] Scheduled Referrals Name Type Priority Associated Diagnoses Order Schedule Ambulatory referral to Nephrology Outpatient Referral Routine Chronic kidney disease (CKD) stage G4/A1, severely decreased glomerular filtration rate (GFR) between 15-29 mL/min/1.73 square meter and albuminuria creatinine ratio less than 30 mg/g (CMS/HCC) Type 2 diabetes mellitus without complication, unspecified whether watermaster insulin use (CMS/HCC) 1 Occurrences starting 01/15/2022 until 07/18/2023 documented as of this encounter Visit Diagnoses Diagnosis Chronic kidney disease (CKD) stage G4/A1, severely decreased glomerular filtration rate (GFR) between 15-29 mL/min/1.73 square meter and albuminuria creatinine ratio less than 30 mg/g (CMS/HCC)- Primary Type 2 diabetes mellitus without complication, unspecified whether watermaster insulin use documented in this encounter Care Teams Farm Truck Driver Relationship Specialty Start Date End Date Rajeev Da Silva MD [facility] [place] [address] PCP - General 10/12/20 03/05/22 Alvin Bermudez MD [address] [facility] [place] [id number] PCP - General 03/06/22 documented as of this encounter
--- OUTSIDE RECORDS SUMMARY | 2025-01-10 13:49 | XMS_ITS | Patient Health Record ---
Author Organization [facility] Address [address] [facility] [address] [place] [id number] Care Team Providers Care Netting Weaver Name Role Phone Greg Clement Unavailable [phone] Natasha Bermudez Unavailable [phone] Mayur Vigil Unavailable [phone] Allergies No Known Allergies Results Component Value [...] f/u, bilateral gynecomastia and coronary artery calcifications CBC Fingerstick (in house) Reviewed date:12/06/2024 11:44:07 [...] - 38 plat 152 100 - 400 P-Basic Metabolic Panel (BMP ) Reviewed date:08/01/2024 12:18:57 PM Interpretation:gluc 280, bun 49, Cr 2.03, gfr 35 Performing Lab: Notes/Report: Test performed by [facility] [address] [place] [address] , [address], [place] [address] Justice Amador MD, [employer] CLIA: [id number] Sodium 138 135-145 mmol/L Potassium 3.6 3.5-5.3 mmol/L Chloride 97 97-108 mmol/L CO2 29 22-32 mmol/L Glucose 280 65-99 mg/dL BUN 49 8-23 mg/dL Creatinine 2.03 0.70-1.30 mg/dL Calcium 9.5 8.6-10.4 mg/dL eGFR by Creatinine 35 >59 mL/min/1.73m2 Glycohemoglobin A1c (in hous e) Reviewed date:07/29/2024 09:17:30 AM Interpretation: Performing Lab: Notes/Report: glycohemoglobin 6.9% 5 - 6.5 % Urinalysis - Inhouse Reviewed date:07/29/2024 09:17:23 AM Interpretation: Performing Lab: Notes/Report: Color/Clarity Neg Leuk Neg Nitrite 3.2 Urobili 2+ Protein 5.5 pH Trace intact Blood 1.010 Sp. Gr. Neg Ketone Neg Bili 2+ P-Basic Metabolic Panel (BMP ) Reviewed date:04/22/2024 02:39:07 PM Interpretation:K+ 3.4, gluc 171, bun 48, Cr 2.01, gfr 35, 11/25 f/u appt Performing Lab: Notes/Report: Test performed by [facility] [address] [place], [place] [address] , [address], [place] [address] Justice Amador MD, [employer] CLIA: [id number] Sodium 142 135-145 mmol/L Potassium 3.4 3.5-5.3 mmol/L Chloride 102 97-108 mmol/L CO2 30 22-32 mmol/L Glucose 171 65-99 mg/dL BUN 48 8-23 mg/dL Creatinine 2.01 0.70-1.30 mg/dL Calcium 9.2 8.6-10.4 mg/dL eGFR by Creatinine 35 >59 mL/min/1.73m2 Glycohemoglobin A1c (in hous e) Reviewed date:01/14/2024 09:04:10 AM Interpretation:11.4 Performing Lab: Notes/Report: 11.4 glycohemoglobin 11.4% 5 - 6.5 % Glycohemoglobin A1c (in hous e) Reviewed date:03/31/2024 05:10:28 PM Interpretation: Performing Lab: Notes/Report: glycohemoglobin 7.3% 5 - 6.5 % CBC Fingerstick (in house) Reviewed date:10/18/2024 12:35:04 [...] - 38 plat 146 100 - 400 Reason For Referral No Information Medications Medication SIG (Take, Route, Frequency, Duration) Notes Start Date End Date Status FIBERCON TABLETS 2 P.O. DAILY 06/04/2022 Active Align 4 MG 1 cap(s) orally once a day; Duration: 28 day(s) 06/04/2022 Active Rosuvastatin Calcium 20 MG 1 tablet Oral ly Once a day; Duration: 90 days Active Fluticasone Furoate-Vilanterol 200-25 MCG/ACT 1 puff(s) inhaled once a day; Duration: 30 day(s) Active Ipratropium-Albuterol 0.5-2.5 (3) MG/3ML INHALE CONTENTS OF 1 VIAL (3ML) VIA NEBULIZER EVERY 6 HOURS; Duration: 90 Active Xarelto 15 MG 1 tab(s) orally once a day (in the evening); Duration: 30 day(s) Active glyBURIDE 5 MG TAKE 2 TABLETS ONE T DMITRIY DAILY; Duration: 90 Active Ondansetron HCl 4 MG 1 tab(s) orally geovanni ry 8 hours Active Tamsulosin HCl 0.4 MG TAKE 1 CAPSULE ONE TIME DAILY; Duration: 90 days Active Pregabalin 150 MG 1 cap(s) orally 3 ti mes a day; Duration: 60 days 2024 Active Clopidogrel Bisulfate 75 MG 1 tablet Ora lly Once a day Active Potassium Chloride ER 10 MEQ 2 tablets Orally daily; Duration: 90 days Active Losartan Potassium 25 MG 1 tablet Orally Once a day; Duration: 30 day(s) Active Jardiance 25 MG TAKE 1 TABLET ONE TI ME DAILY; Duration: 90 Active metOLazone 5 MG 1 tablet Orally Mon, Wed, Fri; Duration: 90 days Active Donepezil HCl 10 MG TAKE 1 TABLET AT BED TIME; Duration: 90 Active Immunizations Vaccine Route Administration [...] W/U Status Risk Notes Problem Essential hypertension (61393233) Essential (primary) hypertension (I10) Active confirmed Problem Hypokalemia (52138510) Hypokalemia (E87.6) Active confirmed Problem Renal failure (03152416) Renal failure (N19) Active confirmed Problem Memory loss (94018454) Memory loss (R41.3) Active confirmed Problem Atherosclerosis of aorta (69880251) Atherosclerosis of aorta (I70.0) Active confirmed Problem Atherosclerosis of artery (809383020) Atherosclerosis of other arteries (I70.8) Active confirmed Problem Chronic kidney disease stage 4 (441194036) Chronic kidney disease, stage 4 (severe) (N18.4) Active confirmed Problem Right cervical radiculopathy (05520137042642148 ) Right cervical radiculopathy (M54.12) Active confirmed Problem Renal insufficiency (019377864) Renal insufficiency (N28.9) Active confirmed Problem Neck pain (64944306) Neck pain (M54.2) Active confirmed Problem COPD - Chronic obstructive pulmonary disease (97116125) Chronic obstructive pulmonary disease, unspecified COPD type (J44.9) Active confirmed Problem Atherosclerotic heart disease of [place] coronary artery without angina pectoris (005837469972150) Coronary artery disease involving [place] coronary artery of [place] heart without angina pectoris (I25.10) Active confirmed Problem Claudication (59343321) Claudication (I73.9) Active confirmed Problem Hyperlipidaemia (47131211) Hyperlipidemia, unspecified hyperlipidemia type (E78.5) Active confirmed Problem Diverticular disease of colon (389708232) Diverticulosis (K57.90) Active confirmed Problem Dementia (67933137) Dementia without behavioral disturbance (F03.90) Active confirmed Problem Stented coronary artery (873051648) Stented coronary artery (Z95.5) Active confirmed Problem Peripheral vascular disease (182901068) PAD (peripheral artery disease) (I73.9) Active confirmed Problem Benign prostatic hypertrophy without outflow obstruction (732302188) Benign prostatic hyperplasia, unspecified whether lower urinary tract symptoms present (N40.0) Active confirmed Problem Type II diabetes mellitus without complication (268521033) Type 2 diabetes mellitus without complication, unspecified whether long term care administrator insulin use (E11.9) Active confirmed Problem Cirrhosis - non-alcoholic (888203739) Hepatic cirrhosis, unspecified hepatic cirrhosis type, unspecified whether ascites present (K74.60) Active confirmed Problem Diabetic renal disease (000817469) Type 2 diabetes mellitus with diabetic chronic kidney disease, unspecified CKD stage, unspecified whether long term care administrator insulin use (E11.22) Active confirmed Problem Atypical angina (286892374) Atypical angina (I20.8) Active confirmed Problem Chronic kidney disease stage 3B (disorder) (224132354) Stage 3b chronic kidney disease (CKD) (N18.32) Active confirmed Vital Signs Heart Rate 52 /min 12/01/2024 Blood pressure diastolic 70 mm Hg 12/01/2024 Height 70.5 in 12/01/2024 Blood pressure systolic 120 mm Hg 12/01/2024 Weight 178.0 lbs 12/01/2024 BMI 25.18 kg/m2 12/01/2024 Encounters Encounter Location Date Provider Diagnosis [facility] [address] [place] [id number] 01/13/2024 Natasha Bermudez Type 2 diabetes inder itus without complication, unspecified whether long term care administrator insulin use E11.9 [facility] [address] [place] [id number] 04/18/2024 Natasha Bermudez Hypokalemia E87.6 [facility] [address] [place] [id number] 04/25/2024 Natasha Bermudez Essential (primary) hypertension I10 ; Stage 3b chronic kidney disease (CKD) N18.32 ; Hypokalemia E87.6 and Right lateral epicondylitis M77.11 [facility] [address] [place] [id number] 07/28/2024 Natasha Bermudez Type 2 diabetes inder itus without complication, unspecified whether long term care administrator insulin use E11.9 ; Essential (primary) hypertension I10 ; Renal failure N19 ; Stage 3b chronic kidney disease (CKD) N18.32 and Nausea R11.0 [facility] [address] [place] [id number] 10/17/2024 Mayur Graettinger Acute cough R05.1 ; Chronic obstructive pulmonary disease, unspecified COPD type J44.9 ; Hepatic cirrhosis, unspecified hepatic cirrhosis type, unspecified whether ascites present K74.60 ; Claudication I73.9 ; Type 2 diabetes mellitus with diabetic chronic kidney disease, unspecified CKD stage, unspecified whether halfway insulin use E11.22 ; Dementia without behavioral disturbance F03.90 ; Chronic kidney disease, stage 4 (severe) N18.4 and BMI 25.0-25.9,adult Z68.25 [facility] [address] [facility] [address] [place] [id number] 11/21/2024 Natasha Bermudez Chronic obstructive pulmonary disease, unspecified COPD type J44.9 ; Type 2 diabetes mellitus with diabetic chronic kidney disease, unspecified CKD stage, unspecified whether long term care administrator insulin use E11.22 and BMI 25.0-25.9,adult Z68.25 [facility] [address] [place] [id number] 12/01/2024 Natasha Bermudez Chronic obstructive pulmonary disease, unspecified COPD type J44.9 ; Thrombophlebitis of superficial veins of left lower extremity I80.02 and BMI 25.0-25.9,adult Z68.25 [facility] [address] [place], [place] [id number] 03/31/2024 Natasha Bermudez Renal failure N19 ; Type 2 diabetes mellitus without complication, unspecified whether halfway insulin use E11.9 ; Essential (primary) hypertension I10 ; Hepatic cirrhosis, unspecified hepatic cirrhosis type, unspecified whether ascites present K74.60 ; Hypokalemia E87.6 and Memory loss R41.3 [facility] [address] [place], [place] [id number] 01/14/2024 Natasha Bermudez [facility] [address] [place], [place] [id number] 04/01/2024 Natasha Bermudez [facility] [address] [place], [place] [id number] 04/22/2024 Natasha Bermudez [facility] [address] [place], [place] [id number] 05/26/2024 R Desmond Racquel [facility] [address] [place] [id number] 07/25/2024 Natasha Bermudez [facility] [address] [place], [place] [id number] 08/01/2024 Natasha Bermudez [facility] [address] [place], [place] [id number] 08/05/2024 Natasha Bermudez [facility] [address] [place], [place] [id number] 11/22/2024 R Desmond Racquel [facility] [address] [place], [place] [id number] 12/05/2024 Natasha Bermudez [facility] [address] [place] [id number] 12/12/2024 R Desmond Racquel [facility] [address] [place], [place] [id number] 12/30/2024 Natasha Bermudez Assessments Encounter Date Diagnosis (ICD Code) Assessment Notes Treatment Notes Treatment Clinical Notes Section Notes 01/13/2024 Type 2 diabetes mellitus without complication, unspecified whether long term care administrator insulin use (ICD-10 - E11.9) 03/31/2024 Renal failure (ICD-10 - N19) 03/31/2024 Type 2 diabetes mellitus without complication, unspecified whether halfway insulin use (ICD-10 - E11.9) 04/18/2024 Hypokalemia (ICD-10 - E87.6) 04/25/2024 Essential (primary) hypertension (ICD-10 - I10) 04/25/2024 Stage 3b chronic kidney disease (CKD) (ICD-10 - N18.32) 07/28/2024 Essential (primary) hypertension (ICD-10 - I10) 07/28/2024 Type 2 diabetes mellitus without complication, unspecified whether long term care administrator insulin use (ICD-10 - E11.9) 10/17/2024 Chronic obstructive pulmonary disease, unspecified COPD type (ICD-10 - J44.9) 10/17/2024 Acute cough (ICD-10 - R05.1) 11/21/2024 Chronic obstructive pulmonary disease, unspecified COPD type (ICD-10 - J44.9) 11/21/2024 Type 2 diabetes mellitus with diabetic chronic kidney disease, unspecified CKD stage, unspecified whether long term care administrator insulin use (ICD-10 - E11.22) 12/01/2024 Chronic obstructive pulmonary disease, unspecified COPD type (ICD-10 - J44.9) Use nebulizer and MDI 12/01/2024 Thrombophlebitis of superficial veins of left lower extremity (ICD-10 - I80.02) warm compresses 12/01/2024 BMI 25.0-25.9,adult (ICD-10 - Z68.25) 11/21/2024 BMI 25.0-25.9,adult (ICD-10 - Z68.25) 10/17/2024 Hepatic cirrhosis, unspecified hepatic cirrhosis type, unspecified whether ascites present (ICD-10 - K74.60) 07/28/2024 Renal failure (ICD-10 - N19) 04/25/2024 Hypokalemia (ICD-10 - E87.6) 03/31/2024 Essential (primary) hypertension (ICD-10 - I10) 03/31/2024 Hepatic cirrhosis, unspecified hepatic cirrhosis type, unspecified whether ascites present (ICD-10 - K74.60) 04/25/2024 Right lateral epicondylitis (ICD-10 - M77.11) Tennis elbow strap recommended 10/17/2024 Claudication (ICD-10 - I73.9) 07/28/2024 Stage 3b chronic kidney disease (CKD) (ICD-10 - N18.32) 10/17/2024 Type 2 diabetes mellitus with diabetic chronic kidney disease, unspecified CKD stage, unspecified whether long term care administrator insulin use (ICD-10 - E11.22) 07/28/2024 Nausea (ICD-10 - R11.0) 03/31/2024 Hypokalemia (ICD-10 - E87.6) 03/31/2024 Memory loss (ICD-10 - R41.3) 10/17/2024 Dementia without behavioral disturbance (ICD-10 - F03.90) 10/17/2024 Chronic kidney disease, stage 4 (severe) (ICD-10 - N18.4) 10/17/2024 BMI 25.0-25.9,adult (ICD-10 - Z68.25) Plan Of Treatment Next Appt Details Provider Name:Natasha Erik Owens , 01/23/2025 01:00:00 PM, [address] [facility] [address] [facility], [address], [place], [place], [id number], Insurance Providers Payer Name Payer Address Payer Phone Subscriber Number Group Number Insured Name Patient Relationship to Insured Coverage Start Date Coverage End Date [employer] (MEDICAR E) [address] [address] [place] [address] [phone] [id number] PRERNA STOCK Self - patient is the [...] Dr. Luis 04/01/2023 Hospitalization History Reason Date(Month/Year) Colonoscopy, Dr. Sapp Case, polyps 07/2021 C Diff- [facility] 2021 Pancreatitis [facility] 2020
--- OUTSIDE RECORDS SUMMARY | 2025-01-10 13:49 | XMS_ITS | Clinical Summary ---
Author Organization Healthcare Address [address] [place] [address] Care Team Providers Care Underground Roof Bolter Name Role Phone Alvin Bermudez MD Primary Care Provider [phone] Allergies Active Allergy Reactions Criticality Noted Date Comments Acetaminophen Other - please docum ent in the comment field Low 10/14/2023 Medications glyBURIDE (Diabeta) 5 MG tablet 1 tablet (5 mg) 2 (two) times a day with meals. 11/18/19 18 Active pregabalin (Lyrica) 150 MG capsule Take 1 capsule (150 mg) by mouth 3 (three) times a day. Active rosuvastatin (Crestor) 20 MG tablet Take 1 tablet (20 mg) by mouth nightly. Active fluticasone (Flonase) 50 MCG/ACT nasal spray 06/21/19 23 Active metOLazone (Zaroxolyn) 5 MG tablet Take 1 tablet (5 mg) by mouth daily. 09/20/19 23 Active Xarelto 15 MG tablet 09/23/19 23 Active clopidogrel (Plavix) 75 MG tablet Take 1 tablet (75 mg) by mouth daily. Active empagliflozin (Jardiance) 25 MG Take 1 tablet (25 mg) by mouth daily. Active potassium chloride (Klor-Con) 20 MEQ packet Take 20 mEq by mouth 2 (two) times a day. Dissolve packet in at least 4 oz (115 ml) of water Active donepezil (Aricept) 10 MG tablet 06/01/19 25 Active losartan (Cozaar) 25 MG tabletIndicatio ns:Hypertensive chronic kidney disease with stage 1 through stage 4 chronic kidney disease, or unspecified chronic kidney disease Take 1 tablet (25 mg) by mouth daily. 90 tablet 3 03/07/20 25 Active tamsulosin (Flomax) 0.4 MG 24 hr capsuleIndicati ons:BPH with lower urinary tract symptoms without urinary obstruction TAKE 2 CAPSULES EVERY DAY 180 capsule 3 12/30/19 25 Active tamsulosin (Flomax) 0.4 MG 24 hr capsuleIndicati ons:BPH with lower urinary tract symptoms without urinary obstruction Take 2 capsules (0.8 mg) by mouth daily. 90 capsule 3 08/06/19 25 025 Discontinued Active Problems Problem Noted Date Diagnosed Date CKD stage 3b, GFR 30-44 ml/min 03/18/2024 Metabolic alkalosis 03/18/2024 Hypokalemia 03/18/2024 Hypertensive chronic kidney disease with stage 1 through stage 4 chronic kidney disease, or unspecified chronic kidney disease 03/18/2024 Chronic kidney disease-mineral and bone disorder (CKD-MBD) 03/18/2024 Encounters Date Type Department Care Team Description 12/29/2024 [facility] [address] [place] [address] Charlie Early MD BPH with lower urinary tract symptoms without urinary obstruction from Last 3 Months Immunizations Immunization Administration Dates Next Due Influenza [...] Description 01/13/2025 10:20 AM EDT Office Visit [facility] [address] [place] [address] Charlie Early MD [address] [place] [phone] Health Maintenance Due Date Last Done Comments [facility]-Depression Screening 1954 [facility]-Hepatitis C Screening 1954 [facility]-Medicare Annual Wellness (AWV) 1955 [facility]-/Child/Adol SDOH Screenings 1954 [facility]- SDOH Screenings 1972 [facility]-Adult SDOH Screenings 1972 [facility]-DTaP,Tdap,and Td Vaccines (1 - Tdap) 1973 CT Colonography 12/08/1999 Colonoscopy 12/08/1999 FIT-DNA 12/08/1999 FIT 12/08/1999 FOBT 12/08/1999 Sigmoidoscopy 12/08/1999 [facility]-Colorectal Cancer Screening 12/08/1999 [facility]-Pneumococcal Vaccine: 50+ Years (1 of 1 - PCV) 2004 [facility]-Abdominal Aortic Aneurysm (AAA) Screening 12/08/2019 [id number] Vaccine ( season) 2024 02/11/2024, 02/25/2023, 02/24/2022, Additional history exists [facility]-Influenza Vaccine (#1) 01/30/202502/10, 02/25/2023, 02/24/2022, Additional history exists [facility]-RSV Vaccine: 60+ Years or Completed 05/19/2023 [facility]-Zoster Vaccines Completed 06/25/2023, [facility]-Obesity Intervention Completed 025, 03/18/2024, 05/07/2023 HPV [...] patient's age to complete this topic Insurance [place] [id number] [employer] MEDICARE Care Teams Underground Roof Bolter Relationship Specialty Start Date End Date Alvin Bermudez MD [address] [place] [address] PCP - General 03/06/22
[2025-01-10 13:58] LABS: Microscopic, Urine URINE MICROSCOPIC (MICROSCOPIC)
[2025-01-10 14:17] LABS: Hematocrit 40.0 % (42.0-52.0); Hemoglobin 13.4 g/dL (14.1-18.0); Mean Corpuscular HGB Conc 33.5 g/dL (31.8-35.4); Mean Corpuscular Hemoglobin 29.3 pg (27.0-31.2); Mean Corpuscular Volume 87.5 fl (80-94); Nucleated Red Blood Cells % 0 %; Platelet Count 134 K/mm3 (142-424); Red Blood Count 4.57 M/mm3 (4.60-6.20); Red Cell Distribution Width-SD 49.4 fL; White Blood Count 7.8 K/mm3 (4.8-10.8)
[2025-01-10 16:13] LABS: Bilirubin,Urine Negative (Negative); Color,Urine YELLOW (Yellow); Glucose,Urine (UA) 3+ (Negative); Ketones,Urine Negative (Negative); Leukocyte Esterase,Urine Negative (Negative); PH,Urine 6.0 (5.0-8.5); Protein,Urine 1+ (Negative); Specific Gravity, Urine 1.015 (1.005-1.030); Urobilinogen,Urine 0.2 EU/dl (0.2)
[2025-01-10 16:26] LABS: Albumin Level 4.6 g/dl (3.5-5.0); Anion Gap 11.1 mEq/L (5-15); Blood Urea Nitrogen 63 mg/dl (9-20); Calcium 10.1 mg/dl (8.4-10.2); Carbon Dioxide 31 mmol/L (22.0-30.0); Chloride 98 mmol/L (98-107); Creatinine,Serum 2.30 mg/dl (0.66-1.25); Estimated Glomerular Filt Rate 28 ml/min (>60); GFR (African American) 34 ML/MIN (>60); Glucose 182 mg/dl (74-100); Phosphorous 3.8 mg/dl (2.5-4.5); Potassium 4.1 mmoL/L (3.5-5.1); Sodium 136 mmol/L (136-145)
[2025-01-10 16:52] LABS: Bacteria,Urine Trace /lpf
== END 2025-01-10 23:59 | disposition home or self-care (01) ==
LOC: LAB 13:46
PROVIDERS: PCP Family Medicine; Visit Provider Student in an Organized Health Care Education/Training Program
DX: I12.9 Hypertensive chronic kidney disease with stage 1 through stage 4 chronic kidney disease, or unspecified chronic kidney disease (principal); N18.32 Chronic kidney disease, stage 3b; N40.1 Benign prostatic hyperplasia with lower urinary tract symptoms
CPT/HCPCS: 36415; 80069; 81001; 82570; 84156; 85027; 87086

== ENCOUNTER 2025-03-14 06:39 | Day surgery (SDC) | payer MEDICARE, OTHER, SELFPAY ==
[2025-03-07 14:38] VITALS: BMI 24.8
[2025-03-14 06:51] VITALS: BP 147/65; PULSE 65; RESP 16; TEMP 36.5; O2SAT 95
[2025-03-14] MEDS: TETRACAINE 0.5% OPTH SOL 15ML OP ×3 (07:05→07:15)
[2025-03-14] MEDS: PHENYLEPHRINE 2.5% OPHTH SOLN 2ML OP ×3 (07:05→07:15)
[2025-03-14] MEDS: CYCLOPENTOLATE 2% OPHTH SOLN 2ML BOTTLE OP ×3 (07:05→07:15)
[2025-03-14 08:32] VITALS: BP 146/64; PULSE 64; RESP 16; O2SAT 99
[2025-03-14] MEDS: MIDAZOLAM 2MG/2ML VIAL 1 MG IV (08:32)
[2025-03-14] MEDS: TIMOLOL 0.5% OPTH SOLN 5ML OP (08:35)
[2025-03-14] MEDS: TOBRAMYCIN/DEX OPTH SUSP 2.5ML OP (08:35)
[2025-03-14] MEDS: LIDOCAINE 1% PF 2ML VIAL 2 ML IJ (08:36)
[2025-03-14 08:37] VITALS: BP 156/68; PULSE 61; RESP 16; O2SAT 98
[2025-03-14 08:44] VITALS: BP 149/65; PULSE 57; RESP 16; O2SAT 98
[2025-03-14 08:45] VITALS: BP 134/60; PULSE 63; RESP 18; TEMP 36.2; O2SAT 97
--- NOTE | 2025-03-14 10:21 | P.PCN_ITS ---
[facility] Procedure Note Date: 03/14/25 Time: 10:21 Procedure Note:: Preoperative Diagnosis: Cataract combined NS Cortical Complex [Right] Eye Postop diagnosis: same Operation: Microscopic phacoemulsification with intraocular lens implant [Right] Eye Specimen: None Blood Loss: None The patient was examined in the office with a complaint of poor vision in the [right] eye. The patient reports that this interferes with ADLs such as reading, watching TV and/or driving or the vision is like looking through a foggy haze and is very troubling. The patient was examined and found to have a visually significant cataract with best corrected vision of [20/400] by refraction and/or glare testing. Treatment options, risks and benefits were explained and the patient elected to have cataract surgery in an attempt to improve their vision. The patient had the eye anesthetized with topical tetracaine, the eye ways prepped and draped in the usual fashion for cataract surgery. A paracentesis and a temporal keratotomy were made. 0.2cc of 1% lidocaine PF was placed into the anterior chamber. And aqueous/viscoelastic exchange was done and a 360 degree capsulorexis was performed. Through hydrodissection and delineation with BSS on a cannula was done. The lens nucleus was phecoemulsified with CDE of [9.66]. Residual cortical material was removed using automated I&A The capsular bag was deepened with viscoelastica and a PCIOL was placed in the capsular bag with good centration and stability. Residual viscoelastic was removed using automated I&A. The keratotomy incision was hydrated with BSS on a cannula. The wound were checked and found to be water tight. IOP was checked digitally and adjusted as needed so as not to be too high. 1 drop of timolol 0.5%, ofloxacin, prednisolone acetate and ketorolac was instilled and eye shield taped over the eye. The patient was taken to recovery in good condition and will be seen postoperatively.
[2025-03-17 12:15] LABS: POC Glucose,Bedside 69 gm/dL (70-110)
== END 2025-03-14 08:57 | disposition home or self-care (01) ==
PROVIDERS: PCP Family Medicine; Visit Provider Ophthalmology
DX: E11.36 Type 2 diabetes mellitus with diabetic cataract (principal); H25.811 Combined forms of age-related cataract, right eye; H02.836 Dermatochalasis of left eye, unspecified eyelid; H02.833 Dermatochalasis of right eye, unspecified eyelid; I48.91 Unspecified atrial fibrillation; J44.9 Chronic obstructive pulmonary disease, unspecified; I10 Essential (primary) hypertension; E78.00 Pure hypercholesterolemia, unspecified; N40.0 Benign prostatic hyperplasia without lower urinary tract symptoms; E11.51 Type 2 diabetes mellitus with diabetic peripheral angiopathy without gangrene; I25.118 Atherosclerotic heart disease of native coronary artery with other forms of angina pectoris; Z95.5 Presence of coronary angioplasty implant and graft; Z88.6 Allergy status to analgesic agent; Z87.891 Personal history of nicotine dependence; Z79.84 Long term (current) use of oral hypoglycemic drugs; Z79.51 Long term (current) use of inhaled steroids; Z79.01 Long term (current) use of anticoagulants; Z79.02 Long term (current) use of antithrombotics/antiplatelets; Z79.899 Other long term (current) drug therapy
CPT/HCPCS: 66984; 82962; J2250; V2632

== ENCOUNTER 2025-03-28 06:42 | Day surgery (SDC) | payer MEDICARE, OTHER, SELFPAY ==
[2025-03-23 13:38] VITALS: BMI 23.7
[2025-03-28] VITALS (7 sets, daily range): BP systolic 151–175; BP diastolic 69–91; PULSE 49–55; RESP 16–18; TEMP 36.1–36.4; O2SAT 96–99
[2025-03-28] MEDS: CYCLOPENTOLATE 2% OPHTH SOLN 2ML BOTTLE OP ×3 (07:14→07:16)
[2025-03-28] MEDS: PHENYLEPHRINE 2.5% OPHTH SOLN 2ML OP ×3 (07:14→07:15)
[2025-03-28] MEDS: TETRACAINE 0.5% OPTH SOL 15ML OP ×3 (07:15→07:16)
[2025-03-28 07:30] LABS: POC Glucose,Bedside 143 gm/dL (70-110)
[2025-03-28] MEDS: LIDOCAINE 1% PF 2ML VIAL 2 ML IJ (08:27)
[2025-03-28] MEDS: MIDAZOLAM 2MG/2ML VIAL 1 MG IV (08:27)
[2025-03-28] MEDS: TIMOLOL 0.5% OPTH SOLN 5ML OP (08:28)
[2025-03-28] MEDS: TOBRAMYCIN/DEX OPTH SUSP 2.5ML OP (08:28)
--- NOTE | 2025-03-28 11:17 | HMH.PROCNOTE ---
[facility] Procedure Note Date: 03/28/25 Time: 11:17 Procedure Note:: Preoperative Diagnosis: Cataract combined NS Cortical Complex [Left] Eye Postop diagnosis: same Operation: Microscopic phacoemulsification with intraocular lens implant [Left] Eye Specimen: None Blood Loss: None The patient was examined in the office with a complaint of poor vision in the [left] eye. The patient reports that this interferes with ADLs such as reading, watching TV and/or driving or the vision is like looking through a foggy haze and is very troubling. The patient was examined and found to have a visually significant cataract with best corrected vision of [20/400] by refraction and/or glare testing. Treatment options, risks and benefits were explained and the patient elected to have cataract surgery in an attempt to improve their vision. The patient had the eye anesthetized with topical tetracaine, the eye ways prepped and draped in the usual fashion for cataract surgery. A paracentesis and a temporal keratotomy were made. 0.2cc of 1% lidocaine PF was placed into the anterior chamber. And aqueous/viscoelastic exchange was done and a 360 degree capsulorexis was performed. Through hydrodissection and delineation with BSS on a cannula was done. The lens nucleus was phecoemulsified with CDE of [8.33]. Residual cortical material was removed using automated I&A The capsular bag was deepened with viscoelastica and a PCIOL was placed in the capsular bag with good centration and stability. Residual viscoelastic was removed using automated I&A. The keratotomy incision was hydrated with BSS on a cannula. The wound were checked and found to be water tight. IOP was checked digitally and adjusted as needed so as not to be too high. 1 drop of timolol 0.5%, ofloxacin, prednisolone acetate and ketorolac was instilled and eye shield taped over the eye. The patient was taken to recovery in good condition and will be seen postoperatively.
== END 2025-03-28 08:50 | disposition home or self-care (01) ==
PROVIDERS: PCP Family Medicine; Visit Provider Ophthalmology
DX: E11.36 Type 2 diabetes mellitus with diabetic cataract (principal); H25.812 Combined forms of age-related cataract, left eye; H02.836 Dermatochalasis of left eye, unspecified eyelid; H02.833 Dermatochalasis of right eye, unspecified eyelid; E11.51 Type 2 diabetes mellitus with diabetic peripheral angiopathy without gangrene; I25.118 Atherosclerotic heart disease of native coronary artery with other forms of angina pectoris; I48.91 Unspecified atrial fibrillation; J44.9 Chronic obstructive pulmonary disease, unspecified; I10 Essential (primary) hypertension; E78.00 Pure hypercholesterolemia, unspecified; N40.0 Benign prostatic hyperplasia without lower urinary tract symptoms; Z87.891 Personal history of nicotine dependence; Z95.5 Presence of coronary angioplasty implant and graft; Z79.01 Long term (current) use of anticoagulants; Z79.02 Long term (current) use of antithrombotics/antiplatelets; Z79.51 Long term (current) use of inhaled steroids; Z79.84 Long term (current) use of oral hypoglycemic drugs; Z79.899 Other long term (current) drug therapy
CPT/HCPCS: 66982; 82962; J2250; V2632

== ENCOUNTER 2025-04-01 02:32 | Emergency (ER) | payer MEDICARE, OTHER, SELFPAY ==
--- OUTSIDE RECORDS SUMMARY | 2024-01-13 10:00 | XMS_ITS ---
Author Organization [facility] Address [address] [facility] 36 [facility] [address] [place] [id number] Care Team Providers Care Chief Mechanical Engineer Name Role Phone RacquelGreg Unavailable [phone] Natasha Bermudez Unavailable [phone] Results Component Value Reference Range Notes Glycohemoglobin A1c (in hous e) Reviewed date:01/14/2024 09:04:10 AM Interpretation:11.4 Performing Lab: Notes/Report: 11.4 glycohemoglobin 11.4% 5 - 6.5 % REASON FOR VISIT A1C only Encounters Encounter Location Date Provider Diagnosis [place] [address] [facility] [address] [place] [id number] 01/13/2024 Natasha Bermudez Type 2 diabetes mellitus without complication, unspecified whether penitentiary insulin use E11.9 Assessments Encounter Date Diagnosis (ICD Code) Assessment Notes Treatment Notes Treatment Clinical Notes Section Notes 01/13/2024 Type 2 diabetes mellitus without complication, unspecified whether penitentiary insulin use (ICD-10 - E11.9) Plan Of Treatment Next Appt Details Provider Name:Natasha Owens er, 04/24/2025 01:00:00 PM, [address] [facility], [address], [place], [id number], Progress Notes * PRERNA STOCKDOB:1955 ( 69 yo M)Acc No.[id number]:01/13/2024 Patient: Brannon FILIBERTOPRERNA Provider: Natasha Bermudez M.D. :1955 A ge:68 Y S ex:Male Date:01/13/2024 Address:[address] [place] [address] [address], [place] Subjective: * Chief Complaints: * 1 . A1C only. * Medical History: Objective: * Vitals: Assessment: * Assessment: 1. T ype 2 diabetes mellitus without complication, unspecified whether equipment operator intermodal yard insulin use - E11.9 (Primary) Plan: * Treatment: Value Reference Range g lycohemoglobin 11.4% 5 - 6.5 % * Maricel Kowalski 01/13/2024 2:38 :26 PM >Onelia Calix 01/14/2024 9:04:05 AM > See phone encounter * Procedure Codes: 3 6416 CAPILLARY BLOOD DRAW, 43437 GLYCATED HEMOGLOBIN TEST, Modifiers: QW * Images: Billing Information: * Visit Code: * Procedure Codes: 76158 CAPILLARY BLOOD DRAW. 48071 GLYCATED HEMOGLOBIN TEST. Modifiers: QW * Electronic signature of Natasha Bermudez MD on 04/01/2025 at 02:54 AM EDT Sign off status: Pending * Provider: Natasha Bermudez M.D. Date: 0 01/13/2024 Generated for Rogelio mcghee/Behzad/eTzoeysmitting on: 1 06/01/2024 02:54 AM EDT
--- OUTSIDE RECORDS SUMMARY | 2024-01-18 11:45 | XMS_ITS ---
Author Organization [facility] [address] [facility] 36 [facility] [address] [place] [id number] Care Team Providers Care Field Marketing Manager Name Role Phone Racquel Greg Desmond Unavailable [phone] Natasha Bermudez [phone] REASON FOR VISIT 2 month f/u Encounters Encounter Location Date Provider Diagnosis [facility] [address] [facility] [address] [place] [id number] 01/18/2024 Natasha Bermudez Plan Of Treatment Next Appt Details Provider Name:Natasha Owens er, 04/24/2025 01:00:00 PM, [address] [facility] [address] [facility], [address], [place], [id number], Progress Notes * PRERNA STOCKDOB:1955 ( 69 yo M)Acc No.[id number]:01/18/2024 Progress Notes Patient: PRERNA KNOX Provider: Natasha Bermudez M.D. :1955 A ge:68 Y S ex:Male Date:01/18/2024 Address:[address], [place] Subjective: * Chief Complaints: * 1 . 2 month f/u. * Medical History: Objective: * Vitals: Assessment: Plan: * Treatment: * Images: Billing Information: * Visit Code: * Procedure Codes: * Electronic signature of Natasha Bermudez MD on 04/01/2025 at 02:54 AM EDT Sign off status: Pending * Provider: Natasha Bermudez M.D. Date: 0 01/18/2024 Generated for Rogelio mcghee/Behzad/Kris on: 1 06/01/2024 02:54 AM EDT
--- OUTSIDE RECORDS SUMMARY | 2024-04-18 08:40 | XMS_ITS ---
Author Organization [facility] Address [address] [place] [id number] Care Team Providers Care Director Of Trauma Name Role Phone Greg Clement Unavailable [phone] Natasha Bermudez Unavailable [phone] Results Component Value Reference Range Notes P-Basic Metabolic Panel (BMP ) Reviewed date:04/22/2024 02:39:07 PM Interpretation:K+ 3.4, gluc 171, bun 48, Cr 2.01, gfr 35, 04/25 f/u appt Performing Lab: Notes/Report: Test performed by [facility] [address] [place] [address] , [address], [place] [address] Justice Amador MD, Chinese Herbalist CLIA: [id number] Sodium 142 135-145 mmol/L Potassium 3.4 3.5-5.3 [...] Active Encounters Encounter Location Date Provider Diagnosis [facility] [address] [facility] [address] [place] [id number] 04/18/2024 Natasha Bermudez Hypokalemia E87.6 Assessments Encounter Date Diagnosis (ICD Code) Assessment Notes Treatment Notes Treatment Clinical Notes Section Notes 04/18/2024 Hypokalemia (ICD-10 - E87.6) Plan Of Treatment Next Appt Details Provider Name:Natasha Owens er, 04/24/2025 01:00:00 PM, [address] [facility] [address], [address], [place], [phone], Progress Notes * PRERNA STOCKDOB:1955 ( 69 yo M)Acc No.[id number]:04/18/2024 Patient: Brannon DE LOS SANTOSPRERNA Provider: Natasha Bermudez M.D. :1955 A ge:68 Y S ex:Male Date:04/18/2024 Address:[address] [place] [address] [facility] Subjective: * Chief Complaints: * 1 . [...] of Natasha Bermudez MD on 04/01/2025 at 02:55 AM EDT Sign off status: Pending * Provider: Natasha Bermudez M.D. Date: 06/18/2023 Generated for Rogelio mcghee/Behzad/Ramírezsmitting on: 06/01/2024 02:55 AM EDT
--- OUTSIDE RECORDS SUMMARY | 2024-04-25 10:00 | XMS_ITS ---
Author Organization [facility] Address [address] [facility] [address] [place] [id number] Care Team Providers Care State Epidemiologist Name Role Phone Greg Clement Unavailable [phone] Natasha Bermudez Unavailable [phone] Allergies No Known Allergies REASON FOR VISIT [...] Status W/U Status Risk Notes Problem Hypokalemia (69911995) Hypokalemia (E87.6) Active confirmed Vital Signs Blood pressure systolic 160 mm Hg 04/25/20 Blood pressure diastolic 70 mm Hg 024 Heart Rate 51 /min 04/25/2024 Height 70.5 in 04/25/2024 Weight 180.2 lbs 04/25/2024 BMI 25.49 kg/m2 04/25/2024 Encounters Encounter Location Date Provider Diagnosis [place] [address] [facility] 36 [facility] [address] [place], [place] [id number] 04/25/2024 Natasha Bermudez Essential (primary) hypertension I10 [...] 3 Months, Reason: Provider Name:Natasha Owens er, 04/24/2025 01:00:00 PM, [address] [facility] 36 [facility], [address], [place], [place], [id number], Progress Notes * PRERNA STOCKDOB:1955 ( 69 yo M)Acc No.[id number]:04/25/2024 Progress Notes Patient: PRERNA KNOX Provider: Natasha Bermudez M.D. :1955 A ge:68 Y S ex:Male Date:04/25/2024 Address:[address] [place] [address], [facility] Subjective: * Chief Complaints: * 1 . 4 weeks. * HPI: E ndocrinology: Pt is here for a follow up on Hypokalemia and renal insufficiency. see recent labs received 04/19/2024: K+ 3.4, gluc 171, bun 48, Cr 2.01, gfr 35. Pt states he doing good and denies any new concerns. C onstitutional: 03/18/[address] Charlie Early, [facility] Nephrology. Added Losartan 25mg daily, RTO 4 [...] * Hospitalization/Major Diagno stic Procedure: P ancreatitis [facility] 2020, C Diff- [facility] 2021, Colonoscopy, Dr. Sekou Shoemaker, polyps [...] * Images: Billing Information: * Visit Code: 35815 Office Visit, Est Pt., Level 3. * Procedure Codes: G2211 Complex e/m visit add on. * Electronic signature of Natasha Bermudez MD on 04/01/2025 at 02:55 AM EDT Sign off status: Pending * Provider: Natasha Bermudez M.D. Date: 06/25/2023 Generated for Rogelio mcghee/Behzad/eTransmitting on: 06/01/2024 02:55 AM EDT History and Physical Notes * Examination Category [...]
--- OUTSIDE RECORDS SUMMARY | 2024-07-28 10:30 | XMS_ITS ---
Author Organization [facility] Address [address] [facility] [address] [place] [id number] Care Team Providers Care Manager Strategic Partnerships Name Role Phone RacquelGreg Unavailable [phone] Natasha Bermudez Unavailable [phone] Allergies No Known Allergies Results Component Value [...] 35 Performing Lab: Notes/Report: Test performed by [facility], [place] 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 ; Essential (primary) hypertension I10 ; Renal failure N19 ; Stage 3b chronic kidney disease (CKD) N18.32 and Nausea R11.0 Assessments Encounter Date Diagnosis (ICD Code) Assessment Notes Treatment Notes Treatment Clinical Notes Section Notes 07/28/2024 Type 2 diabetes mellitus without complication, 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 :1955 A ge:68 Y S ex:Male Date:07/28/2024 Address:[address] [place] [address], [facility] Subjective: * Chief Complaints: * 1 . [...] * Hospitalization/Major Diagno stic Procedure: P ancreatitis [facility] 2020, C Diff- [facility] 2021, Colonoscopy, Dr. Sekou Shoemaker, polyps [...] 2 diabetes mellitus without complication, unspecified whether fpc insulin use - E11.9 (Primary) 2 . [...] etone Neg * B nicholas 2+ * aSba Lane L 07/28/2024 5:1 6:37 PM > [...] G 2211 Complex e/[place], [address] Urinalysis, no micro, 18722 CAPILLARY BLOOD DRAW, 91310 GLYCATED HEMOGLOBIN TEST, Modifiers: QW , G8753 MOST RECENT SYSTOLIC BP >= 140MM HG, G8754 MOST RECENT DIASTOLIC BP < 90MM HG, 3044F HG A1C LEVEL LT 7.0% * Follow Up: 4 Months * Images: Billing Information: * Visit Code: 96407 Office Visit, Est Pt., Level 4. * Procedure Codes: G2211 Complex e/[place]. [address] Urinalysis, no micro. 39490 CAPILLARY BLOOD DRAW. 02187 GLYCATED HEMOGLOBIN TEST. Modifiers: QW G8753 MOST RECENT SYSTOLIC BP >= 140MM HG. G8754 MOST RECENT DIASTOLIC BP < 90MM HG. 3044F HG A1C LEVEL LT 7.0%. * Electronic signature of Natasha Bermudez MD on 04/01/2025 at 02:55 AM EDT Sign off status: Pending * Provider: Natasha Bermudez M.D. Date: 0 07/28/2024 Generated for Rogelio mcghee/Behzad/eTransmitting on: 06/01/2024 02:55 AM EDT History and Physical Notes * HPI [...]
--- OUTSIDE RECORDS SUMMARY | 2024-10-17 10:00 | XMS_ITS ---
[facility] Address [address] [facility] [address] [place] [id number] Care Team Providers Care Seasonal Recruiter Name Role Phone RacquelGreg Unavailable [phone] Mayur Vigil Unavailable [phone] Allergies No Known Allergies Results Component Value [...] Problem COPD - Chronic obstructive pulmonary disease (73268874) Chronic obstructive pulmonary disease, unspecified COPD type (J44.9) Active confirmed Problem Diabetic renal disease (601816099) Type 2 diabetes mellitus with diabetic chronic kidney disease, unspecified CKD stage, unspecified whether penitentiary insulin use (E11.22) Active confirmed Problem Dementia (28198474) Dementia without behavioral disturbance (F03.90) Active confirmed Problem Chronic kidney disease stage 4 (699924387) Chronic kidney disease, stage 4 (severe) (N18.4) Active confirmed Vital Signs Blood pressure systolic 130 mm Hg 10/18/19 25 Blood pressure diastolic 70 mm Hg 025 Heart Rate 60 /min 10/17/2024 Height 70.5 in 10/17/2024 Weight 182.4 lbs 10/17/2024 BMI 25.8 kg/m2 10/17/2024 Encounters Encounter Location Date Provider Diagnosis [facility] [facility] [address] [place] [id number] 10/17/2024 Mayur Vigil Acute cough R05.1 ; Chronic obstructive pulmonary disease, unspecified COPD type J44.9 ; Hepatic cirrhosis, unspecified hepatic cirrhosis type, unspecified whether ascites present K74.60 ; Claudication I73.9 ; Type 2 diabetes mellitus with diabetic chronic kidney disease, unspecified CKD stage, unspecified whether termite technician insulin use E11.22 ; Dementia without behavioral [...] kidney disease, unspecified CKD stage, unspecified whether termite technician insulin use (ICD-10 - E11.22) 10/17/2024 Dementia [...] rt progress, Reason: Provider Name:Natasha Owens er, 04/24/2025 01:00:00 PM, [address], [address], [place], [phone], Progress Notes * LLOYD STOCK:1955 ( 69 yo M)Acc No.[id number]:10/17/2024 Progress Notes Patient: PRERNA KNOX Provider: Reyna Vigil M.D. :1955 A ge:68 Y S ex:Male Date:10/17/2024 Address:[address] [place] [address], [place] [address] Subjective: * Chief Complaints: * 1 . [...] * Hospitalization/Major Diagno stic Procedure: P ancreatitis [facility] 2020, C Diff- [facility] 2021, Colonoscopy, Dr. Sekou Shoemaker, polyps [...] kidney disease, unspecified CKD stage, unspecified whether penitentiary insulin use - E11.22 6 . D ementia without behavioral disturbance - F03.90 7 . C hronic kidney disease, stage 4 (severe) - N18.4 8 . B DE 25.0-25.9,adult - Z68.25 Plan: * Treatment: Value [...] G 2211 Complex e/[place], [address] CAPILLARY BLOOD DRAW, 21559 CBC WITH AUTO DIFF, G8420 BMI<30 AND >=22 CALC & DOCU, G8752 MOST RECENT SYSTOLIC BP < 140MM HG, G8754 MOST RECENT DIASTOLIC BP < 90MM HG * Follow Up: v ia phone to report progress * Images: Billing Information: * Visit Code: 17096 Office Visit, Est Pt., Level 3. * Procedure Codes: G2211 Complex e/[place]. [address] CAPILLARY BLOOD DRAW. 81825 CBC WITH AUTO DIFF. G8420 BMI<30 AND >=22 CALC & DOCU. G8752 MOST RECENT SYSTOLIC BP < 140MM HG. G8754 MOST RECENT DIASTOLIC BP < 90MM HG. * Electronic signature of Evi Vigil MD on 04/01/2025 at 02:56 AM EDT Sign off status: Pending * Provider: Reyna Vigil M.D. Date: 0 10/17/2024 Generated for Rogelio mcghee/Behzad/Mistyitting on: 1 06/01/2024 02:56 AM EDT History and Physical Notes * [...]
--- OUTSIDE RECORDS SUMMARY | 2024-11-21 09:00 | XMS_ITS ---
Author Organization [facility] [address] [facility] [address] [place] [id number] Care Team Providers Care Director Women Name Role Phone Greg Clement Unavailable [phone] Natasha Bermudez Unavailable [phone] Allergies No Known Allergies Results Component Value [...] Provider Diagnosis [facility] [address] [place], [place] [id number] 11/21/2024 Natasha Bermudez Chronic obstructive pulmonary disease, unspecified COPD type J44.9 ; Type 2 diabetes mellitus with diabetic chronic kidney disease, unspecified CKD stage, unspecified whether intermodal owner operator truck driver insulin use E11.22 and BMI 25.0-25.9,adult Z68.25 Assessments Encounter Date Diagnosis (ICD Code) Assessment Notes Treatment Notes Treatment Clinical Notes Section Notes 11/21/2024 Chronic obstructive pulmonary disease, unspecified COPD type (ICD-10 - J44.9) 11/21/2024 Type 2 diabetes mellitus with diabetic chronic kidney disease, unspecified CKD stage, unspecified whether intermodal owner operator truck driver insulin use (ICD-10 - E11.22) 11/21/2024 BMI [...] 2 Months, Reason: Provider Name:Natasha Owens er, 04/24/2025 01:00:00 PM, [address] [facility] 36 [facility], [address] [place] [address], [id number], Progress Notes * PRERNA STOCKDOB:1955 ( 69 yo M)Acc No.[id number]:11/21/2024 Progress Notes Patient: PRERNA KNOX Provider: Natasha Bermudez M.D. :1955 A ge:68 Y S ex:Male Date:11/21/2024 Address:[address] [place] [address], [id number] Subjective: * Chief Complaints: * 1 . [...] * Hospitalization/Major Diagno stic Procedure: P ancreatitis [facility] 2020, C Diff- [facility] 2021, Colonoscopy, Dr. Sekou Shoemaker, [...] kidney disease, unspecified CKD stage, unspecified whether intermodal owner operator truck driver insulin use - E11.22 3 . B MO 25.0-25.9,adult - Z68.25 Plan: * Treatment: Value [...] EDT > no auth required; CPT code 47865; faxed to [facility] Onelia Lemos 12/30/2024 10:37:38 AM EDT > See phone encounter 2.?Type 2 diabetes mellitus with diabetic chronic kidney disease, unspecified CKD stage, unspecified whether assisted insulin use?LAB: Glycohemoglobin A1c (in house) (Collection [...] G 2211 Complex e/[place], [address] GLYCATED HEMOGLOBIN TEST, Modifiers: QW , 61288 CBC WITH AUTO DIFF, 3044F HG A1C LEVEL LT 7.0%, 1036F TOBACCO NON-USER, G8950 PREHTN/HTN BP DOC INDCD F/U DOC, G8752 MOST RECENT SYSTOLIC BP < 140MM HG, G8754 MOST RECENT DIASTOLIC BP < 90MM HG * Follow Up: 2 Months * Images: Billing Information: * Visit Code: 79367 Office Visit, Est Pt., Level 4. * Procedure Codes: G2211 Complex e/[place]. [address] GLYCATED HEMOGLOBIN TEST. Modifiers: QW 10153 CBC WITH AUTO DIFF. 3044F HG A1C [...] 0 11/21/2024 Generated for Printi ng/Faevelinag/eTransmitting on: 06/01/2024 02:54 AM EDT History and Physical Notes * [...]
--- OUTSIDE RECORDS SUMMARY | 2024-12-01 10:15 | XMS_ITS ---
Author Organization [facility] Address [address] [facility] [address] [place] [id number] Care Team Providers Care Director Telecommunications Name Role Phone Greg Clement Unavailable [phone] Natasha Bermudez Unavailable [phone] Allergies No Known Allergies Results Component Value [...] BED TIME; Duration: 90 Active Vital Signs Blood pressure systolic 120 mm Hg 12/02/19 25 Blood pressure diastolic 70 mm Hg 025 Heart Rate 52 /min 12/01/2024 Height 70.5 in 12/01/2024 Weight 178.0 lbs 12/01/2024 BMI 25.18 kg/m2 12/01/2024 Encounters Encounter Location Date Provider Diagnosis [facility] [facility] [address] [id number] 12/01/2024 aNtasha Bermudez Chronic obstructive pulmonary disease, unspecified COPD [...] scheduled, Saadia son: Provider Name:Natasha Owens er, 04/24/2025 01:00:00 PM, [address], [address], [place], [id number], Progress Notes * PRERNA STOCKDOB:1955 ( 69 yo M)Acc No.[id number]:12/01/2024 Progress Notes Patient: PRERNA KNOX Provider: Natasha Bermudez M.D. :1955 A ge:68 Y S ex:Male Date:12/01/2024 Address:[address] [place] [address], [facility] Subjective: * Chief Complaints: * 1 . [...] * Hospitalization/Major Diagno stic Procedure: P ancreatitis [facility] 2020, C Diff- [facility] 2021, Colonoscopy, Dr. Sekou Shoemaker, polyps [...] lower extremity - I80.02 3 . B HI 25.0-25.9,adult - Z68.25 Plan: [...] G 2211 Complex e/[place], [address] CAPILLARY BLOOD DRAW, 08559 CBC WITH AUTO DIFF, 1036F TOBACCO NON-USER, G8420 BMI<30 AND >=22 CALC & DOCU, G8783 BP SCR PRFRM RCMDD DEFIND SCR INTVL, G8752 MOST RECENT SYSTOLIC BP < 140MM HG, G8754 MOST RECENT DIASTOLIC BP < 90MM HG * Follow Up: a s scheduled * Images: Billing Information: * Visit Code: 63820 Office Visit, Est Pt., Level 3. * Procedure Codes: G2211 Complex e/[place]. [address] CAPILLARY BLOOD DRAW. 33354 CBC WITH AUTO DIFF. 1036F TOBACCO NON-USER. [...] M.D. Date: 0 12/01/2024 Generated for Linai ng/Sofieg/eTransmitting on: 06/01/2024 02:55 AM EDT History and [...]
--- OUTSIDE RECORDS SUMMARY | 2025-01-23 09:00 | XMS_ITS ---
Author Organization [facility] Address [address] [facility] [address] [place] [id number] Care Team Providers Care Director Money Name Role Phone Greg Clement Unavailable [phone] Natasha Bermudez Unavailable [phone] Allergies No Known Allergies REASON FOR VISIT [...] 2 P.O. DAILY 06/04/2022 Active Vital Signs Blood pressure systolic 120 mm Hg 01/24/20 25 Blood pressure diastolic 60 mm Hg 025 Heart Rate 53 /min 01/23/2025 Height 70.5 in 01/23/2025 Weight 175.4 lbs 01/23/2025 BMI 24.81 kg/m2 01/23/2025 Encounters Encounter Location Date Provider Diagnosis [facility] [address] [id number] 01/23/2025 Natasha Bermudez Essential (primary) hypertension I10 ; Type 2 diabetes mellitus with diabetic chronic kidney disease, unspecified CKD stage, unspecified whether halfway insulin use E11.22 ; PAD (peripheral artery [...] stage, unspecified whether terminal supervisor insulin use (ICD-10 - E11.22) 01/23/2025 PAD [...] [address], [address], [place], [phone], Progress Notes * PRERNA STOCKDOB:1955 ( 69 yo M)Acc No.[id number]:01/23/2025 Progress Notes Patient: PRERNA KNOX Provider: Natasha Bermudez M.D. :1955 A ge:69 Y S ex:Male Date:01/23/2025 Address:[address] [place] [address] [address], [place] [id number] Subjective: * Chief Complaints: * 1 . [...] creat=2.3, GFR=28. E ndocrinology: A1C= 6.5 at October visit. * ROS: D ERMATOLOGY: no R [...] * Hospitalization/Major Diagno stic Procedure: P ancreatitis [facility] 2020, C Diff- [facility] 2021, Colonoscopy, Dr. Sekou Shoemaker, polyps 04/02/2022. [...] CKD stage, unspecified whether halfway insulin use - E11.22 (Primary) 2 . E ssential (primary) hypertension - I10 3 . P AD (peripheral artery disease) - I73.9 4. 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 M ivelisse loss - R41.3 6 . C hronic kidney disease, stage 4 (severe) - N18.4 7 . B NM 24.0-24.9, adult - Z68.24 Plan: * Treatment: * Procedure Codes: G 2211 Complex e/m visit add on, 1036F TOBACCO NON-USER, G8420 BMI<30 AND >=22 CALC & DOCU, G8950 PREHTN/HTN BP DOC INDCD F/U DOC, G8752 MOST RECENT SYSTOLIC BP < 140MM HG, G8754 MOST RECENT DIASTOLIC BP < 90MM HG * Follow Up: 3 Months * Images: Billing Information: * Visit Code: 21594 Office Visit, Est Pt., Level 3. * [...] M.D. Date: 0 01/23/2025 Generated for Rogelio mcghee/Behzad/eTransmitting on: 06/01/2024 02:54 AM EDT History and [...]
[2025-04-01 02:43] VITALS: BP 135/65; PULSE 64; RESP 18; TEMP 36.6; O2SAT 97; BMI 24.3
[2025-04-01 02:49] VITALS: BP 135/65; PULSE 75; RESP 20; TEMP 36.6; O2SAT 97
--- OUTSIDE RECORDS SUMMARY | 2025-04-01 02:55 | XMS_ITS | Data Portability ---
Author Organization [facility] JUANPABLO Mena [place] [facility] Address [address] [facility] [address] [place] [address] Care Team Providers Care Manager Of Software Development Name Role Phone TIANNA PRABHAKAR Primary Care Provider [phone] Assessment No assessment recorded. Plan of Treatment Reminders Order Date Submit Date Provider Last Modified By Organization Details Last Modified Time Details Appointments None recorded. Lab urinalysis panel, auto 2024 025 [email or web address] [facility] [address], [address] [place], [place] [address] , [place], [address], 16:54:08 Referral None recorded. Procedures None recorded. Surgeries None recorded. Imaging None recorded. Medication Orders Bactrim DS 800 mg-160 mg tablet 2024 025 TRIST[facility], [address], [place], [id number], 5 11:21:35 Patient TargetsNo targets recorded. Patient Instructions Encounter Date Encounter Id Patient Instructions Last Modified By Organization Details Last Modified Time 08/31/2024 [id number] Urine currently clear, he has been under [...] Clean Catch Not Available [facility] [address] [facility], [place], [address], 08/31/2024 13:04:49 09/01/19 25 08/31/2024 urina lysis panel , auto Unknown Analyte Yellow Not Available [facility] [address] [facility], [place], [address], 08/31/2024 13:04:49 09/01/19 25 08/31/2024 urina lysis panel , auto Unknown Analyte Clear Not Available [facility] [address] [facility], [place], [address], 08/31/2024 13:04:49 09/01/19 25 08/31/2024 urina lysis panel , auto Unknown Analyte 1.005 Not Available [facility] [address] [facility], [place], [address], 08/31/2024 13:04:49 09/01/19 25 08/31/2024 urina lysis panel , auto Unknown Analyte 6.5 Not Available [facility] [address] [facility], [place], [address], 08/31/2024 13:04:49 09/01/19 25 08/31/2024 urina lysis panel , auto Unknown Analyte Negati ve Not Available [facility] [address] [facility], [place], [address], 08/31/2024 13:04:49 09/01/19 25 08/31/2024 urina lysis panel , auto Unknown Analyte Negati ve Not Available [facility] [address] [facility], [place], [address], 08/31/2024 13:04:49 09/01/19 25 08/31/2024 urina lysis panel , auto Unknown Analyte Trace Not Available [facility] [address] [facility], [place], [address], 08/31/2024 13:04:49 09/01/19 25 08/31/2024 urina lysis panel , auto Unknown Analyte >1000 mg/dL Not Available [facility] [address] [facility], [place], [address], 08/31/2024 13:04:49 09/01/19 25 08/31/2024 urina lysis panel , auto Unknown Analyte Negati ve Not Available [facility] [address] [facility], [place], [address], 08/31/2024 13:04:49 09/01/19 25 08/31/2024 urina lysis panel , auto Unknown Analyte Normal Not Available [facility] [address] [place], [address], 08/31/2024 13:04:49 09/01/19 25 08/31/2024 urina lysis panel , auto Unknown Analyte Negati ve Not Available [facility] [address] [place], [address], 08/31/2024 13:04:49 09/01/19 25 08/31/2024 urina lysis panel , auto Unknown Analyte Negati ve Not Available [facility] [address] [place], [address], 08/31/2024 13:04:49 Result Notes None recorded. Problems Name Problem SNOMED Code Status Onset Date Resolution Date Notes Provider Name and Address Organization Details Recorded Time Urinary incontinence 603972687 Active 2024 MINI KOWALSKI MD [address] [place] [address], [phone], [facility] 17:34:14 Benign prostatic hyperplasia with outflow obstruction 019199834 Active 2024 MINI KOWASLKI MD [address] [place] [address], [phone], [facility] 17:34:46 Chronic kidney disease 686766657 Active 2024 MINI KOWALSKI MD [address] [place] [address], [address], [facility] 17:34:52 Type 2 diabetes mellitus 56329284 Active 2024 MINI KOWALSKI MD [address] [place] [address], [address], [facility] 17:35:03 Problem Notes None recorded. Medical [...] Dysfunction Y COPD Y Kidney Disease Y False Teeth Y Diabetes Y Urinary Tract Infection Y Hypertension Y Past Encounters Encounter ID Performer Location Encounter Start Date Encounter Closed Date Diagnosis/Indication Diagnosis SNOMED-CT Code Diagnosis ICD10 Code Diagnosis IMO Codes Diagnosis Note [id number] MINI KOWALSKI MD UROLOGY [facility] [address] [facility] [place] [address] 08/31/2024 12:32:32 08/31/2024 13:37:15 Dysuria 64417459 R30.0 Urinary incontinence 165 090051 R32 Wearing depends for 1 year for protection Benign pro static hyperplasia with outflow obstruction 542124778 N40.1 Chronic ki dney disease 559635728 N18.9 Type 2 nydia betes mellitus 65105505 E11.9 Health Concerns Section Related Observation LastModified by Organization Detai ls LastModified Time None Recorded Concern Status LastModified by Organization Details LastModified Time None Recorded Advance Directives Directive None Recorded Payers Insurance Date Sequence Insurance Name Policy Number Policy Munguia Covered Member ID Munguia Member ID Guarantor Name 08/31/2024 1 [employer] (MEDICARE REPLACEMENT/A DVANTAGE - PPO) Omar Garcia [id number] Omar Garcia Notes Date Note Type Note [...] comorbid disease is noted. MINI KOWALSKI MD [address] [place] [address], [phone], [facility] 08/31/2024 17:36:29
--- OUTSIDE RECORDS SUMMARY | 2025-04-01 02:55 | XMS_ITS | Patient Health Record ---
[facility] [address] [facility] [address] [place] [id number] Care Team Providers Care Production Control Expert Name Role Phone Greg Clement Unavailable [phone] Natasha Bermudez Unavailable [phone] Deonna Vigilian Unavailable [phone] Allergies No Known Allergies Results Component Value [...] f/u, bilateral gynecomastia and coronary artery calcifications P-Basic Metabolic Panel (BMP ) Reviewed date:08/01/2024 12:18:57 PM Interpretation:gluc 280, bun 49, Cr 2.03, gfr 35 Performing Lab: Notes/Report: CLIA: [id number] Justice Amador MD, [facility] [address] [place] [address] , [address], [place] [address] Test performed by [facility], [facility] Sodium 138 135-145 mmol/L Potassium 3.6 3.5-5.3 [...] Sp. Gr. Neg Ketone Neg Bili 2+ CBC Fingerstick (in house) Reviewed date:10/18/2024 12:35:04 [...] 38 plat 146 100 - 400 CBC Fingerstick (in house) Reviewed date:12/06/2024 11:44:07 [...] 400 P-Basic Metabolic Panel (BMP ) Reviewed date:04/22/2024 02:39:07 PM Interpretation:K+ 3.4, gluc 171, bun 48, Cr 2.01, gfr 35, 04/25 f/u appt Performing Lab: Notes/Report: Test performed by [facility], [facility] [address] [place] [address] , [address], [place] [address] Justice Amador MD, [facility] CLIA: [id number] Sodium 142 135-145 mmol/L Potassium 3.4 3.5-5.3 mmol/L Chloride 102 97-108 mmol/L CO2 30 22-32 mmol/L Glucose 171 65-99 mg/dL BUN 48 8-23 mg/dL Creatinine 2.01 0.70-1.30 mg/dL Calcium 9.2 8.6-10.4 mg/dL eGFR by Creatinine 35 >59 mL/min/1.73m2 Reason For Referral No Information Medications Medication SIG (Take, Route, Frequency, Duration) Notes Start Date End Date Status Rosuvastatin Calcium 20 MG TAKE 1 TABLET EVERY DAY; Duration: 90 Active metOLazone 5 MG 1 tablet Orally Mon, Wed, Thu; Duration: 90 days Active Losartan Potassium 25 MG 1 tablet Orally Once a day; Duration: 30 day(s) Active Ipratropium-Albuterol 0.5-2.5 (3) MG/3ML INHALE CONTENTS OF 1 VIAL (3ML) VIA NEBULIZER EVERY 6 HOURS; Duration: 90 Active Ondansetron HCl 4 MG 1 tab(s) orally geovanni ry 8 hours Active Jardiance 25 MG 1 tablet Orally Once a day; Duration: 90 days Active Clopidogrel Bisulfate 75 MG 1 tablet Ora lly Once a day Active glyBURIDE 5 MG 2 tablets orally onc e a day; Duration: 90 days Active Tamsulosin HCl 0.4 MG TAKE 1 CAPSULE ONE TIME DAILY; Duration: 90 days Active Align 4 MG 1 cap(s) orally once a day; Duration: 28 day(s) 06/04/2022 Active Pregabalin 150 MG 1 cap(s) orally 3 ti mes a day; Duration: 60 days 2024 Active FIBERCON TABLETS 2 P.O. DAILY 06/04/2022 Active Donepezil HCl 10 MG 1 tablet at bedtime Orally Once a day; Duration: 90 days Active Xarelto 15 MG 1 tab(s) orally once a day (in the evening); Duration: 30 day(s) Active Fluticasone Furoate-Vilanterol 200-25 MCG/ACT 1 puff(s) inhaled once a day; Duration: 30 day(s) Active Potassium Chloride ER 10 MEQ 2 tablets Orally daily; Duration: 90 days Active Immunizations Vaccine Route Administration Date Status Comme nts Shingrix Unknown 04/30/2023 Administered Shingrix Unknown 06/25/2023 Administered Prevnar (PCV20) Unknown 06/04/2022 Pending Fluzone High Dose (65yr and older) Unknown 03/07/2021 A dministered COVID 19 Pfizer Unknown 07/26/2020 Administered COVID 19 Pfizer Unknown 08/18/2020 Administered COVID 19 Pfizer Unknown 03/20/2021 Administered Problems Problem Type SNOMED Code ICD Code Onset Dates Problem Status W/U Status Risk Notes Problem Essential hypertension (69310997) Essential (primary) hypertension (I10) Active confirmed Problem Hypokalemia (53268801) Hypokalemia (E87.6) Active confirmed Problem Renal failure (02502129) Renal failure (N19) Active confirmed Problem Memory loss (53312749) Memory loss (R41.3) Active confirmed Problem Atherosclerosis of aorta (15958535) Atherosclerosis of aorta (I70.0) Active confirmed Problem Atherosclerosis of artery (995514152) Atherosclerosis of other arteries (I70.8) Active confirmed Problem Chronic kidney disease stage 4 (555043482) Chronic kidney disease, stage 4 (severe) (N18.4) Active confirmed Problem Right cervical radiculopathy (05694168033746589 ) Right cervical radiculopathy (M54.12) Active confirmed Problem Renal insufficiency (153812380) Renal insufficiency (N28.9) Active confirmed Problem Neck pain (37049968) Neck pain (M54.2) Active confirmed Problem COPD - Chronic obstructive pulmonary disease (94624083) Chronic obstructive pulmonary disease, unspecified COPD type (J44.9) Active confirmed Problem 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 without angina pectoris (257276061857419) Coronary artery disease involving andreafski coronary artery of andreafski heart without angina pectoris (I25.10) Active confirmed Problem Claudication (88369057) Claudication (I73.9) Active confirmed Problem Hyperlipidaemia (28193752) Hyperlipidemia, unspecified hyperlipidemia type (E78.5) Active confirmed Problem Diverticular disease of colon (102115612) Diverticulosis (K57.90) Active confirmed Problem Dementia (54630175) Dementia without behavioral disturbance (F03.90) Active confirmed Problem Stented coronary artery (819367138) Stented coronary artery (Z95.5) Active confirmed Problem Peripheral vascular disease (788516881) PAD (peripheral artery disease) (I73.9) Active confirmed Problem Benign prostatic hypertrophy without outflow obstruction (845001021) Benign prostatic hyperplasia, unspecified whether lower urinary tract symptoms present (N40.0) Active confirmed Problem Type II diabetes mellitus without complication (496938794) Type 2 diabetes mellitus without complication, unspecified whether manager long term care insulin use (E11.9) Active confirmed Problem Cirrhosis - non-alcoholic (680961290) Hepatic cirrhosis, unspecified hepatic cirrhosis type, unspecified whether ascites present (K74.60) Active confirmed Problem Diabetic renal disease (138154196) Type 2 diabetes mellitus with diabetic chronic kidney disease, unspecified CKD stage, unspecified whether manager long term care insulin use (E11.22) Active confirmed Problem Atypical angina (564802782) Atypical angina (I20.8) Active confirmed Problem Chronic kidney disease stage 3B (disorder) (279312322) Stage 3b chronic kidney disease (CKD) (N18.32) Active confirmed Vital Signs Heart Rate 53 /min 01/23/2025 Blood pressure diastolic 60 mm Hg 01/23/2025 Height 70.5 in 01/23/2025 Blood pressure systolic 120 mm Hg 01/23/2025 Weight 175.4 lbs 01/23/2025 BMI 24.81 kg/m2 01/23/2025 Encounters Encounter Location Date Provider Diagnosis [facility] [address] [facility] [address] [place], [place] [id number] 04/18/2024 Natasha Bermudez Hypokalemia E87.6 [facility] [address] [place], [place] [id number] 04/25/2024 Natasha Bermudez Essential (primary) hypertension I10 ; Stage 3b chronic kidney disease (CKD) N18.32 ; Hypokalemia E87.6 and Right lateral epicondylitis M77.11 [facility] [address] [place] [id number] 07/28/2024 Natasha Bermudez Type 2 diabetes inder itus without complication, unspecified whether nursing home insulin use E11.9 ; Essential (primary) hypertension I10 ; Renal failure N19 ; Stage 3b chronic kidney disease (CKD) N18.32 and Nausea R11.0 [facility] [address] [place] [id number] 10/17/2024 Mayur Polo Acute cough R05.1 ; Chronic obstructive pulmonary disease, unspecified COPD type J44.9 ; Hepatic cirrhosis, unspecified hepatic cirrhosis type, unspecified whether ascites present K74.60 ; Claudication I73.9 ; Type 2 diabetes mellitus with diabetic chronic kidney disease, unspecified CKD stage, unspecified whether nursing home insulin use E11.22 ; Dementia without behavioral disturbance F03.90 ; Chronic kidney disease, stage 4 (severe) N18.4 and BMI 25.0-25.9,adult Z68.25 [facility] [address] [place] [id number] 11/21/2024 Natasha Bermudez Chronic obstructive pulmonary disease, unspecified COPD type J44.9 ; Type 2 diabetes mellitus with diabetic chronic kidney disease, unspecified CKD stage, unspecified whether manager long term care insulin use E11.22 and BMI 25.0-25.9,adult Z68.25 [facility] [address] [place] [id number] 12/01/2024 Natasha Bermudez Chronic obstructive pulmonary disease, unspecified COPD type J44.9 ; Thrombophlebitis of superficial veins of left lower extremity I80.02 and BMI 25.0-25.9,adult Z68.25 [facility] [address] [place] [id number] 01/23/2025 Natasha Bermudez Essential (primary) hypertension I10 ; Type 2 diabetes mellitus with diabetic chronic kidney disease, unspecified CKD stage, unspecified whether nursing home insulin use E11.22 ; PAD (peripheral artery disease) I73.9 ; Stage 3b chronic kidney disease (CKD) N18.32 ; Memory loss R41.3 ; Chronic kidney disease, stage 4 (severe) N18.4 and BMI 24.0-24.9, adult Z68.24 [facility] [address] [place], [place] [id number] 04/01/2024 J Erik Bermudez [facility] [address] [place], [place] [id number] 04/22/2024 J Erik Bermudez [facility] [address] [place] [id number] 05/26/2024 R Desmond Racquel [facility] [address] [place], [place] [id number] 07/25/2024 J Erik Bermudez [facility] [address] [place], [place] [id number] 08/01/2024 J Erik Bermudez [facility] [address] [place], [place] [id number] 08/05/2024 J Erik Bermudez [facility] [address] [place] [id number] 11/22/2024 R Desmond Racquel [facility] [address] [place], [place] [id number] 12/05/2024 J Erik Bermudez [facility] [address] [place], [place] [id number] 12/12/2024 R Desmond Racquel [facility] [address] [place], [place] [id number] 12/30/2024 Natasha Bermudez [facility] [address] [place], [place] [id number] 02/13/2025 R Desmond Racquel Assessments Encounter Date Diagnosis (ICD Code) Assessment Notes Treatment Notes Treatment Clinical Notes Section Notes 04/18/2024 Hypokalemia (ICD-10 - E87.6) 04/25/2024 Essential (primary) hypertension (ICD-10 - I10) 04/25/2024 Stage 3b chronic kidney disease (CKD) (ICD-10 - N18.32) 07/28/2024 Essential (primary) hypertension (ICD-10 - I10) 07/28/2024 Type 2 diabetes mellitus without complication, unspecified whether nursing home insulin use (ICD-10 - E11.9) 10/17/2024 Chronic obstructive pulmonary disease, unspecified COPD type (ICD-10 - J44.9) 10/17/2024 Acute cough (ICD-10 - R05.1) 12/01/2024 Chronic obstructive pulmonary disease, unspecified COPD type (ICD-10 - J44.9) Use nebulizer and MDI 12/01/2024 Thrombophlebitis of superficial veins of left lower extremity (ICD-10 - I80.02) warm compresses 01/23/2025 Essential (primary) hypertension (ICD-10 - I10) 11/21/2024 Chronic obstructive pulmonary disease, unspecified COPD type (ICD-10 - J44.9) 11/21/2024 Type 2 diabetes mellitus with diabetic chronic kidney disease, unspecified CKD stage, unspecified whether manager long term care insulin use (ICD-10 - E11.22) 01/23/2025 Type 2 diabetes mellitus with diabetic chronic kidney disease, unspecified CKD stage, unspecified whether nursing home insulin use (ICD-10 - E11.22) 12/01/2024 BMI 25.0-25.9,adult (ICD-10 - Z68.25) 01/23/2025 PAD (peripheral artery disease) (ICD-10 - I73.9) 11/21/2024 BMI 25.0-25.9,adult (ICD-10 - Z68.25) 10/17/2024 Hepatic cirrhosis, unspecified hepatic cirrhosis type, unspecified whether ascites present (ICD-10 - K74.60) 07/28/2024 Renal failure (ICD-10 - N19) 04/25/2024 Hypokalemia (ICD-10 - E87.6) 04/25/2024 Right lateral epicondylitis (ICD-10 - M77.11) Tennis elbow strap recommended 07/28/2024 Stage 3b chronic kidney disease (CKD) (ICD-10 - N18.32) 10/17/2024 Claudication (ICD-10 - I73.9) 01/23/2025 Stage 3b chronic kidney disease (CKD) (ICD-10 - N18.32) 10/17/2024 Type 2 diabetes mellitus with diabetic chronic kidney disease, unspecified CKD stage, unspecified whether nursing home insulin use (ICD-10 - E11.22) 01/23/2025 Memory loss (ICD-10 - R41.3) 07/28/2024 Nausea (ICD-10 - R11.0) 01/23/2025 Chronic kidney disease, stage 4 (severe) (ICD-10 - N18.4) 10/17/2024 Dementia without behavioral disturbance (ICD-10 - F03.90) 01/23/2025 BMI 24.0-24.9, adult (ICD-10 - Z68.24) 10/17/2024 Chronic kidney disease, stage 4 (severe) (ICD-10 - N18.4) 10/17/2024 BMI 25.0-25.9,adult (ICD-10 - Z68.25) Plan Of Treatment Next Appt Details Provider Name:Natasha Erikcorey Owens , 04/24/2025 01:00:00 PM, [address] [facility] [address], [address], [place], [place], [id number], Insurance Providers Payer Name Payer Address Payer Phone Subscriber Number Group Number Insured Name Patient Relationship to Insured Coverage Start Date Coverage End Date [employer] (MEDICAR E) [address] [address] [place] [address] [phone] [id number] PRERNA STOCK Self - patient is the insured Medical (General) History Medical History History ICD Code Asthma Hypertension Hyperlipidemia Diabetes EF=55%, 12/20/2021 Flu shot 2022 diabetic eye exam October 2022 Chronic kidney disease, stage 3b as of 2 024 COPD Surgical History Surgery Date(Month/Year) Brain Aneurysm 2005, 2007 Stent to mid LAD, first diag onal, stents to left common iliac and external iliac. Normal EF. 07/15/2022 colonoscopy with polyps 04/22/2022 Sinus surgery with removal of pedunculat ed papillomax, Dr. Luis 04/01/2023 Hospitalization History Reason Date(Month/Year) Colonoscopy, Dr. Sekou Shoemaker, polyps 07/2021 C Diff- [facility] 2021 Pancreatitis [facility] 2020
--- OUTSIDE RECORDS SUMMARY | 2025-04-01 02:55 | XMS_ITS | Data Portability ---
Author Organization [facility] [place] [facility] [place] Address [address] [place] [address] Care Team Providers Care Sizing Machine And Drier Operator Name Role Phone TIANNA PRABHAKAR Primary Care Provider [phone] Assessment Encounter Date Assessment Date Assessment LastModified [...] Labs and US to be performed at [facility] per patient request. f/u 6 months [email or web address] Not available 08/15/2022 15:12:56 02/16/2023 02/16/2023 67-year-old [...] Labs and US to be performed at [facility] per patient request. f/u 6 months [email or web address] Not available 02/16/2023 14:54:03 Plan of Treatment Reminders Order Date Submit Date Provider Last Modified By Organization Details Last Modified Time Details Appointments None recorded . Lab CMP, serum or plasma 023 02/17/[address] (Lab), [address], [place], [address], 3 09:55:37 CBC 023 02/17/[address] (Lab), [address], [place], [address], 3 09:55:37 PT/INR 023 02/17/[address] (Lab), [address], [place], [address], 3 09:55:37 afp (alpha-f etoprote in) tumor marker, serum or plasma 023 02/17/[address] (Lab), [address], [place], [address], 3 09:55:37 CMP, serum or plasma 023 08/16/19 23 [facility] (Lab), [address], [place], [address], 3 13:14:43 CBC 023 08/16/19 [facility] (Lab), [address], [place], [address], 3 12:08:31 PT/INR 023 08/16/19 [facility] (Lab), [address], [place], [address], 3 12:08:31 afp (alpha-f etoprote in) tumor marker, serum or plasma 023 08/16/19 [facility] (Lab), [address], [place], [address], 3 10:06:56 Referral None recorded . Procedures None recorded . Surgeries None recorded . Imaging US, liver 02/17/[address] (Scheduling), [address], [place], [address], 3 11:28:51 US, liver 023 08/16/[address] (Scheduling), [address], [place], [address], 3 08:29:28 Medication Orders None recorded . Patient TargetsNo targets recorded. Patient InstructionsNo instructions recorded. Reason for Referral None Reported. Results Created Date Observation Date Name Description Value Unit Range Abnormal Flag Note LastModifiedBy Organization Detail LastModifiedTime 02/24/2002/23/2023 US, liver No observ ation record ed. [facility] [address], [place], [address], 03/12/2023 08:47:25 Result Notes None recorded. Problems Name Problem SNOMED Code Status Onset Date Resolution Date Notes Provider Name and Address Organization Details Recorded Time Cirrhosis of liver Active 023 Jeremy Leger PA-C [address], [place], [address] , [facility] [place] 3 11:15:59 History of alcohol abuse 789945157 Active 023 Jeremy Leger PA-C [address], [place], [address] , [facility] [place] 3 15:08:58 Problem Notes None recorded. Medical [...] Date Recorded Body weight Heart rate Systolic And Diastolic Provider Name and Address Organization Details Last Updated DateTime 08/15/2022 28247.48 g 72 /min 132/63 mm[Hg] Jimena ACOSTA [facility] [place] 08/15/2022 10:52:31 Date Recorded Body weight Body mass index (BMI) Body height Body temperature Heart rate Heart rate Oxygen saturation Oxygen saturation in Arterial blood by Pulse oximetry Systolic And Diastolic Provider Name and Address Organization Details Last Updated DateTime 3 31065.7 1 g 25 kg/m2 177.8 cm 98.8 [degF] 57 /min 58 /min 97 % 97 % 144/60 mm[Hg] Zohra ACOSTA [facility] [place] 3 14:38:34 Social History Question Answer Notes LastModified by [employer] Details LastModified Time Tobacco Smoking Status Never Smoker [place] Chicas [facility] [place] 02/16/2023 14:38:25 What Is Your Level Of Caffeine Consumption? Moderate Information not available 02/16/2023 Sex: Unknown Functional Status Question Answer Note LastModified by [employer] Details LastModified Time Do you use any illicit or recreational drugs? No [email or web address] Information not available 02/16/2023 Do you or have you ever used any other forms of tobacco or nicotine? No [email or web address] Information not available 02/16/2023 What is your level of alcohol consumption? None Information not available 02/16/2023 Mental Status None recorded. Family History Nothing Reported. Medical History No medical history recorded. Past Encounters Encounter ID Performer Location Encounter Start Date Encounter Closed Date Diagnosis/Indication Diagnosis SNOMED-CT Code Diagnosis ICD10 Code Diagnosis IMO Codes Diagnosis Note [id number] Jeremy Leger PA-C [facility] [address] [address] 08/15/2022 10:43:56 08/15/2022 11:21:46 Cirrhosis of liver 42858492 K74.60 Long-term current use of anticoagulant 468354751 Z79.01 History of hepatitis C 7138015767 9101 Z86.19 History of alcohol abuse 823936298 F10.10 [id number] Jeremy Leger [facility] [address] [place] [address] 02/16/2023 14:16:21 02/16/2023 14:57:19 Cirrhosis of liver 37924237 K74.60 Long-term current use of anticoagulant 534829055 Z79.01 History of hepatitis C 5286610160 9101 Z86.19 History of alcohol abuse 475206236 F10.10 Health Concerns Section Related Observation LastModified by Organization Detai ls LastModified Time None Recorded Concern Status LastModified by Organization Details LastModified Time None Recorded Advance Directives Directive None Recorded Payers Insurance Date Sequence Insurance Name Policy Number Policy Munguia Covered Member ID Munguia Member ID Guarantor Name 07/06/2019 1 [place] Omar Garcia [id number] Omar Garcia 07/30/2019 2 EAST - HUMANA () Adriana Radah [id number] Omar Garcia 02/13/2023 2 FOR LIFE ( - MEDICARE SUPPLEMENT) Omar Garcia [id number] Omar Garcia 07/15/2019 1 [employer] (PPO) Omar Garcia [id number] Omar Garcia 02/13/2023 1 [employer] (MEDICARE REPLACEMENT/ ADVANTAGE - PPO) Omar Garcia [id number] Omar Garcia Notes Date Note Type Note Provider Name and Address Organization Details Recorded Time 08/15/2022 text/html Mahin 66-year-old male with history of cirrhosis secondary [...] as >4 years ago. Jeremy Leger PA-C [address] [facility], [place], [address], [facility] [place] [facility] [place] [facility] [place] 08/15/2022 15:13:09 02/16/2023 text/html PREVIOUS (08/15/22): Mahin 66-year-old male with history of cirrhosis secondary [...] and has stopped Omeprazole. Jeremy Leger PA-C [address], [place], [address], [facility] [place] [facility] [place] 02/16/2023 14:54:34
--- OUTSIDE RECORDS SUMMARY | 2025-04-01 02:55 | XMS_ITS | Encounter Summary ---
Author Organization Healthcare Address [address] [place] [address] Care Team Providers Care Bacteriology Research Assistant Name Role Phone Rajeev [place] MD Primary Care Provider [phone] Alvin Bermudez MD Primary Care Provider [phone] Reason for Referral * Consultation (Routine) - Closed Specialty Diagnoses / Procedures Referred By Contac t Referred To Contact Nephrology Diagnoses Chronic kidney disease (CKD) stage G4/A1, severely decreased glomerular filtration rate (GFR) between 15-29 mL/min/1.73 square meter and albuminuria creatinine ratio less than 30 mg/g Type 2 diabetes mellitus without complication, unspecified whether intermediate project manager insulin use Mona Rosario APRN [address] [place] [address] Phone: tel: fax: Referral ID Status Reason Start Date Expiration Date V isits Requested Visits Authorized [id number] Closed Specialty Services Required 01/15/2022 07/17/2023 1 1 Encounter Details Date Type Department Care Team (Late st Contact Info) Description 01/15/2022 Community [facility] [address] [place] [address] Mona Rosario APRN [address] [place] [id number] Chronic kidney disease (CKD) stage G4/A1, severely decreased glomerular filtration rate (GFR) between 15-29 mL/min/1.73 square meter and albuminuria creatinine ratio less than 30 mg/g (CMS/HCC) (Primary Dx); Type 2 diabetes mellitus without complication, unspecified whether intermediate project manager insulin use (CMS/HCC) Social History Tobacco Use [...] Care Team (Late st Contact Info) Description 05/19/2025 10:40 AM EST Office Visit [facility] [address] [place] [address] Charlie Early MD [address] [place] [phone] Scheduled Referrals Name Type Priority Associated Diagnoses Order Schedule Ambulatory referral to Nephrology Outpatient Referral Routine Chronic kidney disease (CKD) stage G4/A1, severely decreased glomerular filtration rate (GFR) between 15-29 mL/min/1.73 square meter and albuminuria creatinine ratio less than 30 mg/g (CMS/HCC) Type 2 diabetes mellitus without complication, unspecified whether intermediate project manager insulin use (CMS/HCC) 1 Occurrences starting 01/15/2022 until 07/18/2023 documented as of this encounter Visit Diagnoses Diagnosis Chronic kidney disease (CKD) stage G4/A1, severely decreased glomerular filtration rate (GFR) between 15-29 mL/min/1.73 square meter and albuminuria creatinine ratio less than 30 mg/g- Primary Type 2 diabetes mellitus without complication, unspecified whether residential insulin use documented in this encounter Care Teams Bacteriology Research Assistant Relationship Specialty Start Date End Date Rajeev [place] MD [address] [place] [address] PCP - General 10/12/20 03/05/22 Alvin Bermudez MD [address] [place] [id number] PCP - General 03/06/22 documented as of this encounter
--- OUTSIDE RECORDS SUMMARY | 2025-04-01 02:56 | XMS_ITS | Clinical Summary ---
Author Organization Healthcare Address [address] [place] [address] Care Team Providers Care Planner/Scheduler Name Role Phone Alvin Bermudez MD Primary Care Provider [phone] Allergies Active Allergy Reactions Criticality Noted Date [...] tablet (75 mg) by mouth daily. Active potassium chloride [...] 2 CAPSULES EVERY DAY 180 capsule 3 5 Active losartan (Cozaar) 25 MG tabletIndication s:Hypertensive chronic kidney disease with stage 1 through stage 4 chronic kidney disease, or unspecified chronic kidney disease Take 1 tablet by mouth daily. 90 tablet 3 Active empagliflozin (Jardiance) 25 MGIndications:Hy pertensive chronic kidney disease with stage 1 through stage 4 chronic kidney disease, or unspecified chronic kidney disease Take 1 tablet by mouth daily. 90 tablet 3 5 Active Active Problems Problem Noted Date Diagnosed Date CKD stage 3b, GFR 30-44 ml/min 03/18/2024 Metabolic alkalosis 03/18/2024 Hypokalemia 03/18/2024 Hypertensive chronic kidney disease with stage 1 through stage 4 chronic kidney disease, or unspecified chronic kidney disease 03/18/2024 Chronic kidney disease-mineral and bone disorder (CKD-MBD) 03/18/2024 Encounters Date Type Department Care Team Description 01/13/2025 10:20 AM EDT Office Visit [facility] [address] [place] [phone] Charlie Early MD Hypertensive chronic kidney disease with stage 1 through stage 4 chronic kidney disease, or unspecified chronic kidney disease (Primary Dx); BPH with lower urinary tract symptoms without urinary obstruction; Hypokalemia; Metabolic alkalosis; CKD stage 3b, GFR 30-44 ml/min (CMS/HCC); 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 chronic kidney disease 01/13/2025 Travel from Last 3 Months Immunizations Immunization Administration [...] Sign Reading Time Taken Comments Blood Pressure 130/65 01/13/2025 10:22 AM EDT Pulse 60 01/13/2025 10:22 AM EDT Temperature 36.4 C (97.6 F) 08/05/2024 10:42 AM EST Respiratory Rate 18 01/13/2025 10:22 AM EDT Oxygen Saturation 96% 01/13/2025 10:22 AM EDT Inhaled Oxygen Concentration - - Weight 79.8 kg (176 lb) 01/13/2025 10:22 AM EDT Height 177.8 cm (5' 10 ) 01/13/2025 10:22 AM EDT Body Mass Index 25.25 01/13/2025 10:22 AM EDT Plan of Treatment Upcoming Encounters Date Type Department Care Team (Late st Contact Info) Description 05/19/2025 10:40 AM EST Office Visit [facility] [address] [place] [address] Charlie Early MD [address] [place] [phone] Health Maintenance Due Date Last Done Comments [facility]-Depression Screening 1954 [facility]-Diabetes: Hemoglobin A1C 1954 [facility]-Hepatitis C Screening 1954 [facility]-Medicare Annual Wellness (AWV) 1954 [facility]-/Child/Adol SDOH Screenings 1954 Diabetes: Dental Exam 1964 [facility]- SDOH Screenings 1972 [facility]-Adult SDOH Screenings 1972 [facility]-DTaP,Tdap,and Td Vaccines (1 - Tdap) 1973 [facility]-Pneumococcal Vaccine: 50+ Years (1 of 2 - PCV) 1973 CT Colonography 12/08/1999 Colonoscopy 12/08/1999 FIT-DNA 12/08/1999 FIT 12/08/1999 FOBT 12/08/1999 Sigmoidoscopy 12/08/1999 [facility]-Colorectal Cancer Screening 12/08/1999 [facility]-Abdominal Aortic Aneurysm (AAA) Screening 12/08/2019 [id number] Vaccine ( season) 2025 02/11/2024, 02/25/2023, 02/24/2022, Additional history exists [facility]-Influenza Vaccine (#1) 01/30/202502/10, 02/25/2023, 02/24/2022, Additional history exists [facility]-RSV Vaccine: 60+ Years or Completed 05/19/2023 [facility]-Zoster Vaccines Completed 06/25/2023, [facility]-Obesity Intervention Completed 025, 08/05/2024, 03/18/2024, Additional history exists HPV Vaccines Aged Out No longer eligi [...] patient's age to complete this [place] [address] [place] [address] [facility] MEDICARE Care Teams Planner/Scheduler Relationship Specialty Start Date End Date Alvin Bermudez MD [facility] [address] [place] [address] [facility] - General 03/06/22
[2025-04-01] MEDS: OXYMETAZOLINE NASAL SPRAY 0.05% 15ML NS (03:11)
[2025-04-01 03:35] LABS: Hematocrit 37.0 % (42.0-52.0); Hemoglobin 12.7 g/dL (14.1-18.0); Immature Granulocytes % 0.2 %; Mean Corpuscular HGB Conc 34.3 g/dL (31.8-35.4); Mean Corpuscular Hemoglobin 30.9 pg (27.0-31.2); Mean Corpuscular Volume 90.0 fl (80-94); Nucleated Red Blood Cells % 0 %; Platelet Count 128 K/mm3 (142-424); Red Blood Count 4.11 M/mm3 (4.60-6.20); Red Cell Distribution Width-SD 47.3 fL; White Blood Count 6.5 K/mm3 (4.8-10.8)
[2025-04-01 03:36] LABS: Activated Partial Thrombo Time 30.7 seconds (22.8-30.6); INR 1.22 (0.9-1.1); Prothrombin Time 13.3 seconds (10.1-12.5)
--- NOTE | 2025-04-01 04:09 | HMH.EDGENADL ---
Discharge Plan Disposition Patient Disposition: Home, Self-Care Condition: Good Prescriptions Prescriptions: No Action metolazone 5 mg tablet 5 mg PO DAILY Rx Instructions: 1 TABLET EVERY OTHER DAY donepezil 10 mg tablet 10 mg PO DAILY potassium chloride 10 mEq tablet extended release 10 meq PO DAILY Jardiance 25 mg tablet 25 mg PO DAILY clopidogrel 75 mg tablet See Rx Instructions .ROUTE .COMPLEX Qty: 90 3RF Dose Instruction: TAKE 1 TABLET EVERY DAY FOR BLOOD THINNER Rx Instructions: TAKE 1 TABLET EVERY DAY FOR BLOOD THINNER ipratropium-albuterol 0.5 mg-3 mg(2.5 mg base)/3 mL solution for nebulization 3 ml inhalation DAILY Xarelto 15 mg tablet 15 mg PO DAILY 0RF rosuvastatin 20 mg tablet 20 mg PO DAILY Qty: 30 5RF losartan 25 mg tablet 25 mg PO DAILY Qty: 90 3RF albuterol sulfate 90 mcg/actuation HFA aerosol inhaler See Rx Instructions .ROUTE .COMPLEX Qty: 2 3RF Dose Instruction: INHALE 1 PUFF EVERY 6 HOURS Rx Instructions: INHALE 1 PUFF EVERY 6 HOURS pregabalin 150 MG capsule 150 mg PO TID tamsulosin 0.4 MG capsule 0.4 mg PO DAILY fluticasone furoate-vilanterol [Breo Ellipta] 1 EACH blister with device 1 puff inhalation DAILY glyburide 5 mg tablet 10 mg PO DAILY fluticasone propionate 50 mcg/actuation spray,suspension 1 spray intranasal BID ondansetron HCl [ondansetron HCl] 4 mg tablet 4 mg PO TIDP PRN (Reason: Nausea) Qty: 10 0RF Referrals Follow up/Referrals: Dandre Hensley MD [Physician, Ear, Nose, Throat] - See instructions Referral Note: Evaluate nose for cautery, epistaxis recurrently on multiple blood thinners Milton Bermudez MD [Primary Care Provider, Medical] - See instructions Activity Restrictions/Add. Instructions Additional Instructions/Restrictions: You were evaluated in the ER and are believed to be appropriate for discharge at this time. Continue all home medications as previously prescribed. As discussed, if you start having a nosebleed again, blow your nose and use the Afrin that you have at home. 2 sprays in the affected nostril. Then apply pressure for 30 minutes. If you still have bleeding after this or having brisk, uncontrollable bleeding, come to the ER immediately for further evaluation. Follow-up with your primary care doctor for reevaluation in 2 days. I have referred you to ENT for evaluation and possible cautery, call them first thing Thursday morning and schedule follow-up with their office as soon as possible. Return to the ER with any new, worsening, or otherwise concerning symptoms. Clinical Impressions Clinical Impression: Epistaxis Instructions Patient Instructions: DI for Nosebleed Print Language Print Language: Bruneian Discharge ED Provider: Daniel Mulligan General Adult HPI General Chief complaint: Epistaxis Stated complaint: nosebleed, on blood thinners Time Seen by Provider: 04/01/25 03:04 Mode of Arrival: Ambulatory Source of Information: Patient Description of Symptoms (Recalled from ER Triage Doc. by RN): PT presents to the ED for evaluation of epistaxis. PT stated he woke up on 03/31/2025 to dry blood in his mouth and noticed his nose had been bleeding. PT is on plavix and xarelto r/t A Fib. History of Present Illness HPI narrative: 69-year-old male presents to the ER for complaint of nosebleed. Patient reports he woke up yesterday morning with dried blood in his mouth and had intermittent bleeding from the nose throughout the day. Tonight no started bleeding and would not stop. Patient takes Plavix and Xarelto. He has a history of CAD, A-fib, heart murmur, hyperlipidemia, diabetes, cirrhosis, hypertension. He reports no pain or injury. He states he has slow steady bleeding now from both nostrils, but had previously only been from the left. He states he has been having some blood run down the back of his throat. Denies headache, dizziness, numbness, tingling, weakness, chest pain, difficulty breathing, vomiting, diarrhea, or other associated symptoms. Related Data Home Medications ?Medication ?Instructions ?Recorded ?Confirmed fluticasone furoate 200 1 puff inhalation DAILY COPD 11/27/20 03/28/25 mcg-vilanterol 25 mcg/dose inhalation powder (Breo Ellipta) pregabalin 150 mg capsule 150 mg PO TID neuropathy 11/27/20 03/28/25 tamsulosin 0.4 mg capsule 0.4 mg PO DAILY PROSTATE 11/27/20 03/28/25 glyburide 5 mg tablet 10 mg PO DAILY Diabetes 06/24/22 03/28/25 fluticasone propionate 50 1 spray intranasal BID Allergy 07/15/22 03/28/25 mcg/actuation nasal symptoms spray,suspension metolazone 5 mg tablet 5 mg PO DAILY . 09/17/22 03/28/25 empagliflozin 25 mg tablet 25 mg PO DAILY 01/13/24 03/28/25 (Jardiance) potassium chloride 10 mEq 10 meq PO DAILY 01/13/24 03/28/25 tablet,extended release donepezil 10 mg tablet 10 mg PO DAILY 05/18/24 03/28/25 ipratropium 0.5 mg-albuterol 3 mg 3 ml inhalation DAILY 11/22/24 03/28/25 (2.5 mg base)/3 mL nebulization soln Previous Rx's ?Medication ?Instructions ?Recorded ondansetron HCl 4 mg tablet 4 mg PO TIDP PRN Nausea #10 tabs 03/18/23 rosuvastatin 20 mg tablet 20 mg PO DAILY Cholesterol #30 tabs 01/08/24 clopidogrel 75 mg tablet See Rx Instructions .Route 07/21/24 .COMPLEX #90 tabs losartan 25 mg tablet 25 mg PO DAILY #90 tabs 07/25/24 albuterol sulfate 90 mcg/actuation See Rx Instructions .Route 02/06/25 aerosol inhaler .COMPLEX #2 ea Allergies Allergy/AdvReac Type Severity Reaction Status Date / Time acetaminophen AdvReac Unknown Unknown Verified 03/28/25 07:18 allergy reaction [facility] Disclaimer: The information contained in this section may have been updated after the patient was seen, as this information can be updated by other users. Medical History Recurrent epistaxis Family history of aneurysm of blood vessel of brain Encounter for pre-operative examination Dizziness Hearing loss, right Sinusitis Bronchitis COPD (chronic obstructive pulmonary disease) Hepatitis C Claudication Atypical angina Hyperlipidemia Abnormal electrocardiogram [ECG] [EKG] Atypical chest pain Coronary artery calcification Peripheral arterial disease Intermittent claudication Tobacco dependence syndrome Colitis Clostridium difficile enterocolitis SIRS (systemic inflammatory response syndrome) GABE (acute kidney injury) Dysfunctional gallbladder Diverticulosis BPH (benign prostatic hyperplasia) Type 2 diabetes mellitus Cirrhosis Hypertension Surgical History History of endoscopic sinus surgery Hx of brain surgery Hx of heart artery stent Hx of cardiac catheterization Family History Other Cancer Coronary artery disease Diabetes Family history of chronic sinusitis Hypertension Social History Smoking Status: Never smoker alcohol intake: never substance use type: denies use current occupational status: retired Travel in the last 8 weeks?: None household members: spouse housing: house caffeine: Yes Have you lived/traveled outside US in past 30 days?: No Contact w/someone who lives/traveled outside US past 30 days?: No Exposure to someone with infectious disease in past 14 days?: No Do you have a fever (greater than 100.4 F or 38 C)?: No Have you tested positive for COVID-19?: No Exposed to someone with COVID-19 in past 14 days?: No Do you have a sore throat?: No Do you have a cough?: No Do you have any weakness?: No Do you have any diarrhea?: No Are you experiencing any unusual bleeding?: Yes Do you have any muscle aches/pain?: No Do you have any abdominal pain?: No Are you experiencing loss of taste or smell?: No Other Medical History Have you received the Flu Vaccine for this season: No Have you received the Pneumonia Vaccine: Yes ROS Obtained: Yes Systems reviewed as appropriate & no additional complaints except as documented Per HPI Physical Exam General General appearance: alert and in no apparent distress Head Head exam: atraumatic and normocephalic Eye Eye exam: Present PERRL and EOMI ENT ENT exam: Present mucous membranes moist and other (Epistaxis with slow oozing from the left side with clot present. Small blood from the right but does not appear to be active bleeding. There is small amount of blood in the posterior oropharynx.) Neck Neck exam: Present normal inspection and full ROM Chest Chest inspection: Present symmetric chest wall rise Respiratory Respiratory exam: Present normal lung sounds bilaterally; Absent respiratory distress, wheezes or stridor Cardiovascular Cardiovascular exam: Present regular rate and normal rhythm Extremities Exam Extremities exam: Present full ROM Neurological Exam Neurological exam: Present alert and oriented X3; Absent motor sensory deficit Psychiatric Psychiatric exam: Present normal affect and normal mood Skin Skin exam: Present warm and dry Medical Decision Making Medical Records Medical records reviewed: Yes I reviewed the patient's medical records. Screening: Per USPSTF and CDC recommendations, given the prevalence of disease in our region, it is our hospital?s policy to screen for HIV and viral Hepatitis for all patients aged 18 and over and those with ongoing risk factors. Corey Inquiry Pt receiving controlled substance: No Vital Signs: 04/01/25 02:43 04/01/25 02:49 04/01/25 05:00 Temperature 97.9 F 97.9 F 98.4 F Temperature Source Oral Oral Pulse Rate 75 61 Pulse Rate [Right] 64 Respiratory Rate 18 20 14 Blood Pressure 135/65 128/61 Blood Pressure [Right Arm] 135/65 Blood Pressure Mean [Right Arm] 88 Blood Pressure Source Automatic Cuff Blood Pressure Position Sitting 02 Sat by Pulse Oximetry 97 97 Oxygen Delivery Method Room Air Room Air Room Air Lab Data Lab Results 04/01/25 03:17: WBC 6.5, RBC 4.11 L, Hgb 12.7 L, Hct 37.0 L, MCV 90.0, MCH 30.9, MCHC 34.3, RDW 14.4, Plt Count 128 L, MPV 11.5 H, Neut % (Auto) 61.0, Lymph % (Auto) 21.3, Ward % (Auto) 12.3 H, Eos % (Auto) 4.6, Baso % (Auto) 0.6, Neut # (Auto) 4.0, Lymph # (Auto) 1.4, Ward # (Auto) 0.8, Eos # (Auto) 0.3, Baso # (Auto) 0.0, PT 13.3 H, INR 1.22 H, APTT 30.7 H, HCV Ab KATHARINA w/Rflx PCR Qn Reactive 04/01/25 03:17 Orders (Tests/Meds): ED MEDICATIONS Discontinued Medications Generic Name Dose Route Start Last Admin Trade Name Freq PRN Reason Stop Dose Admin Oxymetazoline HCl 0.5 ml 04/01/25 03:04 04/01/25 03:11 Oxymetazoline Nasal [place] 0.05% 15ml NS 04/01/25 03:05 0.5 ml ONCE ONE Administration Tranexamic Acid 1,000 mg 04/01/25 04:01 04/01/25 04:30 Tranexamic Acid 1,000 Mg/10 Ml Vial TP 04/01/25 04:02 1,000 mg ONCE ONE Administration ORDERS Category Date Time Status CBC w/Auto Diff [Complete Blood Count Auto Diff] Stat Lab 04/01/25 03:17 Completed HCV RNA PCR, Quant Stat Lab 04/01/25 03:17 Received HIV Combo Stat Lab 04/01/25 03:17 Received Hepatitis C Ab Qual. W/ RFX Stat Lab 04/01/25 03:17 Completed PT INR [Prothrombin Time INR] Stat Lab 04/01/25 03:17 Completed PTT [Activated Partial Thrombo Time] Stat Lab 04/01/25 03:17 Completed Medical Decision Narrative: In summary, this 69-year-old male with comorbidities described in the HPI presents to the emergency department today with nosebleed. On initial evaluation patient is hemodynamically stable, afebrile, patient has slow bleeding from the left nare, no pulsatile bleeding, no large-volume bleeding. Differential diagnosis includes but is not limited to anterior nosebleed, I considered the possibility of posterior bleed as well but appreciate no evidence of this since patient is not having brisk bleeding, significant volume loss, and is hemodynamically stable despite having multiple episodes of bleeding today. I did consider the possibility of blood loss anemia and coagulopathy. Labs were ordered. Labs reviewed by me demonstrate no leukocytosis, mild anemia with hemoglobin 12.7 is nonactionable, slight thrombocytopenia with platelets 128, nonactionable, PT/INR slightly elevated but nonactionable with INR 1.22, APTT 30.7. Patient blew his nose thoroughly and oxymetazoline was sprayed in the nose with gauze applied and nasal clamp applied. 45 minutes later I rechecked the patient and unfortunately he was still having bleeding. I recommended rapid Rhino packing but patient would really prefer to avoid this if possible so we are trying TXA soaked gauze with a clamp applied again. If this is not effective he understands we will have to use rapid Rhino. On reassessment patient is hemostatic. No further bleeding. Rapid Rhino not indicated. Patient is appropriate for discharge at this time and is comfortable with this plan. Oxymetazoline was provided to the patient and he was instructed on use of this at home if needed. I referred the patient to ENT for outpatient follow-up since he has had multiple previous nosebleeds, he may require cautery especially since he is on multiple anticoagulants. Patient was given instructions on symptomatic management, follow up instructions, and return precautions for the emergency department. Patient indicated understanding and was discharged in stable condition. Critical Care Critical Care Time Critical Care Time: No
[2025-04-01] MEDS: TRANEXAMIC ACID 1,000 MG/10 ML VIAL 1000 MG TP (04:30)
[2025-04-01 04:55] LABS: Hepatitis C Ab Qual. W/ RFX REACTIVE (Negative)
[2025-04-01 05:00] VITALS: BP 128/61; PULSE 61; RESP 14; TEMP 36.9; O2SAT 98
== END 2025-04-01 05:00 | disposition home or self-care (01) ==
PROVIDERS: Emergency Provider Emergency Medicine; PCP Family Medicine
DX: R04.0 Epistaxis (principal); I10 Essential (primary) hypertension; I48.0 Paroxysmal atrial fibrillation; E78.5 Hyperlipidemia, unspecified; Z86.79 Personal history of other diseases of the circulatory system; Z79.01 Long term (current) use of anticoagulants
CPT/HCPCS: 85025; 85610; 85730; 86803; 87389; 99283

== ENCOUNTER 2025-04-17 12:36 | Outpatient (CLI) | payer MEDICARE, OTHER, SELFPAY ==
[2025-04-17 13:28] LABS: Hematocrit 36.8 % (42.0-52.0); Hemoglobin 12.2 g/dL (14.1-18.0); Immature Granulocytes % 0.4 %; Mean Corpuscular HGB Conc 33.2 g/dL (31.8-35.4); Mean Corpuscular Hemoglobin 29.8 pg (27.0-31.2); Mean Corpuscular Volume 89.8 fl (80-94); Nucleated Red Blood Cells % 0 %; Platelet Count 126 K/mm3 (142-424); Red Blood Count 4.10 M/mm3 (4.60-6.20); Red Cell Distribution Width-SD 44.7 fL; White Blood Count 6.9 K/mm3 (4.8-10.8)
[2025-04-17 14:30] LABS: Free T4 (Free Thyroxine) 0.92 ng/dl (0.78-2.19)
[2025-04-17 14:32] LABS: Albumin Level 4.3 g/dl (3.5-5.0); Chloride 94 mmol/L (98-107); Potassium 3.5 mmoL/L (3.5-5.1); Sodium 137 mmol/L (136-145)
[2025-04-17 14:34] LABS: Blood Urea Nitrogen 78 mg/dl (9-20); Creatinine,Serum 2.30 mg/dl (0.66-1.25); Estimated Glomerular Filt Rate 28 ml/min (>60); GFR (African American) 34 ML/MIN (>60)
[2025-04-17 14:35] LABS: Alanine Aminotransferase 27 U/L (12-78); Alkaline Phosphatase 84 U/L (38-126); Aspartate Amino Transferase 53 U/L (17-59); Bilirubin,Direct 0.2 mg/dl (0.0-0.4); Bilirubin,Indirect 0.3 mg/dL (0.0-0.9); Bilirubin,Total 0.5 mg/dl (0.2-1.3); Bilirubin,Unconjugated 0.4 mg/dL (0.0-1.1); Calcium 9.2 mg/dl (8.4-10.2); Carbon Dioxide 35 mmol/L (22.0-30.0); Cholesterol 95 mg/dl (140-200); Glucose 162 mg/dl (74-100); Total Protein,Serum 6.8 g/dl (6.3-8.2); Triglycerides 229 mg/dl (30-150)
[2025-04-17 14:36] LABS: Anion Gap 11.5 mEq/L (5-15); HDL Cholesterol 46 mg/dl (40-60); Magnesium 2.2 mg/dl (1.6-2.3)
[2025-04-17 15:06] LABS: Thyroid Stimulating Hormone 0.08 uIU/mL (0.465-4.68)
== END 2025-04-17 23:59 | disposition home or self-care (01) ==
LOC: LAB 12:36
PROVIDERS: PCP Family Medicine; Visit Provider Nurse Practitioner
DX: I25.10 Atherosclerotic heart disease of native coronary artery without angina pectoris (principal); I10 Essential (primary) hypertension
CPT/HCPCS: 36415; 80048; 80061; 80076; 83735; 84439; 84443; 85025

== ENCOUNTER 2025-05-16 12:38 | Outpatient (CLI) | payer MEDICARE, OTHER, SELFPAY ==
--- OUTSIDE RECORDS SUMMARY | 2024-01-18 10:45 | XMS_ITS ---
Author Organization [facility] Address [address] [facility] 36 [facility] [address] [place] [id number] Care Team Providers Care Glass Cutter Name Role Phone Racquel Greg Desmond Unavailable [phone] Natasha Bermudez [phone] REASON FOR VISIT 2 month f/u Encounters Encounter Location Date Provider Diagnosis [facility] [address] [facility] [address] [place] [id number] 01/18/2024 Natasha Bermudez Plan Of Treatment Next Appt Details Provider Name:Natasha Owens er, 08/24/2025 02:15:00 PM, [address] [facility] 36 [facility], [address], [place], [id number], Progress Notes * PRERNA STOCKDOB:1955 ( 69 yo M)Acc No.[id number]:01/18/2024 Progress Notes Patient: PRERNA KNOX Provider: Natasha Bermudez M.D. :1955 A ge:68 Y S ex:Male Date:01/18/2024 Address:[address], [place] Subjective: * Chief Complaints: * 1 . 2 month f/u. * Medical History: Objective: * Vitals: Assessment: Plan: * Treatment: * Images: Billing Information: * Visit Code: * Procedure Codes: * Electronic signature of Natasha Bermudez MD on 05/16/2025 at 12:41 PM EST Sign off status: Pending * Provider: Natasha Bermudez M.D. Date: 0 01/18/2024 Generated for Rogelio mcghee/Behzad/Kris on: 1 07/17/2024 12:41 PM EST
--- OUTSIDE RECORDS SUMMARY | 2024-04-18 07:40 | XMS_ITS ---
Author Organization [facility] Address [address] [facility] [address] [place] [id number] Care Team Providers Care Coating Mixer Tender Name Role Phone Greg Clement Unavailable [phone] Natasha Bermudez Unavailable [phone] Results Component Value Reference Range Notes P-Basic Metabolic Panel (BMP ) Reviewed date:04/22/2024 02:39:07 PM Interpretation:K+ 3.4, gluc 171, bun 48, Cr 2.01, gfr 35, 04/25 f/u appt Performing Lab: Notes/Report: Test performed by [facility] [address] [place] [address] , [address], [place] [address] Justice Amador MD, Bread Stacker CLIA: [id number] Sodium 142 135-145 mmol/L Potassium 3.4 3.5-5.3 mmol/L Chloride 102 97-108 mmol/L CO2 30 22-32 mmol/L Glucose 171 65-99 mg/dL BUN 48 8-23 mg/dL Creatinine 2.01 0.70-1.30 mg/dL Calcium 9.2 8.6-10.4 mg/dL eGFR by Creatinine 35 >59 mL/min/1.73m2 REASON FOR VISIT blood work Medications Medication SIG (Take, Route, Frequency, Duration) Notes Start Date End Date Status Pregabalin 150 MG 1 cap(s) orally 3 ti mes a day; Duration: 60 day(s) 04/01/2024 Active Tamsulosin HCl 0.4 MG TAKE 1 CAPSULE ONE TIME DAILY; Duration: 90 days Active Rosuvastatin Calcium 20 MG TAKE 1 TABLET EVERY DAY; Duration: 90 days Active Losartan Potassium 25 MG 1 tablet Orally Once a day; Duration: 30 day(s) Active Xarelto 15 MG 1 tab(s) orally once a day (in the evening); Duration: 30 day(s) Active glyBURIDE 5 MG TAKE 2 TABLETS ONE T DMITRIY DAILY Active Clopidogrel Bisulfate 75 MG 1 tablet Ora lly Once a day Active Jardiance 25 MG 1 tablet Orally Once a day; Duration: 30 day(s) 12/31/2023 Active Potassium Chloride ER 10 MEQ 2 Orally Once a day; Duration: 60 days 11/18/2023 Active Donepezil HCl 10 MG 1 tablet at bedtime Orally At Bed Time; Duration: 90 days 03/31/2024 Active Ondansetron HCl 4 MG 1 tab(s) orally geovanni ry 8 hours Active Fluticasone Furoate 50 MCG/ACT 1 puff(s) inhaled 2 times a day; Duration: 30 day(s) Active Align 4 MG 1 cap(s) orally once a day; Duration: 28 day(s) 06/04/2022 Active FIBERCON TABLETS 2 P.O. DAILY 06/04/2022 Active metOLazone 5 MG 1 tablet Orally Mon, Wed, Fri; Duration: 90 days Active Fluticasone Furoate-Vilanterol 200-25 MCG/ACT 1 puff(s) inhaled once a day; Duration: 30 day(s) Active Encounters Encounter Location Date Provider Diagnosis [facility] [address] [facility] 36 [facility] [address] [place] [id number] 04/18/2024 Natasha Bermudez Hypokalemia E87.6 Assessments Encounter Date Diagnosis (ICD Code) Assessment Notes Treatment Notes Treatment Clinical Notes Section Notes 04/18/2024 Hypokalemia (ICD-10 - E87.6) Plan Of Treatment Next Appt Details Provider Name:Natasha Owens er, 08/24/2025 02:15:00 PM, [address] [facility] 36 [facility], [address], [place], [id number], Progress Notes * PRERNA STOCKDOB:1955 ( 69 yo M)Acc No.[id number]:04/18/2024 Patient: Brannon DE LOS SANTOSPRERNA Provider: Natasha Bermudez M.D. :1955 A ge:68 Y S ex:Male Date:04/18/2024 Address:[address] [place] [address] [facility] Subjective: * Chief Complaints: * 1 . Blood work. * Medical History: * Medications: T aking Losartan Potassium 25 MG Tablet 1 tablet Orally Once a day , Taking Xarelto 15 MG Tablet 1 tab(s) orally once a day (in the evening) , Taking Fluticasone Furoate-Vilanterol 200-25 MCG/ACT Aerosol Powder Breath Activated 1 puff(s) inhaled once a day , Taking Ondansetron HCl 4 MG Tablet 1 tab(s) orally every 8 hours , Taking Fluticasone Furoate 50 MCG/ACT Aerosol Powder Breath Activated 1 puff(s) inhaled 2 times a day , Taking Align 4 MG Capsule 1 cap(s) orally once a day , Taking FIBERCON TABLETS 2 P.O. DAILY , Taking metOLazone 5 MG Tablet 1 tablet Orally Thu, Thu, Thu , Taking glyBURIDE 5 MG Tablet TAKE 2 TABLETS ONE TIME DAILY , Taking Clopidogrel Bisulfate 75 MG Tablet 1 tablet Orally Once a day , Taking Jardiance 25 MG Tablet 1 tablet Orally Once a day , Taking Potassium Chloride ER 10 MEQ Tablet Extended Release 2 Orally Once a day , Taking Donepezil HCl 10 MG Tablet 1 tablet at bedtime Orally At Bed Time , Taking Pregabalin 150 MG Capsule 1 cap(s) orally 3 times a day , Taking Tamsulosin HCl 0.4 MG Capsule TAKE 1 CAPSULE ONE TIME DAILY , Taking Rosuvastatin Calcium 20 MG Tablet TAKE 1 TABLET EVERY DAY , Medication List reviewed and reconciled with the patient Objective: * Vitals: Assessment: * Assessment: 1. H ypokalemia - E87.6 (Primary) Plan: * Treatment: Value Reference Range B UN 48 H 8-23 - mg/dL * C alcium 9.2 8.6-10.4 - mg/dL * C hloride 102 97-108 - mmol/L * C O2 30 22-32 - mmol/L * C reatinine 2.01 H 0.70-1.30 - mg/dL * G lucose 171 H 65-99 - mg/dL * P otassium 3.4 L 3.5-5.3 - mmol/L * S odium 142 135-145 - mmol/L * e GFR by Creatinine 35 L >59 - mL/min/1.73m2 * Ally Jacob 04/22/2024 2:3 8:55 PM > see telephone encounter * Images: Billing Information: * Visit Code: * Procedure Codes: * Electronic signature of Natasha Bermudez MD on 05/16/2025 at 12:42 PM EST Sign off status: Pending * Provider: Natasha Bermudez M.D. Date: 06/18/2023 Generated for Rogelio mcghee/Behzad/Mistyitting on: 1 07/17/2024 12:42 PM EST
--- OUTSIDE RECORDS SUMMARY | 2024-04-25 09:00 | XMS_ITS ---
Author Organization [facility] [address] [facility] [address] [place] [id number] Care Team Providers Care Dirt Contractor Name Role Phone Greg Clement Unavailable [phone] Natasha Bermudez Unavailable [phone] Allergies No Known Allergies REASON FOR VISIT 4 weeks Medications Medication SIG (Take, Route, Frequency, Duration) Notes Start Date End Date Status Fluticasone Furoate-Vilanterol 200-25 MCG/ACT 1 puff(s) inhaled once a day; Duration: 30 day(s) Active Xarelto 15 MG 1 tab(s) orally once a day (in the evening); Duration: 30 day(s) Active Losartan Potassium 25 MG 1 tablet Orally Once a day; Duration: 30 day(s) Active Potassium Chloride ER 10 MEQ 2 am, one pm Orally Two times a day; Duration: 60 days 11/18/2023 Active Ondansetron HCl 4 MG 1 tab(s) orally geovanni ry 8 hours Active Tamsulosin HCl 0.4 MG TAKE 1 CAPSULE ONE TIME DAILY; Duration: 90 days Active Pregabalin 150 MG 1 cap(s) orally 3 ti mes a day; Duration: 60 day(s) 04/01/2024 Active Donepezil HCl 10 MG 1 tablet at bedtime Orally At Bed Time; Duration: 90 days 03/31/2024 Active metOLazone 5 MG 1 tablet Orally Mon, Wed, Fri; Duration: 90 days Active Rosuvastatin Calcium 20 MG TAKE 1 TABLET EVERY DAY; Duration: 90 days Active Jardiance 25 MG 1 tablet Orally Once a day; Duration: 30 day(s) 12/31/2023 Active Clopidogrel Bisulfate 75 MG 1 tablet Ora lly Once a day Active glyBURIDE 5 MG TAKE 2 TABLETS ONE T DMITRIY DAILY Active FIBERCON TABLETS 2 P.O. DAILY 06/04/2022 Active Align 4 MG 1 cap(s) orally once a day; Duration: 28 day(s) 06/04/2022 Active Fluticasone Furoate 50 MCG/ACT 1 puff(s) inhaled 2 times a day; Duration: 30 day(s) Active Problems Problem Type SNOMED Code ICD Code Onset Dates Problem Status W/U Status Risk Notes Problem Hypokalemia (99702381) Hypokalemia (E87.6) Active confirmed Vital Signs Weight 180.2 lbs 04/25/2024 Blood pressure systolic 160 mm Hg 04/25/20 24 Blood pressure diastolic 70 mm Hg 024 Heart Rate 51 /min 04/25/2024 Height 70.5 in 04/25/2024 BMI 25.49 kg/m2 04/25/2024 Encounters Encounter Location Date Provider Diagnosis [facility] [address] [facility] 36 [facility] [address] [place], [place] [id number] 04/25/2024 Natasha Bermudez Essential (primary) hypertension I10 ; Stage 3b chronic kidney disease (CKD) N18.32 ; Hypokalemia E87.6 and Right lateral epicondylitis M77.11 Assessments Encounter Date Diagnosis (ICD Code) Assessment Notes Treatment Notes Treatment Clinical Notes Section Notes 04/25/2024 Essential (primary) hypertension (ICD-10 - I10) 04/25/2024 Stage 3b chronic kidney disease (CKD) (ICD-10 - N18.32) 04/25/2024 Hypokalemia (ICD-10 - E87.6) 04/25/2024 Right lateral epicondylitis (ICD-10 - M77.11) Tennis elbow strap recommended Plan Of Treatment Medication Medication Name Sig Start Date Stop Date Notes Potassium Chloride ER 10 MEQ 2 am, one p m Orally Two times a day; Duration: 60 days 11/18/2023 Treatment Notes Assessment Notes Right lateral epicondylitis Tennis elbow strap recommended Next Appt Details Follow Up: 3 Months, Reason: Provider Name:Natasha Owens er, 08/24/2025 02:15:00 PM, [address] [place] [facility] 36 [facility], [address], [place], [place], [id number], Progress Notes * PRERNA STOCKDOB:1955 ( 69 yo M)Acc No.[id number]:04/25/2024 Progress Notes Patient: PRERNA KNOX Provider: Natasha Bermudez M.D. :1955 A ge:68 Y S ex:Male Date:04/25/2024 Address:[address] [place] [address], [facility] Subjective: * Chief Complaints: * 1 . 4 weeks. * HPI: E ndocrinology: Pt is here for a follow up on Hypokalemia and renal insufficiency. see recent labs received 04/19/2024: K+ 3.4, gluc 171, bun 48, Cr 2.01, gfr 35. Pt states he doing good and denies any new concerns. C onstitutional: 03/18/[address] Charlie Early, [facility]. Added Losartan 25mg daily, RTO 4 months. * ROS: D ERMATOLOGY: no R janis. n o H josh. G ASTROENTEROLOGY: no N ausea. n o V omiting. n o D iarrhea.? U ROLOGY: no D ifficulty urinating. n o B lood in urine. * Medical History: A sthma, Hypertension, Hyperlipidemia, Diabetes, EF=55%, 12/20/2021, Flu shot 2022, diabetic eye exam October 2022, Chronic kidney disease, stage 3b as of 2023. * Surgical History: B rain Aneurysm 2005, 2006, Stent to mid LAD, first diagonal, stents to left common iliac and external iliac. Normal EF. 07/15/2022, colonoscopy with polyps 04/22/2022. * Hospitalization/Major Diagno stic Procedure: P ancreatitis [facility] 2020, C Diff- [facility] 2021, Colonoscopy, Dr. Sekou Shoemaker, polyps 04/02/2022. * Family History: F ather: , diagnosed with Diabetes, Hypertension. M other: , diagnosed with Hypertension, Heart Disease, Cancer. 3 sister(s) . . 2 Sisters- diabetes. * Social History: C URRENT TOBACCO USE: No . C affeine: yes, frequency: coffee 2 cups per day. Alcohol: yes. Past smoking status: previous history, 2 ppd x >20 yrs. Recreational drug use: no. * Medications: T aking Losartan Potassium 25 [...] FIBERCON TABLETS 2 P.O. DAILY , Taking glyBURIDE 5 MG Tablet TAKE [...] Tablet TAKE 1 TABLET EVERY DAY , Taking metOLazone 5 MG Tablet 1 tablet Orally Mon, Wed, Fri , Medication List reviewed and reconciled with the patient * Allergies: N .K.D.A. Objective: * Vitals: W t:180.2, Temp:98.3, BP:160/70, HR:51, Nurse:SADIQ, Ht: 70.5, BMI:25.49. * Examination: G eneral Examination: General Appearance: N AD. H EENT: u nremarkable.?Oral cavity: n o lesions, mucosa moist and WNL, no erythema. N luigi: s upple, no lymphadenopathy, carotid bruit, left. C hest: n ormal shape and expansion. H eart: s inus bradycardia, aortic murmur. L ungs: c lear to auscultation. N eurologic Exam: I ntact, USES cane,. S kin: n ormal, no rash. P eripheral pulses: n ormal . E xtremities: n o leg edema . Assessment: * Assessment: 1. E ssential (primary) hypertension - I10 (Primary) 2 . S tage 3b chronic kidney disease (CKD) - N18.32 3 . H ypokalemia - E87.6 4 . R ight lateral epicondylitis - M77.11 Plan: * Treatment: 2. R ight lateral epicondylitis Notes: Tennis elbow strap recommended * Procedure Codes: G 2211 Complex e/m visit add on * Follow Up: 3 Months * Images: Billing Information: * Visit Code: 58640 Office Visit, Est Pt., Level 3. * Procedure Codes: G2211 Complex e/m visit add on. * Electronic signature of Natasha Bermudez MD on 05/16/2025 at 12:42 PM EST Sign off status: Pending * Provider: Natasha Bermudez M.D. Date: 06/25/2023 Generated for Rogelio mcghee/Behzad/eTransmitting on: 07/17/2024 12:42 PM EST History and Physical Notes * Examination Category Sub-Category Detail Notes Category Not es General Examination HEENT: unremarkable Heart: sinus bradycardia, a ortic murmur Lungs: clear to auscultatio n Extremities: no leg edema General Appearance: NAD Skin: normal, no rash Neurologic Exam: Intact, USES cane, Neck: supple, no lymphaden opathy, carotid bruit, left Oral cavity: no lesions, mucosa m oist and WNL, no erythema Peripheral pulses: normal Chest: normal shape and exp ansion
--- OUTSIDE RECORDS SUMMARY | 2024-07-28 09:30 | XMS_ITS ---
Author Organization [facility] Address [address] [facility] [address] [place] [id number] Care Team Providers Care Senior Geotechnical Engineer Name Role Phone RacquelGreg Unavailable [phone] Natasha Bermudez Unavailable [phone] Allergies No Known Allergies Results Component Value Reference Range Notes Urinalysis - Inhouse Reviewed date:07/29/2024 09:17:23 AM Interpretation: Performing Lab: Notes/Report: Color/Clarity Neg Leuk Neg Nitrite 3.2 Urobili 2+ Protein 5.5 pH Trace intact Blood 1.010 Sp. Gr. Neg Ketone Neg Bili 2+ Glycohemoglobin A1c (in hous e) Reviewed date:07/29/2024 09:17:30 AM Interpretation: Performing Lab: Notes/Report: glycohemoglobin 6.9% 5 - 6.5 % P-Basic Metabolic Panel (BMP ) Reviewed date:08/01/2024 12:18:57 PM Interpretation:gluc 280, bun 49, Cr 2.03, gfr 35 Performing Lab: Notes/Report: Test performed by [employer], [facility] , [address], [place] [address] Justice Amador MD, Guzzler Builder CLIA: [id number] Sodium 138 135-145 mmol/L Potassium 3.6 3.5-5.3 mmol/L Chloride 97 97-108 mmol/L CO2 29 22-32 mmol/L Glucose 280 65-99 mg/dL BUN 49 8-23 mg/dL Creatinine 2.03 0.70-1.30 mg/dL Calcium 9.5 8.6-10.4 mg/dL eGFR by Creatinine 35 >59 mL/min/1.73m2 REASON FOR VISIT 3 Month Follow up Medications Medication SIG (Take, Route, Frequency, Duration) Notes Start Date End Date Status Jardiance 25 MG 1 tablet Orally Once a day; Duration: 90 days 12/31/2023 Active glyBURIDE 5 MG 2 tablets Orally Onc e a day; Duration: 90 days Active Losartan Potassium 25 MG 1 tablet Orally Once a day; Duration: 30 day(s) Active metOLazone 5 MG 1 tablet Orally Mon, Wed, Fri; Duration: 90 days Active Potassium Chloride ER 10 MEQ 2 am, one pm Orally Two times a day; Duration: 60 days 11/18/2023 Active Donepezil HCl 10 MG 1 tablet at bedtime Orally At Bed Time; Duration: 90 days 03/31/2024 Active Ondansetron HCl 4 MG 1 tab(s) orally geovanni ry 8 hours Active Pregabalin 150 MG 1 cap(s) orally 3 ti mes a day; Duration: 60 day(s) 04/01/2024 Active Tamsulosin HCl 0.4 MG TAKE 1 CAPSULE ONE TIME DAILY; Duration: 90 days Active Rosuvastatin Calcium 20 MG TAKE 1 TABLET EVERY DAY; Duration: 90 days Active Fluticasone Furoate 50 MCG/ACT 1 puff(s) inhaled 2 times a day; Duration: 30 day(s) Active Align 4 MG 1 cap(s) orally once a day; Duration: 28 day(s) 06/04/2022 Active FIBERCON TABLETS 2 P.O. DAILY 06/04/2022 Active Clopidogrel Bisulfate 75 MG 1 tablet Ora lly Once a day Active Fluticasone Furoate-Vilanterol 200-25 MCG/ACT 1 puff(s) inhaled once a day; Duration: 30 day(s) Active Xarelto 15 MG 1 tab(s) orally once a day (in the evening); Duration: 30 day(s) Active Vital Signs Weight 182 lbs 07/28/2024 Blood pressure systolic 152 mm Hg 07/28/19 25 Blood pressure diastolic 70 mm Hg 025 Heart Rate 62 /min 07/28/2024 Height 70.5 in 07/28/2024 BMI 25.74 kg/m2 07/28/2024 Encounters Encounter Location Date Provider Diagnosis [facility] [address] [facility] 36 [facility] [address] [place] [id number] 07/28/2024 Natasha Bermudez Type 2 diabetes mellitus without complication, unspecified whether assisted insulin use E11.9 ; Essential (primary) hypertension I10 ; Renal failure N19 ; Stage 3b chronic kidney disease (CKD) N18.32 and Nausea R11.0 Assessments Encounter Date Diagnosis (ICD Code) Assessment Notes Treatment Notes Treatment Clinical Notes Section Notes 07/28/2024 Type 2 diabetes mellitus without complication, unspecified whether assisted insulin use (ICD-10 - E11.9) 07/28/2024 Essential (primary) hypertension (ICD-10 - I10) 07/28/2024 Renal failure (ICD-10 - N19) 07/28/2024 Stage 3b chronic kidney disease (CKD) (ICD-10 - N18.32) 07/28/2024 Nausea (ICD-10 - R11.0) Plan Of Treatment Medication Medication Name Sig Start Date Stop Date Notes Ondansetron HCl 4 MG 1 tab(s) orally every 8 hours Next Appt Details Follow Up: 4 Months, Reason: Provider Name:Natasha Owens er, 08/24/2025 02:15:00 PM, [address] [facility] 36 [facility], [address], [place], [id number], Progress Notes * PRERNA STOCKDOB:1955 ( 69 yo M)Acc No.[id number]:07/28/2024 Progress Notes Patient: PRERNA KNOX Provider: Natasha Bermudez M.D. :1955 A ge:68 Y S ex:Male Date:07/28/2024 Address:[address] [place] [address], [facility] Subjective: * Chief Complaints: * 1 . 3 Month Follow up. * HPI: C ardiology: The patient is here for a check up on Hypertension and Renal insufficiency. Pt states he is having pain with urination. Pt states about a month ago he passed a blood clot when he urinated. Pt also c/o pain in his neck that is radiating into the left shoulder. Pt is not fasting. Denies : Chest Pain. D enies : Short of Breath. D enies : Dizziness. D enies : Palpitations. M juan c Reproductive: Has nephrology follow-up next Thursday, Dr. de la cruz. N luigi: c/o pain l eft side of neck. * ROS: D ERMATOLOGY: no R janis. [...] iliac. Normal EF. 07/15/2022, colonoscopy with polyps 04/22/2022, Sinus surgery with removal of pedunculated papillomax, Dr. Luis 04/01/2023. * Hospitalization/Major Diagno stic Procedure: P ancreatitis [facility] 2020, C Diff- [facility] 2021, Colonoscopy, Dr. Sekou Shoemaker, polyps [...] FIBERCON TABLETS 2 P.O. DAILY , Taking Clopidogrel Bisulfate 75 MG Tablet 1 tablet Orally Once a day , Taking Donepezil [...] 5 MG Tablet 1 tablet Orally Mon, Thu, Thu , Taking Potassium Chloride ER 10 MEQ Tablet Extended Release 2 am, one pm Orally Two times a day , Taking Jardiance 25 MG Tablet 1 tablet Orally Once a day , Taking glyBURIDE 5 MG Tablet 2 tablets Orally Once a day , Medication List reviewed and reconciled with the patient * Allergies: N .K.D.A. Objective: * Vitals: W t:182, Temp:98.0, BP:152/70, HR:62, Nurse:SADIQ, Ht: 70.5, Repeat BP:140/62, BMI:25.74. * Examination: G eneral Examination: General Appearance: [...] leg edema . Assessment: * Assessment: 1. T ype 2 diabetes mellitus without complication, unspecified whether assisted insulin use - E11.9 (Primary) 2 . E ssential (primary) hypertension - I10 3 .?Renal failure - N19 4 . S tage 3b chronic kidney disease (CKD) - N18.32 5. N ausea - R11.0 Plan: * Treatment: Value Reference Range g lycohemoglobin 6.9% 5 - 6.5 % * S[address] 07/28/2024 5:1 9:08 PM > , Provider reviewed results while patient in office. 2.?Stage 3b chronic kidney disease (CKD)?LAB: Urinalysis - Inhouse (Collection Date & Time - 07/28/2024)* Value Reference Range C olor/Clarity Neg * L euk Neg * N itrite 3.2 * U robili 2+ * P rotein 5.5 * p H Trace intact * B lood 1.010 * S p. Gr. Neg * K etone Neg * B nicholas 2+ * Saba [address] L 07/28/2024 5:1 6:37 PM > ?LAB: P-Basic Metabolic Panel (BMP) (Collection Date & Time - 07/29/2024 09:13 AM)?gluc 280, bun 49, Cr 2.03, gfr 35* Value Reference Range B UN 49 H 8-23 - mg/dL * C alcium 9.5 8.6-10.4 - mg/dL * C hloride 97 97-108 - mmol/L * C O2 29 22-32 - mmol/L * C reatinine 2.03 H 0.70-1.30 - mg/dL * G lucose 280 H 65-99 - mg/dL * P otassium 3.6 3.5-5.3 - mmol/L * S odium 138 135-145 - mmol/L * e GFR by Creatinine 35 L >59 - mL/min/1.73m2 * Onelia Calix 08/01/2024 12:18: 54 PM >See phone encounter 3.?Nausea? Refill Ondansetron HCl Tablet, 4 MG, 1 tab(s), orally, every 8 hours, 30, Refills 2.?? * Procedure Codes: G 2211 Complex e/[place], [address] Urinalysis, no micro, 66483 CAPILLARY BLOOD DRAW, 64981 GLYCATED HEMOGLOBIN TEST, Modifiers: QW , G8753 MOST RECENT SYSTOLIC BP >= 140MM HG, G8754 MOST RECENT DIASTOLIC BP < 90MM HG, 3044F HG A1C LEVEL LT 7.0% * Follow Up: 4 Months * Images: Billing Information: * Visit Code: 49080 Office Visit, Est Pt., Level 4. * Procedure Codes: G2211 Complex e/[place]. [address] Urinalysis, no micro. 48008 CAPILLARY BLOOD DRAW. 60080 GLYCATED HEMOGLOBIN TEST. Modifiers: QW G8753 MOST RECENT SYSTOLIC BP >= 140MM HG. G8754 MOST RECENT DIASTOLIC BP < 90MM HG. 3044F HG A1C LEVEL LT 7.0%. * Electronic signature of Natasha Bermudez MD on 05/16/2025 at 12:43 PM EST Sign off status: Pending * Provider: Natasha Bermudez M.D. Date: 0 07/28/2024 Generated for Rogelio mcghee/Behzad/eTransmitting on: 1 07/17/2024 12:43 PM EST History and Physical Notes * HPI (History of Present Illness) Category Sub-Category Detail Notes Category Not es Cardiology Short of Breath Chest Pain Palpitations Dizziness Neck pain left side of neck Examination Category Sub-Category Detail Notes Category Not [...]
--- OUTSIDE RECORDS SUMMARY | 2024-10-17 09:00 | XMS_ITS ---
[facility] Address [address] [facility] [address] [place] [id number] Care Team Providers Care Train Brakeman Name Role Phone RacquelGreg Unavailable [phone] Mayur Vigil Unavailable [phone] Allergies No Known Allergies Results Component Value Reference Range Notes CBC Fingerstick (in house) Reviewed date:10/18/2024 12:35:04 PM Interpretation: Performing Lab: Notes/Report: wbc 6.0 3.5 - 10 lym 12.6 15 - 50 mid 3.5 2 - 15 gran 83.9 35 - 80 rbc 4.27 3.5 - 5.5 hgb 12.3 11.5 - 16.5 hct 36.8 35 - 55 mcv 86.1 75 - 100 mch 28.9 25 - 35 mchc 33.5 31 - 38 plat 146 100 - 400 REASON FOR VISIT SOA Medications Medication SIG (Take, Route, Frequency, Duration) Notes Start Date End Date Status metOLazone 5 MG 1 tablet Orally Mon, Wed, Fri; Duration: 90 days Active glyBURIDE 5 MG TAKE 2 TABLETS ONE T DMITRIY DAILY; Duration: 90 Active Jardiance 25 MG TAKE 1 TABLET ONE TI ME DAILY; Duration: 90 Active Zithromax Z-Jim 250 MG as directed Orall y once daily; Duration: 5 days 10/17/2024 Active Ipratropium-Albuterol 0.5-2.5 (3) MG/3ML 3 mL as needed Inhalation every 6 hrs 10/17/2024 Active Rosuvastatin Calcium 20 MG TAKE 1 TABLET EVERY DAY; Duration: 90 Active Donepezil HCl 10 MG TAKE 1 TABLET AT BED TIME; Duration: 90 Active Potassium Chloride ER 10 MEQ TAKE 2 TABLETS ONE TIME DAILY; Duration: 90 Active Ondansetron HCl 4 MG 1 tab(s) orally geovanni ry 8 hours Active Tamsulosin HCl 0.4 MG TAKE 1 CAPSULE ONE TIME DAILY; Duration: 90 days Active Fluticasone Furoate 50 MCG/ACT 1 puff(s) inhaled 2 times a day; Duration: 30 day(s) Active FIBERCON TABLETS 2 P.O. DAILY 06/04/2022 Active Align 4 MG 1 cap(s) orally once a day; Duration: 28 day(s) 06/04/2022 Active Pregabalin 150 MG 1 cap(s) orally 3 ti mes a day; Duration: 60 day(s) 04/01/2024 Active Clopidogrel Bisulfate 75 MG 1 tablet Ora lly Once a day Active Losartan Potassium 25 MG 1 tablet Orally Once a day; Duration: 30 day(s) Active Xarelto 15 MG 1 tab(s) orally once a day (in the evening); Duration: 30 day(s) Active Fluticasone Furoate-Vilanterol 200-25 MCG/ACT 1 puff(s) inhaled once a day; Duration: 30 day(s) Active Problems Problem Type SNOMED Code ICD Code Onset Dates Problem Status W/U Status Risk Notes Problem COPD - Chronic obstructive pulmonary disease (05447833) Chronic obstructive pulmonary disease, unspecified COPD type (J44.9) Active confirmed Problem Diabetic renal disease (347408271) Type 2 diabetes mellitus with diabetic chronic kidney disease, unspecified CKD stage, unspecified whether terminal supervisor insulin use (E11.22) Active confirmed Problem Dementia (84411197) Dementia without behavioral disturbance (F03.90) Active confirmed Problem Chronic kidney disease stage 4 (077303002) Chronic kidney disease, stage 4 (severe) (N18.4) Active confirmed Vital Signs Weight 182.4 lbs 10/17/2024 Blood pressure systolic 130 mm Hg 10/18/19 25 Blood pressure diastolic 70 mm Hg 025 Heart Rate 60 /min 10/17/2024 Height 70.5 in 10/17/2024 BMI 25.8 kg/m2 10/17/2024 Encounters Encounter Location Date Provider Diagnosis [facility] [facility] [address] [place] [id number] 10/17/2024 Mayur Vigil Acute cough R05.1 ; Chronic obstructive pulmonary disease, unspecified COPD type J44.9 ; Hepatic cirrhosis, unspecified hepatic cirrhosis type, unspecified whether ascites present K74.60 ; Claudication I73.9 ; Type 2 diabetes mellitus with diabetic chronic kidney disease, unspecified CKD stage, unspecified whether terminal supervisor insulin use E11.22 ; Dementia without behavioral disturbance F03.90 ; Chronic kidney disease, stage 4 (severe) N18.4 and BMI 25.0-25.9,adult Z68.25 Assessments Encounter Date Diagnosis (ICD Code) Assessment Notes Treatment Notes Treatment Clinical Notes Section Notes 10/17/2024 Acute cough (ICD-10 - R05.1) 10/17/2024 Chronic obstructive pulmonary disease, unspecified COPD type (ICD-10 - J44.9) 10/17/2024 Hepatic cirrhosis, unspecified hepatic cirrhosis type, unspecified whether ascites present (ICD-10 - K74.60) 10/17/2024 Claudication (ICD-10 - I73.9) 10/17/2024 Type 2 diabetes mellitus with diabetic chronic kidney disease, unspecified CKD stage, unspecified whether fdc insulin use (ICD-10 - E11.22) 10/17/2024 Dementia without behavioral disturbance (ICD-10 - F03.90) 10/17/2024 Chronic kidney disease, stage 4 (severe) (ICD-10 - N18.4) 10/17/2024 BMI 25.0-25.9,adult (ICD-10 - Z68.25) Plan Of Treatment Medication Medication Name Sig Start Date Stop Date Notes Zithromax Z-Jim 250 MG as directed Orall y once daily; Duration: 5 days 10/17/2024 Ipratropium-Albuterol 0.5-2. 5 (3) MG/3ML 3 mL as needed Inhalation every 6 hrs 10/17/2024 Next Appt Details Follow Up: via phone to repo rt progress, Reason: Provider Name:Natasha arevlao, 08/24/2025 02:15:00 PM, [address], [address], [place], [phone], Progress Notes * LLOYD STOCK:1955 ( 69 yo M)Acc No.[id number]:10/17/2024 Progress Notes Patient: PRERNA KNOX Provider: Reyna Vigil M.D. :1955 A ge:68 Y S ex:Male Date:10/17/2024 Address:[address] [place] [address], [place] [address] Subjective: * Chief Complaints: * 1 . SOA. * HPI: C ardiology: 68 year old male presents with c/o Short of Breath P t sts he is here today with c/o SOB. Pt sts for the past week he has not been able to breath well, but sts that today he has been breathing well. Pt sts it has been worse when he is up and moving around, but sts when it hits him it does not matter what he is doing. * ROS: D ERMATOLOGY: no R janis. n o H josh. G ASTROENTEROLOGY: no N ausea. n o V omiting. n o D iarrhea.? U ROLOGY: no D ifficulty urinating. n o B lood in urine. * Medical History: A sthma, Hypertension, Hyperlipidemia, Diabetes, EF=55%, 12/20/2021, Flu shot 2022, diabetic eye exam October 2022, Chronic kidney disease, stage 3b as of 2023, COPD. * Surgical History: B rain Aneurysm 2005, 2006, Stent to mid LAD, first diagonal, stents to left common iliac and external iliac. Normal EF. 07/15/2022, colonoscopy with polyps 04/22/2022, Sinus surgery with removal of pedunculated papillomax, Dr. Luis 04/01/2023. * Hospitalization/Major Diagno stic Procedure: P ancreatitis [facility] 2020, C Diff- [facility] 2021, Colonoscopy, Dr. Sekou Shoemaker, polyps [...] puff(s) inhaled once a day , Taking Fluticasone Furoate 50 MCG/ACT Aerosol Powder Breath Activated 1 puff(s) inhaled 2 times a day , Taking Align 4 MG Capsule 1 cap(s) orally once a day , Taking FIBERCON TABLETS 2 P.O. DAILY , Taking Clopidogrel Bisulfate 75 MG Tablet 1 tablet Orally Once a day , Taking Pregabalin 150 MG Capsule 1 cap(s) orally 3 times a day , Taking Tamsulosin HCl 0.4 MG Capsule TAKE 1 CAPSULE ONE TIME DAILY , Taking Ondansetron HCl 4 MG Tablet 1 tab(s) orally every 8 hours , Taking Donepezil HCl 10 MG Tablet TAKE 1 TABLET AT BEDTIME , Taking Rosuvastatin Calcium 20 MG Tablet TAKE 1 TABLET EVERY DAY , Taking Potassium Chloride ER 10 MEQ Tablet Extended Release TAKE 2 TABLETS ONE TIME DAILY , Taking metOLazone 5 MG Tablet 1 tablet Orally Mon, Wed, Fri , Taking Jardiance 25 MG Tablet TAKE 1 TABLET ONE TIME DAILY , Taking glyBURIDE 5 MG Tablet TAKE 2 TABLETS ONE TIME DAILY , Medication List reviewed and reconciled with the patient * Allergies: N .K.D.A. Objective: * Vitals: W t: 182.4, Temp: 98.4, BP: 130/70, HR: 60, O2 Sat: 95% on RA, Nurse: william, Ht: 70.5, BMI:25.8. * Examination: E NT/Respiratory: General Appearance: N AD, using a cane to assist with ambulation. O ral cavity : e rythema without exudate on pharynx. H eart : R RR. L ungs: b ilateral coarse expiratory wheezes , rhonchi. Assessment: * Assessment: 1. A cute cough - R05.1 (Primary) 2 . C hronic obstructive pulmonary disease, unspecified COPD type - J44.9 3 . H epatic cirrhosis, unspecified hepatic cirrhosis type, unspecified whether ascites present - K74.60 4 . C laudication - I73.9 5 . T ype 2 diabetes mellitus with diabetic chronic kidney disease, unspecified CKD stage, unspecified whether fdc insulin use - E11.22 6 . D ementia without behavioral disturbance - F03.90 7 . C hronic kidney disease, stage 4 (severe) - N18.4 8 . B HI 25.0-25.9,adult - Z68.25 Plan: * Treatment: Value Reference Range w bc 6.0 3.5 - 10 * l ym 12.6 15 - 50 * m id 3.5 2 - 15 * g ran 83.9 35 - 80 * r bc 4.27 3.5 - 5.5 * h gb 12.3 11.5 - 16.5 * h ct 36.8 35 - 55 * m cv 86.1 75 - 100 * m ch 28.9 25 - 35 * m chc 33.5 31 - 38 * p lat 146 100 - 400 * Tracy Baker 10/17/2024 02:3 7:36 PM > Provider reviewed results while patient in office. 2.?Chronic obstructive pulmonary disease, unspecified COPD type? Start Ipratropium-Albuterol Solution, 0.5-2.5 (3) MG/3ML, 3 mL as needed, Inhalation, every 6 hrs, 100, Refills 1.?? * Procedure Codes: G 2211 Complex e/[place], [address] CAPILLARY BLOOD DRAW, 11830 CBC WITH AUTO DIFF, G8420 BMI<30 AND >=22 CALC & DOCU, G8752 MOST RECENT SYSTOLIC BP < 140MM HG, G8754 MOST RECENT DIASTOLIC BP < 90MM HG * Follow Up: v ia phone to report progress * Images: Billing Information: * Visit Code: 25229 Office Visit, Est Pt., Level 3. * Procedure Codes: G2211 Complex e/[place]. [address] CAPILLARY BLOOD DRAW. 78405 CBC WITH AUTO DIFF. G8420 BMI<30 AND >=22 CALC & DOCU. G8752 MOST RECENT SYSTOLIC BP < 140MM HG. G8754 MOST RECENT DIASTOLIC BP < 90MM HG. * Electronic signature of Evi Vigil MD on 05/16/2025 at 12:43 PM EST Sign off status: Pending * Provider: Reyna Vigil M.D. Date: 0 10/17/2024 Generated for Rogelio mcghee/Behzad/eTzoeysmitting on: 1 07/17/2024 12:43 PM EST History and Physical Notes * HPI (History of Present Illness) Category Sub-Category Detail Notes Category Not es Cardiology Short of Breath Pt sts he is her e today with c/o SOB. Pt sts for the past week he has not been able to breath well, but sts that today he has been breathing well. Pt sts it has been worse when he is up and moving around, but sts when it hits him it does not matter what he is doing Examination Category Sub-Category Detail Notes Category Not es ENT/Respiratory Oral cavity : erythema without exudate on pharynx Heart : RRR Lungs: bilateral coarse exp iratory wheezes , rhonchi General Appearance: NAD, using a cane to assist with ambulation
--- OUTSIDE RECORDS SUMMARY | 2024-11-21 08:00 | XMS_ITS ---
Author Organization [facility] Address [address] [facility] [address] [place] [id number] Care Team Providers Care Warp Splitter Name Role Phone Greg Clement Unavailable [phone] Natasha Bermudez Unavailable [phone] Allergies No Known Allergies Results Component Value Reference Range Notes CBC Venipuncture (in house) Reviewed date:11/25/2024 03:39:21 PM Interpretation: Performing Lab: Notes/Report: wbc 6.8 3.5 - 10 lymph 11.7% 15 - 50 mid 3.9% 2 - 15 gran 84.4% 35 - 80 rbc 4.52 3.5 - 5.5 hgb 13.2 11.5 - 16.5 hct 39.6 35 - 55 mcv 87.6 75 - 100 mch 29.2 25 - 35 mchc 33.3 31 - 38 platlet 164 100 - 400 Glycohemoglobin A1c (in hous e) Reviewed date:11/25/2024 03:39:32 PM Interpretation: Performing Lab: Notes/Report: glycohemoglobin 6.5% 5 - 6.5 % CT Scan : Chest, low dose Reviewed date:12/30/2024 10:37:42 AM Interpretation:annual f/u, bilateral gynecomastia and coronary artery calcifications Performing Lab: Notes/Report: annual f/u, bilateral gynecomastia and coronary artery calcifications REASON FOR VISIT 4 month f/u, Needs labs, low dose chest CT, & diabetic eye exam Medications Medication SIG (Take, Route, Frequency, Duration) Notes Start Date End Date Status Ondansetron HCl 4 MG 1 tab(s) orally geovanni ry 8 hours Active Donepezil HCl 10 MG TAKE 1 TABLET AT BED TIME; Duration: 90 Active Pregabalin 150 MG 1 cap(s) orally 3 ti mes a day; Duration: 60 day(s) 04/01/2024 Active Tamsulosin HCl 0.4 MG TAKE 1 CAPSULE ONE TIME DAILY; Duration: 90 days Active Clopidogrel Bisulfate 75 MG 1 tablet Ora lly Once a day Active Xarelto 15 MG 1 tab(s) orally once a day (in the evening); Duration: 30 day(s) Active Losartan Potassium 25 MG 1 tablet Orally Once a day; Duration: 30 day(s) Active FIBERCON TABLETS 2 P.O. DAILY 06/04/2022 Active Fluticasone Furoate-Vilanterol 200-25 MCG/ACT 1 puff(s) inhaled once a day; Duration: 30 day(s) Active Align 4 MG 1 cap(s) orally once a day; Duration: 28 day(s) 06/04/2022 Active Medrol 4 MG as directed Orally d aily; Duration: 6 days 11/21/2024 Active Potassium Chloride ER 10 MEQ TAKE 2 TABLETS ONE TIME DAILY 3 times a day; Duration: 60 days Active Rosuvastatin Calcium 20 MG 1 tablet Oral ly Once a day; Duration: 90 days Active Ipratropium-Albuterol 0.5-2.5 (3) MG/3ML INHALE CONTENTS OF 1 VIAL (3ML) VIA NEBULIZER EVERY 6 HOURS; Duration: 90 Active metOLazone 5 MG 1 tablet Orally Mon, Wed, Fri; Duration: 90 days Active glyBURIDE 5 MG TAKE 2 TABLETS ONE T DMITRIY DAILY; Duration: 90 Active Jardiance 25 MG TAKE 1 TABLET ONE TI ME DAILY; Duration: 90 Active Vital Signs Weight 180.8 lbs 11/21/2024 Blood pressure systolic 132 mm Hg 11/22/19 25 Blood pressure diastolic 74 mm Hg 025 Heart Rate 59 /min 11/21/2024 Height 70.5 in 11/21/2024 BMI 25.57 kg/m2 11/21/2024 Encounters Encounter Location Date Provider Diagnosis [facility] [address] [place], [place] [id number] 11/21/2024 Natasha Bermudez Chronic obstructive pulmonary disease, unspecified COPD type J44.9 ; Type 2 diabetes mellitus with diabetic chronic kidney disease, unspecified CKD stage, unspecified whether skilled nursing insulin use E11.22 and BMI 25.0-25.9,adult Z68.25 Assessments Encounter Date Diagnosis (ICD Code) Assessment Notes Treatment Notes Treatment Clinical Notes Section Notes 11/21/2024 Chronic obstructive pulmonary disease, unspecified COPD type (ICD-10 - J44.9) 11/21/2024 Type 2 diabetes mellitus with diabetic chronic kidney disease, unspecified CKD stage, unspecified whether skilled nursing insulin use (ICD-10 - E11.22) 11/21/2024 BMI 25.0-25.9,adult (ICD-10 - Z68.25) Plan Of Treatment Medication Medication Name Sig Start Date Stop Date Notes Medrol 4 MG as directed Orally d aily; Duration: 6 days 11/21/2024 Potassium Chloride ER 10 MEQ TAKE 2 TABL ETS ONE TIME DAILY 3 times a day; Duration: 60 days Next Appt Details Follow Up: 2 Months, Reason: Provider Name:Natasha Owens er, 08/24/2025 02:15:00 PM, [address] [facility] [address] [facility], [address] [place] [address], [id number], Progress Notes * PRERNA STOCKDOB:1955 ( 69 yo M)Acc No.[id number]:11/21/2024 Progress Notes Patient: PRERNA KNOX Provider: Natasha Bermudez M.D. :1955 A ge:68 Y S ex:Male Date:11/21/2024 Address:[address] [place] [address], [facility] Subjective: * Chief Complaints: * 1 . 4 month f/u. 2. Needs labs, low dose chest CT, & diabetic eye exam. * HPI: C ardiology: The pt is here for a check up on Hypertension and Diabetes. Pt states he is still having a lot of cough, wheezing and shortness of breath. Pt states this has been going on for over a month. Pt is not fasting. 68 year old male presents with c/o Short of Breath. Denies : Chest Pain. D enies : Dizziness. D enies : Palpitations. * ROS: D ERMATOLOGY: no R janis. [...] * Hospitalization/Major Diagno stic Procedure: P ancreatitis [facility] 2020, C Diff- [facility] 2021, Colonoscopy, Dr. Sekou Shoemaker, polyps 04/02/2022. * Family History: F ather: , diagnosed with Hypertension, Diabetes. M other: , diagnosed with Cancer, Heart Disease, Hypertension. 3 sister(s) . . 2 Sisters- diabetes. [...] puff(s) inhaled once a day , Taking Align 4 MG [...] TAKE 1 TABLET AT BEDTIME , Taking Potassium Chloride ER 10 MEQ Tablet Extended Release TAKE 2 TABLETS ONE TIME DAILY , Taking metOLazone 5 MG Tablet 1 tablet Orally Mon, Wed, Fri , Taking Jardiance 25 MG Tablet TAKE 1 TABLET ONE TIME DAILY , Taking glyBURIDE 5 MG Tablet TAKE 2 TABLETS ONE TIME DAILY , Taking Ipratropium-Albuterol 0.5-2.5 (3) MG/3ML Solution INHALE CONTENTS OF 1 VIAL (3ML) VIA NEBULIZER EVERY 6 HOURS , Taking Rosuvastatin Calcium 20 MG Tablet 1 tablet Orally Once a day , Discontinued Zithromax Z-Jim 250 MG Tablet as directed Orally once daily , Medication List reviewed and reconciled with the patient * Allergies: N .K.D.A. Objective: * Vitals: W t: 180.8, Temp: 97.6, BP: 132/74, HR: 59, O2 Sat: 92% on RA, Nurse: SADIQ, Ht: 70.5, BMI:25.57. * Examination: G eneral Examination: General Appearance: [...] leg edema . Assessment: * Assessment: 1. C hronic obstructive pulmonary disease, unspecified COPD type - J44.9 (Primary) ?2. T ype 2 diabetes mellitus with diabetic chronic kidney disease, unspecified CKD stage, unspecified whether skilled nursing insulin use - E11.22 3 . B NE 25.0-25.9,adult - Z68.25 Plan: * Treatment: Value Reference Range w bc 6.8 3.5 - 10 * l ymph 11.7% 15 - 50 * m id 3.9% 2 - 15 * g ran 84.4% 35 - 80 * r bc 4.52 3.5 - 5.5 * h gb 13.2 11.5 - 16.5 * h ct 39.6 35 - 55 * m cv 87.6 75 - 100 * m ch 29.2 25 - 35 * m chc 33.3 31 - 38 * p latlet 164 100 - 400 * [address] 11/21/2024 01 :30:18 PM EDT > Provider reviewed results while patient in office. ?Imaging: CT Scan : Chest, low dose (Performed Date - 11/28/2024)?annual f/u, bilateral gynecomastia and coronary artery calcifications* Tierney Cosby 11/21/2024 02:1 1:54 PM EDT > no auth required; CPT code 51974; faxed to [facility] Onelia Lemos 12/30/2024 10:37:38 AM EDT > See phone encounter 2.?Type 2 diabetes mellitus with diabetic chronic kidney disease, unspecified CKD stage, unspecified whether skilled nursing insulin use?LAB: Glycohemoglobin A1c (in house) (Collection Date & Time - 11/21/2024)* Value Reference Range g lycohemoglobin 6.5% 5 - 6.5 % * [address] 11/21/2024 01 :28:52 PM EDT > Provider reviewed results while patient in office. 3.?Others? Refill Potassium Chloride ER Tablet Extended Release, 10 MEQ, TAKE 2 TABLETS ONE TIME DAILY, 3 times a day, 60 days, 180, Refills 2.?? * Procedure Codes: G 2211 Complex e/[place], [address] GLYCATED HEMOGLOBIN TEST, Modifiers: QW , 00710 CBC WITH AUTO DIFF, 3044F HG A1C LEVEL LT 7.0%, 1036F TOBACCO NON-USER, G8950 PREHTN/HTN BP DOC INDCD F/U DOC, G8752 MOST RECENT SYSTOLIC BP < 140MM HG, G8754 MOST RECENT DIASTOLIC BP < 90MM HG * Follow Up: 2 Months * Images: Billing Information: * Visit Code: 69420 Office Visit, Est Pt., Level 4. * Procedure Codes: G2211 Complex e/[place]. [address] GLYCATED HEMOGLOBIN TEST. Modifiers: QW 90725 CBC WITH AUTO DIFF. 3044F HG A1C LEVEL LT 7.0%. 1036F TOBACCO NON-USER. G8950 PREHTN/HTN BP DOC INDCD F/U DOC. G8752 MOST RECENT SYSTOLIC BP < 140MM HG. G8754 MOST RECENT DIASTOLIC BP < 90MM HG. * Electronic signature of Natasha Bermudez MD on 05/16/2025 at 12:42 PM EST Sign off status: Pending * Provider: Natasha Bermudez M.D. Date: 0 11/21/2024 Generated for Printi ng/Faevelinag/eTransmitting on: 1 07/17/2024 12:42 PM EST History and Physical Notes * HPI (History of Present Illness) Category Sub-Category Detail Notes Category Not es Cardiology Short of Breath Chest Pain Palpitations Dizziness Examination Category Sub-Category Detail Notes Category Not [...]
--- OUTSIDE RECORDS SUMMARY | 2024-12-01 09:15 | XMS_ITS ---
Author Organization [facility] Address [address] [facility] [address] [place] [id number] Care Team Providers Care Chucking Lathe Operator Name Role Phone Greg Clement Unavailable [phone] Natasha Bermudez Unavailable [phone] Allergies No Known Allergies Results Component Value Reference Range Notes CBC Fingerstick (in house) Reviewed date:12/06/2024 11:44:07 AM Interpretation: Performing Lab: Notes/Report: wbc 7.2 3.5 - 10 lym 14.0 15 - 50 mid 5.1 2 - 15 gran 80.9 35 - 80 rbc 4.69 3.5 - 5.5 hgb 13.6 11.5 - 16.5 hct 40.5 35 - 55 mcv 86.2 75 - 100 mch 29.1 25 - 35 mchc 33.8 31 - 38 plat 152 100 - 400 REASON FOR VISIT SOA Medications Medication SIG (Take, Route, Frequency, Duration) Notes Start Date End Date Status FIBERCON TABLETS 2 P.O. DAILY 06/04/2022 Active Align 4 MG 1 cap(s) orally once a day; Duration: 28 day(s) 06/04/2022 Active Tamsulosin HCl 0.4 MG TAKE 1 [...] (in the evening); Duration: 30 day(s) Active Potassium Chloride ER 10 MEQ 2 tablets Orally daily; Duration: 90 days Active Losartan Potassium 25 MG 1 tablet Orally Once a day; Duration: 30 day(s) Active Rosuvastatin Calcium 20 MG 1 tablet Oral ly Once a day; Duration: 90 days Active Ipratropium-Albuterol 0.5-2.5 (3) MG/3ML INHALE CONTENTS OF 1 VIAL (3ML) VIA NEBULIZER EVERY 6 HOURS; Duration: 90 Active glyBURIDE 5 MG TAKE 2 TABLETS ONE T DMITRIY DAILY; Duration: 90 Active Jardiance 25 MG TAKE 1 TABLET ONE TI ME DAILY; Duration: 90 Active metOLazone 5 MG 1 tablet Orally Mon, Thu, Thu; Duration: 90 days Active Ondansetron HCl 4 MG 1 tab(s) orally geovanni ry 8 hours Active Donepezil HCl 10 MG TAKE 1 TABLET AT BED TIME; Duration: 90 Active Vital Signs Weight 178.0 lbs 12/01/2024 Blood pressure systolic 120 mm Hg 12/02/19 25 Blood pressure diastolic 70 mm Hg 025 Heart Rate 52 /min 12/01/2024 Height 70.5 in 12/01/2024 BMI 25.18 kg/m2 12/01/2024 Encounters Encounter Location Date Provider Diagnosis [facility] [facility] [address] [id number] 12/01/2024 Natasha Bermudez Chronic obstructive pulmonary disease, unspecified COPD type J44.9 ; Thrombophlebitis of superficial veins of left lower extremity I80.02 and BMI 25.0-25.9,adult Z68.25 Assessments Encounter Date Diagnosis (ICD Code) Assessment Notes Treatment Notes Treatment Clinical Notes Section Notes 12/01/2024 Chronic obstructive pulmonary disease, unspecified COPD type (ICD-10 - J44.9) Use nebulizer and MDI 12/01/2024 Thrombophlebitis of superficial veins of left lower extremity (ICD-10 - I80.02) warm compresses 12/01/2024 BMI 25.0-25.9,adult (ICD-10 - Z68.25) Plan Of Treatment Treatment Notes Assessment Notes Chronic obstructive pulmonary disease, u nspecified COPD type Use nebulizer and MDI Thrombophlebitis of superficial veins of left lower extremity warm compresses Next Appt Details Follow Up: as scheduled, Saadia son: Provider Name:Natasha Owens er, 08/24/2025 02:15:00 PM, [address], [address], [place], [id number], Progress Notes * PRERNA STOCKDOB:1955 ( 69 yo M)Acc No.[id number]:12/01/2024 Progress Notes Patient: PRERNA KNOX Provider: Natasha Bermudez M.D. :1955 A ge:68 Y S ex:Male Date:12/01/2024 Address:[address] [place] [address], [facility] Subjective: * Chief Complaints: * 1 . SOA. * HPI: C ardiology: The pt is here today with c/o increased shortness of breath, BUT THE MAIN CONCERN IS REALLY THE SWELLING AND TENDERNESS OF THE FOOT PAST 2 DAYS. . Pt denies and chest pain but he does have some productive thick cough. A nkle/Foot: The pt states he got up about 2 days ago with pain and bruising in the left foot. Pt states the spot is larger and more red today. E NT/respiratory: The pt is here today with c/o increased shortness of breath. Pt denies and chest pain but he does have some productive thick cough. Has not used nebulizer or MDI today. c/o cough s mall amount of thick white sputum. c/o Short of Breath. Denies : Fever. D enies : Chest Pain. * ROS: D ERMATOLOGY: no R janis. [...] * Hospitalization/Major Diagno stic Procedure: P ancreatitis [facility] 2020, C Diff- [facility] 2021, Colonoscopy, Dr. Sekou Shoemaker, polyps 04/02/2022. * Family History: F ather: , diagnosed with Hypertension, Diabetes. M other: , diagnosed with Cancer, Hypertension, Heart Disease. 3 sister(s) . . 2 Sisters- diabetes. [...] TAKE 1 TABLET AT BEDTIME , Taking metOLazone 5 MG Tablet 1 [...] ER 10 MEQ Tablet Extended Release 2 tablets Orally daily , Discontinued Medrol 4 MG Tablet Therapy Pack as directed Orally daily , Medication List reviewed and reconciled with the patient * Allergies: N .K.D.A. Objective: * Vitals: W t: 178.0, Temp: 97.7, BP: 120/70, HR: 52, O2 Sat: 97% on RA, Nurse: SADIQ, Ht: 70.5, BMI:25.18. * Examination: G eneral Examination: General Appearance: N AD. H EENT: u nremarkable.?Oral cavity: n o lesions, mucosa moist and WNL, no erythema. N luigi: s upple, no lymphadenopathy, carotid bruit, left. C hest: n ormal shape and expansion. H eart: s inus bradycardia, aortic murmur. L ungs: b ilateral wheezes, rhonchi. N eurologic Exam:?Intact, USES cane,. S kin: n ormal, no rash. P eripheral pulses: n ormal . E xtremities: n o leg edema, left foot with resolving eccymosis of dorsum, 6x4, some tenderness.? Foot is warm, good capillary refill.. Assessment: * Assessment: 1. C hronic obstructive pulmonary disease, unspecified COPD type - J44.9 (Primary) ?2. T hrombophlebitis of superficial veins of left lower extremity - I80.02 3 . B PA 25.0-25.9,adult - Z68.25 Plan: * Treatment: Value Reference Range w bc 7.2 3.5 - 10 * l ym 14.0 15 - 50 * m id 5.1 2 - 15 * g ran 80.9 35 - 80 * r bc 4.69 3.5 - 5.5 * h gb 13.6 11.5 - 16.5 * h ct 40.5 35 - 55 * m cv 86.2 75 - 100 * m ch 29.1 25 - 35 * m chc 33.8 31 - 38 * p lat 152 100 - 400 * Mariana Oneal 12/01/2024 03:19:5 0 PM EDT > Provider reviewed results while patient in office. Notes: Use nebulizer and MDI??2.?Thrombophlebitis of superficial veins of left lower extremity? Notes: warm compresses?? * Procedure Codes: G 2211 Complex e/[place], [address] CAPILLARY BLOOD DRAW, 13475 CBC WITH AUTO DIFF, 1036F TOBACCO NON-USER, G8420 BMI<30 AND >=22 CALC & DOCU, G8783 BP SCR PRFRM RCMDD DEFIND SCR INTVL, G8752 MOST RECENT SYSTOLIC BP < 140MM HG, G8754 MOST RECENT DIASTOLIC BP < 90MM HG * Follow Up: a s scheduled * Images: Billing Information: * Visit Code: 45294 Office Visit, Est Pt., Level 3. * Procedure Codes: G2211 Complex e/[place]. [address] CAPILLARY BLOOD DRAW. 46485 CBC WITH AUTO DIFF. 1036F TOBACCO NON-USER. G8420 BMI<30 AND >=22 CALC & DOCU. G8783 BP SCR PRFRM RCMDD DEFIND SCR INTVL. G8752 MOST RECENT SYSTOLIC BP < 140MM HG. G8754 MOST RECENT DIASTOLIC BP < 90MM HG. * Electronic signature of Natasha Bermudez MD on 05/16/2025 at 12:42 PM EST Sign off status: Pending * Provider: Natasha Bermudez M.D. Date: 0 12/01/2024 Generated for Linai litzy/Behzad/eTransmitting on: 1 07/17/2024 12:42 PM EST History and Physical Notes * HPI (History of Present Illness) Category Sub-Category Detail Notes Category Not es ENT/respiratory Short of Breath Chest Pain cough small amount of thic k white sputum Fever Examination Category Sub-Category Detail Notes Category Not es General Examination HEENT: unremarkable Heart: sinus bradycardia, a ortic murmur Lungs: bilateral wheezes, r honchi Extremities: no leg edema, left f oot with resolving eccymosis of dorsum, 6x4, some tenderness. Foot is warm, good capillary refill. General Appearance: NAD Skin: normal, no rash Neurologic Exam: Intact, USES cane, Neck: supple, no lymphaden opathy, carotid bruit, left Oral cavity: no lesions, mucosa m oist and WNL, no erythema Peripheral pulses: normal Chest: normal shape and exp ansion
--- OUTSIDE RECORDS SUMMARY | 2025-01-23 08:00 | XMS_ITS ---
Author Organization [facility] Address [address] [facility] [address] [place] [id number] Care Team Providers Care Windows System Admin Name Role Phone Greg Clement Unavailable [phone] Natasha Bermudez Unavailable [phone] Allergies No Known Allergies REASON FOR VISIT 2 months, Needs labs with PSA, colon cancer screening, & diabetic eye exam Medications Medication SIG (Take, Route, Frequency, Duration) Notes Start Date End Date Status Losartan Potassium 25 MG 1 tablet Orally Once a day; Duration: 30 day(s) Active Align 4 MG 1 cap(s) orally once a day; Duration: 28 day(s) 06/04/2022 Active Donepezil HCl 10 MG 1 tablet at bedtime Orally Once a day; Duration: 90 days Active Xarelto 15 MG 1 tab(s) orally once a day (in the evening); Duration: 30 day(s) Active Fluticasone Furoate-Vilanterol 200-25 MCG/ACT 1 puff(s) inhaled once a day; Duration: 30 day(s) Active Ipratropium-Albuterol 0.5-2.5 (3) MG/3ML INHALE CONTENTS OF 1 VIAL (3ML) VIA NEBULIZER EVERY 6 HOURS; Duration: 90 Active glyBURIDE 5 MG TAKE 2 TABLETS ONE T DMITRIY DAILY; Duration: 90 Active Pregabalin 150 MG 1 cap(s) orally 3 ti mes a day; Duration: 60 days 2024 Active Rosuvastatin Calcium 20 MG 1 tablet Oral ly Once a day; Duration: 90 days Active Potassium Chloride ER 10 MEQ 2 tablets Orally daily; Duration: 90 days Active Jardiance 25 MG TAKE 1 TABLET ONE TI ME DAILY; Duration: 90 Active Ondansetron HCl 4 MG 1 tab(s) orally geovanni ry 8 hours Active metOLazone 5 MG 1 tablet Orally Mon, Wed, Thu; Duration: 90 days Active Clopidogrel Bisulfate 75 MG 1 tablet Ora lly Once a day Active Tamsulosin HCl 0.4 MG TAKE 1 CAPSULE ONE TIME DAILY; Duration: 90 days Active FIBERCON TABLETS 2 P.O. 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 ; PAD (peripheral artery disease) I73.9 ; Stage 3b chronic kidney disease (CKD) N18.32 ; Memory loss R41.3 ; Chronic kidney disease, stage 4 (severe) N18.4 and BMI 24.0-24.9, adult Z68.24 Assessments Encounter Date Diagnosis (ICD Code) Assessment Notes Treatment Notes Treatment Clinical Notes Section Notes 01/23/2025 Essential (primary) hypertension (ICD-10 - I10) 01/23/2025 Type 2 diabetes mellitus with diabetic chronic kidney disease, unspecified CKD stage, unspecified whether fpc insulin use (ICD-10 - E11.22) 01/23/2025 PAD (peripheral artery disease) (ICD-10 - I73.9) 01/23/2025 Stage 3b chronic kidney disease (CKD) (ICD-10 - N18.32) 01/23/2025 Memory loss (ICD-10 - R41.3) 01/23/2025 Chronic kidney disease, stage 4 (severe) (ICD-10 - N18.4) 01/23/2025 BMI 24.0-24.9, adult (ICD-10 - Z68.24) Plan Of Treatment Next Appt Details Follow Up: 3 Months, Reason: Provider Name:Natasha Owens er, 08/24/2025 02:15:00 PM, [address], [address], [place], [id number], Progress Notes * PRERNA STOCKDOB:1955 ( 69 yo M)Acc No.[id number]:01/23/2025 Progress Notes Patient: PRERNA KNOX Provider: Natasha Bermudez M.D. :1955 A ge:69 Y S ex:Male Date:01/23/2025 Address:[address] [place] [address] [address], [place] [id number] Subjective: * Chief Complaints: * 1 . 2 months. 2. Needs labs with PSA, colon cancer screening, & diabetic eye exam. * HPI: C ardiology: The patient is here for a follow-up on COPD exacerbation. Pt states he is doing better. Pt states he does have some shortness of breath with over exertion. 69 year old male presents with c/o Short of Breath. Denies : Chest Pain. D enies : Dizziness. D enies : Palpitations. M juan c Reproductive: Saw Dr. Early 01/10/25. We have no note. Lab at that time showed BUN=63, creat=2.3, GFR=28. E ndocrinology: A1C= 6.5 at [place] visit. * ROS: D ERMATOLOGY: no R janis. [...] * Hospitalization/Major Diagno stic Procedure: P ancreatitis [facility] 2020, C Diff- [facility] 2021, Colonoscopy, Dr. Sekou Shoemaker, polyps 04/02/2022. [...] tablet Orally Once a day , Taking Tamsulosin HCl 0.4 MG Capsule TAKE 1 CAPSULE ONE TIME DAILY , Taking Ondansetron HCl 4 MG Tablet 1 tab(s) orally every 8 hours , Taking metOLazone 5 MG Tablet 1 [...] Extended Release 2 tablets Orally daily , Taking Pregabalin 150 MG Capsule 1 cap(s) orally 3 times a day , Taking Donepezil HCl 10 MG Tablet 1 tablet at bedtime Orally Once a day , Medication List reviewed and reconciled with the patient * Allergies: N .K.D.A. Objective: * Vitals: W t: 175.4, Temp: 97.8, BP: 120/60, HR: 53, O2 Sat: 96% on RA, Nurse: SAMANTHA, Ht: 70.5, BMI:24.81. * Examination: G eneral Examination: General Appearance: [...] ormal . E xtremities: n o leg edema. Assessment: * Assessment: 1. T ype 2 diabetes mellitus with diabetic chronic kidney disease, unspecified CKD stage, unspecified whether fpc insulin use - E11.22 (Primary) 2 . E ssential (primary) hypertension - I10 3 . P AD (peripheral artery disease) - I73.9 4. 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 M ivelisse loss - R41.3 6 . C hronic kidney disease, stage 4 (severe) - N18.4 7 . B NC 24.0-24.9, adult - Z68.24 Plan: * Treatment: * Procedure Codes: G 2211 Complex e/m visit add on, 1036F TOBACCO NON-USER, G8420 BMI<30 AND >=22 CALC & DOCU, G8950 PREHTN/HTN BP DOC INDCD F/U DOC, G8752 MOST RECENT SYSTOLIC BP < 140MM HG, G8754 MOST RECENT DIASTOLIC BP < 90MM HG * Follow Up: 3 Months * Images: Billing Information: * Visit Code: 99956 Office Visit, Est Pt., Level 3. * Procedure Codes: G2211 Complex e/m visit add on. 1036F TOBACCO NON-USER. G8420 BMI<30 AND >=22 CALC & DOCU. G8950 PREHTN/HTN BP DOC INDCD F/U DOC. G8752 MOST RECENT SYSTOLIC BP < 140MM HG. G8754 MOST RECENT DIASTOLIC BP < 90MM HG. * Electronic signature of Natasha Bermudez MD on 05/16/2025 at 12:41 PM EST Sign off status: Pending * Provider: Natasha Bermudez M.D. Date: 0 01/23/2025 Generated for Rogelio mcghee/Behzad/Angelransmitting on: 1 07/17/2024 12:41 PM EST History and Physical Notes * HPI (History of Present Illness) Category Sub-Category Detail Notes Category Not es Cardiology Short of Breath Chest Pain Palpitations Dizziness Examination Category Sub-Category Detail Notes Category Not es General Examination HEENT: unremarkable Heart: sinus bradycardia, a ortic murmur Lungs: bilateral wheezes, r honchi Extremities: no leg edema General Appearance: NAD Skin: normal, no rash Neurologic Exam: Intact, USES cane, Neck: supple, no lymphaden opathy, carotid bruit, left Oral cavity: no lesions, mucosa m oist and WNL, no erythema Peripheral pulses: normal Chest: normal shape and exp ansion
--- OUTSIDE RECORDS SUMMARY | 2025-04-24 08:00 | XMS_ITS ---
Author Organization [facility] [place] Address [address] [facility] [address] [place] [id number] Care Team Providers Care Orthopedics Nurse Name Role Phone RacquelGreg Unavailable [phone] Natasha Bermudez Unavailable [phone] Allergies No Known Allergies Results Component Value Reference Range Notes CBC Venipuncture (in house) Reviewed date:04/25/2025 08:06:42 AM Interpretation: Performing Lab: Notes/Report: wbc 6.3 3.5 - 10 lymph 15.6% 15 - 50 mid 5.4% 2 - 15 gran 79.0% 35 - 80 rbc 4.12 3.5 - 5.5 hgb 12.6 11.5 - 16.5 hct 37.4 35 - 55 mcv 90.6 75 - 100 mch 30.6 25 - 35 mchc 33.7 31 - 38 platlet 117 100 - 400 Glycohemoglobin A1c (in hous e) Reviewed date:04/25/2025 08:06:42 AM Interpretation:6.7 Performing Lab: Notes/Report: 6.7 glycohemoglobin 6.7% 5 - 6.5 % P-Comprehensive Metabolic Pa keo (CMP) Reviewed date:04/25/2025 08:06:42 AM Interpretation:Glu 202, BUN 67, Creat 2.14, eGFR 32 Performing Lab: Notes/Report: Test performed by [employer] [facility] [place] , [address], [place] [address] Nefjoelle Wilson MD, PhD, [facility], [employer] CLIA: [id number] Sodium 142 135-145 mmol/L Potassium 4.2 3.5-5.3 mmol/L Chloride 100 97-108 mmol/L CO2 32 20-32 mmol/L Glucose 202 65-99 mg/dL BUN 67 8-23 mg/dL Creatinine 2.14 0.70-1.30 mg/dL Calcium 9.8 8.6-10.4 mg/dL eGFR by Creatinine 32 >59 mL/min/1.73m2 Protein 6.4 6.0-8.3 g/dL Albumin 4.2 3.5-5.3 g/dL Alkaline Phosphatase 70 44-138 IU/L ALT (SGPT) 20 <5-55 IU/L AST (SGOT) 39 <5-46 IU/L Bilirubin, Total 0.5 <0.2-1.2 mg/dL A/G Ratio 1.9 1.1-2.5 REASON FOR VISIT 3 months, Needs labs with PSA, colon cancer [...] day; Duration: 28 day(s) 06/04/2022 Active Fluticasone Furoate-Vilanterol 200-25 MCG/ACT 1 puff(s) inhaled once a day; Duration: 30 day(s) Active Potassium Chloride ER 10 MEQ 2 tablets in the am and 1 tablet in the pm Orally as directed; Duration: 90 days Active glyBURIDE 5 MG 2 tablets orally onc e a day; Duration: 90 days Active Rosuvastatin Calcium 20 MG 1 tablet Oral ly Once a day; Duration: 90 days Active Donepezil HCl 10 MG 1 tablet at bedtime Orally Once a day; Duration: 90 days Active Jardiance 25 MG 1 tablet Orally Once a day; Duration: 90 days Active metOLazone 5 MG 1 tablet Orally Mon, Wed, Fri; Duration: 90 days Active Ipratropium-Albuterol 0.5-2.5 (3) MG/3ML INHALE CONTENTS OF 1 VIAL (3ML) VIA NEBULIZER EVERY 6 HOURS; Duration: 90 Active Clopidogrel Bisulfate 75 MG 1 tablet Ora lly Once a day Active FIBERCON TABLETS 2 P.O. DAILY 06/04/2022 Active Ondansetron HCl 4 MG 1 tab(s) orally geovanni ry 8 hours Active Tamsulosin HCl 0.4 MG TAKE 1 CAPSULE ONE TIME DAILY; Duration: 90 days Active Pregabalin 150 MG 1 cap(s) orally 4 ti mes a day; Duration: 30 days 04/24/2025 Active Problems Problem Type SNOMED Code ICD Code Onset Dates Problem Status W/U Status Risk Notes Problem Diabetic peripheral neuropathy (719829590) Diabetic peripheral neuropathy (E11.42) Active confirmed Vital Signs Weight 184.0 lbs 04/24/2025 Blood pressure systolic 144 mm Hg 04/24/20 25 Blood pressure diastolic 70 mm Hg 025 Heart Rate 48 /min 04/24/2025 Height 70.5 in 04/24/2025 BMI 26.03 kg/m2 04/24/2025 Encounters Encounter Location Date Provider Diagnosis [facility] [address] [facility] [address] [place] [phone] 04/24/2025 Natasha Bermudez Stage 3b chronic kid ghazal disease (CKD) N18.32 ; Type 2 diabetes mellitus with diabetic chronic kidney disease, unspecified CKD stage, unspecified whether termite helper insulin use E11.22 ; Stented coronary artery Z95.5 ; Chronic constipation K59.09 and Diabetic peripheral neuropathy E11.42 Assessments Encounter Date Diagnosis (ICD Code) Assessment Notes Treatment Notes Treatment Clinical Notes Section Notes 04/24/2025 Stage 3b chronic kidney disease (CKD) (ICD-10 - N18.32) 04/24/2025 Type 2 diabetes mellitus with diabetic chronic kidney disease, unspecified CKD stage, unspecified whether halfway insulin use (ICD-10 - E11.22) 04/24/2025 Stented coronary artery (ICD-10 - Z95.5) 04/24/2025 Chronic constipation (ICD-10 - K59.09) 04/24/2025 Diabetic peripheral neuropathy (ICD-10 - E11.42) Plan Of Treatment Medication Medication Name Sig Start Date Stop Date Notes Pregabalin 150 MG 1 cap(s) orally 4 ti mes a day; Duration: 30 days 04/24/2025 Next Appt Details Follow Up: 4 Months, Reason: Provider Name:Natasha arevalo, 08/24/2025 02:15:00 PM, [address], [address], [place], [phone], Progress Notes * PRERNA STOCKDOB:1955 ( 69 yo M)Acc No.[id number]:04/24/2025 Progress Notes Patient: PRERNA KNOX Provider: Natasha Bermudez M.D. :1955 A ge:69 Y S ex:Male Date:04/24/2025 [address]:[address], [facility] Subjective: * Chief Complaints: * 1 . 3 months. 2. Needs labs with PSA, colon cancer screening, & diabetic eye exam. * HPI: C ardiology: The pt is here for a check up on Hypertension and diabetes. Pt states he doing good except for some epigastric abdominal pain. Pt states the past couple days he has been constipated and has a lot of gas. Pt states he thinks that has contributed to the pain. Denies : Chest Pain. D enies : Short of Breath. D enies : Dizziness. D enies : Palpitations. M juan c Reproductive: the last note we have from Nephrology is 03/2024 with follow-up planned in 4 months. * ROS: C ONSTITUTIONAL: Positive for A nother physician seen since last visit? No, Change in medication since last visit? No, Are you taking antibiotics? No, Are you taking steroids? No. D ERMATOLOGY: no R janis. n o [...] Diagno stic Procedure: P ancreatitis [facility] 2020, C Diff- [facility] 2021, Colonoscopy, Dr. Sekou Shoemaker, polyps 04/02/2022. * Family History: F ather: , diagnosed with Hypertension, Diabetes. M other: , diagnosed with Hypertension, Heart [...] tab(s) orally every 8 hours , Taking Ipratropium-Albuterol 0.5-2.5 (3) MG/3ML Solution INHALE CONTENTS OF 1 VIAL (3ML) VIA NEBULIZER EVERY 6 HOURS , Taking metOLazone 5 MG Tablet 1 tablet Orally Mon, Wed, Thu , Taking Jardiance 25 MG Tablet 1 tablet Orally Once a day , Taking glyBURIDE 5 MG Tablet 2 tablets orally once a day , Taking Pregabalin 150 MG Capsule 1 cap(s) orally 3 times a day , Taking Donepezil HCl 10 MG Tablet 1 tablet at bedtime Orally Once a day , Taking Rosuvastatin Calcium 20 MG Tablet 1 tablet Orally Once a day , Taking Potassium Chloride ER 10 MEQ Tablet Extended Release 2 tablets in the am and 1 tablet in the pm Orally as directed , Medication List reviewed and reconciled with the patient * Allergies: N .K.D.A. Objective: * Vitals: W t: 184.0, Temp: 97.9, BP: 144/70, HR: 48, O2 Sat: 98% on RA, Nurse: SADIQ, Ht: 70.5, BMI:26.03. * Examination: G eneral Examination: General Appearance: [...] o leg edema. Assessment: * Assessment: 1. S tage 3b chronic kidney disease (CKD) - N18.32 (Primary) 2 . T ype 2 diabetes mellitus with diabetic chronic kidney disease, unspecified CKD stage, unspecified whether halfway insulin use - E11.22 3 . S tented coronary artery - Z95.5 4. C hronic constipation - K59.09 5 . D iabetic peripheral neuropathy - E11.42 Plan: * Treatment: Value Reference Range A /G Ratio 1.9 1.1-2.5 - * A lbumin 4.2 3.5-5.3 - g/dL * A lkaline Phosphatase 70 44-138 - IU/L * A LT (SGPT) 20 <5-55 - IU/L * A ST (SGOT) 39 <5-46 - IU/L * B ilirubin, Total 0.5 <0.2-1.2 - mg/dL * B UN 67 H 8-23 - mg/dL * C alcium 9.8 8.6-10.4 - mg/dL * C hloride 100 97-108 - mmol/L * C O2 32 20-32 - mmol/L * C reatinine 2.14 H 0.70-1.30 - mg/dL * G lucose 202 H 65-99 - mg/dL * P otassium 4.2 3.5-5.3 - mmol/L * S odium 142 135-145 - mmol/L * P rotein 6.4 6.0-8.3 - g/dL * e GFR by Creatinine 32 L >59 - mL/min/1.73m2 * Ally Jacob 04/25/2025 08 :06:35 AM EST > See phone encounter 2.?Diabetic peripheral neuropathy? Increase Pregabalin Capsule, 150 MG, 1 cap(s), orally, 4 times a day, 30 days, 120 Capsule, Refills1.?? * Labs: * L ab: CBC Venipuncture (in house) (Collection Date & Time - 04/24/2025) Value Reference Range w bc 6.3 3.5 - 10 * l ymph 15.6% 15 - 50 * m id 5.4% 2 - 15 * g ran 79.0% 35 - 80 * r bc 4.12 3.5 - 5.5 * h gb 12.6 11.5 - 16.5 * h ct 37.4 35 - 55 * m cv 90.6 75 - 100 * m ch 30.6 25 - 35 * m chc 33.7 31 - 38 * p latlet 117 100 - 400 * [address] 04/24/2025 0 1:25:20 PM EST > Provider reviewed results while patient in office. Ally Jacob 04/25/2025 08:06:35 AM EST > See phone encounter ?Lab: Glycohemoglobin A1c (in house) (Collection Date & Time - 04/24/2025) ?6.7* Value Reference Range g lycohemoglobin 6.7% 5 - 6.5 % * [address] 04/24/2025 0 1:26:36 PM EST > Provider reviewed results while patient in office. Ally Jacob 04/25/2025 08:06:35 AM EST > See phone encounter * Procedure Codes: G 2211 Complex e/[place] [address] CBC WITH AUTO DIFF, 14460 GLYCATED HEMOGLOBIN TEST, Modifiers: QW , 3044F HG A1C LEVEL LT 7.0% * Follow Up: 4 Months * Images: Billing Information: * Visit Code: 95014 Office Visit, Est Pt., Level 4. * Procedure Codes: G2211 Complex e/[place] [address] CBC WITH AUTO DIFF. 16969 GLYCATED HEMOGLOBIN TEST. Modifiers: QW 3044F HG A1C LEVEL LT 7.0%. * Electronic signature of Natasha Bermudez MD on 05/16/2025 at 12:43 PM EST Sign off status: Pending * Provider: Natasha Bermudez M.D. Date: 06/24/2024 Generated for Printi ng/Faevelinag/eTransmitting on: 07/17/2024 12:43 PM EST History and Physical [...]
--- OUTSIDE RECORDS SUMMARY | 2025-05-16 12:42 | XMS_ITS | Encounter Summary ---
Author Organization Healthcare Address [address] [place] [address] Care Team Providers Care Race Car Driver Name Role Phone Rajeev Da Silva MD Primary Care Provider [phone] Alvin Bermudez MD Primary Care Provider [phone] Reason for Referral * Consultation (Routine) - Closed Specialty Diagnoses / Procedures Referred By Contac t Referred To Contact Nephrology Diagnoses Chronic kidney disease (CKD) stage G4/A1, severely decreased glomerular filtration rate (GFR) between 15-29 mL/min/1.73 square meter and albuminuria creatinine ratio less than 30 mg/g Type 2 diabetes mellitus without complication, unspecified whether child and adolescent psychiatrist insulin use Mona Rosario APRN [address] [place] [address] Phone: tel: fax: Referral ID Status Reason Start Date Expiration Date V isits Requested Visits Authorized [id number] Closed Specialty Services Required 01/15/2022 07/17/2023 1 1 Encounter Details Date Type Department Care Team (Late st Contact Info) Description 01/15/2022 Community [facility] [address] [place] [address] Mona Rosario APRN [address] [place] [address] Chronic kidney disease (CKD) stage G4/A1, severely decreased glomerular filtration rate (GFR) between 15-29 mL/min/1.73 square meter and albuminuria creatinine ratio less than 30 mg/g (CMS/HCC) (Primary Dx); Type 2 diabetes mellitus without complication, unspecified whether child and adolescent psychiatrist insulin use (CMS/HCC) Social History Tobacco Use [...] Description 05/19/2025 10:40 AM EST Office Visit [facility] [address] [place] [phone] Charlie Early MD [address] [place] [phone] Scheduled Referrals Name Type Priority Associated Diagnoses Order Schedule Ambulatory referral to Nephrology Outpatient Referral Routine Chronic kidney disease (CKD) stage G4/A1, severely decreased glomerular filtration rate (GFR) between 15-29 mL/min/1.73 square meter and albuminuria creatinine ratio less than 30 mg/g (CMS/HCC) Type 2 diabetes mellitus without complication, unspecified whether child and adolescent psychiatrist insulin use (CMS/HCC) 1 Occurrences starting 01/15/2022 until 07/18/2023 documented as of this encounter Visit Diagnoses Diagnosis Chronic kidney disease (CKD) stage G4/A1, severely decreased glomerular filtration rate (GFR) between 15-29 mL/min/1.73 square meter and albuminuria creatinine ratio less than 30 mg/g- Primary Type 2 diabetes mellitus without complication, unspecified whether child and adolescent psychiatrist insulin use documented in this encounter Care Teams Race Car Driver Relationship Specialty Start Date End Date Rajeev Da Silva MD [address] [place] [id number] PCP - General 10/12/20 03/05/22 Alvin Bermudez MD [address] [place] [id number] PCP - General 03/06/22 documented as of this encounter
--- OUTSIDE RECORDS SUMMARY | 2025-05-16 12:42 | XMS_ITS | Patient Health Record ---
Author Organization [facility] Address [address] [facility] [address] [place] [id number] Care Team Providers Care Kettle Loader Name Role Phone Greg Clement Unavailable [phone] Natasha Bermudez Unavailable [phone] Mayur Vigil Unavailable [phone] Allergies No Known Allergies Results Component Value [...] - 38 plat 152 100 - 400 CBC Fingerstick (in house) Reviewed date:10/18/2024 12:35:04 [...] - 38 plat 146 100 - 400 Urinalysis - Inhouse Reviewed date:07/29/2024 09:17:23 AM [...] 35 Performing Lab: Notes/Report: Test performed by [employer] [address] [place] [address] , [address], [place] [address] Justice Amador MD, [employer] CLIA: [id number] Sodium 138 135-145 mmol/L Potassium 3.6 3.5-5.3 mmol/L Chloride 97 97-108 mmol/L CO2 29 22-32 mmol/L Glucose 280 65-99 mg/dL BUN 49 8-23 mg/dL Creatinine 2.03 0.70-1.30 mg/dL Calcium 9.5 8.6-10.4 mg/dL eGFR by Creatinine 35 >59 mL/min/1.73m2 CBC Venipuncture (in house) Reviewed date:04/25/2025 08:06:42 [...] 32 Performing Lab: Notes/Report: Test performed by [facility], [address] , [address], [place] [address] Elsi Wilson MD, PhD, FCAP, [employer] CLIA: [id number] Sodium 142 135-145 mmol/L Potassium 4.2 3.5-5.3 [...] 0.5 <0.2-1.2 mg/dL A/G Ratio 1.9 1.1-2.5 Reason For Referral No Information Medications Medication [...] FIBERCON TABLETS 2 P.O. DAILY 06/04/2022 Active Potassium Chloride ER 10 MEQ 2 tablets in the am and 1 tablet in the pm Orally as directed; Duration: 90 days Active Pregabalin 150 MG 1 cap(s) orally 4 ti mes a day; Duration: 30 days 04/24/2025 Active Ondansetron HCl 4 MG 1 tab(s) orally geovanni ry 8 hours Active Tamsulosin HCl 0.4 MG TAKE 1 CAPSULE ONE TIME DAILY; Duration: 90 days Active Xarelto 15 MG 1 tab(s) orally once a day (in the evening); Duration: 30 day(s) Active Losartan Potassium 25 MG 1 tablet Orally Once a day; Duration: 30 day(s) Active glyBURIDE 5 MG 2 tablets orally onc e a day; Duration: 90 days Active Align 4 MG 1 cap(s) orally once a day; Duration: 28 day(s) 06/04/2022 Active Rosuvastatin Calcium 20 MG 1 tablet Oral ly Once a day; Duration: 90 days Active Fluticasone Furoate-Vilanterol 200-25 MCG/ACT 1 puff(s) inhaled once a day; Duration: 30 day(s) Active Donepezil HCl 10 MG 1 tablet at bedtime Orally Once a day; Duration: 90 days Active Jardiance 25 MG 1 tablet Orally Once a day; Duration: 90 days Active Immunizations Vaccine Route [...] W/U Status Risk Notes Problem Essential hypertension (09999677) Essential (primary) hypertension (I10) Active confirmed Problem Hypokalemia (95623946) Hypokalemia (E87.6) Active confirmed Problem Renal failure (33024856) Renal failure (N19) Active confirmed Problem Memory loss (36672110) Memory loss (R41.3) Active confirmed Problem Atherosclerosis of aorta (66157033) Atherosclerosis of aorta (I70.0) Active confirmed Problem Atherosclerosis of artery (546564310) Atherosclerosis of other arteries (I70.8) Active confirmed Problem Chronic kidney disease stage 4 (741195326) Chronic kidney disease, stage 4 (severe) (N18.4) Active confirmed Problem Right cervical radiculopathy (92842690475625600 ) Right cervical radiculopathy (M54.12) Active confirmed Problem Renal insufficiency (208425983) Renal insufficiency (N28.9) Active confirmed Problem Neck pain (80001614) Neck pain (M54.2) Active confirmed Problem COPD - Chronic obstructive pulmonary disease (72522006) Chronic obstructive pulmonary disease, unspecified COPD type (J44.9) Active confirmed Problem Atherosclerotic heart disease of [place] coronary artery without angina pectoris (791060154602719) Coronary artery disease involving [place]k coronary artery of [place] heart without angina pectoris (I25.10) Active confirmed Problem Claudication (75510505) Claudication (I73.9) Active confirmed Problem Hyperlipidaemia (14466709) Hyperlipidemia, unspecified hyperlipidemia type (E78.5) Active confirmed Problem Diverticular disease of colon (095081035) Diverticulosis (K57.90) Active confirmed Problem Diabetic peripheral neuropathy (336615274) Diabetic peripheral neuropathy (E11.42) Active confirmed Problem Dementia (52223252) Dementia without behavioral disturbance (F03.90) Active confirmed Problem Stented coronary artery (460612787) Stented coronary artery (Z95.5) Active confirmed Problem Peripheral vascular disease (852801774) PAD (peripheral artery disease) (I73.9) Active confirmed Problem Benign prostatic hypertrophy without outflow obstruction (685433996) Benign prostatic hyperplasia, unspecified whether lower urinary tract symptoms present (N40.0) Active confirmed Problem Type II diabetes mellitus without complication (799676678) Type 2 diabetes mellitus without complication, unspecified whether buttermaker insulin use (E11.9) Active confirmed Problem Cirrhosis - non-alcoholic (018297754) Hepatic cirrhosis, unspecified hepatic cirrhosis type, unspecified whether ascites present (K74.60) Active confirmed Problem Diabetic renal disease (045878782) Type 2 diabetes mellitus with diabetic chronic kidney disease, unspecified CKD stage, unspecified whether buttermaker insulin use (E11.22) Active confirmed Problem Atypical angina (219202757) Atypical angina (I20.8) Active confirmed Problem Chronic kidney disease stage 3B (disorder) (721345067) Stage 3b chronic kidney disease (CKD) (N18.32) Active confirmed Vital Signs Heart Rate 48 /min 04/24/2025 Blood pressure diastolic 70 mm Hg 04/24/2025 Height 70.5 in 04/24/2025 Blood pressure systolic 144 mm Hg 04/24/2025 Weight 184.0 lbs 04/24/2025 BMI 26.03 kg/m2 04/24/2025 Encounters Encounter Location Date Provider Diagnosis [facility] [address] [place] [phone] 07/28/2024 Natasha Bermudez Type 2 diabetes inder itus without complication, unspecified whether fci insulin use E11.9 ; Essential (primary) hypertension I10 ; Renal failure N19 ; Stage 3b chronic kidney disease (CKD) N18.32 and Nausea R11.0 [facility] [address] [place] [id number] 10/17/2024 Mayur Cambria Acute cough R05.1 ; Chronic obstructive pulmonary disease, unspecified COPD type J44.9 ; Hepatic cirrhosis, unspecified hepatic cirrhosis type, unspecified whether ascites present K74.60 ; Claudication I73.9 ; Type 2 diabetes mellitus with diabetic chronic kidney disease, unspecified CKD stage, unspecified whether fci insulin use E11.22 ; Dementia without behavioral disturbance F03.90 ; Chronic kidney disease, stage 4 (severe) N18.4 and BMI 25.0-25.9,adult Z68.25 [facility] [address] [place], [place] [address] [id number] 11/21/2024 Natasha Bermudez Chronic obstructive pulmonary disease, unspecified COPD type J44.9 ; Type 2 diabetes mellitus with diabetic chronic kidney disease, unspecified CKD stage, unspecified whether fci insulin use E11.22 and BMI 25.0-25.9,adult Z68.25 [facility] [address] [place], [place] [id number] 12/01/2024 Natasha Bermudez Chronic obstructive pulmonary disease, unspecified COPD type J44.9 ; Thrombophlebitis of superficial veins of left lower extremity I80.02 and BMI 25.0-25.9,adult Z68.25 [facility] [address] [facility] [address] [place], [place] [id number] 01/23/2025 Natasha Bermudez Essential (primary) hypertension I10 ; Type 2 diabetes mellitus with diabetic chronic kidney disease, unspecified CKD stage, unspecified whether fci insulin use E11.22 ; PAD (peripheral artery disease) I73.9 ; Stage 3b chronic kidney disease (CKD) N18.32 ; Memory loss R41.3 ; Chronic kidney disease, stage 4 (severe) N18.4 and BMI 24.0-24.9, adult Z68.24 [facility] [address] [facility] [address] [place], [place] [id number] 04/24/2025 Natasha Bermudez Stage 3b chronic kid ghazal disease (CKD) N18.32 ; Type 2 diabetes mellitus with diabetic chronic kidney disease, unspecified CKD stage, unspecified whether fci insulin use E11.22 ; Stented coronary artery Z95.5 ; Chronic constipation K59.09 and Diabetic peripheral neuropathy E11.42 [facility] [address] [facility] [address] [place], [place] [id number] 05/26/2024 Greg Desmond Healyt [facility] [address] [facility] [address] [place], [place] [id number] 07/25/2024 Natasha Bermudez [facility] [address] [facility] [address] [place] [id number] 08/01/2024 Natasha Bermudez [facility] [address] [facility] [address] [place] [id number] 08/05/2024 Natasha Bermudez [facility] [address] [facility] [address] [place] [id number] 11/22/2024 Greg Desmond Beniteseet [facility] [address] [facility] [address] [place], [place] [id number] 12/05/2024 Natasha Bermudez [facility] [address] [place], [place] [id number] 12/12/2024 Greg Clement [facility] [address] [place], [place] [id number] 12/30/2024 Natasha Bermudez [facility] [address] [place], [place] [id number] 02/13/2025 Greg Clement [facility] [address] [place], [place] [id number] 04/03/2025 Natasha Bermudez [facility] [address] [place], [place] [id number] 04/25/2025 Natasha Bermudez Assessments Encounter Date Diagnosis (ICD Code) Assessment Notes Treatment Notes Treatment Clinical Notes Section Notes 07/28/2024 Essential (primary) hypertension (ICD-10 - I10) [...] whether fci insulin use (ICD-10 - E11.22) 01/23/2025 Type 2 diabetes mellitus with diabetic chronic kidney disease, unspecified CKD stage, unspecified whether buttermaker insulin use (ICD-10 - E11.22) 04/24/2025 Type 2 diabetes mellitus with diabetic chronic kidney disease, unspecified CKD stage, unspecified whether fci insulin use (ICD-10 - E11.22) 04/24/2025 Stage 3b chronic kidney disease (CKD) (ICD-10 - N18.32) 04/24/2025 Stented coronary artery (ICD-10 - Z95.5) 12/01/2024 BMI 25.0-25.9,adult (ICD-10 - Z68.25) 01/23/2025 PAD (peripheral artery disease) (ICD-10 - I73.9) 11/21/2024 BMI 25.0-25.9,adult (ICD-10 - Z68.25) 10/17/2024 Hepatic cirrhosis, unspecified hepatic cirrhosis type, unspecified whether ascites present (ICD-10 - K74.60) 07/28/2024 Renal failure (ICD-10 - N19) 07/28/2024 Stage 3b chronic kidney disease (CKD) (ICD-10 - N18.32) 10/17/2024 Claudication (ICD-10 - I73.9) 01/23/2025 Stage 3b chronic kidney disease (CKD) (ICD-10 - N18.32) 04/24/2025 Chronic constipation (ICD-10 - K59.09) 04/24/2025 Diabetic peripheral neuropathy (ICD-10 - E11.42) 10/17/2024 Type 2 diabetes mellitus with diabetic chronic kidney disease, unspecified CKD stage, unspecified whether fci insulin use (ICD-10 - E11.22) 01/23/2025 Memory [...] Of Treatment Next Appt Details Provider Name:Natasha arevalo, 08/24/2025 02:15:00 PM, [address], [place], [place], [phone], Insurance Providers Payer Name Payer Address Payer Phone Subscriber Number Group Number Insured Name Patient Relationship to Insured Coverage Start Date Coverage End Date [employer] (MEDICAR E) [address] [address] [place] [address] [id number] PRERNA STOCK Self - patient is the [...] Dr. Sekou Shoemaker, polyps 07/2021 C Diff- [facility] 2021 Pancreatitis [facility] 2020
--- OUTSIDE RECORDS SUMMARY | 2025-05-16 12:44 | XMS_ITS | Clinical Summary ---
Author Organization Healthcare Address [address] [place] [address] Care Team Providers Care Sample Paster Name Role Phone Alvin Bermudez MD Primary Care Provider [phone] Allergies Active Allergy Reactions Criticality Noted Date [...] Description 05/19/2025 10:40 AM EST Office Visit [facility] [address] [place] [id number] Charlie Early MD [address] [place] [address] Health Maintenance Due Date Last Done Comments [facility]-Depression Screening 1954 [facility]-Diabetes: Hemoglobin A1C 1954 [facility]-Hepatitis C Screening 1954 [facility]Medicare Annual Wellness (AWV) 1954 [facility]-Infant/Child/Adol SDOH Screenings 1954 Diabetes: Dental Exam 1964 [facility]- SDOH Screenings 1972 [facility]-Adult SDOH Screenings 1972 [facility]-DTaP,Tdap,and Td Vaccines (1 - Tdap) 1973 [facility]-Pneumococcal Vaccine: 50+ Years (1 of 2 - PCV) 1973 CT Colonography 12/08/1999 Colonoscopy 12/08/1999 FIT-DNA 12/08/1999 FIT 12/08/1999 FOBT 12/08/1999 Sigmoidoscopy 12/08/1999 [facility]-Colorectal Cancer Screening 12/08/1999 [facility]-Abdominal Aortic Aneurysm (AAA) Screening 12/08/2019 [id number] Vaccine ( season) 2025 02/11/2024, 02/25/2023, 02/24/2022, Additional history exists [facility]-Influenza Vaccine (#1) 01/30/202502/10, 02/25/2023, 02/24/2022, Additional history exists [facility]-RSV Vaccine: 60+ Years or Completed 05/19/2023 [facility]-Zoster Vaccines Completed 06/25/2023, [facility]-Obesity Intervention Completed 025, 08/05/2024, 03/18/2024, Additional history exists HPV Vaccines (No Doses Required) Completed [facility]-HIB Vaccines Aged Out No longer e [...] this topic Insurance [employer] Care Teams Sample Paster Relationship Specialty Start Date End Date Alvin Bermudez MD [address] [place] [address] PCP - General 03/06/22
[2025-05-16 12:45] LABS: Microscopic, Urine URINE MICROSCOPIC (MICROSCOPIC)
[2025-05-16 13:22] LABS: Hematocrit 38.4 % (42.0-52.0); Hemoglobin 13.0 g/dL (14.1-18.0); Mean Corpuscular HGB Conc 33.9 g/dL (31.8-35.4); Mean Corpuscular Hemoglobin 30.6 pg (27.0-31.2); Mean Corpuscular Volume 90.4 fl (80-94); Nucleated Red Blood Cells % 0 %; Platelet Count 130 K/mm3 (142-424); Red Blood Count 4.25 M/mm3 (4.60-6.20); Red Cell Distribution Width-SD 45.9 fL; White Blood Count 6.0 K/mm3 (4.8-10.8)
[2025-05-16 14:01] LABS: Bilirubin,Urine Negative (Negative); Color,Urine YELLOW (Yellow); Glucose,Urine (UA) 3+ (Negative); Ketones,Urine Negative (Negative); Leukocyte Esterase,Urine Negative (Negative); PH,Urine 6.0 (5.0-8.5); Protein,Urine 1+ (Negative); Specific Gravity, Urine 1.015 (1.005-1.030); Urobilinogen,Urine 0.2 EU/dl (0.2)
[2025-05-16 14:13] LABS: 25-OH Vitamin D, Total 57.2 ng/mL (30-100)
[2025-05-16 14:33] LABS: Squamous Epithelial Cell,Urine Occasional #/hpf (0-5); WBC,Urine Occasional #/hpf (0-3)
[2025-05-16 15:42] LABS: Albumin Level 4.7 g/dl (3.5-5.0); Anion Gap 15.0 mEq/L (5-15); Calcium 9.4 mg/dl (8.4-10.2); Carbon Dioxide 26 mmol/L (22.0-30.0); Chloride 99 mmol/L (98-107); Creatinine,Serum 2.80 mg/dl (0.66-1.25); Estimated Glomerular Filt Rate 23 ml/min (>60); GFR (African American) 27 ML/MIN (>60); Glucose 292 mg/dl (74-100); Phosphorous 5.4 mg/dl (2.5-4.5); Potassium 4.0 mmoL/L (3.5-5.1); Sodium 136 mmol/L (136-145)
[2025-05-16 15:55] LABS: Blood Urea Nitrogen 83 mg/dl (9-20)
== END 2025-05-16 23:59 | disposition home or self-care (01) ==
LOC: LAB 12:40
PROVIDERS: PCP Family Medicine; Visit Provider Student in an Organized Health Care Education/Training Program
DX: I12.9 Hypertensive chronic kidney disease with stage 1 through stage 4 chronic kidney disease, or unspecified chronic kidney disease (principal); N18.32 Chronic kidney disease, stage 3b
CPT/HCPCS: 36415; 80069; 81001; 82043; 82306; 82570; 83970; 84156; 85027